=== PATIENT | female | born 1970 | race African-American/Black ===

== ENCOUNTER 2018-10-05 21:31 | Inpatient (IN) | payer OTHER ==
[2018-10-05 23:50] VITALS: BMI 29.2
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
[2018-10-06] MEDS ORDERED: DICYCLOMINE HCL 10 MG CAPSULE PO PRN (03:33)
[2018-10-06] MEDS ORDERED: NICOTINE POLACRILEX 2 MG GUM BUC PRN (03:33)
[2018-10-06] MEDS ORDERED: METHOCARBAMOL 500 MG TABLET PO PRN (03:33)
[2018-10-06] MEDS ORDERED: MAGNESIUM HYDROX 2400MG/30ML ORAL SUSPENSION 30 ML CUP PO PRN (03:33)
[2018-10-06] MEDS ORDERED: ACETAMINOPHEN 325 MG TABLET (FP) PO PRN ×2 (03:33)
[2018-10-06] MEDS ORDERED: hydrOXYzine PAMOATE 25 MG CAPSULE (FP) PO PRN (03:33)
[2018-10-06] MEDS ORDERED: IBUPROFEN 400 MG TABLET (FP) PO PRN (03:33)
[2018-10-06] MEDS ORDERED: BISMUTH SUBSALICYLATE 524 MG/30 ML UD PO PRN (03:33)
[2018-10-06] MEDS ORDERED: MELATONIN 5 MG TABLETS PO PRN (03:33)
[2018-10-06] MEDS ORDERED: P-EPHED 60MG/TRIPROLIDI 2.5MG TABLET PO PRN (03:33)
[2018-10-06] MEDS ORDERED: MAGNESIUM CITRATE 300 ML BOTTLE PO PRN (03:33)
[2018-10-06] MEDS ORDERED: MENTHOL/PHENOL 1 EACH UD MM PRN (03:33)
[2018-10-06] MEDS ORDERED: MAG HYDROX/AL HYDROX/SIMETH 30 ML UNIT-DOSE CUP PO PRN (03:33)
[2018-10-06] MEDS ORDERED: chlordiazePOXIDE HCL 25 MG CAPSULE PO PRN (03:33)
[2018-10-06] MEDS ORDERED: guaiFENesin 200 MG/10 ML 10 ML UNIT-DOSE CUPS PO PRN (03:33)
[2018-10-06] MEDS ORDERED: ONDANSETRON *ODT* 4 MG TABLET SL PRN (03:33)
[2018-10-06] MEDS: chlordiazePOXIDE HCL 25 MG CAPSULE PO SCH ×4 (04:37→22:26)
--- NOTE | 2018-10-06 08:45 | EKG ---
Test Reason : Blood Pressure : / mmHG Vent. Rate : 045 BPM Atrial Rate : 045 BPM P-R Int : 216 ms QRS Dur : 084 ms QT Int : 528 ms P-R-T Axes : 052 058 071 degrees QTc Int : 456 ms SINUS BRADYCARDIA WITH 1ST DEGREE A-V BLOCK OTHERWISE NORMAL ECG WHEN COMPARED WITH ECG OF 15-JAN-2011 09:21, [place] INTERVAL HAS INCREASED VENT. RATE HAS DECREASED BY 36 BPM NONSPECIFIC T WAVE ABNORMALITY NO LONGER EVIDENT IN INFERIOR LEADS Confirmed by AMARJIT SIGALA MD ([id number]) on 10/06/2018 8:44:55 AM Referred By: Thierno Garces Confirmed By:AMARJIT SIGALA MD
[2018-10-06] MEDS: NICOTINE 21 MG/24 HOURS TOPICAL PATCH TD SCH (10:36)
[2018-10-06] MEDS: PRENATAL VITAMINS W/ FOLIC ACID TABLET (FP) PO SCH (10:36)
[2018-10-06] MEDS ORDERED: PNEUMOC 13-VAL CONJ-DIP CRM/PF 0.5 ML DISP.SYRIN IM ONE (12:00)
[2018-10-06] MEDS ORDERED: PNEUMOCOCCAL 23 VACCINE 0.5 ML VIAL IM ONE (12:00)
[2018-10-06 12:25] LABS: HEMATOCRIT 40.3 % (32.4-45.2); HEMOGLOBIN 13.2 GM/dL (10.7-15.3); MCH 29.4 pg (25.7-33.7); MCHC 32.7 g/dl (32.0-36.0); MEAN CELL VOLUME 90.1 fl (80-96); MEAN PLT VOLUME 7.2 fl (7.5-11.1); RBC 4.48 M/mm3 (3.60-5.2); RDW 15.3 % (11.6-15.6)
[2018-10-06 12:30] LABS: PLATELET COUNT 279 K/MM3 (134-434)
[2018-10-06 12:51] LABS: ALBUMIN 3.5 g/dl (3.4-5.0); BILIRUBIN,TOTAL 0.5 mg/dL (0.2-1); BLOOD UREA NITROGEN 7.6 mg/dL (7-18); CALCIUM 9.2 mg/dL (8.5-10.1); CREATININE 0.7 mg/dL (0.55-1.3); POTASSIUM 3.7 mmol/L (3.5-5.1); TOT PROT 6.9 g/dl (6.4-8.2)
[2018-10-06] MEDS: HYDROCORTISONE 1% TOPICAL OINT 30 GM TUBE TP SCH ×2 (13:46→22:27)
--- NOTE | 2018-10-06 15:02 | CONSULT ---
[facility] Psychiatric Consult - Data Date of interview: 10/06/18 Admission source: [facility] Identifying data: [place] [facility] [place] 48 y/o AA female self- referred for detoxification (alcohol, cocaine, cannabis). Examined at [address] [place] [address]. Patient is single, a mother of one, homeless, unemployed and supported on SSI benefits. Substance Abuse History: Discussed in this session. this substance abuse prfile is confirmed by patient. Details in current [facility] report : Smoking history: Current every day smoker. Have you smoked in the past 12 months: Yes. Aproximately how many cigarettes per day: 10. Cigars Per Day: 0. Hx Chewing Tobacco Use: No. Initiated information on smoking cessation: Yes. 'Breaking Loose' booklet given: 10/06/18. - Substance & Tx. History. Hx Alcohol Use: Yes. Hx Substance Use: Yes. Substance Use Type: Alcohol. Hx Substance Use Treatment: Yes ([facility]). - Substances abused. Alcohol. Other (specify): BEER /LIQUOR. Substance route: Oral. Frequency: Daily. Amount used: 2-40OZ/2PINT. Age of first use: 4. Date of last use: 10/05/18. Crack. Substance route : Smoking. Frequency: 1-2 times per week. Amount used: 4 bags. Age of first use: 17. Date of last use: 10/05/18 Medical History: Remarkable for psoriasis, bronchial asthma and a distant history of orthosurgery, in 1993, for fracture of right ankle (hardware in situ) . Psychiatric History: Patient endorses a remote history of psychiatric hospitalization at [facility]. Ms Daly used to attend outpatient care at the [facility] in [place]. Diagnosed with Schizophrenia and currently maintained on a regimen of haloperidol decanoate 200 mg IM monthly (received on 10/05/18, as per self-report) + cogentin 1 mg po bid + gabapentin 800 mg po tid. Patient states she no longer goes to [facility] OPD clinic. " I get my shot from the emergency room at [facility] " . Patient reports a history of one suicide attempt via overdose with pills (1993 ). Physical/Sexual Abuse/Trauma History: Patient denies. Additional Comment: Urine drug screen results: THC-Marijuana, INA-Cocaine. Noted. Mental Status Exam - Mental Status Exam Alert and Oriented to: Time, Place, Person Cognitive Function: Good Patient Appearance: Unkempt, Disheveled Mood: Withdrawn Affect: Blunted Patient Behavior: Fatigued, Appropriate, Cooperative Speech Pattern: Clear, Appropriate Voice Loudness: Normal Thought Process: Goal Oriented Thought Disorder: Not Present Hallucinations: Denies Suicidal Ideation: Denies Homicidal Ideation: Denies Insight/Judgement: Poor Sleep: Well Appetite: Good Muscle strength/Tone: Normal Gait/Station: Normal Psychiatric Findings - Problem List ([place] 1, 2,3) (1) Alcohol dependence with uncomplicated withdrawal Current Visit: Yes Status: Acute (2) Cannabis dependence Current Visit: Yes Status: Acute (3) Cocaine dependence, uncomplicated Current Visit: Yes Status: Chronic (4) Nicotine dependence Current Visit: Yes Status: Chronic Qualifiers: Nicotine product type: cigarettes Substance use status: uncomplicated Qualified Code(s): F17.210 - Nicotine dependence, cigarettes, uncomplicated Comment: counseled cessation, using gum (5) Substance induced mood disorder Current Visit: Yes Status: Chronic (6) Schizoaffective disorder Current Visit: Yes Status: Chronic - Initial Treatment Plan Initial Treatment Plan: Psychoeducation. Sleep hygiene. Detoxification. AA meetings. Medications resumed as : cogentin 1 mg po bid. Side effects/benefits discussed with patient. Verbal consent given to MD. Salazar.
--- NOTE | 2018-10-06 15:02 | PN ---
[facility] CIWA - CIWA Score Nausea/Vomitin-No Nausea/No Vomiting Muscle Tremors: 2 Anxiety: 4-Mod. Anxious/Guarded Agitation: 1-Slight > Activity Paroxysmal Sweats: No Perspiration Orientation: 2-Disoriented Date<2 days Tacttile Disturbances: 3-Moderate Itch/Numb/Burn Auditory Disturbances: 0-None Visual Disturbances: 2-Mild Sensitivity Headache: 0-None Present CIWA-Ar Total Score: 14 S Progress Note (SOAP) Subjective: Anxious, Fatigue, Interrupted Sleep. Objective: PATIENT A & O X 2 (UNCERTAIN ABOUT CURRENT DAY / DATE). PATIENT OBSERVED AMBULATING ON UNIT UNASSISTED. IN NO ACUTE DISTRESS. 10/06/18 15:01 Vital Signs Temperature 96.7 F L 10/06/18 13:34 Pulse Rate 83 10/06/18 13:34 Respiratory Rate 16 10/06/18 13:34 Blood Pressure 105/69 10/06/18 13:34 O2 Sat by Pulse Oximetry (%) Laboratory Tests 10/06/18 10/06/18 10/06/18 07:30 07:30 07:30 WBC 4.0 RBC 4.48 Hgb 13.2 Hct 40.3 MCV 90.1 MCH 29.4 MCHC 32.7 RDW 15.3 Plt Count 279 MPV 7.2 L Sodium 140 Potassium 3.7 Chloride 102 Carbon Dioxide 31 Anion Gap 7 L BUN 7.6 Creatinine 0.7 Est GFR (CKD-EPI)AfAm 117.91 Est GFR (CKD-EPI)NonAf 101.74 Random Glucose 92 Calcium 9.2 Total Bilirubin 0.5 AST 17 ALT 18 Alkaline Phosphatase 74 Total Protein 6.9 Albumin 3.5 HIV 1&2 Antibody Screen Negative HIV P24 Antigen Negative LABS NOTED. RPR RESULT PENDING. 10/06/18 15:02 Assessment: 10/06/18 15:01 WITHDRAWAL SYMPTOMS. Plan: CONTINUE DETOX.
--- NOTE | 2018-10-06 15:03 | PN ---
S CIWA - CIWA Score Nausea/Vomitin-Mild Nausea/No Vomiting Muscle Tremors: 2 Anxiety: 1-Mildly Anxious Agitation: 1-Slight > Activity Paroxysmal Sweats: 1-Minimal Palms Moist Orientation: 0-Oriented Tacttile Disturbances: 0-None Auditory Disturbances: 0-None Visual Disturbances: 0-None Headache: 0-None Present CIWA-Ar Total Score: 6 [facility] Progress Note (SOAP) Subjective: pt states she is still feeling weak, was admitted early this morning, would like an ointment for eczema O: Vital Signs - 24 hr 10/05/18 10/06/18 10/06/18 23:36 03:51 04:27 Temperature 97.7 F 97.7 F 97.1 F L Pulse Rate 76 76 62 Respiratory 20 20 18 Rate Blood Pressure 100/75 100/75 120/72 10/06/18 10/06/18 10/06/18 06:30 09:28 13:34 Temperature 97.6 F 96.7 F L Pulse Rate 88 83 Respiratory 18 18 16 Rate Blood Pressure 109/80 105/69 Laboratory Tests 10/06/18 10/06/18 10/06/18 07:30 07:30 07:30 WBC 4.0 RBC 4.48 Hgb 13.2 Hct 40.3 MCV 90.1 MCH 29.4 MCHC 32.7 RDW 15.3 Plt Count 279 MPV 7.2 L Sodium 140 Potassium 3.7 Chloride 102 Carbon Dioxide 31 Anion Gap 7 L BUN 7.6 Creatinine 0.7 Est GFR (CKD-EPI)AfAm 117.91 Est GFR (CKD-EPI)NonAf 101.74 Random Glucose 92 Calcium 9.2 Total Bilirubin 0.5 AST 17 ALT 18 Alkaline Phosphatase 74 Total Protein 6.9 Albumin 3.5 HIV 1&2 Antibody Screen Negative HIV P24 Antigen Negative a/p: continue alcohol detox protocol steroid skin ointment ordered for psoriasis
[2018-10-06] MEDS ORDERED: FLUOCINONIDE 0.05% TOP OINT (60 GM TUBE) TP SCH (22:00)
[2018-10-06] MEDS: THIAMINE HCL 100 MG TABLET (FP) PO SCH (22:26)
[2018-10-06] MEDS: BENZTROPINE MESYLATE 1 MG TABLET (FP) PO SCH (22:26)
[2018-10-07] MEDS: chlordiazePOXIDE HCL 25 MG CAPSULE PO SCH ×4 (05:29→22:21)
[2018-10-07 09:05] LABS: RPR REACTIVE 1:2 (NONREACTIVE)
[2018-10-07] MEDS: NICOTINE 21 MG/24 HOURS TOPICAL PATCH TD SCH (10:28)
[2018-10-07] MEDS: BENZTROPINE MESYLATE 1 MG TABLET (FP) PO SCH ×2 (10:28→22:21)
[2018-10-07] MEDS: PRENATAL VITAMINS W/ FOLIC ACID TABLET (FP) PO SCH (10:28)
[2018-10-07] MEDS: HYDROCORTISONE 1% TOPICAL OINT 30 GM TUBE TP SCH ×2 (10:29→22:21)
[2018-10-07 10:53] LABS: TREPONEMA ANTIBODY REACTIVE (NONREACTIVE)
--- NOTE | 2018-10-07 13:46 | PN ---
[facility] CIWA - CIWA Score Nausea/Vomitin-No Nausea/No Vomiting Muscle Tremors: None Anxiety: 3 Agitation: 0-Normal Activity Paroxysmal Sweats: No Perspiration Orientation: 2-Disoriented Date<2 days Tacttile Disturbances: 1-Very Mild Itch/Numbness Auditory Disturbances: 0-None Visual Disturbances: 2-Mild Sensitivity Headache: 0-None Present CIWA-Ar Total Score: 8 S Progress Note (SOAP) Subjective: Anxious, Fatigue, Interrupted Sleep. Objective: PATIENT A & O X 2 (UNCERTAIN ABOUT CURRENT DAY / DATE). IN NO ACUTE DISTRESS. 10/07/18 13:46 Vital Signs Temperature 98.9 F 10/07/18 13:13 Pulse Rate 65 10/07/18 13:13 Respiratory Rate 18 10/07/18 13:13 Blood Pressure 118/75 10/07/18 13:13 O2 Sat by Pulse Oximetry (%) Laboratory Tests 10/06/18 10/06/18 10/06/18 07:30 07:30 07:30 WBC 4.0 RBC 4.48 Hgb 13.2 Hct 40.3 MCV 90.1 MCH 29.4 MCHC 32.7 RDW 15.3 Plt Count 279 MPV 7.2 L Sodium 140 Potassium 3.7 Chloride 102 Carbon Dioxide 31 Anion Gap 7 L BUN 7.6 Creatinine 0.7 Est GFR (CKD-EPI)AfAm 117.91 Est GFR (CKD-EPI)NonAf 101.74 Random Glucose 92 Calcium 9.2 Total Bilirubin 0.5 AST 17 ALT 18 Alkaline Phosphatase 74 Total Protein 6.9 Albumin 3.5 RPR Titer Reactive 1:2 H T.pallidum Ab (MHA) Reactive HIV 1&2 Antibody Screen HIV P24 Antigen 10/06/18 07:30 WBC RBC Hgb Hct MCV MCH MCHC RDW Plt Count MPV Sodium Potassium Chloride Carbon Dioxide Anion Gap BUN Creatinine Est GFR (CKD-EPI)AfAm Est GFR (CKD-EPI)NonAf Random Glucose Calcium Total Bilirubin AST ALT Alkaline Phosphatase Total Protein Albumin RPR Titer T.pallidum Ab (MHA) HIV 1&2 Antibody Screen Negative HIV P24 Antigen Negative LABS NOTED. ADMISSION RPR RESULT NOTED TO BE REACTIVE 1:2, MHATP: REACTIVE. PATIENT REPORTS THAT SHE COMPLETED A FULL COURSE OF TREATMENT FOR SYPHILIS IN THE PAST. 10/07/18 13:47 Assessment: 10/07/18 13:47 WITHDRAWAL SYMPTOMS. REACTIVE RPR RESULT. Plan: CONTINUE DETOX. ENCOURAGE AMBULATION.
[2018-10-07] MEDS: THIAMINE HCL 100 MG TABLET (FP) PO SCH (22:20)
[2018-10-08] MEDS ORDERED: chlordiazePOXIDE HCL 10 MG CAPSULE PO PRN (05:00)
[2018-10-08] MEDS: chlordiazePOXIDE HCL 10 MG CAPSULE PO SCH ×4 (06:04→22:23)
[2018-10-08] MEDS: HYDROCORTISONE 1% TOPICAL OINT 30 GM TUBE TP SCH ×2 (10:25→22:24)
[2018-10-08] MEDS: PRENATAL VITAMINS W/ FOLIC ACID TABLET (FP) PO SCH (10:26)
[2018-10-08] MEDS: BENZTROPINE MESYLATE 1 MG TABLET (FP) PO SCH ×2 (10:26→22:23)
[2018-10-08] MEDS: NICOTINE 21 MG/24 HOURS TOPICAL PATCH TD SCH (10:27)
--- NOTE | 2018-10-08 14:08 | PN ---
S CIWA - CIWA Score Nausea/Vomitin-No Nausea/No Vomiting Muscle Tremors: 2 Anxiety: 1-Mildly Anxious Agitation: 1-Slight > Activity Paroxysmal Sweats: 1-Minimal Palms Moist Orientation: 0-Oriented Tacttile Disturbances: 0-None Auditory Disturbances: 0-None Visual Disturbances: 0-None Headache: 1-Very Mild CIWA-Ar Total Score: 6 [facility] Progress Note (SOAP) Subjective: sweats feeling better i need my psych medication Objective: 10/08/18 14:07 Vital Signs Temperature 97.1 F L 10/08/18 09:59 Pulse Rate 72 10/08/18 09:59 Respiratory Rate 18 10/08/18 09:59 Blood Pressure 109/77 10/08/18 09:59 O2 Sat by Pulse Oximetry (%) aaox3 ambulating no acute distress Assessment: 10/08/18 14:08 mild withdrawal sx Plan: continue detox increase fluids psych seen pt and medication ordered.
[2018-10-08 18:14] LABS: URINE APPEARANCE CLEAR; URINE BILIRUBIN 1+ (NEGATIVE); URINE COLOR DK YELLOW; URINE GLUCOSE (UA) NEGATIVE (NEGATIVE); URINE KETONE TRACE (NEGATIVE); URINE LEUK ESTERASE NEGATIVE (NEGATIVE); URINE NITRITE NEGATIVE (NEGATIVE); URINE PROTEIN NEGATIVE (NEGATIVE)
--- NOTE | 2018-10-08 18:22 | PN ---
[facility] Progress Note Note: Psychiatry Attending's note : Approached by patient. Ms Daly wants to resume gabapentin. She claimed to be on 800 mg po tid, prior to [facility] visit. Intervention : gabapentin 300 mg po tid. Informed consent given. Will follow.
[2018-10-08] MEDS: THIAMINE HCL 100 MG TABLET (FP) PO SCH (22:22)
[2018-10-08] MEDS: GABAPENTIN 300 MG CAPSULE (FP) PO SCH (22:23)
[2018-10-09] MEDS: chlordiazePOXIDE HCL 10 MG CAPSULE PO SCH ×2 (05:37→17:57)
[2018-10-09] MEDS: GABAPENTIN 300 MG CAPSULE (FP) PO SCH ×3 (05:37→22:14)
[2018-10-09] MEDS: BENZTROPINE MESYLATE 1 MG TABLET (FP) PO SCH ×2 (10:26→22:14)
[2018-10-09] MEDS: HYDROCORTISONE 1% TOPICAL OINT 30 GM TUBE TP SCH ×2 (10:26→22:15)
[2018-10-09] MEDS: PRENATAL VITAMINS W/ FOLIC ACID TABLET (FP) PO SCH (10:26)
[2018-10-09] MEDS: NICOTINE 21 MG/24 HOURS TOPICAL PATCH TD SCH (10:26)
--- NOTE | 2018-10-09 13:40 | PN ---
S CIWA - CIWA Score Nausea/Vomitin-No Nausea/No Vomiting Muscle Tremors: 2 Anxiety: 2 Agitation: 3 Paroxysmal Sweats: 2 Orientation: 0-Oriented Tacttile Disturbances: 0-None Auditory Disturbances: 0-None Visual Disturbances: 0-None Headache: 0-None Present CIWA-Ar Total Score: 9 BHS Progress Note (SOAP) Subjective: shakes Objective: 10/09/18 13:39 A & O x 3 Gait steady Vital Signs Temperature 97.2 F L 10/09/18 10:00 Pulse Rate 71 10/09/18 10:00 Respiratory Rate 18 10/09/18 10:00 Blood Pressure 126/78 10/09/18 10:00 O2 Sat by Pulse Oximetry (%) Assessment: 10/09/18 13:39 withdrawal sx Plan: continue detox
[2018-10-09] MEDS: THIAMINE HCL 100 MG TABLET (FP) PO SCH (22:14)
[2018-10-09 22:50] VITALS: TEMP 97.9
[2018-10-10] MEDS: chlordiazePOXIDE HCL 10 MG CAPSULE PO SCH (06:30)
[2018-10-10 07:06] VITALS: BP 96/66; PULSE 58
[2018-10-10] MEDS: GABAPENTIN 300 MG CAPSULE (FP) PO SCH (07:51)
[2018-10-10] MEDS: PRENATAL VITAMINS W/ FOLIC ACID TABLET (FP) PO SCH (10:13)
[2018-10-10] MEDS: HYDROCORTISONE 1% TOPICAL OINT 30 GM TUBE TP SCH (10:13)
[2018-10-10] MEDS: NICOTINE 21 MG/24 HOURS TOPICAL PATCH TD SCH (10:13)
[2018-10-10] MEDS: BENZTROPINE MESYLATE 1 MG TABLET (FP) PO SCH (10:13)
--- NOTE | 2018-10-10 12:05 | DS ---
[facility] Detox Discharge Summary Admission Date: 10/06/18 Discharge Date: 10/10/18 - History Present History: Alcohol Dependence, Cocaine Dependence - Physical Exam Results Vital Signs: Vital Signs Temperature 97.9 F 10/10/18 06:00 Pulse Rate 58 L 10/10/18 06:00 Respiratory Rate 18 10/10/18 06:00 Blood Pressure 96/66 10/10/18 06:00 O2 Sat by Pulse Oximetry (%) - Treatment Hospital Course: Detox Protocol Followed, Detoxed Safely, Responded well, Discharged Condition Good, Rehab Referral Accepted - Medication Discharge Medications: Ambulatory Orders Gabapentin [Neurontin] 800 mg PO TID 07/19/14 Haloperidol Decanoate [Haldol Decanoate 100] 200 mg IM MONTHLY 07/19/14 Ergocalciferol (Vitamin D2) [Vitamin D] 50,000 unit PO WEEKLY 10/20/14 Benztropine Mesylate Injection [Cogentin Injection -] 1 amp IM MONTHLY 10/05/18 - Diagnosis (1) Alcohol dependence with uncomplicated withdrawal Current Visit: Yes Status: Chronic (2) Cannabis dependence Current Visit: Yes Status: Chronic (3) Asthma Current Visit: Yes Status: Chronic (4) Cocaine dependence, uncomplicated Current Visit: Yes Status: Chronic (5) Nicotine dependence Current Visit: Yes Status: Chronic Qualifiers: Nicotine product type: cigarettes Substance use status: uncomplicated Qualified Code(s): F17.210 - Nicotine dependence, cigarettes, uncomplicated (6) Psoriasis Current Visit: Yes Status: Chronic (7) Schizoaffective disorder Current Visit: Yes Status: Chronic (8) Substance induced mood disorder Current Visit: Yes Status: Chronic (9) Ankle pain, right Current Visit: No Status: Chronic Qualifiers: Chronicity: unspecified Qualified Code(s): M25.571 - Pain in right ankle and joints of right foot (10) Chronic pain Current Visit: Yes Status: Chronic Qualifiers: Chronic pain type: other chronic pain Qualified Code(s): G89.29 - Other chronic pain (11) chronic Rt ankle pain Current Visit: No Status: Chronic (12) schizoid personality disorder Current Visit: No Status: Chronic - AMA Did Patient Leave Against Medical Advice: No (referred to [facility])
== END 2018-10-10 12:03 | disposition home or self-care (01) | DRG 774 ==
LOC: YASAS 21:31 → Y3N 10-06 03:10 → Y6N 10-09 01:24
PROVIDERS: ADMIT Surgery; ATTEND Surgery
PROC: HZ2ZZZZ Detoxification Services for Substance Abuse Treatment (ICD-10-PCS; principal; 2018-10-06)
DX: F10.230 Alcohol dependence with withdrawal, uncomplicated (principal); F14.20 Cocaine dependence, uncomplicated; F12.20 Cannabis dependence, uncomplicated; F17.210 Nicotine dependence, cigarettes, uncomplicated; F19.24 Other psychoactive substance dependence with psychoactive substance-induced mood disorder; F25.9 Schizoaffective disorder, unspecified; F31.9 Bipolar disorder, unspecified; E05.90 Thyrotoxicosis, unspecified without thyrotoxic crisis or storm; J45.909 Unspecified asthma, uncomplicated; L40.9 Psoriasis, unspecified; M25.571 Pain in right ankle and joints of right foot; G89.29 Other chronic pain; Z86.19 Personal history of other infectious and parasitic diseases; Z91.89 Other specified personal risk factors, not elsewhere classified; Z59.0 Homelessness
CPT/HCPCS: 36415; 80053; 81003; 85027; 86593; 86780; 87389; 90732; 93005; 93010; G0009

== ENCOUNTER 2018-10-10 12:00 | Inpatient (IN) | payer OTHER ==
--- NOTE | 2018-10-10 15:25 | HP ---
[facility] Rehab Assess/Revision - Admission History Admitted to Rehab from: Y [address] [place] [address] - Vital signs Vital Signs: Vital Signs Period Temp Pulse Resp BP Sys/Vincent Pulse Ox Last 24 Hr 97.7 F 85 18 100/69 - Findings Detox History & Physical reviewed: Yes Concur with findings: Yes Inpatient Rehab Admission - Rehab Decision to Admit Inpatient rehab admission?: Yes - Initial Determination Are CD services needed?: Yes Free of communicable disease: Yes Not in need of hospitalization: Yes - Rehab Admission Criteria Previous failed treatment: Yes Poor recovery environment: Yes Comorbidities: Yes Lacks judgement: Yes Patient is meeting Inpatient Rehab admission criteria:: Yes
[2018-10-10] MEDS ORDERED: P-EPHED 60MG/TRIPROLIDI 2.5MG TABLET PO PRN (15:26)
[2018-10-10] MEDS ORDERED: NICOTINE POLACRILEX 4 MG GUM BUC PRN (15:26)
[2018-10-10] MEDS ORDERED: LOPERAMIDE HCL 2 MG CAPSULE PO PRN (15:26)
[2018-10-10] MEDS ORDERED: MAGNESIUM CITRATE 300 ML BOTTLE PO PRN (15:26)
[2018-10-10] MEDS ORDERED: guaiFENesin 200 MG/10 ML 10 ML UNIT-DOSE CUPS PO PRN (15:26)
[2018-10-10] MEDS ORDERED: hydrOXYzine PAMOATE 50 MG CAPSULE (FP) PO PRN (15:26)
[2018-10-10] MEDS ORDERED: MAG HYDROX/AL HYDROX/SIMETH 30 ML UNIT-DOSE CUP PO PRN (15:26)
[2018-10-10] MEDS ORDERED: MENTHOL/PHENOL 1 EACH UD MM PRN (15:26)
[2018-10-10] MEDS ORDERED: MAGNESIUM HYDROX 2400MG/30ML ORAL SUSPENSION 30 ML CUP PO PRN (15:26)
[2018-10-10] MEDS: MELATONIN 5 MG TABLETS PO PRN (21:39)
[2018-10-10] MEDS: THIAMINE HCL 100 MG TABLET (FP) PO SCH (21:39)
[2018-10-11] MEDS: PRENATAL VITAMINS W/ FOLIC ACID TABLET (FP) PO SCH (09:38)
[2018-10-11] MEDS: NICOTINE 21 MG/24 HOURS TOPICAL PATCH TD SCH (10:20)
[2018-10-11] MEDS: BETAMETHASONE DIPR 0.05% OINT 45 GM TUBE TP SCH ×2 (11:01→21:26)
--- NOTE | 2018-10-11 13:22 | PN ---
[facility] Progress Note Note: Patient seen regarding Methimazole medication which she reports taking daily for years. Patient's PCP is Dr. Juan Gaona and preferred pharmacy is [facility]. Pharmacy called and prescription verified as Methimazole 10mg daily, last filled 09/15/18. Pharmacist states patient picks up medication monthly which is prescribed by Dr. Gaona. Medication ordered to continue treatment while in rehab. Vital Signs Temperature 97.2 F L 10/11/18 07:07 Pulse Rate 63 10/11/18 07:07 Respiratory Rate 18 10/11/18 07:07 Blood Pressure 113/76 10/11/18 07:07 O2 Sat by Pulse Oximetry (%)
[2018-10-11] MEDS: METHIMAZOLE 10 MG TABLET (FP) PO SCH (14:33)
--- NOTE | 2018-10-11 14:37 | CONSULT ---
[facility] Psychiatric Consult - Data Date of interview: 10/11/18 Admission source: Transfer from [address] [place] [address]. Identifying data: Detoxification completed at [address] [place] [address]. Transfer to [address] for this 48 y/o AA female seeking rehabilitative care for preservation of sobriety and to address substance disorder (alcohol, cocaine, cannabis) co- morbid with schizoaffective disorder. Re-interviewed at [facility]. Patient is single, a mother of one, homeless, unemployed and supported on SSI benefits. Substance Abuse History: Re-discussed in this session. Substance use disorder is confirmed by patient. Details in current [facility] report : Smoking history: Current every day smoker. Have you smoked in the past 12 months: Yes. Aproximately how many cigarettes per day: 10. Cigars Per Day: 0. Hx Chewing Tobacco Use: No. Initiated information on smoking cessation: Yes. 'Breaking Loose' booklet given: 10/06/18. - Substance & Tx. History. Hx Alcohol Use: Yes. Hx Substance Use: Yes. Substance Use Type: Alcohol. Hx Substance Use Treatment: Yes ([facility]). - Substances abused. Alcohol. Other (specify): BEER /LIQUOR. Substance route: Oral. Frequency: Daily. Amount used: 2-40OZ/2PINT. Age of first use: 4. Date of last use: 10/05/18. Crack. Substance route : Smoking. Frequency: 1-2 times per week. Amount used: 4 bags. Age of first use: 17. Date of last use: 10/05/18 Medical History: Remarkable for psoriasis, bronchial asthma and a distant history of orthosurgery, in 1993, for fracture of right ankle (hardware in situ) . Psychiatric History: No changes in psychiatric profile since encounter of with this sign writer letterer or painter. Refer to my note : " Patient endorses a remote history of psychiatric hospitalization at [facility]. Ms Daly used to attend outpatient care at the [facility] in [place]. Diagnosed with Schizophrenia and currently maintained on a regimen of haloperidol decanoate 200 mg IM monthly (received on 10/05/18, as per self-report) + cogentin 1 mg po bid + gabapentin 800 mg po tid. Patient states she no longer goes to [facility]. " I get my shot from the emergency room at [facility]" . Patient reports a history of one suicide attempt via overdose with pills (1993 )." Physical/Sexual Abuse/Trauma History: Patient denies. Additional Comment: Urine drug screen results: THC-Marijuana, INA-Cocaine. Noted on admission. Mental Status Exam - Mental Status Exam Alert and Oriented to: Time, Place, Person Cognitive Function: Good Patient Appearance: Well Groomed Mood: Hopeful, Euthymic Affect: Appropriate, Normal Range Patient Behavior: Appropriate, Cooperative Speech Pattern: Clear, Appropriate Voice Loudness: Normal Thought Process: Goal Oriented Thought Disorder: Not Present Hallucinations: Denies Suicidal Ideation: Denies Homicidal Ideation: Denies Insight/Judgement: Fair Sleep: Well Appetite: Good Muscle strength/Tone: Normal Gait/Station: Normal Psychiatric Findings - Problem List ([place] 1, 2,3) (1) Alcohol dependence Current Visit: Yes Status: Chronic (2) Cannabis dependence Current Visit: Yes Status: Chronic (3) Cocaine dependence, uncomplicated Current Visit: Yes Status: Chronic (4) Nicotine dependence Current Visit: Yes Status: Chronic Qualifiers: Nicotine product type: cigarettes Substance use status: uncomplicated Qualified Code(s): F17.210 - Nicotine dependence, cigarettes, uncomplicated Comment: counseled cessation, using gum (5) Schizoaffective disorder Current Visit: Yes Status: Chronic - Initial Treatment Plan Initial Treatment Plan: Psychoeducation. Groups. Counseling for maintenance of sobriety.AA meetings. Continue : cogentin 1 mg po bid. Added to the regimen, at patient's request : gabapentin 300 mg po tid (as a mood stabilizer). Side effects/benefits discussed with thepatient. Verbal consent given to MD. Salazar.
[2018-10-11] MEDS: THIAMINE HCL 100 MG TABLET (FP) PO SCH (21:23)
[2018-10-11] MEDS: GABAPENTIN 300 MG CAPSULE (FP) PO SCH (21:24)
[2018-10-11] MEDS: BENZTROPINE MESYLATE 1 MG TABLET (FP) PO SCH (21:25)
[2018-10-11] MEDS ORDERED: PT OWN MED DRAWER 7, Y5N ONE (21:25)
[2018-10-12] MEDS: GABAPENTIN 300 MG CAPSULE (FP) PO SCH ×3 (06:46→21:32)
[2018-10-12] MEDS ORDERED: PT OWN MED DRAWER 7, Y5N ONE (08:50)
[2018-10-12] MEDS: BETAMETHASONE DIPR 0.05% OINT 45 GM TUBE TP SCH ×2 (10:08→21:32)
[2018-10-12] MEDS: METHIMAZOLE 10 MG TABLET (FP) PO SCH (10:08)
[2018-10-12] MEDS: BENZTROPINE MESYLATE 1 MG TABLET (FP) PO SCH ×2 (10:08→21:32)
[2018-10-12] MEDS: PRENATAL VITAMINS W/ FOLIC ACID TABLET (FP) PO SCH (10:08)
[2018-10-12] MEDS: NICOTINE 21 MG/24 HOURS TOPICAL PATCH TD SCH (10:08)
[2018-10-12] MEDS: THIAMINE HCL 100 MG TABLET (FP) PO SCH (21:32)
[2018-10-12] MEDS: MELATONIN 5 MG TABLETS PO PRN (21:33)
[2018-10-13] MEDS: GABAPENTIN 300 MG CAPSULE (FP) PO SCH ×3 (06:04→21:29)
[2018-10-13] MEDS ORDERED: COLLOIDAL OATMEAL 1 BAR EACH TP PRN (08:14)
[2018-10-13] MEDS: PRENATAL VITAMINS W/ FOLIC ACID TABLET (FP) PO SCH (10:16)
[2018-10-13] MEDS: NICOTINE 21 MG/24 HOURS TOPICAL PATCH TD SCH (10:16)
[2018-10-13] MEDS: METHIMAZOLE 10 MG TABLET (FP) PO SCH (10:16)
[2018-10-13] MEDS: BENZTROPINE MESYLATE 1 MG TABLET (FP) PO SCH ×2 (10:16→21:29)
[2018-10-13] MEDS: BETAMETHASONE DIPR 0.05% OINT 45 GM TUBE TP SCH ×2 (10:18→21:31)
[2018-10-13] MEDS ORDERED: MINERAL OIL/PETROLAT/WATER TOPICAL CREAM 454 GM JAR TP PRN (11:01)
--- NOTE | 2018-10-13 11:08 | PN ---
S Progress Note (SOAP) Subjective: patient with rash on hands. Reports that it is chronic and she has been treated with oral medications for it in the past as well as topical medications. Objective: Rash on top, palm, wrists, and lower arms, round, raised, circular, hyperpigmented and scaly. On face, some hypopigmented spots. 10/13/18 11:06 Assessment: skin rash 10/13/18 11:07 Plan: Aveeno soap, eucerin cream and hydrocortisone 1% ordered.
[2018-10-13] MEDS: HYDROCORTISONE 1% TOPICAL CREAM 30 GM TUBE TP SCH ×2 (12:00→21:29)
[2018-10-13] MEDS: THIAMINE HCL 100 MG TABLET (FP) PO SCH (21:29)
[2018-10-13] MEDS: MELATONIN 5 MG TABLETS PO PRN (21:29)
[2018-10-13] MEDS: ACETAMINOPHEN 325 MG TABLET (FP) PO PRN (21:30)
[2018-10-14] MEDS: GABAPENTIN 300 MG CAPSULE (FP) PO SCH ×3 (06:40→21:38)
[2018-10-14] MEDS ORDERED: PT OWN MED DRAWER 7, Y5N ONE ×2 (08:28→21:40)
[2018-10-14] MEDS: BETAMETHASONE DIPR 0.05% OINT 45 GM TUBE TP SCH ×2 (09:48→21:38)
[2018-10-14] MEDS: HYDROCORTISONE 1% TOPICAL CREAM 30 GM TUBE TP SCH ×2 (09:49→21:40)
[2018-10-14] MEDS: METHIMAZOLE 10 MG TABLET (FP) PO SCH (09:49)
[2018-10-14] MEDS: BENZTROPINE MESYLATE 1 MG TABLET (FP) PO SCH ×2 (09:49→21:38)
[2018-10-14] MEDS: NICOTINE 21 MG/24 HOURS TOPICAL PATCH TD SCH (09:49)
[2018-10-14] MEDS: PRENATAL VITAMINS W/ FOLIC ACID TABLET (FP) PO SCH (09:49)
[2018-10-14] MEDS: IBUPROFEN 400 MG TABLET (FP) PO PRN (09:50)
[2018-10-14] MEDS: ACETAMINOPHEN 325 MG TABLET (FP) PO PRN (19:14)
[2018-10-14] MEDS: THIAMINE HCL 100 MG TABLET (FP) PO SCH (21:37)
[2018-10-14] MEDS: MELATONIN 5 MG TABLETS PO PRN (21:38)
[2018-10-15] MEDS: GABAPENTIN 300 MG CAPSULE (FP) PO SCH ×3 (06:37→21:15)
[2018-10-15] MEDS: IBUPROFEN 400 MG TABLET (FP) PO PRN ×2 (06:38→13:06)
[2018-10-15] MEDS ORDERED: PT OWN MED DRAWER 7, Y5N ONE ×2 (08:45→20:19)
[2018-10-15] MEDS: BENZTROPINE MESYLATE 1 MG TABLET (FP) PO SCH ×2 (09:54→21:15)
[2018-10-15] MEDS: PRENATAL VITAMINS W/ FOLIC ACID TABLET (FP) PO SCH (09:54)
[2018-10-15] MEDS: METHIMAZOLE 10 MG TABLET (FP) PO SCH (09:54)
[2018-10-15] MEDS: NICOTINE 21 MG/24 HOURS TOPICAL PATCH TD SCH (09:55)
[2018-10-15] MEDS: HYDROCORTISONE 1% TOPICAL CREAM 30 GM TUBE TP SCH ×2 (09:55→21:15)
[2018-10-15] MEDS: ACETAMINOPHEN 325 MG TABLET (FP) PO PRN ×2 (09:57→17:00)
[2018-10-15] MEDS: BETAMETHASONE DIPR 0.05% OINT 45 GM TUBE TP SCH ×2 (10:36→21:16)
--- NOTE | 2018-10-15 10:44 | PN ---
[facility] Progress Note Note: S/P DETOX FROM [facility] ON 10/10/18. PT C/O HEADACHE, FRONTAL X 2 DAYS. DENIES URI SYMPTOMS. ALERT O X 3. PT ALSO DEMANDING "ANTIBIOTICS TO BRING OUT EVERYTHING INSIDE BECAUSE I HAVE PSORIASIS" . PT BECAME VERY LOUD AND UNABLE TO BE REDIRECTED TO HISTORY TAKING AND STORMED OUT OF THE ROOM. HOWEVER, PT WAS SEEN FOR SKIN CONDITION BY A PROVIDER EARLIER AND IS ON TOPICAL MED. Vital Signs - 24 hr 10/15/18 10/15/18 10/15/18 00:30 03:30 07:02 Temperature 97.1 F L Pulse Rate 56 L Respiratory 18 18 18 Rate Blood Pressure 129/89 PLAN:MOTRIN OR TYLENOL PRN FOR HEADACHE.
[2018-10-15] MEDS: THIAMINE HCL 100 MG TABLET (FP) PO SCH (21:16)
[2018-10-15] MEDS: MELATONIN 5 MG TABLETS PO PRN (21:17)
[2018-10-16] MEDS: IBUPROFEN 400 MG TABLET (FP) PO PRN ×2 (06:08→14:15)
[2018-10-16] MEDS: GABAPENTIN 300 MG CAPSULE (FP) PO SCH ×3 (06:08→21:20)
[2018-10-16] MEDS ORDERED: PT OWN MED DRAWER 7, Y5N ONE (08:37)
[2018-10-16] MEDS: BETAMETHASONE DIPR 0.05% OINT 45 GM TUBE TP SCH ×2 (09:15→21:22)
[2018-10-16] MEDS: METHIMAZOLE 10 MG TABLET (FP) PO SCH (09:15)
[2018-10-16] MEDS: NICOTINE 21 MG/24 HOURS TOPICAL PATCH TD SCH (09:15)
[2018-10-16] MEDS: BENZTROPINE MESYLATE 1 MG TABLET (FP) PO SCH ×2 (09:15→21:20)
[2018-10-16] MEDS: HYDROCORTISONE 1% TOPICAL CREAM 30 GM TUBE TP SCH ×2 (09:16→21:22)
[2018-10-16] MEDS: PRENATAL VITAMINS W/ FOLIC ACID TABLET (FP) PO SCH (09:59)
[2018-10-16] MEDS ORDERED: ALBUTEROL SO4 8 GM HFA INHALER IH PRN (10:36)
[2018-10-16] MEDS: MELATONIN 5 MG TABLETS PO PRN (21:20)
[2018-10-16] MEDS: THIAMINE HCL 100 MG TABLET (FP) PO SCH (21:20)
[2018-10-16] MEDS: ACETAMINOPHEN 325 MG TABLET (FP) PO PRN (21:21)
[2018-10-17] MEDS: ACETAMINOPHEN 325 MG TABLET (FP) PO PRN ×2 (06:43→19:38)
[2018-10-17] MEDS: GABAPENTIN 300 MG CAPSULE (FP) PO SCH ×3 (06:43→21:38)
[2018-10-17] MEDS: PRENATAL VITAMINS W/ FOLIC ACID TABLET (FP) PO SCH (09:50)
[2018-10-17] MEDS: IBUPROFEN 400 MG TABLET (FP) PO PRN ×2 (09:52→17:28)
[2018-10-17] MEDS: BENZTROPINE MESYLATE 1 MG TABLET (FP) PO SCH ×2 (09:52→21:38)
[2018-10-17] MEDS: METHIMAZOLE 10 MG TABLET (FP) PO SCH (09:52)
[2018-10-17] MEDS: HYDROCORTISONE 1% TOPICAL CREAM 30 GM TUBE TP SCH ×2 (09:54→21:39)
[2018-10-17] MEDS: BETAMETHASONE DIPR 0.05% OINT 45 GM TUBE TP SCH ×2 (09:54→21:39)
[2018-10-17] MEDS: NICOTINE 21 MG/24 HOURS TOPICAL PATCH TD SCH (10:42)
[2018-10-17] MEDS ORDERED: PT OWN MED DRAWER 7, Y5N ONE (19:59)
[2018-10-17] MEDS ORDERED: COLLOIDAL OATMEAL 1 BAR EACH TP PRN (20:59)
[2018-10-17] MEDS: THIAMINE HCL 100 MG TABLET (FP) PO SCH (21:39)
[2018-10-17] MEDS: MELATONIN 5 MG TABLETS PO PRN (21:40)
[2018-10-18] MEDS: GABAPENTIN 300 MG CAPSULE (FP) PO SCH (06:59)
[2018-10-18] MEDS: ACETAMINOPHEN 325 MG TABLET (FP) PO PRN (07:00)
[2018-10-18 07:08] VITALS: BP 112/76; PULSE 69; TEMP 97.4
--- NOTE | 2018-10-18 08:04 | PN ---
[facility] Progress Note Note: Patient was seen and examined at bedside with complaint of headache for a week and blurry vision since yesterday. She reports history of migraine headache and use of glasses. Patient sates that she has not been compliant with the use of her glasses which she does not have now. Vital Signs Temperature 97.4 F L 10/18/18 07:07 Pulse Rate 69 10/18/18 07:07 Respiratory Rate 18 10/18/18 07:07 Blood Pressure 112/76 10/18/18 07:07 O2 Sat by Pulse Oximetry (%) Action: Continue Tylenol 325mg tablet 2 tablets oral Q6H F/U with a neurologist and PCP on discharge F/U with Hotel Service Manager to evaluate eye pressure and replace glasses
[2018-10-18] MEDS ORDERED: PT OWN MED DRAWER 7, Y5N ONE ×2 (08:44→10:48)
[2018-10-18] MEDS: METHIMAZOLE 10 MG TABLET (FP) PO SCH (09:17)
[2018-10-18] MEDS: BENZTROPINE MESYLATE 1 MG TABLET (FP) PO SCH (09:17)
[2018-10-18] MEDS: PRENATAL VITAMINS W/ FOLIC ACID TABLET (FP) PO SCH (09:17)
[2018-10-18] MEDS: BETAMETHASONE DIPR 0.05% OINT 45 GM TUBE TP SCH (09:18)
[2018-10-18] MEDS: NICOTINE 21 MG/24 HOURS TOPICAL PATCH TD SCH (09:18)
[2018-10-18] MEDS: HYDROCORTISONE 1% TOPICAL CREAM 30 GM TUBE TP SCH (09:18)
--- NOTE | 2018-10-18 11:40 | PN ---
[facility] Progress Note Note: Psychiatry Attending's note : Nurse called for scripts. Patient is scheduled for discharge today. Ms Daly is already known to this scientific writer. Scripts sent to [facility] for : cogentin 0.5 mg po daily tab # 30 gabapentin 300 mg po tid tab # 60 Met today with patient at [address] [facility] Side effecst/benefits rediscussed. Dose of cogentin is lowered to 0.5 mg/day. Due to complaint of blurred vision. Patient agrees.
--- NOTE | 2018-10-18 12:24 | PN ---
[facility] Progress Note (SOAP) Subjective: PT REQUESTED EARLY DISCHARGE TO FOLLOW UP WITH HER PRIMARY CARE PROVIDER TODAY, DR. ALISHA TORRES AT [address] [place] [address]. PT MET WITH COUNSELLING AND WILL FOLLOW UP AT [facility] ON FOR CD AFTERCARE. PT IS ALERT O X 3. DENIES S/H/I. Objective: 10/18/18 12:22 Vital Signs - 24 hr 10/17/18 10/18/18 10/18/18 21:15 00:30 03:30 Temperature 97.2 F L Pulse Rate 70 Respiratory 18 18 18 Rate Blood Pressure 107/73 10/18/18 07:07 Temperature 97.4 F L Pulse Rate 69 Respiratory 18 Rate Blood Pressure 112/76 Home Medications Medication Instructions Recorded Gabapentin [Neurontin] 300 mg PO TID 07/19/14 Haloperidol Decanoate [Haldol 200 mg IM MONTHLY 07/19/14 Decanoate 100] Ergocalciferol (Vitamin D2) 50,000 unit PO WEEKLY 10/20/14 [Vitamin D] Benztropine Mesylate Injection 1 amp IM MONTHLY 10/05/18 [Cogentin Injection -] Benztropine Mesylate 1 mg PO BID 10/10/18 Benztropine Mesylate [Cogentin -] 0.5 mg PO DAILY #30 tablet 10/18/18 Gabapentin [Neurontin -] 300 mg PO TID #60 capsule 10/18/18 Assessment: 10/18/18 12:22 NAD MEDICALLY STABLE Plan: FOLLOW UP WITH CD AFTERCARE RECOMMENDED AT [facility] FOLLOW UP WITH PCP TODAY AFTER DISCHARGE.
== END 2018-10-18 11:05 | disposition home or self-care (01) | DRG 772 ==
LOC: YASAS 12:00 → Y3E 12:02
PROVIDERS: ADMIT Neuromusculoskeletal Medicine & OMM; ATTEND Neuromusculoskeletal Medicine & OMM
PROC: HZ42ZZZ Group Counseling for Substance Abuse Treatment, Cognitive-Behavioral (ICD-10-PCS; principal; 2018-10-10)
DX: F10.20 Alcohol dependence, uncomplicated (principal); F14.20 Cocaine dependence, uncomplicated; F12.20 Cannabis dependence, uncomplicated; F17.210 Nicotine dependence, cigarettes, uncomplicated; F25.9 Schizoaffective disorder, unspecified; L40.9 Psoriasis, unspecified; R51 Headache

== ENCOUNTER 2018-12-05 12:20 | Inpatient (IN) | payer OTHER | END 2018-12-09 11:15 | disposition other institution (70) | LOC: YASAS 12:20 → Y6N 12-07 10:33 → Y3N 12-07 10:44 → Y6N 12-07 10:48 ==

== ENCOUNTER 2018-12-09 12:04 | Inpatient (IN) | payer OTHER ==
[2018-12-09] MEDS ORDERED: MENTHOL/PHENOL 1 EACH UD MM PRN (12:55)
[2018-12-09] MEDS ORDERED: ACETAMINOPHEN 325 MG TABLET (FP) PO PRN (12:55)
[2018-12-09] MEDS ORDERED: P-EPHED 60MG/TRIPROLIDI 2.5MG TABLET PO PRN (12:55)
[2018-12-09] MEDS ORDERED: LOPERAMIDE HCL 2 MG CAPSULE PO PRN (12:55)
[2018-12-09] MEDS ORDERED: MAGNESIUM HYDROX 2400MG/30ML ORAL SUSPENSION 30 ML CUP PO PRN (12:55)
[2018-12-09] MEDS ORDERED: MAGNESIUM CITRATE 300 ML BOTTLE PO PRN (12:55)
[2018-12-09] MEDS ORDERED: guaiFENesin 200 MG/10 ML 10 ML UNIT-DOSE CUPS PO PRN (12:55)
--- NOTE | 2018-12-09 12:55 | HP ---
[facility] Rehab Assess/Revision - Admission History Admitted to Rehab from: [facility] Date of Admission to Rehab: 12/09/18 - Vital signs Vital Signs: Vital Signs Period Temp Pulse Resp BP Sys/Vincent Pulse Ox Last 24 Hr 98.1 F 76 18 106/71 Vital Signs (72 hours) 12/09/18 12:22 Temperature 98.1 F Pulse Rate 76 Respiratory 18 Rate Blood Pressure 106/71 - Findings Detox History & Physical reviewed: Yes Concur with findings: Yes Comments/Additional Findings: Pt is medically cleared for discharge to rehab. Inpatient Rehab Admission - Rehab Decision to Admit Inpatient rehab admission?: Yes - Initial Determination Are CD services needed?: Yes Free of communicable disease: Yes Not in need of hospitalization: Yes - Rehab Admission Criteria Previous failed treatment: Yes Poor recovery environment: Yes Comorbidities: Yes Lacks judgement: No Patient is meeting Inpatient Rehab admission criteria:: Yes
[2018-12-09] MEDS ORDERED: HYDROCORTISONE 1% TOPICAL OINT 30 GM TUBE TP PRN (13:02)
[2018-12-09] MEDS ORDERED: COLLOIDAL OATMEAL 1 BAR EACH TP PRN (13:04)
[2018-12-09] MEDS: THIAMINE HCL 100 MG TABLET (FP) PO SCH (21:31)
[2018-12-09] MEDS: MELATONIN 5 MG TABLETS PO PRN (21:32)
[2018-12-09] MEDS: BETAMETHASONE DIPR 0.05% OINT 45 GM TUBE TP SCH (21:33)
[2018-12-09] MEDS ORDERED: BETAMETHASONE DIPR 0.05% OINT 45 GM TUBE TP SCH (22:00)
--- NOTE | 2018-12-10 07:23 | CONSULT ---
[facility] Psychiatric Consult - Data Date of interview: 12/10/18 Admission source: [facility] Identifying data: Ms Daly is a 48 years old single Black female, mother of a 33 years old daughter, unemployed receiving SSD, homeless seeking detox treatment for alcohol, cocaine and cannabis Substance Abuse History: Reports history of alcohol, crack cocaine and marijuana use. Refer to addiction counselor's summary for further information Medical History: Significant for psoriasis, bronchial asthma and history of orthosurgery in 1993, for fracture of right ankle (hardware in situ). Smokes 10 cigarettes daily Psychiatric History: Patient was recently seen by designer writer on 12/06/18 while admitted to detox. She is very pleasant and cooperative as opposed to her mood when seen in detox. Historical narrative remains consistent. Reports being diagnosed with Schizophrenia years ago. Reports 3-4 previous psychiatric hospitalizations at [facility] and most recently in 2007 at [facility]. Reports that she was receiving outpatient psychiatric treatment at [facility] clinic in [place]. Reports that she last saw a psychiatric there in August 2018 and she was presribed Haldol Decanoate 200 mg IM Q monthly, Cogentin 1 mg/bid and Gabapentin 800 mg/tid. Told designer writer that she received last injection of Haldol Decanoate on 11/05/18 at [facility]. Whem seen by designer writer, she was prescribed Cogentin 1 mg/bid, Gabapentin 300 mg/tid and Haldol Decanoate 200 mg IM which was administered on . Reports 2 previous suicidal attempts via overdose. At present, denies experiencing psychotic, manic or depresive symptoms, S/H ideations. However, reports sleeping poorly without medication. Patient requests increase in Gabapentin dosage reminding designer writer that she used to be on 800 mg/tid Physical/Sexual Abuse/Trauma History: Denies history of emotional, physical or sexual abuse as well as DV relationship. No service Additional Comment: reports history 5-6 previous arrests including 3 felony convictions. Denies being on parole/probation at present Mental Status Exam - Mental Status Exam Alert and Oriented to: Time, Place, Person Cognitive Function: Fair Patient Appearance: Well Groomed Mood: Hopeful, Euthymic Patient Behavior: Cooperative Speech Pattern: Clear Thought Process: Intact Hallucinations: Denies Suicidal Ideation: Denies Homicidal Ideation: Denies Insight/Judgement: Poor Sleep: Poorly (without medication) Appetite: Good Muscle strength/Tone: Normal Gait/Station: Normal Psychiatric Findings - Problem List ([place] 1, 2,3) (1) Schizoaffective disorder Current Visit: No Status: Chronic (2) Substance-induced sleep disorder Current Visit: No Status: Acute (3) Alcohol dependence Current Visit: Yes Status: Acute (4) Cocaine dependence Current Visit: Yes Status: Acute (5) Cannabis dependence Current Visit: No Status: Acute (6) Nicotine dependence Current Visit: No Status: Chronic Qualifiers: Nicotine product type: cigarettes Substance use status: uncomplicated Qualified Code(s): F17.210 - Nicotine dependence, cigarettes, uncomplicated Comment: counseled cessation, using gum (7) Ankle pain, right Current Visit: No Status: Chronic Qualifiers: Chronicity: unspecified Qualified Code(s): M25.571 - Pain in right ankle and joints of right foot Comment: to f/u with [facility] ortho 02/16 but missed appt and will reschedule after done with GED classes noted CT results (8) Asthma Current Visit: No Status: Chronic (9) History of positive serological reaction for syphilis Current Visit: No Status: Resolved (10) Psoriasis Current Visit: No Status: Chronic - Initial Treatment Plan Initial Treatment Plan: 1) Continue Cogentin 1 mg po BID. 2) Start Gabapentin 600 mg po TID. 3) Haldol Decanoate 200 mg IM due on 01/03/19. 4) Continue inpatient rehabilitation
[2018-12-10] MEDS: NICOTINE 14 MG/24 HOURS TOPICAL PATCH TD SCH (10:04)
[2018-12-10] MEDS: PRENATAL VITAMINS W/ FOLIC ACID TABLET (FP) PO SCH (10:04)
[2018-12-10] MEDS: CROMOLYN SODIUM 4% OPHTH DROPS 10 ML BOTTLE OU SCH (10:05)
[2018-12-10] MEDS: BENZTROPINE MESYLATE 1 MG TABLET (FP) PO SCH ×2 (10:05→21:24)
[2018-12-10] MEDS: BETAMETHASONE DIPR 0.05% OINT 45 GM TUBE TP SCH ×2 (10:06→21:24)
[2018-12-10] MEDS ORDERED: GABAPENTIN 300 MG CAPSULE (FP) PO ONE (10:19)
[2018-12-10] MEDS ORDERED: PT OWN MED DRAWER 7, Y5N ONE ×2 (10:20→15:57)
[2018-12-10] MEDS ORDERED: METHIMAZOLE 10 MG TABLET (FP) PO SCH (10:30)
[2018-12-10] MEDS ORDERED: METHIMAZOLE 10 MG TABLET (FP) PO ONE ×2 (11:00→17:00)
--- NOTE | 2018-12-10 12:19 | PN ---
[facility] Progress Note Note: Pt is a 48 y/o female admitted to rehab on 12/09/[address] Pt has a hx of Hyperthyroidism and on Tapazole 10 mg po daily. This movie writer called pt's home pharmacist-[facility] [address], who confirmed patient has been on Tapazole 10 mg po daily. last Rx was 12/06/18 #30tabs. Also this movie writer called pt 's primary care provider, Juan Hartley. Spoke to his partner, Dr. Berg because Dr. Cabrera was not available. Dr. Berg gave a go ahead to restart patient on Tapazole. Reports last thyroid test of less than one month were wnl:TSH = 0.99, T3 = 116 and T4 = 8; HgbA1C = 5.8. Dr. Berg indicated he is sending a refill medication for patient to her existing [facility] to excelsior picker after discharge from rehab. Pt will not be needing any courtesy Rx from here upon discharge. Vital Signs - 24 hr 12/10/18 12/10/18 12/10/18 00:30 03:30 07:15 Temperature 97.3 F L Pulse Rate 82 Respiratory 18 19 19 Rate Blood Pressure 116/79 Laboratory Tests 12/10/18 06:00 HIV 1&2 Antibody Screen Cancelled HIV P24 Antigen Cancelled A/P: Hx Hyperthyroidism D/w pt on Restarting Tapazole 10 mg po daily TSH,T3 & T4 ordered today. Pt is agreeable to POC Patient's Primary Care with: [address] Juan Hartley
[2018-12-10] MEDS: IBUPROFEN 400 MG TABLET (FP) PO PRN (12:29)
[2018-12-10] MEDS: GABAPENTIN 300 MG CAPSULE (FP) PO SCH ×2 (14:55→21:24)
[2018-12-10] MEDS: THIAMINE HCL 100 MG TABLET (FP) PO SCH (21:24)
[2018-12-10] MEDS: MELATONIN 5 MG TABLETS PO PRN (21:24)
[2018-12-11] MEDS: GABAPENTIN 300 MG CAPSULE (FP) PO SCH ×3 (06:32→21:12)
[2018-12-11] MEDS ORDERED: PT OWN MED DRAWER 7, Y5N ONE ×2 (08:50→09:38)
[2018-12-11] MEDS: PRENATAL VITAMINS W/ FOLIC ACID TABLET (FP) PO SCH (09:38)
[2018-12-11] MEDS: BENZTROPINE MESYLATE 1 MG TABLET (FP) PO SCH ×2 (09:38→21:12)
[2018-12-11] MEDS: CROMOLYN SODIUM 4% OPHTH DROPS 10 ML BOTTLE OU SCH (09:39)
[2018-12-11] MEDS: METHIMAZOLE 10 MG TABLET (FP) PO SCH (09:39)
[2018-12-11] MEDS: NICOTINE 14 MG/24 HOURS TOPICAL PATCH TD SCH (09:39)
[2018-12-11] MEDS: BETAMETHASONE DIPR 0.05% OINT 45 GM TUBE TP SCH ×2 (09:41→21:13)
[2018-12-11] MEDS ORDERED: METHIMAZOLE 10 MG TABLET (FP) PO SCH (10:00)
[2018-12-11] MEDS ORDERED: ERGOCALCIFEROL (VIT D2) 50,000 UNIT (1.25 MG) CAPSULE PO SCH (10:00)
[2018-12-11] MEDS: ERGOCALCIFEROL (VIT D2) 50,000 UNIT (1.25 MG) CAPSULE PO SCH (11:01)
[2018-12-11] MEDS: MELATONIN 5 MG TABLETS PO PRN (21:12)
[2018-12-11] MEDS: THIAMINE HCL 100 MG TABLET (FP) PO SCH (21:12)
[2018-12-12] MEDS: GABAPENTIN 300 MG CAPSULE (FP) PO SCH ×3 (06:31→21:29)
[2018-12-12] MEDS: NICOTINE 14 MG/24 HOURS TOPICAL PATCH TD SCH (09:34)
[2018-12-12] MEDS: BENZTROPINE MESYLATE 1 MG TABLET (FP) PO SCH ×2 (09:34→21:30)
[2018-12-12] MEDS: PRENATAL VITAMINS W/ FOLIC ACID TABLET (FP) PO SCH (09:34)
[2018-12-12] MEDS: CROMOLYN SODIUM 4% OPHTH DROPS 10 ML BOTTLE OU SCH (09:36)
[2018-12-12] MEDS: METHIMAZOLE 10 MG TABLET (FP) PO SCH (09:36)
[2018-12-12] MEDS: BETAMETHASONE DIPR 0.05% OINT 45 GM TUBE TP SCH ×2 (09:37→21:30)
[2018-12-12] MEDS: IBUPROFEN 400 MG TABLET (FP) PO PRN ×2 (09:38→21:30)
[2018-12-12] MEDS: THIAMINE HCL 100 MG TABLET (FP) PO SCH (21:29)
[2018-12-12] MEDS ORDERED: PT OWN MED DRAWER 7, Y5N ONE (21:32)
[2018-12-13] MEDS: GABAPENTIN 300 MG CAPSULE (FP) PO SCH ×3 (06:35→21:28)
[2018-12-13] MEDS: CROMOLYN SODIUM 4% OPHTH DROPS 10 ML BOTTLE OU SCH (09:11)
[2018-12-13] MEDS: BENZTROPINE MESYLATE 1 MG TABLET (FP) PO SCH ×2 (09:11→21:29)
[2018-12-13] MEDS: BETAMETHASONE DIPR 0.05% OINT 45 GM TUBE TP SCH ×2 (09:12→21:30)
[2018-12-13] MEDS: NICOTINE 14 MG/24 HOURS TOPICAL PATCH TD SCH (09:12)
[2018-12-13] MEDS: METHIMAZOLE 10 MG TABLET (FP) PO SCH (09:14)
[2018-12-13] MEDS: PRENATAL VITAMINS W/ FOLIC ACID TABLET (FP) PO SCH (09:14)
--- NOTE | 2018-12-13 10:01 | PN ---
[facility] Progress Note Note: Thyroid profile and serology lab results review: Laboratory Last Values TSH 0.62 uIU/ml (0.358-3.74) 12/10/18 15:20 Resin T3 Uptake 35.9 % (30-39) 12/10/18 15:20 HIV 1&2 Ag/Ab, 4th Gen Non reactive (Non Reactive) 12/10/18 10:00 HIV 1&2 Antibody Screen Cancelled 12/10/18 06:00 HIV P24 Antigen Cancelled 12/10/18 06:00 A/P: All labs wnl Continue current treatment Pt will follow up with primary care provider, Dr. Cabrera after rehab upon discharge.
[2018-12-13] MEDS: THIAMINE HCL 100 MG TABLET (FP) PO SCH (21:28)
[2018-12-13] MEDS: MAG HYDROX/AL HYDROX/SIMETH 30 ML UNIT-DOSE CUP PO PRN (21:29)
[2018-12-13] MEDS ORDERED: PT OWN MED DRAWER 7, Y5N ONE (21:45)
[2018-12-14] MEDS: GABAPENTIN 300 MG CAPSULE (FP) PO SCH ×3 (06:48→21:02)
[2018-12-14] MEDS ORDERED: PT OWN MED DRAWER 7, Y5N ONE (08:56)
[2018-12-14] MEDS: BENZTROPINE MESYLATE 1 MG TABLET (FP) PO SCH ×2 (09:48→21:02)
[2018-12-14] MEDS: NICOTINE 14 MG/24 HOURS TOPICAL PATCH TD SCH (09:48)
[2018-12-14] MEDS: PRENATAL VITAMINS W/ FOLIC ACID TABLET (FP) PO SCH (09:48)
[2018-12-14] MEDS: IBUPROFEN 400 MG TABLET (FP) PO PRN (09:49)
[2018-12-14] MEDS: METHIMAZOLE 10 MG TABLET (FP) PO SCH (09:49)
[2018-12-14] MEDS: BETAMETHASONE DIPR 0.05% OINT 45 GM TUBE TP SCH ×2 (09:49→21:02)
[2018-12-14] MEDS: CROMOLYN SODIUM 4% OPHTH DROPS 10 ML BOTTLE OU SCH (09:49)
[2018-12-14] MEDS: THIAMINE HCL 100 MG TABLET (FP) PO SCH (21:02)
[2018-12-15] MEDS: GABAPENTIN 300 MG CAPSULE (FP) PO SCH ×3 (06:23→21:35)
[2018-12-15] MEDS: IBUPROFEN 400 MG TABLET (FP) PO PRN (06:24)
[2018-12-15] MEDS: CROMOLYN SODIUM 4% OPHTH DROPS 10 ML BOTTLE OU SCH (09:34)
[2018-12-15] MEDS: PRENATAL VITAMINS W/ FOLIC ACID TABLET (FP) PO SCH (09:35)
[2018-12-15] MEDS: BENZTROPINE MESYLATE 1 MG TABLET (FP) PO SCH ×2 (09:35→21:35)
[2018-12-15] MEDS: METHIMAZOLE 10 MG TABLET (FP) PO SCH (09:35)
[2018-12-15] MEDS: BETAMETHASONE DIPR 0.05% OINT 45 GM TUBE TP SCH ×2 (09:35→21:37)
[2018-12-15] MEDS: NICOTINE 14 MG/24 HOURS TOPICAL PATCH TD SCH (09:37)
[2018-12-15] MEDS ORDERED: ALBUTEROL SO4 8 GM HFA INHALER IH PRN (13:21)
--- NOTE | 2018-12-15 13:22 | PN ---
[facility] Progress Note Note: Vital Signs Temperature 97.4 F L 12/15/18 07:14 Pulse Rate 59 L 12/15/18 07:14 Respiratory Rate 18 12/15/18 07:14 Blood Pressure 108/74 12/15/18 07:14 O2 Sat by Pulse Oximetry (%) Patient reports hx of asthma requested asthma inhaler Patient Aox3 in acute respiratory distress, ambulating inhaler order continue to monitor
[2018-12-15] MEDS: THIAMINE HCL 100 MG TABLET (FP) PO SCH (21:35)
[2018-12-15] MEDS: MELATONIN 5 MG TABLETS PO PRN (21:36)
[2018-12-15] MEDS ORDERED: PT OWN MED DRAWER 7, Y5N ONE (21:37)
[2018-12-16] MEDS: GABAPENTIN 300 MG CAPSULE (FP) PO SCH ×3 (06:32→21:35)
[2018-12-16] MEDS ORDERED: PT OWN MED DRAWER 7, Y5N ONE (08:47)
[2018-12-16] MEDS: NICOTINE 14 MG/24 HOURS TOPICAL PATCH TD SCH (09:47)
[2018-12-16] MEDS: BENZTROPINE MESYLATE 1 MG TABLET (FP) PO SCH ×2 (09:48→21:34)
[2018-12-16] MEDS: METHIMAZOLE 10 MG TABLET (FP) PO SCH (09:48)
[2018-12-16] MEDS: BETAMETHASONE DIPR 0.05% OINT 45 GM TUBE TP SCH (09:48)
[2018-12-16] MEDS: CROMOLYN SODIUM 4% OPHTH DROPS 10 ML BOTTLE OU SCH (09:48)
[2018-12-16] MEDS: PRENATAL VITAMINS W/ FOLIC ACID TABLET (FP) PO SCH (09:49)
[2018-12-16] MEDS ORDERED: FLUCONAZOLE 50 MG TABLET PO ONE (10:23)
[2018-12-16] MEDS: CLOTRIMAZOLE 1% CREAM 15 GM TUBE TP SCH ×2 (11:26→21:36)
--- NOTE | 2018-12-16 14:40 | PN ---
[facility] Progress Note (SOAP) Subjective: Patient c/o that topical medication is not improving her skin rash. Has been taking it for 2 weeks. Denies any medical problems that could be the cause of the rash. States it started several weeks before admission to this facility. She used a cream at home that helped, but then the rash became worse. Denies changes in detergent, creams, exposure to animal fur, allergic reactions. Objective: Round lesions raised at edges with clear center. The raised edges also are scaling. Some lesions are coalescing. There are no lesions on her trunk or legs , just her arms. 12/16/18 14:37 12/16/18 14:40 Vital Signs (72 hours) 12/14/18 12/14/18 12/15/18 00:30 03:30 00:30 Temperature Pulse Rate Respiratory 18 18 18 Rate Blood Pressure 12/15/18 12/16/18 12/16/18 07:14 00:30 07:12 Temperature 97.4 F L 97.8 F Pulse Rate 59 L 71 Respiratory 18 18 18 Rate Blood Pressure 108/74 104/73 Assessment: tinea corpus 12/16/18 14:39 Plan: Lotrim and one dose of diflucan 150 mg ordered. Will continue to monitor.
[2018-12-16] MEDS: THIAMINE HCL 100 MG TABLET (FP) PO SCH (21:34)
[2018-12-16] MEDS: MELATONIN 5 MG TABLETS PO PRN (21:35)
[2018-12-17] MEDS: GABAPENTIN 300 MG CAPSULE (FP) PO SCH ×3 (06:42→21:49)
[2018-12-17] MEDS ORDERED: PT OWN MED DRAWER 7, Y5N ONE ×2 (08:18→21:51)
[2018-12-17] MEDS: BENZTROPINE MESYLATE 1 MG TABLET (FP) PO SCH ×2 (09:28→21:49)
[2018-12-17] MEDS: NICOTINE 14 MG/24 HOURS TOPICAL PATCH TD SCH (09:28)
[2018-12-17] MEDS: PRENATAL VITAMINS W/ FOLIC ACID TABLET (FP) PO SCH (09:28)
[2018-12-17] MEDS: METHIMAZOLE 10 MG TABLET (FP) PO SCH (09:28)
[2018-12-17] MEDS: CLOTRIMAZOLE 1% CREAM 15 GM TUBE TP SCH ×2 (09:28→21:50)
[2018-12-17] MEDS: CROMOLYN SODIUM 4% OPHTH DROPS 10 ML BOTTLE OU SCH (09:29)
[2018-12-17] MEDS: THIAMINE HCL 100 MG TABLET (FP) PO SCH (21:49)
[2018-12-18] MEDS: GABAPENTIN 300 MG CAPSULE (FP) PO SCH ×3 (07:07→21:42)
[2018-12-18] MEDS ORDERED: PT OWN MED DRAWER 7, Y5N ONE ×3 (08:06→22:00)
[2018-12-18] MEDS: BENZTROPINE MESYLATE 1 MG TABLET (FP) PO SCH ×2 (10:02→21:42)
[2018-12-18] MEDS: CROMOLYN SODIUM 4% OPHTH DROPS 10 ML BOTTLE OU SCH (10:02)
[2018-12-18] MEDS: METHIMAZOLE 10 MG TABLET (FP) PO SCH (10:03)
[2018-12-18] MEDS: PRENATAL VITAMINS W/ FOLIC ACID TABLET (FP) PO SCH (10:03)
[2018-12-18] MEDS: ERGOCALCIFEROL (VIT D2) 50,000 UNIT (1.25 MG) CAPSULE PO SCH (10:04)
[2018-12-18] MEDS: CLOTRIMAZOLE 1% CREAM 15 GM TUBE TP SCH ×2 (10:04→21:42)
[2018-12-18] MEDS: NICOTINE 14 MG/24 HOURS TOPICAL PATCH TD SCH (10:04)
[2018-12-18] MEDS: THIAMINE HCL 100 MG TABLET (FP) PO SCH (21:42)
[2018-12-19] MEDS: GABAPENTIN 300 MG CAPSULE (FP) PO SCH ×3 (06:54→21:19)
[2018-12-19] MEDS ORDERED: PT OWN MED DRAWER 7, Y5N ONE ×2 (08:37→19:03)
[2018-12-19] MEDS: BENZTROPINE MESYLATE 1 MG TABLET (FP) PO SCH ×2 (09:44→21:19)
[2018-12-19] MEDS: METHIMAZOLE 10 MG TABLET (FP) PO SCH (09:45)
[2018-12-19] MEDS: CLOTRIMAZOLE 1% CREAM 15 GM TUBE TP SCH ×2 (09:45→21:19)
[2018-12-19] MEDS: CROMOLYN SODIUM 4% OPHTH DROPS 10 ML BOTTLE OU SCH (09:45)
[2018-12-19] MEDS: NICOTINE 14 MG/24 HOURS TOPICAL PATCH TD SCH (09:45)
[2018-12-19] MEDS: PRENATAL VITAMINS W/ FOLIC ACID TABLET (FP) PO SCH (09:45)
[2018-12-19] MEDS: MAG HYDROX/AL HYDROX/SIMETH 30 ML UNIT-DOSE CUP PO PRN (16:49)
[2018-12-19] MEDS: THIAMINE HCL 100 MG TABLET (FP) PO SCH (21:19)
[2018-12-20] MEDS: GABAPENTIN 300 MG CAPSULE (FP) PO SCH ×3 (06:35→21:39)
[2018-12-20] MEDS ORDERED: PT OWN MED DRAWER 7, Y5N ONE (08:36)
[2018-12-20] MEDS: NICOTINE 14 MG/24 HOURS TOPICAL PATCH TD SCH (09:50)
[2018-12-20] MEDS: METHIMAZOLE 10 MG TABLET (FP) PO SCH (09:50)
[2018-12-20] MEDS: PRENATAL VITAMINS W/ FOLIC ACID TABLET (FP) PO SCH (09:50)
[2018-12-20] MEDS: BENZTROPINE MESYLATE 1 MG TABLET (FP) PO SCH ×2 (09:50→21:39)
[2018-12-20] MEDS: CROMOLYN SODIUM 4% OPHTH DROPS 10 ML BOTTLE OU SCH (09:51)
[2018-12-20] MEDS: CLOTRIMAZOLE 1% CREAM 15 GM TUBE TP SCH ×2 (09:51→21:40)
[2018-12-20] MEDS: THIAMINE HCL 100 MG TABLET (FP) PO SCH (21:39)
[2018-12-21] MEDS: GABAPENTIN 300 MG CAPSULE (FP) PO SCH ×3 (06:39→21:23)
[2018-12-21] MEDS ORDERED: PT OWN MED DRAWER 7, Y5N ONE ×2 (09:01→12:04)
[2018-12-21] MEDS: METHIMAZOLE 10 MG TABLET (FP) PO SCH (09:44)
[2018-12-21] MEDS: PRENATAL VITAMINS W/ FOLIC ACID TABLET (FP) PO SCH (09:44)
[2018-12-21] MEDS: CROMOLYN SODIUM 4% OPHTH DROPS 10 ML BOTTLE OU SCH (09:44)
[2018-12-21] MEDS: BENZTROPINE MESYLATE 1 MG TABLET (FP) PO SCH ×2 (09:44→21:23)
[2018-12-21] MEDS: NICOTINE 14 MG/24 HOURS TOPICAL PATCH TD SCH (09:44)
[2018-12-21] MEDS: CLOTRIMAZOLE 1% CREAM 15 GM TUBE TP SCH ×2 (09:46→21:24)
--- NOTE | 2018-12-21 11:09 | DS ---
[facility] Rehab Discharge Summary - [facility] Rehab Discharge Summary Admission Date: 12/09/18 Discharge Date: 12/22/18 - History Present History: Alcohol dependence, Cocaine dependence Pertinent Past History: 48 yo admitted for detox from crack and alcohol After last September detox, states stayed sober for about 1 1/2 months. Alcohol use began at age "4" but began drinking a lot at [age]. Cocaine use began at age 16. Switched to crack @ age 17. Marijuana use began at age 11. . Nicotine use began at age 11. Smokes 1PPD. Denies hx seizures or overdoses. PMHx: Asthma MHHx: Depression; bipolar, schizophrenia. SHx: Homeless. Unemployed. - Discharge Physical Exam Vital Signs: Vital Signs Temperature 97.1 F L 12/21/18 07:08 Pulse Rate 60 12/21/18 07:08 Respiratory Rate 18 12/21/18 07:08 Blood Pressure 123/85 12/21/18 07:08 O2 Sat by Pulse Oximetry (%) Pertinent Admission Physical Exam Findings: Physical General Appearance:No apparent distress HEENTM: HERMILO, Respiratory: Lungs Clear Neck: Supple Cardiology: Regular Rhythm, Regular Rate S1, S2 Abdominal: +Bowel Sounds, Musculoskeletal:Full range of Motion, Full weight bearing, Gait Steady NeurologicalCNs II-XII NML intact; no neurological deficits noted. Integumentary: Patchy, silvery, lesions with scaling around the edges and central hypopigmentation on arms, hands legs and feet, some have coalesced. - Treatment Discharge Condition: Outpatient referral accepted (Patient is moving to [facility]. [facility] management ([place] equivalent) was contacted with regard to services for the patient. Patient instructed to keep appointment with [facility] in order to get mental health and outpatient substance abuse treatment.) - Medication Discharge Medications: Ambulatory Orders Haloperidol Decanoate [Haldol Decanoate 100] 200 mg IM MONTHLY 07/19/14 Ergocalciferol (Vitamin D2) [Vitamin D] 50,000 unit PO WEEKLY 10/20/14 Benztropine Mesylate 1 mg PO BID #60 tablet 12/21/18 Betamethasone Dipropionate [Diprosone 0.05% Ointment -] 1 applic TP BID #1 tube 12/21/18 Cromolyn Sodium [Crolom -] 1 drop OU DAILY #1 drops 12/21/18 Gabapentin [Neurontin -] 800 mg PO TID #90 capsule 12/21/18 Methimazole [Tapazole] 10 mg PO DAILY #30 tablet 12/21/18 - Medication-Assisted Treatment (MAT) Medication-Assisted Treatment (MAT): No - Discharge Instructions Diet, activity, other medical instructions: Diet: as tolerated Activity: as tolerated Other medical instructions: Keep appointment with [facility] management in [place] in order to arrange for mental health and outpatient substance abuse treatment. - Diagnosis (1) Alcohol dependence Current Visit: Yes Status: Chronic Qualifiers: Substance use status: uncomplicated Qualified Code(s): F10.20 - Alcohol dependence, uncomplicated (2) Cocaine dependence Current Visit: Yes Status: Chronic Qualifiers: Substance use status: uncomplicated Qualified Code(s): F14.20 - Cocaine dependence, uncomplicated (3) Cannabis dependence Current Visit: No Status: Chronic - AMA Did Patient Leave Against Medical Advice: No
--- NOTE | 2018-12-21 13:09 | PN ---
S Progress Note Note: Psychiatric nurse practitioner note: Patient scheduled for discharge tomorrow. A 30 day prescription of Cogentin 1mg BID was electronically sent to [facility], [address] [place] [address].
[2018-12-21] MEDS: IBUPROFEN 400 MG TABLET (FP) PO PRN (17:02)
[2018-12-21] MEDS: THIAMINE HCL 100 MG TABLET (FP) PO SCH (21:23)
[2018-12-22] MEDS: GABAPENTIN 300 MG CAPSULE (FP) PO SCH (06:42)
[2018-12-22 07:15] VITALS: BP 105/70; PULSE 78; TEMP 97.7
[2018-12-22] MEDS ORDERED: PT OWN MED DRAWER 7, Y5N ONE (08:29)
[2018-12-22] MEDS: METHIMAZOLE 10 MG TABLET (FP) PO SCH (09:00)
[2018-12-22] MEDS: CROMOLYN SODIUM 4% OPHTH DROPS 10 ML BOTTLE OU SCH (09:00)
[2018-12-22] MEDS: BENZTROPINE MESYLATE 1 MG TABLET (FP) PO SCH (09:00)
[2018-12-22] MEDS: NICOTINE 14 MG/24 HOURS TOPICAL PATCH TD SCH (09:00)
[2018-12-22] MEDS: PRENATAL VITAMINS W/ FOLIC ACID TABLET (FP) PO SCH (09:00)
[2018-12-22] MEDS: CLOTRIMAZOLE 1% CREAM 15 GM TUBE TP SCH (09:01)
== END 2018-12-22 08:58 | disposition home or self-care (01) | DRG 772 ==
LOC: YASAS 12:04 → Y3E 12:09
PROVIDERS: ADMIT Neuromusculoskeletal Medicine & OMM; ATTEND Neuromusculoskeletal Medicine & OMM
PROC: HZ42ZZZ Group Counseling for Substance Abuse Treatment, Cognitive-Behavioral (ICD-10-PCS; principal; 2018-12-09)
DX: F10.20 Alcohol dependence, uncomplicated (principal); F14.20 Cocaine dependence, uncomplicated; F12.20 Cannabis dependence, uncomplicated; F17.210 Nicotine dependence, cigarettes, uncomplicated; F25.9 Schizoaffective disorder, unspecified; F19.280 Other psychoactive substance dependence with psychoactive substance-induced anxiety disorder; B35.4 Tinea corporis; J45.909 Unspecified asthma, uncomplicated; E05.90 Thyrotoxicosis, unspecified without thyrotoxic crisis or storm; M25.571 Pain in right ankle and joints of right foot; L40.9 Psoriasis, unspecified
CPT/HCPCS: 36415; 84436; 84443; 84479; 87389

== ENCOUNTER 2019-05-06 14:07 | Inpatient (IN) | payer OTHER ==
[2019-05-06 15:01] VITALS: BMI 32.1
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
[2019-05-06] MEDS ORDERED: BISMUTH SUBSALICYLATE 524 MG/30 ML UD PO PRN (17:09)
[2019-05-06] MEDS ORDERED: MAGNESIUM HYDROX 2400MG/30ML ORAL SUSPENSION 30 ML CUP PO PRN (17:09)
[2019-05-06] MEDS ORDERED: MENTHOL/PHENOL 1 EACH UD MM PRN (17:09)
[2019-05-06] MEDS ORDERED: METHOCARBAMOL 500 MG TABLET PO PRN (17:09)
[2019-05-06] MEDS ORDERED: chlordiazePOXIDE HCL 25 MG CAPSULE PO PRN (17:09)
[2019-05-06] MEDS ORDERED: hydrOXYzine PAMOATE 25 MG CAPSULE (FP) PO PRN (17:09)
[2019-05-06] MEDS ORDERED: ACETAMINOPHEN 325 MG TABLET (FP) PO PRN ×2 (17:09)
[2019-05-06] MEDS ORDERED: NICOTINE POLACRILEX 2 MG GUM BUC PRN (17:09)
[2019-05-06] MEDS ORDERED: MAGNESIUM CITRATE 300 ML BOTTLE PO PRN (17:09)
[2019-05-06] MEDS ORDERED: MAG HYDROX/AL HYDROX/SIMETH 30 ML UNIT-DOSE CUP PO PRN (17:09)
[2019-05-06] MEDS: chlordiazePOXIDE HCL 25 MG CAPSULE PO SCH ×2 (18:41→23:00)
[2019-05-06] MEDS: THIAMINE HCL 100 MG TABLET (FP) PO SCH (23:00)
[2019-05-07] MEDS: chlordiazePOXIDE HCL 25 MG CAPSULE PO SCH ×4 (06:13→22:26)
[2019-05-07] MEDS: IBUPROFEN 400 MG TABLET (FP) PO PRN (06:16)
--- NOTE | 2019-05-07 09:01 | EKG ---
Test Reason : Blood Pressure : / mmHG Vent. Rate : 074 BPM Atrial Rate : 074 BPM P-R Int : 178 ms QRS Dur : 086 ms QT Int : 420 ms P-R-T Axes : 074 059 063 degrees QTc Int : 466 ms NORMAL SINUS RHYTHM NORMAL ECG WHEN COMPARED WITH ECG OF 06-OCT-2018 03:45, [place] INTERVAL HAS DECREASED VENT. RATE HAS INCREASED BY 29 BPM Confirmed by JOVON DOBBS, AMARJIT ([id number]) on 05/07/2019 9:00:52 AM Referred By: Confirmed By:AMARJIT SIGALA MD
[2019-05-07 09:54] LABS: HEMATOCRIT 39.8 % (32.4-45.2); HEMOGLOBIN 12.8 GM/dL (10.7-15.3); MCH 28.3 pg (25.7-33.7); MCHC 32.2 g/dl (32.0-36.0); MEAN CELL VOLUME 87.9 fl (80-96); MEAN PLT VOLUME 7.3 fl (7.5-11.1); PLATELET COUNT 255 K/MM3 (134-434); RBC 4.53 M/mm3 (3.60-5.2); RDW 14.6 % (11.6-15.6); WHITE BLOOD COUNT 6.7 K/mm3 (4.0-10.0)
[2019-05-07 10:04] LABS: ALBUMIN 3.3 g/dl (3.4-5.0); BILIRUBIN,TOTAL 0.3 mg/dL (0.2-1); CALCIUM 8.9 mg/dL (8.5-10.1); CREATININE 0.9 mg/dL (0.55-1.3); POTASSIUM 3.2 mmol/L (3.5-5.1); TOT PROT 6.8 g/dl (6.4-8.2)
[2019-05-07] MEDS: PRENATAL VITAMINS W/ FOLIC ACID TABLET (FP) PO SCH (10:26)
[2019-05-07] MEDS: NICOTINE 21 MG/24 HOURS TOPICAL PATCH TD SCH (10:27)
[2019-05-07 11:56] LABS: RPR REACTIVE 1:2 (NONREACTIVE)
[2019-05-07 11:57] LABS: TREPONEMA ANTIBODY PREVIOUSLY REACTIVE (NONREACTIVE)
--- NOTE | 2019-05-07 13:22 | PN ---
S CIWA - CIWA Score Nausea/Vomitin-No Nausea/No Vomiting Muscle Tremors: 3 Anxiety: 3 Agitation: 3 Paroxysmal Sweats: 3 Orientation: 0-Oriented Tacttile Disturbances: 0-None Auditory Disturbances: 0-None Visual Disturbances: 0-None Headache: 0-None Present CIWA-Ar Total Score: 12 BHS Progress Note (SOAP) Subjective: sweats shakes body aches interrupted sleep nausea Objective: 05/07/19 13:18 Vital Signs Temperature 98.6 F 05/07/19 09:40 Pulse Rate 78 05/07/19 09:40 Respiratory Rate 17 05/07/19 09:40 Blood Pressure 95/57 L 05/07/19 09:40 O2 Sat by Pulse Oximetry (%) Laboratory Tests 05/07/19 05/07/19 05/07/19 07:15 07:15 07:15 WBC 6.7 RBC 4.53 Hgb 12.8 Hct 39.8 MCV 87.9 MCH 28.3 MCHC 32.2 RDW 14.6 Plt Count 255 MPV 7.3 L Sodium 138 Potassium 3.2 L Chloride 102 Carbon Dioxide 30 Anion Gap 6 L BUN 11.0 Creatinine 0.9 Est GFR (CKD-EPI)AfAm 86.41 Est GFR (CKD-EPI)NonAf 74.55 Random Glucose 131 H Calcium 8.9 Total Bilirubin 0.3 AST 12 L ALT 15 Alkaline Phosphatase 68 Total Protein 6.8 Albumin 3.3 L RPR Titer Reactive 1:2 H T.pallidum Ab (MHA) Previously reactive labs noted potassium 3.2; rpr 1:2 aaox3 ambulating no acute distress Assessment: 05/07/19 13:19 withdrawals Plan: kdur [id number] days continue detox increase fluids zofran sl prn
[2019-05-07] MEDS ORDERED: ONDANSETRON *ODT* 4 MG TABLET SL PRN (13:30)
[2019-05-07] MEDS: POTASSIUM CHLORIDE TABS 20 MEQ TABLET.ER (FP) PO SCH (13:56)
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
[2019-05-07] MEDS ORDERED: ALBUTEROL SO4 8 GM HFA INHALER IH PRN (21:12)
[2019-05-07] MEDS: HALOPERIDOL 5 MG TABLET (FP) PO SCH (22:26)
[2019-05-07] MEDS: THIAMINE HCL 100 MG TABLET (FP) PO SCH (22:26)
[2019-05-07] MEDS: BENZTROPINE MESYLATE 1 MG TABLET (FP) PO SCH (22:26)
[2019-05-08] MEDS: chlordiazePOXIDE HCL 25 MG CAPSULE PO SCH ×4 (06:19→22:28)
[2019-05-08] MEDS: BENZTROPINE MESYLATE 1 MG TABLET (FP) PO SCH ×2 (10:32→22:28)
[2019-05-08] MEDS: POTASSIUM CHLORIDE TABS 20 MEQ TABLET.ER (FP) PO SCH (10:32)
[2019-05-08] MEDS: PRENATAL VITAMINS W/ FOLIC ACID TABLET (FP) PO SCH (10:32)
[2019-05-08] MEDS: NICOTINE 21 MG/24 HOURS TOPICAL PATCH TD SCH (10:33)
--- NOTE | 2019-05-08 16:40 | PN ---
[facility] CIWA - CIWA Score Nausea/Vomitin-Mild Nausea/No Vomiting Muscle Tremors: 2 Anxiety: 3 Agitation: 2 Paroxysmal Sweats: 2 Orientation: 0-Oriented Tacttile Disturbances: 0-None Auditory Disturbances: 0-None Visual Disturbances: 0-None Headache: 0-None Present CIWA-Ar Total Score: 10 S Progress Note (SOAP) Subjective: Chills, sweating, interrupted sleep Objective: 05/08/19 16:38 Last Vital Signs Temp Pulse Resp BP Pulse Ox 97.9 F 84 18 101/64 05/08/19 15:56 05/08/19 15:56 05/08/19 15:56 05/08/19 15:56 Laboratory Tests 05/07/19 05/07/19 05/07/19 07:15 07:15 07:15 WBC 6.7 RBC 4.53 Hgb 12.8 Hct 39.8 MCV 87.9 MCH 28.3 MCHC 32.2 RDW 14.6 Plt Count 255 MPV 7.3 L Sodium 138 Potassium 3.2 L Chloride 102 Carbon Dioxide 30 Anion Gap 6 L BUN 11.0 Creatinine 0.9 Est GFR (CKD-EPI)AfAm 86.41 Est GFR (CKD-EPI)NonAf 74.55 Random Glucose 131 H Calcium 8.9 Total Bilirubin 0.3 AST 12 L ALT 15 Alkaline Phosphatase 68 Total Protein 6.8 Albumin 3.3 L RPR Titer Reactive 1:2 H T.pallidum Ab (MHA) Previously reactive 05/08/19 07:15 WBC RBC Hgb Hct MCV MCH MCHC RDW Plt Count MPV Sodium Potassium 3.7 Chloride Carbon Dioxide Anion Gap BUN Creatinine Est GFR (CKD-EPI)AfAm Est GFR (CKD-EPI)NonAf Random Glucose Calcium Total Bilirubin AST ALT Alkaline Phosphatase Total Protein Albumin RPR Titer T.pallidum Ab (MHA) Labs reviewed: serum glucose 131 (high) Assessment: 05/08/19 16:39 Withdrawal sxs Hyperglycemia noted Plan: Continue detox Encouraged PO water intake Hyperglycemia: denies DM, could be r/t withdrawal; repeat fasting glucose, send A1c
[2019-05-08] MEDS: IBUPROFEN 400 MG TABLET (FP) PO PRN (17:36)
[2019-05-08] MEDS: HALOPERIDOL 5 MG TABLET (FP) PO SCH (22:28)
[2019-05-08] MEDS: THIAMINE HCL 100 MG TABLET (FP) PO SCH (22:29)
[2019-05-09] MEDS ORDERED: chlordiazePOXIDE HCL 10 MG CAPSULE PO PRN
[2019-05-09] MEDS: chlordiazePOXIDE HCL 10 MG CAPSULE PO SCH ×4 (05:29→22:21)
[2019-05-09] MEDS: IBUPROFEN 400 MG TABLET (FP) PO PRN ×2 (05:30→15:08)
[2019-05-09] MEDS: NICOTINE 21 MG/24 HOURS TOPICAL PATCH TD SCH (10:43)
[2019-05-09] MEDS: BENZTROPINE MESYLATE 1 MG TABLET (FP) PO SCH ×2 (10:43→21:42)
[2019-05-09] MEDS: PRENATAL VITAMINS W/ FOLIC ACID TABLET (FP) PO SCH (10:44)
[2019-05-09] MEDS: POTASSIUM CHLORIDE TABS 20 MEQ TABLET.ER (FP) PO SCH (10:44)
--- NOTE | 2019-05-09 12:40 | PN ---
S CIWA - CIWA Score Nausea/Vomitin-No Nausea/No Vomiting Muscle Tremors: 2 Anxiety: 2 Agitation: 2 Paroxysmal Sweats: 2 Orientation: 0-Oriented Tacttile Disturbances: 0-None Auditory Disturbances: 0-None Visual Disturbances: 0-None Headache: 0-None Present CIWA-Ar Total Score: 8 BHS Progress Note (SOAP) Subjective: feeling better sweats interrupted sleep Objective: 05/09/19 12:40 Vital Signs Temperature 96.8 F L 05/09/19 05:30 Pulse Rate 72 05/09/19 05:30 Respiratory Rate 18 05/09/19 05:30 Blood Pressure 113/71 05/09/19 05:30 O2 Sat by Pulse Oximetry (%) Laboratory Tests 05/07/19 05/07/19 05/07/19 07:15 07:15 07:15 WBC 6.7 RBC 4.53 Hgb 12.8 Hct 39.8 MCV 87.9 MCH 28.3 MCHC 32.2 RDW 14.6 Plt Count 255 MPV 7.3 L Sodium 138 Potassium 3.2 L Chloride 102 Carbon Dioxide 30 Anion Gap 6 L BUN 11.0 Creatinine 0.9 Est GFR (CKD-EPI)AfAm 86.41 Est GFR (CKD-EPI)NonAf 74.55 Random Glucose 131 H Calcium 8.9 Total Bilirubin 0.3 AST 12 L ALT 15 Alkaline Phosphatase 68 Total Protein 6.8 Albumin 3.3 L RPR Titer Reactive 1:2 H T.pallidum Ab (MHA) Previously reactive 05/08/19 07:15 WBC RBC Hgb Hct MCV MCH MCHC RDW Plt Count MPV Sodium Potassium 3.7 Chloride Carbon Dioxide Anion Gap BUN Creatinine Est GFR (CKD-EPI)AfAm Est GFR (CKD-EPI)NonAf Random Glucose Calcium Total Bilirubin AST ALT Alkaline Phosphatase Total Protein Albumin RPR Titer T.pallidum Ab (MHA) aaox3 ambulating no acute distress Assessment: 05/09/19 12:40 withdrawals Plan: continue detox increase fluids
[2019-05-09] MEDS: MELATONIN 5 MG TABLETS PO PRN (21:42)
[2019-05-09] MEDS: HALOPERIDOL 5 MG TABLET (FP) PO SCH (21:42)
[2019-05-09] MEDS: THIAMINE HCL 100 MG TABLET (FP) PO SCH (21:43)
[2019-05-10] MEDS: IBUPROFEN 400 MG TABLET (FP) PO PRN ×2 (06:37→14:53)
[2019-05-10] MEDS: chlordiazePOXIDE HCL 10 MG CAPSULE PO SCH ×2 (06:38→17:34)
[2019-05-10] MEDS: PRENATAL VITAMINS W/ FOLIC ACID TABLET (FP) PO SCH (10:27)
[2019-05-10] MEDS: NICOTINE 21 MG/24 HOURS TOPICAL PATCH TD SCH (10:27)
[2019-05-10] MEDS: POTASSIUM CHLORIDE TABS 20 MEQ TABLET.ER (FP) PO SCH (10:27)
[2019-05-10] MEDS: BENZTROPINE MESYLATE 1 MG TABLET (FP) PO SCH ×2 (10:27→22:06)
--- NOTE | 2019-05-10 12:12 | PN ---
S CIWA - CIWA Score Nausea/Vomitin-No Nausea/No Vomiting Muscle Tremors: 1-None Visible, but [place] Anxiety: 1-Mildly Anxious Agitation: 1-Slight > Activity Paroxysmal Sweats: No Perspiration Orientation: 0-Oriented Tacttile Disturbances: 0-None Auditory Disturbances: 0-None Visual Disturbances: 0-None Headache: 0-None Present CIWA-Ar Total Score: 3 BHS Progress Note (SOAP) Subjective: feeling better little anxious Objective: 05/10/19 12:11 Vital Signs Temperature 97 F L 05/10/19 05:00 Pulse Rate 62 05/10/19 05:00 Respiratory Rate 18 05/10/19 05:00 Blood Pressure 101/61 05/10/19 05:00 O2 Sat by Pulse Oximetry (%) aaox3 ambulating no acute distress repeated potassium level improved it is now 3.7 Assessment: 05/10/19 12:12 mild withdrawals Plan: d/c in am
[2019-05-10] MEDS: MELATONIN 5 MG TABLETS PO PRN (22:06)
[2019-05-10] MEDS: HALOPERIDOL 5 MG TABLET (FP) PO SCH (22:06)
[2019-05-10] MEDS: THIAMINE HCL 100 MG TABLET (FP) PO SCH (22:06)
[2019-05-11] MEDS ORDERED: chlordiazePOXIDE HCL 10 MG CAPSULE PO ONE (05:00)
[2019-05-11] MEDS: IBUPROFEN 400 MG TABLET (FP) PO PRN (07:56)
--- NOTE | 2019-05-11 09:04 | DS ---
[facility] Detox Discharge Summary Admission Date: 05/06/19 Discharge Date: 05/11/19 - History Present History: Alcohol Dependence, Cannabis Dependence, Cocaine Dependence - Physical Exam Results Vital Signs: Vital Signs Temperature 97.1 F L 05/10/19 21:54 Pulse Rate 54 L 05/10/19 21:54 Respiratory Rate 16 05/11/19 03:30 Blood Pressure 112/66 05/10/19 21:54 O2 Sat by Pulse Oximetry (%) Pertinent Admission Physical Exam Findings: Vital Signs Temperature 97.1 F L 05/10/19 21:54 Pulse Rate 54 L 05/10/19 21:54 Respiratory Rate 16 05/11/19 03:30 Blood Pressure 112/66 05/10/19 21:54 O2 Sat by Pulse Oximetry (%) Laboratory Tests 05/07/19 05/07/19 05/07/19 07:15 07:15 07:15 WBC 6.7 RBC 4.53 Hgb 12.8 Hct 39.8 MCV 87.9 MCH 28.3 MCHC 32.2 RDW 14.6 Plt Count 255 MPV 7.3 L Sodium 138 Potassium 3.2 L Chloride 102 Carbon Dioxide 30 Anion Gap 6 L BUN 11.0 Creatinine 0.9 Est GFR (CKD-EPI)AfAm 86.41 Est GFR (CKD-EPI)NonAf 74.55 Random Glucose 131 H Calcium 8.9 Total Bilirubin 0.3 AST 12 L ALT 15 Alkaline Phosphatase 68 Total Protein 6.8 Albumin 3.3 L RPR Titer Reactive 1:2 H T.pallidum Ab (MHA) Previously reactive 05/08/19 07:15 WBC RBC Hgb Hct MCV MCH MCHC RDW Plt Count MPV Sodium Potassium 3.7 Chloride Carbon Dioxide Anion Gap BUN Creatinine Est GFR (CKD-EPI)AfAm Est GFR (CKD-EPI)NonAf Random Glucose Calcium Total Bilirubin AST ALT Alkaline Phosphatase Total Protein Albumin RPR Titer T.pallidum Ab (MHA) aaox3 ambulating no acute distress - Treatment Hospital Course: Detox Protocol Followed, Detoxed Safely, Responded well, Discharged Condition Good, Rehab Referral Accepted Patient has Accepted a Rehab Referral to: pt declined; referral provided - Medication Discharge Medications: Ambulatory Orders Haloperidol Decanoate [Haldol Decanoate 100] 200 mg IM MONTHLY 07/19/14 Benztropine Mesylate 1 mg PO BID #60 tablet 12/21/18 Betamethasone Dipropionate [Diprosone 0.05% Ointment -] 1 applic TP BID #1 tube 12/21/18 Cromolyn Sodium [Crolom -] 1 drop OU DAILY #1 drops 12/21/18 Methimazole [Tapazole] 10 mg PO DAILY #30 tablet 12/21/18 Haloperidol [Haldol -] 10 mg PO HS 05/06/19 - Diagnosis (1) Alcohol dependence with withdrawal, uncomplicated Current Visit: Yes Status: Chronic (2) Depression Current Visit: Yes Status: Acute Qualifiers: Depression Type: unspecified Qualified Code(s): F32.9 - Major depressive disorder, single episode, unspecified (3) Asthma Current Visit: Yes Status: Chronic (4) Bilateral knee pain Current Visit: Yes Status: Chronic Qualifiers: Chronicity: chronic Qualified Code(s): M25.561 - Pain in right knee; M25.562 - Pain in left knee; G89.29 - Other chronic pain (5) Bipolar disorder Current Visit: Yes Status: Chronic Qualifiers: Current episode severity: unspecified (6) Cannabis dependence Current Visit: Yes Status: Chronic (7) Cocaine dependence Current Visit: Yes Status: Chronic Qualifiers: Substance use status: uncomplicated Qualified Code(s): F14.20 - Cocaine dependence, uncomplicated (8) History of schizophrenia Current Visit: Yes Status: Chronic (9) Nicotine dependence Current Visit: Yes Status: Chronic Qualifiers: Nicotine product type: cigarettes Substance use status: uncomplicated Qualified Code(s): F17.210 - Nicotine dependence, cigarettes, uncomplicated (10) Schizoaffective disorder Current Visit: Yes Status: Chronic (11) Substance induced mood disorder Current Visit: Yes Status: Chronic (12) Positive RPR test Current Visit: No Status: Acute (13) Substance-induced sleep disorder Current Visit: No Status: Acute (14) Substance induced mood disorder Current Visit: No Status: Chronic (15) chronic Rt ankle pain Current Visit: No Status: Chronic (16) schizoid personality disorder Current Visit: No Status: Chronic (17) History of positive serological reaction for syphilis Current Visit: No Status: Resolved - AMA Did Patient Leave Against Medical Advice: No
[2019-05-11] MEDS: BENZTROPINE MESYLATE 1 MG TABLET (FP) PO SCH (10:31)
[2019-05-11] MEDS: PRENATAL VITAMINS W/ FOLIC ACID TABLET (FP) PO SCH (10:31)
[2019-05-11] MEDS: NICOTINE 21 MG/24 HOURS TOPICAL PATCH TD SCH (10:31)
[2019-05-11 12:19] VITALS: BP 94/64; PULSE 70; TEMP 97
== END 2019-05-11 12:31 | disposition home or self-care (01) | DRG 774 ==
LOC: YASAS 14:07 → Y6N 18:09
PROVIDERS: ADMIT Allergy & Immunology; ATTEND Allergy & Immunology
PROC: HZ2ZZZZ Detoxification Services for Substance Abuse Treatment (ICD-10-PCS; principal; 2019-05-06)
DX: F10.230 Alcohol dependence with withdrawal, uncomplicated (principal); F14.20 Cocaine dependence, uncomplicated; F12.20 Cannabis dependence, uncomplicated; F17.210 Nicotine dependence, cigarettes, uncomplicated; F19.282 Other psychoactive substance dependence with psychoactive substance-induced sleep disorder; F19.24 Other psychoactive substance dependence with psychoactive substance-induced mood disorder; F25.9 Schizoaffective disorder, unspecified; F31.9 Bipolar disorder, unspecified; J45.909 Unspecified asthma, uncomplicated; M17.0 Bilateral primary osteoarthritis of knee; M25.571 Pain in right ankle and joints of right foot; G89.29 Other chronic pain; R76.11 Nonspecific reaction to tuberculin skin test without active tuberculosis; L40.9 Psoriasis, unspecified; Z88.5 Allergy status to narcotic agent; Z91.5 Personal history of self-harm
CPT/HCPCS: 36415; 80053; 84132; 85027; 86593; 86780; 93005; 93010

== ENCOUNTER 2019-07-08 14:22 | Inpatient (IN) | payer OTHER ==
[2019-07-08] MEDS ORDERED: MENTHOL/PHENOL 1 EACH UD MM PRN (15:47)
[2019-07-08] MEDS ORDERED: NICOTINE POLACRILEX 2 MG GUM BUC PRN (15:47)
[2019-07-08] MEDS ORDERED: MAGNESIUM CITRATE 300 ML BOTTLE PO PRN (15:47)
[2019-07-08] MEDS ORDERED: guaiFENesin 200 MG/10 ML 10 ML UNIT-DOSE CUPS PO PRN (15:47)
[2019-07-08] MEDS ORDERED: LOPERAMIDE HCL 2 MG CAPSULE PO PRN (15:47)
[2019-07-08] MEDS ORDERED: MAG HYDROX/AL HYDROX/SIMETH 30 ML UNIT-DOSE CUP PO PRN (15:47)
[2019-07-08] MEDS ORDERED: P-EPHED 60MG/TRIPROLIDI 2.5MG TABLET PO PRN (15:47)
[2019-07-08] MEDS ORDERED: MAGNESIUM HYDROX 2400MG/30ML ORAL SUSPENSION 30 ML CUP PO PRN (15:47)
--- NOTE | 2019-07-08 15:48 | HP ---
LUCIA DOBBS Rehab Assess/Revision - Admission History Admitted to Rehab from: [facility] - Vital signs Vital Signs: Vital Signs Period Temp Pulse Resp BP Sys/Vincent Pulse Ox Last 24 Hr 97.6 F 86 18 122/79 - Findings Detox History & Physical reviewed: Yes Concur with findings: Yes Inpatient Rehab Admission - Rehab Decision to Admit Inpatient rehab admission?: Yes - Initial Determination Are CD services needed?: Yes Free of communicable disease: Yes Not in need of hospitalization: Yes - Rehab Admission Criteria Previous failed treatment: Yes Poor recovery environment: Yes Comorbidities: Yes Lacks judgement: Yes Patient is meeting Inpatient Rehab admission criteria:: Yes (Pt has teodoro knee pain. Awaiting surgery for knee replacement.)
[2019-07-08] MEDS ORDERED: ALBUTEROL SO4 HFA INHALER IH PRN (15:49)
--- NOTE | 2019-07-08 15:54 | PN ---
[facility] Progress Note Note: PATIENT TRANSFERRED FROM [address] [place] [address] AFTER COMPLETING DETOX FOR ALCOHOL DEPENDENCE. PMH: SCHIZOPHRENIA, BIPOLAR D/O AND HYPERTHYROIDISM PCP: DR. TORRES, [address] [place] [address] ROS: DENIES SHAKES, ETOH CRAVINGS, SWEATING AND ANXIETY Vital Signs Temperature 97.6 F 07/08/19 14:32 Pulse Rate 86 07/08/19 14:32 Respiratory Rate 18 07/08/19 14:32 Blood Pressure 122/79 07/08/19 14:32 O2 Sat by Pulse Oximetry (%) Vital Signs Period Temp Pulse Resp BP Sys/Vincent Pulse Ox Last 24 Hr 97.6 F 86 18 122/79 ALERT AND ORIENTED X 3 SKIN WARM AND DRY IN NAD AMB AD BOB A/P: ALCOHOL DEPENDENCE CONTINUE REHAB SERVICES TAPAZOLE 10MG DAILY CONFIRMED AT [facility], LAST PRESCRIPTION 06/20/2019
[2019-07-08] MEDS: IBUPROFEN 400 MG TABLET (FP) PO PRN (17:40)
[2019-07-08] MEDS: ACETAMINOPHEN 325 MG TABLET (FP) PO PRN (19:37)
[2019-07-08] MEDS ORDERED: PT OWN MED DRAWER 7, Y5N ONE (20:00)
[2019-07-08] MEDS: MELATONIN 5 MG TABLETS PO SCH (21:46)
[2019-07-08] MEDS: BENZTROPINE MESYLATE 1 MG TABLET PO SCH (21:47)
[2019-07-08] MEDS: GABAPENTIN 400 MG CAPSULE PO SCH (21:47)
[2019-07-08] MEDS: BETAMETHASONE DIPR 0.05% OINT 45 GM TUBE TP SCH (21:47)
[2019-07-08] MEDS: THIAMINE HCL 100 MG TABLET (FP) PO SCH (21:47)
[2019-07-08] MEDS ORDERED: SUVOREXANT 10 MG TABLET PO PRN (22:00)
[2019-07-09] MEDS ORDERED: PT OWN MED DRAWER 7, Y5N ONE ×2 (06:03→21:40)
[2019-07-09] MEDS: hydrOXYzine PAMOATE 25 MG CAPSULE (FP) PO PRN (07:05)
[2019-07-09] MEDS: GABAPENTIN 400 MG CAPSULE PO SCH ×3 (07:05→21:39)
[2019-07-09] MEDS: IBUPROFEN 400 MG TABLET (FP) PO PRN ×2 (07:07→15:13)
[2019-07-09] MEDS: BENZTROPINE MESYLATE 1 MG TABLET PO SCH ×2 (10:12→21:38)
[2019-07-09] MEDS: NICOTINE 14 MG/24 HOURS TOPICAL PATCH TD SCH (10:12)
[2019-07-09] MEDS: METHIMAZOLE 10 MG TABLET (FP) PO SCH (10:12)
[2019-07-09] MEDS: CROMOLYN SODIUM 4% OPHTH DROPS 10 ML BOTTLE OU SCH (10:12)
[2019-07-09] MEDS: PRENATAL VITAMINS W/ FOLIC ACID TABLET (FP) PO SCH (10:12)
[2019-07-09] MEDS: BETAMETHASONE DIPR 0.05% OINT 45 GM TUBE TP SCH ×2 (10:13→21:41)
[2019-07-09] MEDS: ACETAMINOPHEN 325 MG TABLET (FP) PO PRN (17:41)
[2019-07-09] MEDS: THIAMINE HCL 100 MG TABLET (FP) PO SCH (21:38)
[2019-07-09] MEDS: MELATONIN 5 MG TABLETS PO SCH (21:38)
[2019-07-10] MEDS: GABAPENTIN 400 MG CAPSULE PO SCH ×3 (07:57→21:35)
[2019-07-10] MEDS: PRENATAL VITAMINS W/ FOLIC ACID TABLET (FP) PO SCH (10:34)
[2019-07-10] MEDS: NICOTINE 14 MG/24 HOURS TOPICAL PATCH TD SCH (10:35)
[2019-07-10] MEDS: BENZTROPINE MESYLATE 1 MG TABLET PO SCH ×2 (10:35→21:35)
[2019-07-10] MEDS: BETAMETHASONE DIPR 0.05% OINT 45 GM TUBE TP SCH ×2 (10:35→21:36)
[2019-07-10] MEDS: METHIMAZOLE 10 MG TABLET (FP) PO SCH (10:35)
[2019-07-10] MEDS: CROMOLYN SODIUM 4% OPHTH DROPS 10 ML BOTTLE OU SCH (10:36)
[2019-07-10] MEDS: ACETAMINOPHEN 325 MG TABLET (FP) PO PRN ×2 (10:36→16:55)
[2019-07-10] MEDS: IBUPROFEN 400 MG TABLET (FP) PO PRN (13:53)
[2019-07-10] MEDS: hydrOXYzine PAMOATE 25 MG CAPSULE (FP) PO PRN (21:35)
[2019-07-10] MEDS: MELATONIN 5 MG TABLETS PO SCH (21:35)
[2019-07-10] MEDS: THIAMINE HCL 100 MG TABLET (FP) PO SCH (21:35)
[2019-07-10] MEDS ORDERED: PT OWN MED DRAWER 7, Y5N ONE (21:36)
[2019-07-11] MEDS: GABAPENTIN 400 MG CAPSULE PO SCH ×3 (06:55→21:42)
[2019-07-11] MEDS: BENZTROPINE MESYLATE 1 MG TABLET PO SCH ×2 (10:09→21:42)
[2019-07-11] MEDS: CROMOLYN SODIUM 4% OPHTH DROPS 10 ML BOTTLE OU SCH (10:10)
[2019-07-11] MEDS: BETAMETHASONE DIPR 0.05% OINT 45 GM TUBE TP SCH ×2 (10:10→21:43)
[2019-07-11] MEDS: NICOTINE 14 MG/24 HOURS TOPICAL PATCH TD SCH (10:10)
[2019-07-11] MEDS: PRENATAL VITAMINS W/ FOLIC ACID TABLET (FP) PO SCH (10:11)
[2019-07-11] MEDS: ACETAMINOPHEN 325 MG TABLET (FP) PO PRN (10:11)
[2019-07-11] MEDS: METHIMAZOLE 10 MG TABLET (FP) PO SCH (10:11)
--- NOTE | 2019-07-11 10:45 | PN ---
S Progress Note Note: PATIENT C/O BILATERAL KNEE PAIN, STATES SHE HAS HX OF OA AND PENDING KNEE SURGERY. STATES PAIN A DULL ACHE AND 6/10. Vital Signs (72 hours) 07/08/19 07/09/19 07/09/19 14:32 00:45 03:35 Temperature 97.6 F Pulse Rate 86 Respiratory 18 18 18 Rate Blood Pressure 122/79 07/09/19 07/10/19 07/10/19 06:54 00:43 03:50 Temperature 97.2 F L Pulse Rate 73 Respiratory 16 20 18 Rate Blood Pressure 129/85 07/10/19 07/10/19 07/11/19 06:55 11:14 00:38 Temperature 97.3 F L Pulse Rate 81 Respiratory 18 18 18 Rate Blood Pressure 111/76 07/11/19 07/11/19 03:38 06:25 Temperature 97.5 F L Pulse Rate 82 Respiratory 18 18 Rate Blood Pressure 102/67 PE ALERT AND ORIENTED X 3 SKIN WARM AND DRY +PERRLA, EOMS INTACT BL EXT B/L KNEES MILDLY SWOLLEN, NO REDNESS OR WARMTH AMB WITH CANE A/P; OA KNEE PAIN WILL D/C MOTRIN PATIENT REPORTS INEFFECTIVE WILL START NAPROSYN 375MG BID
[2019-07-11] MEDS: NAPROXEN 375 MG TABLET PO SCH ×2 (12:51→21:44)
[2019-07-11] MEDS: THIAMINE HCL 100 MG TABLET (FP) PO SCH (21:42)
[2019-07-11] MEDS: MELATONIN 5 MG TABLETS PO SCH (21:42)
[2019-07-11] MEDS ORDERED: PT OWN MED DRAWER 7, Y5N ONE (21:43)
[2019-07-12] MEDS: GABAPENTIN 400 MG CAPSULE PO SCH ×3 (06:53→21:41)
[2019-07-12] MEDS: ACETAMINOPHEN 325 MG TABLET (FP) PO PRN ×2 (06:54→12:05)
[2019-07-12] MEDS ORDERED: PT OWN MED DRAWER 7, Y5N ONE (08:52)
[2019-07-12] MEDS: BENZTROPINE MESYLATE 1 MG TABLET PO SCH ×2 (09:19→21:41)
[2019-07-12] MEDS: CROMOLYN SODIUM 4% OPHTH DROPS 10 ML BOTTLE OU SCH (09:19)
[2019-07-12] MEDS: NAPROXEN 375 MG TABLET PO SCH ×2 (09:20→22:32)
[2019-07-12] MEDS: BETAMETHASONE DIPR 0.05% OINT 45 GM TUBE TP SCH ×2 (09:20→22:32)
[2019-07-12] MEDS: NICOTINE 14 MG/24 HOURS TOPICAL PATCH TD SCH (09:21)
[2019-07-12] MEDS: PRENATAL VITAMINS W/ FOLIC ACID TABLET (FP) PO SCH (09:22)
[2019-07-12] MEDS: METHIMAZOLE 10 MG TABLET (FP) PO SCH (09:22)
[2019-07-12] MEDS ORDERED: ALBUTEROL SO4 0.083% IH SOL 2.5 MG/3 ML VIAL.NEB. NEB PRN (09:58)
[2019-07-12] MEDS ORDERED: SUVOREXANT 10 MG TABLET PO PRN (09:59)
[2019-07-12] MEDS: METHOCARBAMOL 500 MG TABLET PO PRN ×2 (12:05→21:42)
--- NOTE | 2019-07-12 15:08 | PN ---
[facility] Progress Note Note: Psychiatric nurse practitioner note: Call received by NAMJA Carrillo concerning patient's haldol decanoate injection. As per NAJMA Carrillo, she was able to contact patient's psychiatrist, Dr. Betts, and confirm patients' due date for Ms. Daly's next haldol decanoate injection. As per NAJMA Carrillo and Dr. Millan's note, Ms. Daly next haldol decanoate is due today 07/12/19. Airworthiness Safety Inspector is currently at an outpatient clinic and is unable to assess patient. Haldol decanoate to be ordered tomorrow after evaluation by health underwriter. Patient informed of decision.
[2019-07-12] MEDS: THIAMINE HCL 100 MG TABLET (FP) PO SCH (21:42)
[2019-07-12] MEDS: MELATONIN 5 MG TABLETS PO SCH (21:42)
[2019-07-12] MEDS: METHYL SALICYLATE/MENTHOL OINT 30 GM TUBE TP SCH (21:43)
[2019-07-13] MEDS: GABAPENTIN 400 MG CAPSULE PO SCH ×3 (07:24→21:21)
[2019-07-13] MEDS: METHOCARBAMOL 500 MG TABLET PO PRN ×2 (07:26→21:21)
--- NOTE | 2019-07-13 09:04 | CONSULT ---
[facility] Psychiatric Consult - Data Date of interview: 07/13/19 Admission source: [facility] Identifying data: Ms Daly is a 49 year old single Black female, mother of a 33 year old daughter, unemployed, homeless, and is supported by [facility]. This is one of multiple admissions for patient. Patient admitted to for treatment of alcohol and cocaine dependence. Substance Abuse History: Smoking Cessation. Smoking history: Current every day smoker. Have you smoked in the past 12 months: Yes. Aproximately how many cigarettes per day: 20. Cigars Per Day: 0. Hx Chewing Tobacco Use: No. Initiated information on smoking cessation: Yes. 'Breaking Loose' booklet given: 07/04/19. - Substance & Tx. History. Hx Alcohol Use: Yes. Hx Substance Use: Yes. Substance Use Type: Alcohol, Cocaine. Hx Substance Use Treatment: Yes ([facility]). - Substances abused. Alcohol. Other (specify): VODKA. Substance route: Oral. Frequency: Daily. Amount used: 1 PINT. Age of first use: 4. Date of last use: 07/03/19. Cocaine. Substance route: Smoking. Frequency: Daily. Amount used: $100. Age of first use: 14. Date of last use: 07/03/19 Medical History: Significant for bronchial asthma, osteoarthritis (both knees), psoriasis, hyperthyroidism, history of treatment for syphilis and orthosurgery, in 1993, for fracture of right ankle in 1993. Psychiatric History: Ms. Daly's first psychiatric contact was while in [facility] in the . She was diagnosed with paranoid schizophrenia and prescribed psychotropic medications after exhibiting symptoms of auditory hallucinations and believing people were following her. She reports history of multiple psychiatric hospitalizations at [facility], [facility] and at [facility] in [place]. Reports that her most recent psychiatric admission was in April of 2019 at [facility] after CAH of voices telling her to kill herself. Reports that she currently sees a psychiatrist at [facility] and is prescribed Haldol Decanoate 200 mg IM monthly, Cogentin 1 mg/bid, Gabapentin 800 mg/tid and Ambien 10 mg/hs. Claims that she saw the psychiatrist last month and received her Haldol injection. NAJMA Carrillo contacted patient's psychiatrist Dr. Betts and medication list was faxed to [facility]. Patient informed fha underwriter that she was due for her Haldol injection on 07/12/19 ( Dr. Millan's note also mentions that patient is due for her injection on the above date). Reports one previous suicide attempt via overdose with pills in 1993. At present, denies experiencing psychotic, manic symptoms, S/H ideations. No psychosis noted. Physical/Sexual Abuse/Trauma History: denies. Additional Comment: Reports history 5-6 previous arrests including 3 felony convictions. Mental Status Exam - Mental Status Exam Alert and Oriented to: Time, Place, Person Cognitive Function: Good Patient Appearance: Well Groomed Mood: Euthymic Affect: Appropriate Patient Behavior: Appropriate, Cooperative Speech Pattern: Appropriate Voice Loudness: Normal Thought Process: Intact, Goal Oriented Thought Disorder: Not Present Hallucinations: Denies Suicidal Ideation: Denies Homicidal Ideation: Denies Insight/Judgement: Poor Sleep: Fair Appetite: Fair Muscle strength/Tone: Normal Gait/Station: Normal Psychiatric Findings - Problem List ([place] 1, 2,3) (1) Cocaine dependence Current Visit: Yes Status: Acute Qualifiers: Substance use status: uncomplicated Qualified Code(s): F14.20 - Cocaine dependence, uncomplicated (2) Substance-induced sleep disorder Current Visit: Yes Status: Acute (3) Paranoid schizophrenia Current Visit: Yes Status: Chronic (4) Nicotine dependence Current Visit: Yes Status: Chronic Qualifiers: Nicotine product type: cigarettes Substance use status: uncomplicated Qualified Code(s): F17.210 - Nicotine dependence, cigarettes, uncomplicated Comment: counseled cessation, using gum - Initial Treatment Plan Initial Treatment Plan: Psychoeducation provided. Rehab in progress. Paperwork faxed to [facility] reflecting patient's medications prescribed by Dr. Betts. Medications are as followed: Haldol Decanoate 150mg IM every 4 weeks (last received injection on 06/13/19) + Ambien 10mg + Gabapentin 300mg TID + Cogentin 1mg HS. 1) Will order Haldol decanoate 150mg IM 2) Will d/c cogentin 1mg BID and will order cogentin 1mg HS. 3) Will continue gabapentin 800mg TID as patient reports receiving the current dose from her PCP. Benefits and side effects discussed. Verbal consent given.
[2019-07-13] MEDS ORDERED: PT OWN MED DRAWER 7, Y5N ONE (09:22)
[2019-07-13] MEDS ORDERED: HALOPERIDOL DECANOATE 500 MG/5ML MDV IM ONE (09:30)
[2019-07-13] MEDS: NICOTINE 14 MG/24 HOURS TOPICAL PATCH TD SCH (10:20)
[2019-07-13] MEDS: PRENATAL VITAMINS W/ FOLIC ACID TABLET (FP) PO SCH (10:20)
[2019-07-13] MEDS: NAPROXEN 375 MG TABLET PO SCH ×2 (10:21→21:22)
[2019-07-13] MEDS: CROMOLYN SODIUM 4% OPHTH DROPS 10 ML BOTTLE OU SCH (10:21)
[2019-07-13] MEDS: METHYL SALICYLATE/MENTHOL OINT 30 GM TUBE TP SCH ×2 (10:21→21:22)
[2019-07-13] MEDS: BETAMETHASONE DIPR 0.05% OINT 45 GM TUBE TP SCH ×2 (10:21→21:22)
[2019-07-13] MEDS: METHIMAZOLE 10 MG TABLET (FP) PO SCH (10:22)
[2019-07-13] MEDS: hydrOXYzine PAMOATE 25 MG CAPSULE (FP) PO PRN (21:21)
[2019-07-13] MEDS: MELATONIN 5 MG TABLETS PO SCH (21:21)
[2019-07-13] MEDS: THIAMINE HCL 100 MG TABLET (FP) PO SCH (21:21)
[2019-07-13] MEDS: BENZTROPINE MESYLATE 1 MG TABLET PO SCH (21:22)
[2019-07-13] MEDS ORDERED: SUVOREXANT 10 MG TABLET PO PRN (22:00)
[2019-07-14] MEDS ORDERED: PT OWN MED DRAWER 7, Y5N ONE ×3 (01:20→21:28)
[2019-07-14] MEDS: GABAPENTIN 400 MG CAPSULE PO SCH ×3 (06:40→21:27)
[2019-07-14] MEDS: PRENATAL VITAMINS W/ FOLIC ACID TABLET (FP) PO SCH (10:24)
[2019-07-14] MEDS: NAPROXEN 375 MG TABLET PO SCH ×2 (10:25→21:29)
[2019-07-14] MEDS: CROMOLYN SODIUM 4% OPHTH DROPS 10 ML BOTTLE OU SCH (10:25)
[2019-07-14] MEDS: BETAMETHASONE DIPR 0.05% OINT 45 GM TUBE TP SCH ×2 (10:26→21:55)
[2019-07-14] MEDS: METHYL SALICYLATE/MENTHOL OINT 30 GM TUBE TP SCH ×2 (10:26→21:54)
[2019-07-14] MEDS: NICOTINE 14 MG/24 HOURS TOPICAL PATCH TD SCH (10:26)
[2019-07-14] MEDS: METHIMAZOLE 10 MG TABLET (FP) PO SCH (10:27)
[2019-07-14] MEDS: METHOCARBAMOL 500 MG TABLET PO PRN (10:28)
[2019-07-14] MEDS: BENZTROPINE MESYLATE 1 MG TABLET PO SCH (21:27)
[2019-07-14] MEDS: THIAMINE HCL 100 MG TABLET (FP) PO SCH (21:27)
[2019-07-14] MEDS: MELATONIN 5 MG TABLETS PO SCH (21:27)
[2019-07-15] MEDS: GABAPENTIN 400 MG CAPSULE PO SCH ×3 (06:54→21:13)
[2019-07-15] MEDS: NAPROXEN 375 MG TABLET PO SCH ×2 (10:24→21:14)
[2019-07-15] MEDS: NICOTINE 14 MG/24 HOURS TOPICAL PATCH TD SCH (10:24)
[2019-07-15] MEDS: METHYL SALICYLATE/MENTHOL OINT 30 GM TUBE TP SCH ×2 (10:24→21:14)
[2019-07-15] MEDS: PRENATAL VITAMINS W/ FOLIC ACID TABLET (FP) PO SCH (10:24)
[2019-07-15] MEDS: BETAMETHASONE DIPR 0.05% OINT 45 GM TUBE TP SCH ×2 (10:25→21:14)
[2019-07-15] MEDS: CROMOLYN SODIUM 4% OPHTH DROPS 10 ML BOTTLE OU SCH (10:25)
[2019-07-15] MEDS: METHIMAZOLE 10 MG TABLET (FP) PO SCH (10:26)
[2019-07-15] MEDS: METHOCARBAMOL 500 MG TABLET PO PRN (11:35)
[2019-07-15] MEDS: ACETAMINOPHEN 325 MG TABLET (FP) PO PRN (11:35)
[2019-07-15] MEDS ORDERED: ALBUTEROL SO4 HFA INHALER IH PRN (12:19)
[2019-07-15] MEDS: BENZTROPINE MESYLATE 1 MG TABLET PO SCH (21:13)
[2019-07-15] MEDS: MELATONIN 5 MG TABLETS PO SCH (21:13)
[2019-07-15] MEDS: THIAMINE HCL 100 MG TABLET (FP) PO SCH (21:13)
[2019-07-16] MEDS: GABAPENTIN 400 MG CAPSULE PO SCH ×3 (06:24→21:14)
[2019-07-16] MEDS: CROMOLYN SODIUM 4% OPHTH DROPS 10 ML BOTTLE OU SCH (09:08)
[2019-07-16] MEDS: METHYL SALICYLATE/MENTHOL OINT 30 GM TUBE TP SCH ×2 (09:08→21:13)
[2019-07-16] MEDS: NAPROXEN 375 MG TABLET PO SCH ×2 (09:09→21:16)
[2019-07-16] MEDS: BETAMETHASONE DIPR 0.05% OINT 45 GM TUBE TP SCH ×2 (09:09→21:17)
[2019-07-16] MEDS: PRENATAL VITAMINS W/ FOLIC ACID TABLET (FP) PO SCH (09:10)
[2019-07-16] MEDS: NICOTINE 14 MG/24 HOURS TOPICAL PATCH TD SCH (09:10)
[2019-07-16] MEDS: METHOCARBAMOL 500 MG TABLET PO PRN ×2 (09:11→21:15)
[2019-07-16] MEDS: METHIMAZOLE 10 MG TABLET (FP) PO SCH (09:11)
[2019-07-16] MEDS: THIAMINE HCL 100 MG TABLET (FP) PO SCH (21:13)
[2019-07-16] MEDS: MELATONIN 5 MG TABLETS PO SCH (21:14)
[2019-07-16] MEDS: BENZTROPINE MESYLATE 1 MG TABLET PO SCH (21:14)
[2019-07-16] MEDS ORDERED: PT OWN MED DRAWER 7, Y5N ONE (21:16)
[2019-07-17] MEDS: GABAPENTIN 400 MG CAPSULE PO SCH ×3 (06:45→21:05)
[2019-07-17] MEDS: BETAMETHASONE DIPR 0.05% OINT 45 GM TUBE TP SCH ×2 (10:17→21:06)
[2019-07-17] MEDS: METHYL SALICYLATE/MENTHOL OINT 30 GM TUBE TP SCH ×2 (10:17→21:05)
[2019-07-17] MEDS: CROMOLYN SODIUM 4% OPHTH DROPS 10 ML BOTTLE OU SCH (10:17)
[2019-07-17] MEDS: NAPROXEN 375 MG TABLET PO SCH ×2 (10:18→21:06)
[2019-07-17] MEDS: NICOTINE 14 MG/24 HOURS TOPICAL PATCH TD SCH (10:18)
[2019-07-17] MEDS: METHOCARBAMOL 500 MG TABLET PO PRN (10:19)
[2019-07-17] MEDS: PRENATAL VITAMINS W/ FOLIC ACID TABLET (FP) PO SCH (10:19)
[2019-07-17] MEDS: METHIMAZOLE 10 MG TABLET (FP) PO SCH (10:19)
[2019-07-17] MEDS ORDERED: PT OWN MED DRAWER 7, Y5N ONE (10:21)
[2019-07-17] MEDS: BENZTROPINE MESYLATE 1 MG TABLET PO SCH (21:05)
[2019-07-17] MEDS: MELATONIN 5 MG TABLETS PO SCH (21:05)
[2019-07-17] MEDS: THIAMINE HCL 100 MG TABLET (FP) PO SCH (21:05)
[2019-07-18] MEDS: GABAPENTIN 400 MG CAPSULE PO SCH ×3 (06:50→22:01)
[2019-07-18] MEDS: METHYL SALICYLATE/MENTHOL OINT 30 GM TUBE TP SCH ×2 (10:11→22:02)
[2019-07-18] MEDS: CROMOLYN SODIUM 4% OPHTH DROPS 10 ML BOTTLE OU SCH (10:11)
[2019-07-18] MEDS: BETAMETHASONE DIPR 0.05% OINT 45 GM TUBE TP SCH ×2 (10:12→22:01)
[2019-07-18] MEDS: NAPROXEN 375 MG TABLET PO SCH ×2 (10:12→22:02)
[2019-07-18] MEDS: NICOTINE 14 MG/24 HOURS TOPICAL PATCH TD SCH (10:13)
[2019-07-18] MEDS: METHOCARBAMOL 500 MG TABLET PO PRN (10:13)
[2019-07-18] MEDS: PRENATAL VITAMINS W/ FOLIC ACID TABLET (FP) PO SCH (10:13)
[2019-07-18] MEDS: METHIMAZOLE 10 MG TABLET (FP) PO SCH (10:13)
--- NOTE | 2019-07-18 13:10 | PN ---
S Progress Note Note: PATIENT C/O CHRONIC OA TO LEFT KNEE AND REQUESTED LIDOCAINE PATCH. Laboratory Tests 07/12/19 07/13/19 07/14/19 06:53 07:30 06:47 POC Glucometer 100 160 120 07/18/19 06:50 POC Glucometer 115 Vital Signs Temperature 97.4 F L 07/18/19 06:45 Pulse Rate 68 07/18/19 06:45 Respiratory Rate 18 07/18/19 06:45 Blood Pressure 97/67 07/18/19 06:45 O2 Sat by Pulse Oximetry (%) 100 07/18/19 06:45 PE ALERT AND ORIENTED X 3 SKIN WARM AND DRY EXT AMB WITH CANE IN NAD A/P: OA LEFT KNEE PAIN LIDOCAINE PATCH ORDERED
[2019-07-18] MEDS: LIDOCAINE 5% TOPICAL PATCH TP SCH (14:54)
[2019-07-18] MEDS: LIDOCAINE PATCH REMOVAL MC SCH (22:01)
[2019-07-18] MEDS: THIAMINE HCL 100 MG TABLET (FP) PO SCH (22:01)
[2019-07-18] MEDS: BENZTROPINE MESYLATE 1 MG TABLET PO SCH (22:01)
[2019-07-18] MEDS: MELATONIN 5 MG TABLETS PO SCH (22:01)
[2019-07-19] MEDS: GABAPENTIN 400 MG CAPSULE PO SCH ×3 (07:08→22:12)
[2019-07-19] MEDS: LIDOCAINE 5% TOPICAL PATCH TP SCH (10:12)
[2019-07-19] MEDS: CROMOLYN SODIUM 4% OPHTH DROPS 10 ML BOTTLE OU SCH (10:13)
[2019-07-19] MEDS: METHYL SALICYLATE/MENTHOL OINT 30 GM TUBE TP SCH ×2 (10:13→22:12)
[2019-07-19] MEDS: NICOTINE 14 MG/24 HOURS TOPICAL PATCH TD SCH (10:14)
[2019-07-19] MEDS: NAPROXEN 375 MG TABLET PO SCH ×2 (10:14→22:14)
[2019-07-19] MEDS: PRENATAL VITAMINS W/ FOLIC ACID TABLET (FP) PO SCH (10:14)
[2019-07-19] MEDS: BETAMETHASONE DIPR 0.05% OINT 45 GM TUBE TP SCH ×2 (10:15→22:13)
[2019-07-19] MEDS: METHIMAZOLE 10 MG TABLET (FP) PO SCH (10:15)
[2019-07-19] MEDS: THIAMINE HCL 100 MG TABLET (FP) PO SCH (22:12)
[2019-07-19] MEDS: BENZTROPINE MESYLATE 1 MG TABLET PO SCH (22:12)
[2019-07-19] MEDS: LIDOCAINE PATCH REMOVAL MC SCH (22:13)
[2019-07-19] MEDS: MELATONIN 5 MG TABLETS PO SCH (22:13)
[2019-07-20] MEDS: GABAPENTIN 400 MG CAPSULE PO SCH ×3 (06:23→21:46)
[2019-07-20] MEDS: METHYL SALICYLATE/MENTHOL OINT 30 GM TUBE TP SCH ×2 (10:27→21:47)
[2019-07-20] MEDS: CROMOLYN SODIUM 4% OPHTH DROPS 10 ML BOTTLE OU SCH (10:27)
[2019-07-20] MEDS: BETAMETHASONE DIPR 0.05% OINT 45 GM TUBE TP SCH ×2 (10:28→21:47)
[2019-07-20] MEDS: NAPROXEN 375 MG TABLET PO SCH ×2 (10:29→21:47)
[2019-07-20] MEDS: METHOCARBAMOL 500 MG TABLET PO PRN (10:30)
[2019-07-20] MEDS: METHIMAZOLE 10 MG TABLET (FP) PO SCH (10:30)
[2019-07-20] MEDS: PRENATAL VITAMINS W/ FOLIC ACID TABLET (FP) PO SCH (10:30)
[2019-07-20] MEDS: NICOTINE 14 MG/24 HOURS TOPICAL PATCH TD SCH (10:31)
[2019-07-20] MEDS: LIDOCAINE 5% TOPICAL PATCH TP SCH (10:32)
[2019-07-20] MEDS: MELATONIN 5 MG TABLETS PO SCH (21:46)
[2019-07-20] MEDS: BENZTROPINE MESYLATE 1 MG TABLET PO SCH (21:46)
[2019-07-20] MEDS: THIAMINE HCL 100 MG TABLET (FP) PO SCH (21:46)
[2019-07-20] MEDS: hydrOXYzine PAMOATE 25 MG CAPSULE (FP) PO PRN (21:47)
[2019-07-20] MEDS: LIDOCAINE PATCH REMOVAL MC SCH (21:47)
[2019-07-21] MEDS: GABAPENTIN 400 MG CAPSULE PO SCH ×3 (06:47→21:21)
[2019-07-21] MEDS: LIDOCAINE 5% TOPICAL PATCH TP SCH (09:52)
[2019-07-21] MEDS: PRENATAL VITAMINS W/ FOLIC ACID TABLET (FP) PO SCH (09:52)
[2019-07-21] MEDS ORDERED: PT OWN MED DRAWER 7, Y5N ONE (09:53)
[2019-07-21] MEDS: CROMOLYN SODIUM 4% OPHTH DROPS 10 ML BOTTLE OU SCH (09:53)
[2019-07-21] MEDS: NAPROXEN 375 MG TABLET PO SCH ×2 (09:54→21:23)
[2019-07-21] MEDS: METHIMAZOLE 10 MG TABLET (FP) PO SCH (09:54)
[2019-07-21] MEDS: BETAMETHASONE DIPR 0.05% OINT 45 GM TUBE TP SCH ×2 (09:55→21:22)
[2019-07-21] MEDS: NICOTINE 14 MG/24 HOURS TOPICAL PATCH TD SCH (09:55)
[2019-07-21] MEDS: METHYL SALICYLATE/MENTHOL OINT 30 GM TUBE TP SCH ×2 (09:55→21:20)
--- NOTE | 2019-07-21 10:44 | PN ---
[facility] Progress Note Note: Patient is scheduled for discharge tomorrow. Scripts for 30 days supply of medications (Cogentin 1 mg/hs, Gabapentin 800 mg/tid) will be electronically transmitted to [facility], [address] [place] [id number]
--- NOTE | 2019-07-21 14:16 | DS ---
[facility] Rehab Discharge Summary - [facility] Rehab Discharge Summary Admission Date: 07/08/19 Discharge Date: 07/22/19 - History Present History: Alcohol dependence, Cocaine dependence Additional Comments: Pt is a 49 y/o female with a hx of AC admitted to rehab and scheduled to discharge on 07/15/19. Pt has been referred to [facility] for CD aftercare. pt is also connected to [facility] on [place], [place] for mental health care. Pt has primary care with Dr. Gamez on [address] [place], [place]. Pertinent Past History: Asthma Hx Bilateral knee Pain Psoriasis Schizophrenia - Discharge Physical Exam Vital Signs: Vital Signs Temperature 97.3 F L 07/21/19 06:25 Pulse Rate 52 L 07/21/19 06:25 Respiratory Rate 16 07/21/19 06:25 Blood Pressure 119/80 07/21/19 06:25 O2 Sat by Pulse Oximetry (%) 100 07/21/19 06:20 Pertinent Admission Physical Exam Findings: Laboratory Tests 07/12/19 07/13/19 07/14/19 06:53 07:30 06:47 POC Glucometer 100 160 120 07/18/19 07/21/19 06:50 07:00 POC Glucometer 115 100 - Treatment Discharge Condition: Discharge condition good Hospital Course: Rehabilitated safely and responded well Cd aftercare referral accepted - Medication Discharge Medications: Ambulatory Orders Haloperidol Decanoate [Haldol Decanoate 100] 150 mg IM MONTHLY 07/19/14 Benztropine Mesylate 1 mg PO BID #60 tablet 12/21/18 Cromolyn Sodium [Crolom -] 1 drop OU DAILY 07/08/19 Haloperidol Decanoate [Haldol Decanoate (Long-Acting) -] 150 mg IM ONCE 07/13/19 Haloperidol Decanoate [Haldol Decanoate 100] 150 mg IM ONCE 07/13/19 Albuterol Sulfate Inhaler - [Ventolin HFA Inhaler -] 2 puff PO Q4H PRN #1 inhaler 07/21/19 Benztropine Mesylate [Cogentin -] 1 mg PO HS #30 tablet 07/21/19 Betamethasone Dipropionate [Diprosone 0.05% Ointment -] 1 applic TP BID #1 tube 07/21/19 Gabapentin 800 mg PO TID #90 tablet 07/21/19 Methimazole [Tapazole -] 10 mg PO DAILY #30 tablet 07/21/19 - Medication-Assisted Treatment (MAT) Medication-Assisted Treatment (MAT): No - Discharge Instructions Diet, activity, other medical instructions: Diet:Regular Activity: oob ad rishi with cane Other medical instructions:follow up with CD aftercare and primary care as recommended and scheduled. - Diagnosis (1) Alcohol use disorder Status: Chronic (2) Cocaine dependence Status: Chronic Qualifiers: Substance use status: uncomplicated Qualified Code(s): F14.20 - Cocaine dependence, uncomplicated (3) Asthma Status: Chronic (4) Nicotine dependence Status: Chronic Qualifiers: Nicotine product type: cigarettes Substance use status: uncomplicated Qualified Code(s): F17.210 - Nicotine dependence, cigarettes, uncomplicated (5) Cannabis dependence Status: Chronic (6) Psoriasis Status: Chronic (7) Bilateral knee pain Status: Chronic Qualifiers: Chronicity: chronic Qualified Code(s): M25.561 - Pain in right knee; M25.562 - Pain in left knee; G89.29 - Other chronic pain - Follow-up Referral Minutes to complete discharge: 30 - AMA Did Patient Leave Against Medical Advice: No Additional Comments: pt has primary care with dr. Gamez on [address] [place], [place] and Psychiatric care with [facility], [address] [place] [address].
[2019-07-21] MEDS: THIAMINE HCL 100 MG TABLET (FP) PO SCH (21:21)
[2019-07-21] MEDS: BENZTROPINE MESYLATE 1 MG TABLET PO SCH (21:21)
[2019-07-21] MEDS: MELATONIN 5 MG TABLETS PO SCH (21:21)
[2019-07-21] MEDS: hydrOXYzine PAMOATE 25 MG CAPSULE (FP) PO PRN (21:21)
[2019-07-21] MEDS: LIDOCAINE PATCH REMOVAL MC SCH (21:23)
[2019-07-22] MEDS: GABAPENTIN 400 MG CAPSULE PO SCH (06:39)
[2019-07-22 07:27] VITALS: TEMP 97.7
[2019-07-22] MEDS: METHIMAZOLE 10 MG TABLET (FP) PO SCH (09:03)
[2019-07-22] MEDS: PRENATAL VITAMINS W/ FOLIC ACID TABLET (FP) PO SCH (09:03)
[2019-07-22] MEDS: NAPROXEN 375 MG TABLET PO SCH (09:03)
[2019-07-22] MEDS: LIDOCAINE 5% TOPICAL PATCH TP SCH (09:03)
[2019-07-22] MEDS: BETAMETHASONE DIPR 0.05% OINT 45 GM TUBE TP SCH (09:04)
[2019-07-22] MEDS: METHYL SALICYLATE/MENTHOL OINT 30 GM TUBE TP SCH (09:04)
[2019-07-22] MEDS: NICOTINE 14 MG/24 HOURS TOPICAL PATCH TD SCH (09:04)
[2019-07-22] MEDS: CROMOLYN SODIUM 4% OPHTH DROPS 10 ML BOTTLE OU SCH (09:04)
[2019-07-22 09:05] VITALS: BP 106/67; PULSE 90
--- NOTE | 2019-07-22 11:17 | PN ---
[facility] Progress Note Note: pt was discharged today as scheduled in stable condition. Vital Signs - 24 hr 07/21/19 07/21/19 07/22/19 14:14 20:30 00:42 Temperature Pulse Rate Respiratory 17 Rate Blood Pressure O2 Sat by Pulse 100 100 Oximetry (%) 07/22/19 07/22/19 07/22/19 03:40 06:35 09:05 Temperature 97.7 F Pulse Rate 61 90 Respiratory 18 18 18 Rate Blood Pressure 109/76 106/67 O2 Sat by Pulse 100 Oximetry (%) Pt to follow up with CD aftercare and primary care as discussed yesterday.
== END 2019-07-22 09:10 | disposition home or self-care (01) | DRG 772 ==
LOC: YASAS 14:22 → Y3E 14:23
PROVIDERS: ADMIT Allergy & Immunology; ATTEND Allergy & Immunology
PROC: HZ42ZZZ Group Counseling for Substance Abuse Treatment, Cognitive-Behavioral (ICD-10-PCS; principal; 2019-07-08)
DX: F10.20 Alcohol dependence, uncomplicated (principal); F14.20 Cocaine dependence, uncomplicated; F12.20 Cannabis dependence, uncomplicated; F17.210 Nicotine dependence, cigarettes, uncomplicated; F20.0 Paranoid schizophrenia; F31.9 Bipolar disorder, unspecified; F19.282 Other psychoactive substance dependence with psychoactive substance-induced sleep disorder; E87.5 Hyperkalemia; J45.909 Unspecified asthma, uncomplicated; L40.9 Psoriasis, unspecified; M17.0 Bilateral primary osteoarthritis of knee; G89.29 Other chronic pain; Z86.19 Personal history of other infectious and parasitic diseases; Z91.5 Personal history of self-harm; Z88.5 Allergy status to narcotic agent; Z56.0 Unemployment, unspecified; Z59.0 Homelessness
CPT/HCPCS: 82962

== ENCOUNTER 2019-12-24 17:27 | Inpatient (IN) | payer OTHER ==
[2019-12-24 18:00] VITALS: BMI 36.9
--- NOTE | 2019-12-24 18:25 | BHS.RME ---
Substance Use & Tx History - Substance Use History Alcohol Substance amount: 2pints of liquor/2 of 22 zs of beer Frequency of use: Daily Substance route: Oral Date of Last Use: 12/24/19 k2 Substance amount: 30$ Frequency of use: Daily Substance route: Smoking Date of Last Use: 12/24/19 - Last Treatment Date of last treatment: [facility] 07/04/19 to 07/08/19 Where was last treatment: Detox Physical/Psych/Mental Status - Behavior Eye Contact: Normal - Cooperativeness Cooperativeness: Cooperative - Thinking Thought Processes: Logical - Physical Health Problems Is patient presently having any pain?: No Does patient presently have any injuries (include location): No Does patient currently have a fever: No CIWA Nausea/Vomitin Muscle Tremors: 3 Anxiety: 3 Agitation: 3 Paroxysmal Sweats: 1-Minimal Palms Moist Orientation: 0-Oriented Tacttile Disturbances: 1-Very Mild Itch/Numbness Auditory Disturbances: 0-None Visual Disturbances: 0-None Headache: 2-Mild CIWA-Ar Total Score: 16
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
[2019-12-24] MEDS ORDERED: MAGNESIUM CITRATE 300 ML BOTTLE PO PRN (18:43)
[2019-12-24] MEDS ORDERED: MAG HYDROX/AL HYDROX/SIMETH 30 ML UNIT-DOSE CUP PO PRN (18:43)
[2019-12-24] MEDS ORDERED: MENTHOL/PHENOL 1 EACH UD MM PRN (18:43)
[2019-12-24] MEDS ORDERED: NICOTINE POLACRILEX 2 MG GUM BUC PRN (18:43)
[2019-12-24] MEDS ORDERED: IBUPROFEN 400 MG TABLET (FP) PO PRN (18:43)
[2019-12-24] MEDS ORDERED: ONDANSETRON *ODT* 4 MG TABLET SL ONE (18:43)
[2019-12-24] MEDS ORDERED: METHOCARBAMOL 500 MG TABLET PO PRN (18:43)
[2019-12-24] MEDS ORDERED: ACETAMINOPHEN 325 MG TABLET (FP) PO PRN ×2 (18:43)
[2019-12-24] MEDS ORDERED: MAGNESIUM HYDROX 2400MG/30ML ORAL SUSPENSION 30 ML CUP PO PRN (18:43)
[2019-12-24] MEDS ORDERED: BISMUTH SUBSALICYLATE 524 MG/30 ML UD PO PRN (18:43)
[2019-12-24] MEDS ORDERED: chlordiazePOXIDE HCL 25 MG CAPSULE PO PRN (18:43)
[2019-12-24] MEDS: chlordiazePOXIDE HCL 25 MG CAPSULE PO SCH ×2 (20:13→23:09)
[2019-12-24] MEDS ORDERED: ALBUTEROL SO4 HFA INHALER IH PRN (20:38)
[2019-12-24] MEDS: MELATONIN 5 MG TABLETS PO SCH (23:09)
[2019-12-24] MEDS: hydrOXYzine PAMOATE 25 MG CAPSULE (FP) PO SCH (23:09)
[2019-12-24] MEDS: FLUOCINONIDE 0.05% TOP OINT (60 GM TUBE) TP SCH (23:09)
[2019-12-24] MEDS: THIAMINE HCL 100 MG TABLET (FP) PO SCH (23:09)
[2019-12-25] MEDS: hydrOXYzine PAMOATE 25 MG CAPSULE (FP) PO SCH ×5 (06:45→23:28)
[2019-12-25] MEDS: chlordiazePOXIDE HCL 25 MG CAPSULE PO SCH ×4 (06:45→23:29)
[2019-12-25 10:13] LABS: HEMOGLOBIN 11.9 GM/dL (10.7-15.3); MCH 28.4 pg (25.7-33.7); MCHC 32.3 g/dl (32.0-36.0); MEAN CELL VOLUME 88.1 fl (80-96); MEAN PLT VOLUME 6.9 fl (7.5-11.1); PLATELET COUNT 353 K/MM3 (134-434); RDW 16.3 % (11.6-15.6); WHITE BLOOD COUNT 5.5 K/mm3 (4.0-10.0)
[2019-12-25] MEDS: FLUOCINONIDE 0.05% TOP OINT (60 GM TUBE) TP SCH ×2 (10:17→23:28)
[2019-12-25] MEDS: PRENATAL VITAMINS W/ FOLIC ACID TABLET (FP) PO SCH (10:17)
[2019-12-25] MEDS: NICOTINE 21 MG/24 HOURS TOPICAL PATCH TD SCH (10:18)
[2019-12-25 10:20] LABS: BILIRUBIN,TOTAL 0.4 mg/dL (0.2-1); BLOOD UREA NITROGEN 6.8 mg/dL (7-18); CALCIUM 8.6 mg/dL (8.5-10.1); CREATININE 0.8 mg/dL (0.55-1.3); POTASSIUM 3.5 mmol/L (3.5-5.1); TOT PROT 6.5 g/dl (6.4-8.2)
--- NOTE | 2019-12-25 11:48 | CONSULT ---
[facility] Psychiatric Consult - Data Date of interview: 12/25/19 Admission source: [facility] Identifying data: Patient is a 49 year old single female, mother of one, unemployed, homeless, and is supported by [facility]. This is one of multiple admissions for patient. Patient admitted to detox for treatment of alcohol and marijuana (K2) dependence. Substance Abuse History: Smoking Cessation. Smoking history: Current every day smoker. Have you smoked in the past 12 months: Yes. Aproximately how many cigarettes per day: 20. Cigars Per Day: 0. Hx Chewing Tobacco Use: No. Initiated information on smoking cessation: Yes. 'Breaking Loose' booklet given: 12/24/19. - Substance & Tx. History. Hx Alcohol Use: Yes. Hx Substance Use: Yes. Substance Use Type: Alcohol. Hx Substance Use Treatment: Yes (last 07/04/19 to 07/08/19). - Substances abused. Alcohol. Substance route: Oral. Frequency: Daily. Amount used: 2pints of liquor/2 of 22 ozs of beer. Age of first use: 4. Date of last use: 12/24/19. K2/Spice. Substance route: Smoking. Frequency: Daily. Amount used: 30$. Age of first use: 39. Date of last use: 12/24/19 Medical History: Significant for bronchial asthma, osteoarthritis (both knees), psoriasis, hyperthyroidism, history of treatment for syphilis and orthosurgery, in 1993, for fracture of right ankle in 1993. Psychiatric History: Ms. Daly's first psychiatric contact was while in custodial in the due to onset disturbances of auditory hallucinations and believing people were following her. Diagnosis of Schizoaffective disorder. History of multiple psychiatric hospitalizations at [facility], [facility] and at [facility] in [place]. Ms. Daly most recent psychiatric hospitalization was at [facility] two months ago due to auditory hallucinations. Ms. Daly reports receiving haldol decanoate 200mg IM while at [facility]. States that she continues to see Dr. Betts at [facility]. Patient unable to recall her list of medication but as per previous encounter with patient in June of 2019, Dr. Betts was able to fax her list of medications in June of 2019 which consisted of the following medicatio ns: Haldol Decanoate 150mg IM every 4 weeks + Ambien 10mg + Gabapentin 300mg TID + Cogentin 1mg HS. Today, patient states that she was due for her Haldol decanoate on December 21. History of suicide attempt via overdose with pills in 1993. At present patient denies auditory/ visual hallucinations, suicidal/ homicidal ideation. No psychosis noted. Physical/Sexual Abuse/Trauma History: denies. Mental Status Exam - Mental Status Exam Alert and Oriented to: Time, Place, Person Cognitive Function: Good Patient Appearance: Well Groomed Mood: Withdrawn Affect: Appropriate Patient Behavior: Appropriate, Cooperative Speech Pattern: Appropriate Voice Loudness: Normal Thought Process: Goal Oriented Thought Disorder: Not Present Hallucinations: Denies Suicidal Ideation: Denies Homicidal Ideation: Denies Insight/Judgement: Poor Sleep: Fair Appetite: Fair Muscle strength/Tone: Normal Gait/Station: Normal Psychiatric Findings - Problem List ([place] 1, 2,3) (1) Alcohol dependence with withdrawal, uncomplicated Status: Acute (2) Substance induced mood disorder Status: Acute (3) Cannabis dependence Status: Chronic (4) Cocaine dependence Status: Chronic Qualifiers: Substance use status: uncomplicated Qualified Code(s): F14.20 - Cocaine dependence, uncomplicated (5) Schizoaffective disorder Status: Chronic - Initial Treatment Plan Initial Treatment Plan: Psychoeducation provided. Detoxification in progress. Will order Haldol 5mg BID + Cogentin 0.5mg BID + Gabapentin 300mg TID. Thermometer Tester is unable to verify haldol decanoate medications. Patient in agreement to accept Haldol PO medications. Benefits and side effects discussed. Verbal consent given.
--- NOTE | 2019-12-25 11:51 | EKG ---
Test Reason : Blood Pressure : / mmHG Vent. Rate : 070 BPM Atrial Rate : 070 BPM P-R Int : 158 ms QRS Dur : 090 ms QT Int : 424 ms P-R-T Axes : 051 037 049 degrees QTc Int : 457 ms NORMAL SINUS RHYTHM NORMAL ECG WHEN COMPARED WITH ECG OF 06-MAY-2019 21:24, NO SIGNIFICANT CHANGE WAS FOUND Confirmed by GABINO MEJIA MD ([id number]) on 12/25/2019 11:51:08 AM Referred By: Confirmed By:GABINO MEJIA MD
[2019-12-25] MEDS: HALOPERIDOL 5 MG TABLET PO SCH ×2 (13:00→23:27)
[2019-12-25] MEDS: GABAPENTIN 300 MG CAPSULE PO SCH ×2 (13:02→23:28)
--- NOTE | 2019-12-25 14:44 | PN ---
S CIWA - CIWA Score Nausea/Vomitin-Mild Nausea/No Vomiting Muscle Tremors: 3 Anxiety: 3 Agitation: 1-Slight > Activity Paroxysmal Sweats: 2 Orientation: 0-Oriented Tacttile Disturbances: 0-None Auditory Disturbances: 0-None Visual Disturbances: 2-Mild Sensitivity Headache: 1-Very Mild CIWA-Ar Total Score: 13 BHS Progress Note (SOAP) Subjective: 49 years old female was admitted on 12/24/19 for alcohol withdrawal sx manag ement treating [facility] detox regiment feels little better today mild tremor with anxiety Objective: 12/25/19 14:44 Vital Signs - 24 hr 12/24/19 12/24/19 12/24/19 17:59 18:55 19:09 Temperature 97.2 F L 97.2 F L Pulse Rate 89 89 Respiratory 18 89 H Rate Blood Pressure 122/87 122/87 O2 Sat by Pulse 100 Oximetry (%) 12/24/19 12/25/19 12/25/19 19:42 06:22 08:55 Temperature 97.3 F L 97.0 F L 97.7 F Pulse Rate 77 70 76 Respiratory 18 18 18 Rate Blood Pressure 115/81 98/77 104/79 O2 Sat by Pulse 99 100 Oximetry (%) 12/25/19 12:53 Temperature 97.1 F L Pulse Rate 74 Respiratory 20 Rate Blood Pressure 105/74 O2 Sat by Pulse 100 Oximetry (%) Laboratory Tests 12/25/19 12/25/19 12/25/19 07:34 07:34 07:34 WBC 5.5 RBC 4.20 Hgb 11.9 Hct 37.0 MCV 88.1 MCH 28.4 MCHC 32.3 RDW 16.3 H Plt Count 353 MPV 6.9 L Sodium 142 Potassium 3.5 Chloride 106 Carbon Dioxide 31 Anion Gap 5 L BUN 6.8 L Creatinine 0.8 Est GFR (CKD-EPI)AfAm 99.63 Est GFR (CKD-EPI)NonAf 85.96 Random Glucose 101 Calcium 8.6 Total Bilirubin 0.4 AST 16 ALT 15 Alkaline Phosphatase 84 Total Protein 6.5 Albumin 3.0 L Syphilis Serology Reactive A* RPR Titer 12/25/19 07:34 WBC RBC Hgb Hct MCV MCH MCHC RDW Plt Count MPV Sodium Potassium Chloride Carbon Dioxide Anion Gap BUN Creatinine Est GFR (CKD-EPI)AfAm Est GFR (CKD-EPI)NonAf Random Glucose Calcium Total Bilirubin AST ALT Alkaline Phosphatase Total Protein Albumin Syphilis Serology RPR Titer Reactive 1:2 H history of syphilis treated lab noted 12/25/19 14:46 Assessment: 12/25/19 14:47 alcohol withdrawal Plan: [facility]rium regiment
[2019-12-25] MEDS: BENZTROPINE MESYLATE 0.5 MG TABLET (FP) PO SCH ×2 (15:07→23:27)
[2019-12-25 18:28] LABS: URINE APPEARANCE TURBID; URINE BILIRUBIN NEGATIVE (NEGATIVE); URINE COLOR DK YELLOW; URINE GLUCOSE (UA) NEGATIVE (NEGATIVE); URINE KETONE TRACE (NEGATIVE); URINE LEUK ESTERASE NEGATIVE (NEGATIVE); URINE NITRITE NEGATIVE (NEGATIVE); URINE PROTEIN NEGATIVE (NEGATIVE)
[2019-12-25] MEDS: MELATONIN 5 MG TABLETS PO SCH (23:28)
[2019-12-25] MEDS: THIAMINE HCL 100 MG TABLET (FP) PO SCH (23:29)
[2019-12-26] MEDS: hydrOXYzine PAMOATE 25 MG CAPSULE (FP) PO SCH ×5 (06:02→22:30)
[2019-12-26] MEDS: chlordiazePOXIDE HCL 25 MG CAPSULE PO SCH ×4 (06:02→22:28)
[2019-12-26] MEDS: GABAPENTIN 300 MG CAPSULE PO SCH ×3 (06:02→22:28)
[2019-12-26] MEDS ORDERED: COLLOIDAL OATMEAL 1 BAR EACH TP PRN (09:23)
--- NOTE | 2019-12-26 09:36 | PN ---
S CIWA - CIWA Score Nausea/Vomitin-Mild Nausea/No Vomiting Muscle Tremors: 1-None Visible, but [place] Anxiety: 1-Mildly Anxious Agitation: 0-Normal Activity Paroxysmal Sweats: 1-Minimal Palms Moist Orientation: 0-Oriented Tacttile Disturbances: 2-Mild Itch/Numbness/Burn Auditory Disturbances: 0-None Visual Disturbances: 1-Very Mild Sensitivity Headache: 1-Very Mild CIWA-Ar Total Score: 8 BHS Progress Note (SOAP) Subjective: 49 years old female was admitted on 12/24/19 for alcohol withdrawal sx management treating with librium detox regiment feels better, slept through the night, less tremor, mild anxiety request aveeno soap for shower ms powell may go to [facility] for alcohol and opiate abuse treatment Objective: 12/26/19 09:37 Vital Signs - 24 hr 12/25/19 12/25/19 12/25/19 12:53 16:40 20:36 Temperature 97.1 F L 97.3 F L 97.7 F Pulse Rate 74 90 83 Respiratory 20 18 17 Rate Blood Pressure 105/74 103/77 91/59 L O2 Sat by Pulse 100 97 Oximetry (%) 12/26/19 12/26/19 05:53 09:19 Temperature 97.2 F L 97.7 F Pulse Rate 75 73 Respiratory 18 18 Rate Blood Pressure 98/70 117/81 O2 Sat by Pulse 100 100 Oximetry (%) 12/26/19 09:37 Laboratory Tests 12/24/19 12/25/19 12/25/19 19:20 07:34 07:34 WBC 5.5 RBC 4.20 Hgb 11.9 Hct 37.0 MCV 88.1 MCH 28.4 MCHC 32.3 RDW 16.3 H Plt Count 353 MPV 6.9 L Sodium Potassium Chloride Carbon Dioxide Anion Gap BUN Creatinine Est GFR (CKD-EPI)AfAm Est GFR (CKD-EPI)NonAf Random Glucose Calcium Total Bilirubin AST ALT Alkaline Phosphatase Total Protein Albumin Urine Color Urine Appearance Urine pH Ur Specific [place] Urine Protein Urine Glucose (UA) Urine Ketones Urine Blood Urine Nitrite Urine Bilirubin Urine Urobilinogen Ur Leukocyte Esterase Syphilis Serology Reactive A* RPR Titer COVID-19 (MALATHI) Not detected 12/25/19 12/25/19 12/25/19 07:34 07:34 13:34 WBC RBC Hgb Hct MCV MCH MCHC RDW Plt Count MPV Sodium 142 Potassium 3.5 Chloride 106 Carbon Dioxide 31 Anion Gap 5 L BUN 6.8 L Creatinine 0.8 Est GFR (CKD-EPI)AfAm 99.63 Est GFR (CKD-EPI)NonAf 85.96 Random Glucose 101 Calcium 8.6 Total Bilirubin 0.4 AST 16 ALT 15 Alkaline Phosphatase 84 Total Protein 6.5 Albumin 3.0 L Urine Color Dk yellow Urine Appearance Turbid Urine pH 5.0 D Ur Specific [place] 1.024 Urine Protein Negative Urine Glucose (UA) Negative Urine Ketones Trace H Urine Blood Negative Urine Nitrite Negative Urine Bilirubin Negative Urine Urobilinogen 1.0 Ur Leukocyte Esterase Negative Syphilis Serology RPR Titer Reactive 1:2 H COVID-19 (MALATHI) syphilis contacted treated "long time ago" Assessment: 12/26/19 09:39 alcohol withdrawal Plan: [facility]rium regiment
[2019-12-26] MEDS: FLUOCINONIDE 0.05% TOP OINT (60 GM TUBE) TP SCH ×2 (10:19→22:28)
[2019-12-26] MEDS: PRENATAL VITAMINS W/ FOLIC ACID TABLET (FP) PO SCH (10:19)
[2019-12-26] MEDS: NICOTINE 21 MG/24 HOURS TOPICAL PATCH TD SCH (10:20)
[2019-12-26] MEDS: HALOPERIDOL 5 MG TABLET PO SCH ×2 (10:20→22:29)
[2019-12-26] MEDS: BENZTROPINE MESYLATE 0.5 MG TABLET (FP) PO SCH (10:20)
[2019-12-26] MEDS ORDERED: CEPHALEXIN MONOHYDRATE 250 MG CAPSULE (FP) PO ONE (15:31)
[2019-12-26] MEDS: THIAMINE HCL 100 MG TABLET (FP) PO SCH (22:28)
[2019-12-26] MEDS: CEPHALEXIN MONOHYDRATE 250 MG CAPSULE (FP) PO SCH (22:29)
[2019-12-26] MEDS: BENZTROPINE MESYLATE 1 MG TABLET PO SCH (22:29)
[2019-12-26] MEDS: MELATONIN 5 MG TABLETS PO SCH (22:30)
[2019-12-27] MEDS ORDERED: chlordiazePOXIDE HCL 10 MG CAPSULE PO PRN
[2019-12-27] MEDS: hydrOXYzine PAMOATE 25 MG CAPSULE (FP) PO SCH ×5 (07:04→22:46)
[2019-12-27] MEDS: chlordiazePOXIDE HCL 10 MG CAPSULE PO SCH ×4 (07:04→22:53)
[2019-12-27] MEDS: GABAPENTIN 300 MG CAPSULE PO SCH ×3 (07:05→22:48)
[2019-12-27] MEDS: FLUOCINONIDE 0.05% TOP OINT (60 GM TUBE) TP SCH ×2 (10:06→22:39)
--- NOTE | 2019-12-27 10:06 | PN ---
S CIWA - CIWA Score Nausea/Vomitin-No Nausea/No Vomiting Muscle Tremors: 1-None Visible, but [place] Anxiety: 2 Agitation: 1-Slight > Activity Paroxysmal Sweats: No Perspiration Orientation: 0-Oriented Tacttile Disturbances: 1-Very Mild Itch/Numbness Auditory Disturbances: 0-None Visual Disturbances: 1-Very Mild Sensitivity Headache: 0-None Present CIWA-Ar Total Score: 6 BHS Progress Note (SOAP) Subjective: 49 years old female was admitted on 12/24/19 for alcohol withdrawal sx management treating with [facility]rium detox regiment ms powell ate breakfast in room social with peers in day room encourage ms powell to follow up with [facility] as aftercare Objective: 12/27/19 10:07 Vital Signs - 24 hr 12/26/19 12/26/19 12/26/19 12:40 16:38 20:36 Temperature 96.9 F L 98.4 F 98.0 F Pulse Rate 73 92 H 76 Respiratory 18 18 16 Rate Blood Pressure 121/67 95/58 L 97/56 L O2 Sat by Pulse 96 96 99 Oximetry (%) 12/27/19 08:55 Temperature 97.4 F L Pulse Rate 74 Respiratory 18 Rate Blood Pressure 146/62 O2 Sat by Pulse Oximetry (%) Laboratory Tests 12/24/19 12/25/19 12/25/19 19:20 07:34 07:34 WBC 5.5 RBC 4.20 Hgb 11.9 Hct 37.0 MCV 88.1 MCH 28.4 MCHC 32.3 RDW 16.3 H Plt Count 353 MPV 6.9 L Sodium Potassium Chloride Carbon Dioxide Anion Gap BUN Creatinine Est GFR (CKD-EPI)AfAm Est GFR (CKD-EPI)NonAf Random Glucose Calcium Total Bilirubin AST ALT Alkaline Phosphatase Total Protein Albumin Urine Color Urine Appearance Urine pH Ur Specific [place] Urine Protein Urine Glucose (UA) Urine Ketones Urine Blood Urine Nitrite Urine Bilirubin Urine Urobilinogen Ur Leukocyte Esterase Syphilis Serology Reactive A* RPR Titer COVID-19 (MALATHI) Not detected 12/25/19 12/25/19 12/25/19 07:34 07:34 13:34 WBC RBC Hgb Hct MCV MCH MCHC RDW Plt Count MPV Sodium 142 Potassium 3.5 Chloride 106 Carbon Dioxide 31 Anion Gap 5 L BUN 6.8 L Creatinine 0.8 Est GFR (CKD-EPI)AfAm 99.63 Est GFR (CKD-EPI)NonAf 85.96 Random Glucose 101 Calcium 8.6 Total Bilirubin 0.4 AST 16 ALT 15 Alkaline Phosphatase 84 Total Protein 6.5 Albumin 3.0 L Urine Color Dk yellow Urine Appearance Turbid Urine pH 5.0 D Ur Specific [place] 1.024 Urine Protein Negative Urine Glucose (UA) Negative Urine Ketones Trace H Urine Blood Negative Urine Nitrite Negative Urine Bilirubin Negative Urine Urobilinogen 1.0 Ur Leukocyte Esterase Negative Syphilis Serology RPR Titer Reactive 1:2 H COVID-19 (MALATHI) syphilis contacted treated Assessment: 12/27/19 10:08 alcohol withdrawal Plan: [facility]rium regiment
[2019-12-27] MEDS: HALOPERIDOL 5 MG TABLET PO SCH ×2 (10:07→22:37)
[2019-12-27] MEDS: BENZTROPINE MESYLATE 1 MG TABLET PO SCH ×2 (10:07→22:37)
[2019-12-27] MEDS: PRENATAL VITAMINS W/ FOLIC ACID TABLET (FP) PO SCH (10:07)
[2019-12-27] MEDS: CEPHALEXIN MONOHYDRATE 250 MG CAPSULE (FP) PO SCH ×2 (10:07→22:38)
[2019-12-27] MEDS: NICOTINE 21 MG/24 HOURS TOPICAL PATCH TD SCH (10:09)
[2019-12-27] MEDS: MINERAL OIL/PETROLAT/WATER TOPICAL CREAM 113 GM JAR TP SCH ×2 (13:38→22:38)
[2019-12-27] MEDS: MELATONIN 5 MG TABLETS PO SCH (22:39)
[2019-12-27] MEDS: THIAMINE HCL 100 MG TABLET (FP) PO SCH (22:47)
[2019-12-28] MEDS: chlordiazePOXIDE HCL 10 MG CAPSULE PO SCH ×2 (05:57→18:47)
[2019-12-28] MEDS: hydrOXYzine PAMOATE 25 MG CAPSULE (FP) PO SCH ×5 (05:58→23:17)
[2019-12-28] MEDS: GABAPENTIN 300 MG CAPSULE PO SCH ×3 (05:58→23:15)
[2019-12-28] MEDS: MINERAL OIL/PETROLAT/WATER TOPICAL CREAM 113 GM JAR TP SCH ×3 (06:00→23:13)
[2019-12-28] MEDS: CEPHALEXIN MONOHYDRATE 250 MG CAPSULE (FP) PO SCH ×2 (09:07→23:14)
[2019-12-28] MEDS: PRENATAL VITAMINS W/ FOLIC ACID TABLET (FP) PO SCH (09:07)
[2019-12-28] MEDS: HALOPERIDOL 5 MG TABLET PO SCH ×2 (09:07→23:14)
[2019-12-28] MEDS: BENZTROPINE MESYLATE 1 MG TABLET PO SCH ×2 (09:08→23:14)
[2019-12-28] MEDS: FLUOCINONIDE 0.05% TOP OINT (60 GM TUBE) TP SCH ×2 (09:09→23:13)
[2019-12-28] MEDS: NICOTINE 21 MG/24 HOURS TOPICAL PATCH TD SCH (09:11)
--- NOTE | 2019-12-28 09:17 | PN ---
S CIWA - CIWA Score Nausea/Vomitin-No Nausea/No Vomiting Muscle Tremors: 1-None Visible, but [place] Anxiety: 1-Mildly Anxious Agitation: 2 Paroxysmal Sweats: No Perspiration Orientation: 0-Oriented Tacttile Disturbances: 0-None Auditory Disturbances: 0-None Visual Disturbances: 0-None Headache: 0-None Present CIWA-Ar Total Score: 4 BHS Progress Note (SOAP) Subjective: 49 years old female was admitted on 12/24/19 for alcohol withdrawal sx management treating with librium detox regiment ate breakfast in room social with peers in day room feels better today less tremor mild anxiousness encourage ms powell to consider follow up with aftercare at [facility] for alcohol abuse treatment Objective: 12/28/19 09:18 Vital Signs - 24 hr 12/27/19 12/27/19 12/27/19 12:40 16:43 21:06 Temperature 98.3 F 97.7 F 98.1 F Pulse Rate 73 75 73 Respiratory 18 16 16 Rate Blood Pressure 103/65 119/76 116/81 O2 Sat by Pulse 99 Oximetry (%) 12/28/19 12/28/19 06:32 08:44 Temperature 97.4 F L 96.9 F L Pulse Rate 53 L 69 Respiratory 16 18 Rate Blood Pressure 109/74 125/79 O2 Sat by Pulse 99 Oximetry (%) Laboratory Tests 12/24/19 12/25/19 12/25/19 19:20 07:34 07:34 WBC 5.5 RBC 4.20 Hgb 11.9 Hct 37.0 MCV 88.1 MCH 28.4 MCHC 32.3 RDW 16.3 H Plt Count 353 MPV 6.9 L Sodium Potassium Chloride Carbon Dioxide Anion Gap BUN Creatinine Est GFR (CKD-EPI)AfAm Est GFR (CKD-EPI)NonAf Random Glucose Calcium Total Bilirubin AST ALT Alkaline Phosphatase Total Protein Albumin Urine Color Urine Appearance Urine pH Ur Specific [place] Urine Protein Urine Glucose (UA) Urine Ketones Urine Blood Urine Nitrite Urine Bilirubin Urine Urobilinogen Ur Leukocyte Esterase Syphilis Serology Reactive A* RPR Titer COVID-19 (MALATHI) Not detected 12/25/19 12/25/19 12/25/19 07:34 07:34 13:34 WBC RBC Hgb Hct MCV MCH MCHC RDW Plt Count MPV Sodium 142 Potassium 3.5 Chloride 106 Carbon Dioxide 31 Anion Gap 5 L BUN 6.8 L Creatinine 0.8 Est GFR (CKD-EPI)AfAm 99.63 Est GFR (CKD-EPI)NonAf 85.96 Random Glucose 101 Calcium 8.6 Total Bilirubin 0.4 AST 16 ALT 15 Alkaline Phosphatase 84 Total Protein 6.5 Albumin 3.0 L Urine Color Dk yellow Urine Appearance Turbid Urine pH 5.0 D Ur Specific [place] 1.024 Urine Protein Negative Urine Glucose (UA) Negative Urine Ketones Trace H Urine Blood Negative Urine Nitrite Negative Urine Bilirubin Negative Urine Urobilinogen 1.0 Ur Leukocyte Esterase Negative Syphilis Serology RPR Titer Reactive 1:2 H COVID-19 (MALATHI) syphilis contacted treated Assessment: 12/28/19 09:19 alcohol withdrawal Plan: librium regiment
[2019-12-28] MEDS: THIAMINE HCL 100 MG TABLET (FP) PO SCH (23:13)
[2019-12-28] MEDS: MELATONIN 5 MG TABLETS PO SCH (23:18)
[2019-12-29] MEDS ORDERED: chlordiazePOXIDE HCL 10 MG CAPSULE PO ONE (05:00)
[2019-12-29] MEDS: GABAPENTIN 300 MG CAPSULE PO SCH (05:37)
[2019-12-29] MEDS: MINERAL OIL/PETROLAT/WATER TOPICAL CREAM 113 GM JAR TP SCH (05:37)
[2019-12-29] MEDS: hydrOXYzine PAMOATE 25 MG CAPSULE (FP) PO SCH (05:37)
[2019-12-29 06:50] VITALS: BP 125/88; PULSE 72; TEMP 97.1
--- NOTE | 2019-12-29 12:21 | DS ---
[facility] Detox Discharge Summary Admission Date: 12/24/19 Discharge Date: 12/29/19 - History Present History: Alcohol Dependence, Cannabis Dependence Additional Comments: alert,oriented x 3 ambulation on the unit lung clear on auscultation bilaterally abdomen soft,no pain,no tenderness detox completed,no withdrawal symptom stable for discharge today declined rehab follow up with after care program as arrangement left the unit in stable condition total time spending on discharge 35 minutes Pertinent Past History: schizoaffective disorder psoriasis - Physical Exam Results Vital Signs: Vital Signs Temperature 97.1 F L 12/29/19 06:49 Pulse Rate 72 12/29/19 06:49 Respiratory Rate 16 12/29/19 06:49 Blood Pressure 125/88 12/29/19 06:49 O2 Sat by Pulse Oximetry (%) 95 12/29/19 06:49 Pertinent Admission Physical Exam Findings: withdrawal signs and symptom Vital Signs Period Temp Pulse Resp BP Sys/Vincent Pulse Ox Last 24 Hr 97.1 F-98.1 F 72-77 16-18 116-125/76-88 95-99 Laboratory Last Values WBC 5.5 K/mm3 (4.0-10.0) 12/25/19 07:34 RBC 4.20 M/mm3 (3.60-5.2) 12/25/19 07:34 Hgb 11.9 GM/dL (10.7-15.3) 12/25/19 07:34 Hct 37.0 % (32.4-45.2) 12/25/19 07:34 MCV 88.1 fl (80-96) 12/25/19 07:34 MCH 28.4 pg (25.7-33.7) 12/25/19 07:34 MCHC 32.3 g/dl (32.0-36.0) 12/25/19 07:34 RDW 16.3 % (11.6-15.6) H 12/25/19 07:34 Plt Count 353 K/MM3 (134-434) 12/25/19 07:34 MPV 6.9 fl (7.5-11.1) L 12/25/19 07:34 Sodium 142 mmol/L (136-145) 12/25/19 07:34 Potassium 3.5 mmol/L (3.5-5.1) 12/25/19 07:34 Chloride 106 mmol/L (98-107) 12/25/19 07:34 Carbon Dioxide 31 mmol/L (21-32) 12/25/19 07:34 Anion Gap 5 MMOL/L (8-16) L 12/25/19 07:34 BUN 6.8 mg/dL (7-18) L 12/25/19 07:34 Creatinine 0.8 mg/dL (0.55-1.3) 12/25/19 07:34 Est GFR (CKD-EPI)AfAm 99.63 12/25/19 07:34 Est GFR (CKD-EPI)NonAf 85.96 12/25/19 07:34 Random Glucose 101 mg/dL (74-106) 12/25/19 07:34 Calcium 8.6 mg/dL (8.5-10.1) 12/25/19 07:34 Total Bilirubin 0.4 mg/dL (0.2-1) 12/25/19 07:34 AST 16 U/L (15-37) 12/25/19 07:34 ALT 15 U/L (13-61) 12/25/19 07:34 Alkaline Phosphatase 84 U/L (45-117) 12/25/19 07:34 Total Protein 6.5 g/dl (6.4-8.2) 12/25/19 07:34 Albumin 3.0 g/dl (3.4-5.0) L 12/25/19 07:34 Urine Color Dk yellow 12/25/19 13:34 Urine Appearance Turbid 12/25/19 13:34 Urine pH 5.0 (5.0-8.0) D 12/25/19 13:34 Ur Specific [place] 1.024 (1.010-1.035) 12/25/19 13:34 Urine Protein Negative (NEGATIVE) 12/25/19 13:34 Urine Glucose (UA) Negative (NEGATIVE) 12/25/19 13:34 Urine Ketones Trace (NEGATIVE) H 12/25/19 13:34 Urine Blood Negative (NEGATIVE) 12/25/19 13:34 Urine Nitrite Negative (NEGATIVE) 12/25/19 13:34 Urine Bilirubin Negative (NEGATIVE) 12/25/19 13:34 Urine Urobilinogen 1.0 mg/dL (0.2-1.0) 12/25/19 13:34 Ur Leukocyte Esterase Negative (NEGATIVE) 12/25/19 13:34 Syphilis Serology Reactive (NONREACTIVE) A* 12/25/19 07:34 RPR Titer Reactive 1:2 (NONREACTIVE) H 12/25/19 07:34 COVID-19 (MALATHI) Not detected (Not Detected) 12/24/19 19:20 previously treated for syphilis before - Treatment Hospital Course: Detox Protocol Followed, Detoxed Safely, Responded well, Discharged Condition Good Patient has Accepted a Rehab Referral to: declined - Medication Discharge Medications: Ambulatory Orders Benztropine Mesylate 1 mg PO BID #60 tablet 12/21/18 Haloperidol Decanoate [Haldol Decanoate (Long-Acting) -] 150 mg IM ONCE 07/13/19 Albuterol Sulfate Inhaler - [Ventolin HFA Inhaler -] 2 puff PO Q4H PRN #1 inhaler 07/21/19 Gabapentin 600 mg PO TID 10/26/19 Fluocinonide 0.05% Oin [Lidex 0.05% Ointment -] 1 applic TP BID #1 applic 12/29/19 - Diagnosis (1) Alcohol dependence with withdrawal, uncomplicated Status: Acute (2) Homeless Status: Acute (3) Asthma Status: Chronic (4) Bilateral knee pain Status: Chronic Qualifiers: Chronicity: chronic Qualified Code(s): M25.561 - Pain in right knee; M25.562 - Pain in left knee; G89.29 - Other chronic pain (5) Bipolar disorder Status: Chronic Qualifiers: Current episode severity: unspecified (6) Nicotine dependence Status: Chronic Qualifiers: Nicotine product type: cigarettes Substance use status: uncomplicated Qualified Code(s): F17.210 - Nicotine dependence, cigarettes, uncomplicated (7) Psoriasis Status: Chronic (8) Schizoaffective disorder Status: Chronic (9) Syphilis contact, treated Status: Acute - AMA Did Patient Leave Against Medical Advice: No
--- NOTE | 2019-12-29 12:21 | PN ---
[facility] CIWA - CIWA Score Nausea/Vomitin-No Nausea/No Vomiting Muscle Tremors: None Anxiety: 1-Mildly Anxious Agitation: 0-Normal Activity Paroxysmal Sweats: No Perspiration Orientation: 0-Oriented Tacttile Disturbances: 0-None Auditory Disturbances: 0-None Visual Disturbances: 0-None Headache: 0-None Present CIWA-Ar Total Score: 1 S Progress Note (SOAP) Subjective: alert,no complaining Objective: 12/29/19 16:14 Vital Signs Temperature 97.1 F L 12/29/19 06:49 Pulse Rate 72 12/29/19 06:49 Respiratory Rate 16 12/29/19 06:49 Blood Pressure 125/88 12/29/19 06:49 O2 Sat by Pulse Oximetry (%) 95 12/29/19 06:49 Assessment: 12/29/19 16:14 detox completed,no withdrawal symptom Plan: stable for discharge,follow up with after care program as arrangement
== END 2019-12-29 08:37 | disposition home or self-care (01) | DRG 775 ==
LOC: YASAS 17:27 → Y3N 18:48
PROVIDERS: ADMIT Allergy & Immunology; ATTEND Allergy & Immunology
PROC: HZ2ZZZZ Detoxification Services for Substance Abuse Treatment (ICD-10-PCS; principal; 2019-12-24)
DX: F10.230 Alcohol dependence with withdrawal, uncomplicated (principal); F12.20 Cannabis dependence, uncomplicated; F19.20 Other psychoactive substance dependence, uncomplicated; F25.9 Schizoaffective disorder, unspecified; F31.9 Bipolar disorder, unspecified; F19.24 Other psychoactive substance dependence with psychoactive substance-induced mood disorder; L40.9 Psoriasis, unspecified; M17.0 Bilateral primary osteoarthritis of knee; M25.561 Pain in right knee; M25.562 Pain in left knee; G89.29 Other chronic pain; Z91.5 Personal history of self-harm; Z88.5 Allergy status to narcotic agent; Z56.0 Unemployment, unspecified; Z59.0 Homelessness
CPT/HCPCS: 36415; 80053; 81003; 85027; 86593; 86780; 93005; 93010; U0003

== ENCOUNTER 2020-01-09 10:09 | Inpatient (IN) | payer OTHER ==
--- NOTE | 2020-01-09 10:45 | BHS.RME ---
Substance Use & Tx History - Substance Use History Alcohol Substance amount: 2 beers daily Frequency of use: Daily Substance route: Oral Date of Last Use: 01/08/20 Synthetic Cannabinoid Substance amount: k2 spice 4-5 blunts Frequency of use: Less than 3 times per week Substance route: Smoking Date of Last Use: 01/08/20 Nicotine Substance amount: 1 pack Frequency of use: Daily Substance route: Smoking Date of Last Use: 01/09/20 Physical/Psych/Mental Status - Behavior Eye Contact: Normal - Cooperativeness Cooperativeness: Cooperative - Thinking Thought Processes: Tight, Logical, Goal Directed Thought content: Future oriented - Physical Health Problems Is patient presently having any pain?: No Does patient presently have any injuries (include location): No Does patient currently have a fever: No Is patient : No CIWA Nausea/Vomitin-No Nausea/No Vomiting Muscle Tremors: None Anxiety: 0-No Anxiety, at Ease Agitation: 0-Normal Activity Paroxysmal Sweats: No Perspiration Orientation: 0-Oriented Tacttile Disturbances: 0-None Auditory Disturbances: 0-None Visual Disturbances: 0-None Headache: 0-None Present CIWA-Ar Total Score: 0
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
--- OUTSIDE RECORDS SUMMARY | 2020-01-09 12:01 | XMS ---
:1970 Author Organization [facility] Care Team Providers Name Role Phone MITCHELL GREEN Unavailable Unavailable ED STAFF PHYSICIAN, STAFF Unavailable Unavailable TORO KABA R, SENDY Unavailable Unava ilable [facility], WJCS9 Unavailable Unavailable DARÍO PEÑA MD Unavailable Unavailable ED STAFF PHYSICIAN Unavailable Unavailable MD CARLINE Unavailable Unavailable Audie, CODER Unavailable Unavailable Audie, CODER Unavailable Unavailable Audie, CODER Unavailable Unavailable Audie, CODER Unavailable Unavailable ED STAFF PHYSICIAN Unavailable Unavailable Cabrera Unavailable Unavailable Cabrera Unavailable Unavailable Cabrera Unavailable Unavailable Cabrera Unavailable Unavailable Cabrera Unavailable Unavailable Cabrera Unavailable Unavailable Cabrera Unavailable Unavailable Cabrera Unavailable Unavailable Cabrera Unavailable Unavailable Cabrera Unavailable Unavailable Cabrera Unavailable Unavailable ED STAFF PHYSICIAN Unavailable Unavailable Re-disclosure Warning The records that you are about to access may contain information from federally- assisted alcohol or drug abuse programs. If such information is present, then the following federally mandated warning applies: This information has been disclosed to you from records protected by federal confidentiality rules (42 CFR part 2). The federal rules prohibit you from making any further disclosure of this information unless further disclosure is expressly permitted by the written consent of the person to whom it pertains or as otherwise permitted by 42 CFR part 2. A general authorization for the release of medical or other information is NOT sufficient for this purpose. The Federal rules restrict any use of the information to criminally investigate or prosecute any alcohol or drug abuse patient.The records that you are about to access may contain highly sensitive health information, the redisclosure of which is protected by Article 27-F of the [facility] Public Health law. If you continue you may haveaccess to information: Regarding HIV / AIDS; Provided by facilities licensed or operated by the [facility] Office of Mental Health; or Provided by the [facility] Office for People With Developmental Disabilities. If such information is present, then the following [facility] mandated warning applies: This information has been disclosed to you from confidential records which are protected by state law. State law prohibits you from making any further disclosure of this information without the specific written consent of the person to whom it pertains, or as otherwise permitted by law. Any unauthorized further disclosure in violation of state law may result in a fine or half-way sentence or both. A general authorization for the release of medical or other information is NOT sufficient authorization for further disclosure. Encounters Encounter Providers Location Date Indications Data Source(s ) Attender: Juan 12/30/2019 [facility] ([place] [facility] 12:00:00 AM EDT Medical S elis[facility]) Office Attender: Juan Cabrera 12/30/2019 12:00:00 AM EDT [facility] ([facility]) Office Attender: Juan Cabrera 12/30/2019 12:00:00 AM EDT [facility] ([facility]) Office Attender: Juan aCbrera 12/30/2019 12:00:00 AM EDT [facility] ([facility]) Office Attender: Juan Cabrera 12/30/2019 12:00:00 AM EDT [facility] ([facility]) Office Attender: Juan Cabrera 12/30/2019 12:00:00 AM EDT [facility] ([facility]) Office Attender: Juan Cabrera 12/30/2019 12:00:00 AM EDT [facility] ([facility]) Office Attender: Juan Cabrera 12/30/2019 12:00:00 AM EDT [facility] ([facility]) Office Attender: Juan Cabrera 12/30/2019 12:00:00 AM EDT [facility] ([facility]) Office Emergency Attender: WILLIS Hernandez 12/12/2019 06:47:00 PM [facility] PHYSICIANAttender: STAFF ED EDT - 12/13/2019 [facility] STAFF PHYSICIANAdmitter: WILLIS 01:24:00 AM EDT ED STAFF PHYSICIAN Patient discharged. Emergency Attender: STAFF ED STAFF H 12/10/2019 02:01:00 PM [facility] PHYSICIANReferrer: STAFF ED EDT - 12/10/2019 [facility] STAFF PHYSICIAN 05:17:00 PM EDT Patient discharged. Emergency Attender: WILLIS ED STAFF H 12/08/2019 12:42:00 PM [facility] PHYSICIANAttender: STAFF ED EDT - 12/08/2019 [facility] STAFF PHYSICIANAdmitter: WILLIS 04:59:00 PM EDT ED STAFF PHYSICIAN Patient discharged. Attender: Sarah Bronson NP 12/06/2019 12:00:00 AM EDT [facility] ([facility]) Office Attender: Sarah Bronson NP 12/06/2019 12:00:00 AM EDT [facility] ([facility]) Office Attender: Sarah Bronson NP 12/06/2019 12:00:00 AM EDT [facility] ([facility]) Office Attender: Sarah Bronson NP 12/06/2019 12:00:00 AM EDT [facility] ([facility]) Office Attender: Sarah Bronson NP 12/06/2019 12:00:00 AM EDT [facility] ([facility]) Office Attender: Sarah Bronson NP 12/06/2019 12:00:00 AM EDT [facility] ([facility]) Office Attender: Sarah Bronson NP 12/06/2019 12:00:00 AM EDT [facility] ([facility]) Office Attender: Sarah Bronson NP 12/06/2019 12:00:00 AM EDT [facility] ([facility]) Office Attender: Sarah Bronson NP 12/06/2019 12:00:00 AM EDT [facility] ([facility]) Office Attender: Sarah Bronson NP 12/06/2019 12:00:00 AM EDT [facility] ([facility]) Office Outpatient Attender: [id number] [facility] 11/26/2019 12:46:03 PM I ([facility] EDT Collaborative) Patient admitted. Inpatient Attender: DARÍO PAULINO 11/15/2019 [facility]11[facility] MEGHAN PM EDT - 11/29/2019 [facility] 10:43:00 PM EDT Patient discharged. Outpatient [facility] 11/14/2019 03:41:00 PM EDT - [address] [place] [address] 12:28:00 PM EDT Patient discharged. Inpatient Attender: MITCHELL GIL H-HAL2 10/26/2019 11:33:00 [facility] DANIELBHAttender: STAFF ED AM EDT - 11/14/2019 [facility] STAFF PHYSICIANAdmitter: 12:16:00 PM EDT MITCHELL MEDRANOReferrer: MITCHELL MEDRANO Patient discharged. Emergency Attender: WILLIS ED STAFF H 10/20/2019 12:15:00 PM [facility] PHYSICIANAttender: STAFF ED EDT - 10/20/2019 [facility] STAFF PHYSICIANAdmitter: WILLIS 05:44:00 PM EDT ED STAFF PHYSICIAN Patient discharged. Inpatient Attender: MITCHELL GIL H-HAL2 09/26/2019 01:26:00 [facility] DANIELBHAttender: STAFF ED PM EDT - 10/04/2019 [facility] STAFF PHYSICIANAdmitter: 01:27:00 PM EDT MITCHELL MEDRANOReferrer: MITCHELL GIL MITCHELL Patient discharged. [facility] 05:48:09 AM I ([facility] EDT Collaborative) Patient admitted. Emergency Attender: ASIYA ED STAFF H 05/29/2019 07:09:00 PM [facility] PHYSICIANAttender: STAFF ED EST - 05/29/2019 [facility] STAFF PHYSICIANAdmitter: 08:50:00 PM EST [facility] Patient discharged. Inpatient Attender: SENDY ENGEL H-HAL2 05/18/2019 03:29: 00 [facility] SENDY RAttender: STAFF PM EST - [address] [place] [address] ED STAFF PHYSICIANAdmitter: 01:31:00 PM EST SENDY KABA RReferrer: SENDY KABA R Patient discharged. Emergency Attender: ASIYA ED STAFF H 04/02/2019 11:15:00 PM [facility] PHYSICIANAttender: STAFF ED EST - 2019 [facility] STAFF PHYSICIANAdmitter: 03:08:00 AM EST [facility] Patient discharged. Inpatient Attender: MITCHELL GIL H-HAL2 03/06/2019 06:33:00 [facility] DANIELBHAttender: STAFF ED PM EST - 03/21/2019 [facility] STAFF PHYSICIANAdmitter: 02:50:00 PM EST MITCHELL MEDRANOReferrer: MITCHELL MEDRANO Patient discharged. Emergency Attender: ED STAFF H 03/04/2019 08:17:00 PM [facility] PHYSICIANAttender: STAFF ED EST - 03/05/2019 [facility] STAFF PHYSICIANAdmitter: ED 01:48:00 AM EST STAFF PHYSICIAN Patient discharged. Emergency H 11/01/2018 03:37:00 PM EDT [facility] Emergency H 10/18/2018 02:04:00 PM EDT [facility] Outpatient 10/06/2018 02:29:07 PM EDT [facility] Patient admitted. Emergency H 10/05/2018 08:59:00 AM EDT [facility] Immunizations Vaccine Date Status Description Data Source(s) IIV3 04/19/2019 12:00:00 AM completed [facility] IIV3 04/19/2019 12:00:00 AM completed [facility] N ([facility]) Medications Medication Brand Start Product Dose Route Administrative Pharmacy [facility] Indications Reaction Description Data Name Date Form Instructions Instructions Source(s) Doxycycline DOXYCY 12/29/ CAPSULE 28 complet DOX YCYCLINE MED[facility] Monohydrate PONCE: 2019 ed ([address] 100 MG Oral [id number] 12:00: Medi clive Capsule 0 00 AM Service) DOXYCYCLINE EDT :8513775 gabapentin NEURON 12/29/ TABLET 90 complet NEURO NTIN [facility] 600 MG Oral TIN:31 2019 ed ([address] Tablet 0433 12:00: Medical NEURONTIN:3 00 AM Service ) 02556 EDT 200 ACTUAT VENTOL 12/29/ AEROSOL 3 complet VENT DAVID HFA MEDGEN Albuterol IN 2019 ed ([place] 0.09 HFA:74 12:00: Medical MG/ACTUAT 5679 00 AM Service) Metered EDT Dose Inhaler VENTOLIN HFA:842710 Budesonide SYMBIC 12/29/ AEROSOL 1 complet SYMB ICORT MED[facility] 0.16 ORT:59 2019 ed ([facility] MG/ACTUAT / 7829 12:00: Medica l formoterol 00 AM Service) 0.0045 EDT MG/ACTUAT Inhalant Powder SYMBICORT:5 86535 Methimazole TAPAZO 12/29/ TABLET 30 complet TAPA ZOLE [facility] 10 MG Oral LE:197 2019 ed ([facility] ay Tablet 941 12:00: Medical TAPAZOLE:19 00 AM Service ) 7941 EDT CLOBETASOL 12/29/ 120 complet CLOBETASO L [facility] PROPIONATE 2019 ed PROPIONATE E ( [facility] E EXTERNAL 12:00: EXTERNAL Med ical CREAM: 00 AM CREAM Service) EDT Fexofenadin ALLEGR 12/29/ TABLET 30 complet IGLESIA GRA MEDGEN e A:9974 2019 ed ([place] hydrochlori 20 12:00: Medica l de 180 MG 00 AM Service) Oral Tablet EDT KAMARI:997 420 Doxycycline DOXYCY 12/05/ CAPSULE 28 complet DOX YCYCLINE MED[facility] Monohydrate PONCE: 2019 ed ([facility] 100 MG Oral [id number] 12:00: Medi clive Capsule 0 00 AM Service) DOXYCYCLINE EDT :8598201 Trazodone traZOD ORAL complet traZODon e [facility] Hydrochlori one 2019 Table ed hydrochlorid [facility] 100 MG hydroc 12:00: t e - 100 MG Hospital Oral Tablet hlorid 00 AM ORAL Table t e - EDT 100 MG ORAL Tablet Methimazole methIM ORAL complet methIM Azole [facility] 10 MG Oral Azole 2019 Table ed - 10 MG ORAL [facility] Tablet - 10 12:00: t Tablet Hospital MG 00 AM ORAL EDT Tablet Haloperidol Halope ORAL complet Halope ridol [facility] 5 MG Oral ridol 2019 Table ed - 5 MG ORAL V [facility] Tablet - 5 MG 12:00: t Tablet Hospita l ORAL 00 AM Tablet EDT benztropine Benztr ORAL complet Benztr opine [facility] mesylate 1 opine 2019 Table ed Mesylate - 1 [facility] MG Oral Mesyla 12:00: t MG ORAL Hospi ornaldo Tablet te - 1 00 AM Tablet MG EDT ORAL Tablet Naltrexone Naltre 11/27/ 0.5 ORAL complet Naltrex one [facility] hydrochlori xone 2019 Table ed HCl - 50 MG [facility] 50 MG HCl - 12:00: t ORAL Tablet H ospital Oral Tablet 50 MG 00 AM ORAL EDT Tablet Loperamide IMODIU 10/20/ CAPSULE 30 complet IMOD IUM MEDGEN Hydrochlori M:9780 2019 ed ([facility] [address] de 2 MG 06 12:00: Medical Oral 00 AM Service) Capsule EDT IMODIUM:978 006 Loperamide IMODIU 10/20/ CAPSULE 30 complet IMOD IUM [facility] Hydrochlori M:9780 2019 ed ([address] de 2 MG 06 12:00: Medical Oral 00 AM Service) Capsule EDT IMODIUM:978 006 Budesonide SYMBIC 10/20/ AEROSOL 1 complet SYMB ICORT [facility] 0.16 ORT:59 2019 ed ([place] MG/ACTUAT / 7829 12:00: Medica l formoterol 00 AM Service) 0.0045 EDT MG/ACTUAT Inhalant Powder SYMBICORT:5 92438 gabapentin NEURON 10/20/ TABLET 90 complet NEURO NTIN [facility] 600 MG Oral TIN:2019 ed ([facility] [address] Tablet 0433 12:00: Medical NEURONTIN:3 00 AM Service ) 81665 EDT gabapentin NEURON 10/05/ TABLET 90 complet NEURO NTIN MED[facility] 800 MG Oral TIN:2019 ed ([facility] [address] Tablet 0434 12:00: Medical NEURONTIN:3 00 AM Service ) 22841 EDT LATEX complet LATEX GLOVES M EDGEN GLOVES 2019 ed LARGE ([facility] LARGE 12:00: MISCELLANEOU [facility] MISCELLANEO 00 AM S Service ) US: EDT MASK VORTEX complet MASK VOR IVORY MEDGEN MISCELLANEO 2019 ed MISCELLANEOU ([place] US: 12:00: S Medical 00 AM Service) EDT LATEX complet LATEX GLOVES M EDGEN GLOVES 2019 ed LARGE ([facility] LARGE 12:00: MISCELLANEOU Medi clive MISCELLANEO 00 AM S Service ) US: EDT gabapentin NEURON 10/05/ TABLET 90 complet NEURO NTIN MED[facility] 800 MG Oral TIN:2019 ed ([address] Tablet 0434 12:00: Medical NEURONTIN:3 00 AM Service ) 81363 EDT MASK VORTEX complet MASK VOR IVORY MEDGEN MISCELLANEO 2020 ed MISCELLANEOU ([place] US: 12:00: S Medical 00 AM Service) EDT 4 ML BICILL complet BICILLIN L-A MEDGEN penicillin IN 2020 ed ([place] G L-A:73 12:00: Medical benzathine 1570 00 AM Service) 912266 EDT UNT/ML Prefilled Syringe BICILLIN L-A:378269 4 ML BICILL complet BICILLIN L-A MEDGEN penicillin IN 2020 ed ([place] G L-A:73 12:00: Medical benzathine 1570 00 AM Service) 723707 EDT UNT/ML Prefilled Syringe BICILLIN L-A:678611 BEVESPI 09/15/ AEROSOL 1 complet BEVESPI M WHITNEYN AEROSPHERE: 2020 ed AEROSPHERE ([address] [id number] 12:00: Medical 00 AM Service) EDT Nicotine 4 NICOTI 09/15/ GUM 240 complet NICOTIN E MEDGEN MG Chewing NE:311 2019 ed ([facility] ay Gum 975 12:00: Medical NICOTINE:31 00 AM Service ) 1974 EDT Azithromyci ZITHRO 09/15/ TABLET 3 complet ZITH ROMAX MEDGEN n 250 MG MAX:14 2019 ed ([place] Oral 1962 12:00: Medical Capsule 00 AM Service) ZITHROMAX:1 EDT 78883 Nicotine 4 NICOTI 09/15/ GUM 240 complet NICOTIN E MEDGEN MG Chewing NE:311 2019 ed ([facility] ay Gum 975 12:00: Medical NICOTINE:31 00 AM Service ) 1974 EDT Methimazole TAPAZO 09/15/ TABLET 30 complet TAPA ZOLE MED[facility] 10 MG Oral LE:197 2019 ed ([facility] ay Tablet 941 12:00: Medical TAPAZOLE:19 00 AM Service ) 7941 EDT 200 ACTUAT VENTOL 09/15/ AEROSOL 3 complet VENT DAVID HFA MEDGEN Albuterol IN 2020 ed ([place] 0.09 HFA:74 12:00: Medical MG/ACTUAT 5679 00 AM Service) Metered EDT Dose Inhaler VENTOLIN HFA:886173 Azithromyci ZITHRO 22/ TABLET 3 complet ZITH ROMAX MEDGEN n 250 MG MAX:14 2019 ed ([facility] Oral 1961 12:00: Medical Capsule 00 AM Service) ZITHROMAX:1 EDT 72778 Sulfamethox BACTRI 06/07/ TABLET 14 complet BACT RIM DS MEDGEN azole 800 M 2019 ed ([place] MG / DS:849 12:00: Medical Trimethopri 580 00 AM Service ) m 160 MG EST Oral Tablet [Bactrim] BACTRIM DS:133838 Sulfamethox BACTRI 06/07/ TABLET 14 complet BACT RIM DS MEDGEN azole 800 M 2019 ed ([facility] MG / DS:849 12:00: Medical Trimethopri 580 00 AM Service ) m 160 MG EST Oral Tablet [Bactrim] BACTRIM DS:529553 Hydrocortis HYDROC 05/25/ LOTION 1 complet HYDR OCORTISO MEDGEN one 10 TIS2019 ed NE, TOPICAL ([facility] MG/ML NE, 12:00: Medical Topical TOPICA 00 AM Service) Lotion L:1034 EST HYDROCORTIS 03 ONE, TOPICAL:103 403 Hydrocortis HYDROC 05/25/ LOTION 1 complet HYDR OCORTISO MEDGEN one 10 TIS2019 ed NE, TOPICAL ([facility] MG/ML NE, 12:00: Medical Topical TOPICA 00 AM Service) Lotion L:1034 EST HYDROCORTIS 03 ONE, TOPICAL:103 403 Naproxen naprox 1 complet [facility] 500 MG Oral en 500 ed [facility] s Tablet mg Medical naproxen Tablet Center 500 mg , Tablet, Ordere Ordered By: d By: Asiya Echeverria, steve MDDirection Shelly s: 1 tablet , oral twice MDDire a day ctions : 1 tablet oral twice a day Naltrexone naltre 1 complet Tariq t hydrochlori xone ed [place] de 50 MG 50 mg Medical Oral Tablet Tablet Center naltrexone , 50 mg Ordere Tablet, d By: Ordered By: Alberta Akhtar MDDirection k, s: 1 tablet MDDire oral daily ctions at bedtime : 1 tablet oral daily at bedtim e Haloperidol halope 1 complet James nt 10 MG Oral ridol ed [place] Tablet 10 mg Medical haloperidol Tablet Center 10 mg , Tablet, Ordere Ordered By: d By: clemencia Carroll MDDirection Kaushi s: 1 tablet k, oral daily MDDire at bedtime ctions : 1 tablet oral daily at bedtim e Ketorolac ketoro 1 complet [facility] Tromethamin lac 10 ed [facility] s e 10 MG mg Medical Oral Tablet Tablet Center ketorolac , 10 mg Ordere Tablet, d By: Ordered By: Mukund Moore PADire PADirection ctions s: 1 tablet : 1 oral every tablet eight hours oral PRN pain every eight hours PRN pain Potassium potass 1 complet [facility] Chloride 10 ium ed [place] MEQ chlori Medical Extended de 10 Center Release mEq Oral Tablet Tablet potassium Extend chloride 10 ed mEq Tablet Releas Extended e, Release, Ordere Ordered By: d By: Cathie Mccrary MDDirection ch, s: 1 tablet MDDire oral daily ctions : 1 tablet oral daily zolpidem 10 drug complet [facility] mg Tablet or [facility] tion [place] Acetaminoph acetam 2 complet James nt en 325 MG inophe ed [facility] Oral Tablet n 325 Medical acetaminoph mg Center en 325 mg Tablet Tablet, , Ordered By: Jimena Leone d By: Barbara Malone FNPDirectio e ns: 2 [place] tablet oral m, every six FNPDir hours PRN ection pain s: 2 tablet oral every six hours PRN pain acetaminoph drug 2 complet [facility] en 325 mg or ed [facility] TabletDirec medica Medica l tions: 2 tion Center tablet oral every six hours PRN pain clonazePAM drug complet [facility] 1 mg Tablet or [facility] betamethaso drug complet [facility] ne or [facility] dipropionat medica Medica l e 0.05 % tion Center Ointment Nicotine 2 nicoti 1 complet Tariq t MG Chewing ne [facility] Gum (polac Medical nicotine rilex) Center (polacrilex 2 mg ) 2 mg Gum, Gum, Ordered By: Jimena Medrano d By: Lyric Gil MDDirection h s: 1 tablet [place]hi oral every k, two hours MDDire PRN ctions NICOTINE : 1 WITHDRAWL tablet oral every two hours PRN NICOTI NE WITHDR AWL cromolyn 4 drug complet [facility] % Drops or [facility] Naltrexone naltre 1 complet Tariq t hydrochlori xone ed [place] de 50 MG 50 mg Medical Oral Tablet Tablet Center naltrexone , 50 mg Ordere Tablet, d By: Ordered By: Alberta Akhtar MDDirection k, s: 1 tablet MDDire oral daily ctions at bedtime : 1 tablet oral daily at bedtim e haloperidol drug complet [facility] decanoate or ed [place] 100 mg/mL [facility] tion Center naltrexone drug complet [facility] 50 mg or ed [place] Tablet [facility] tion Center haloperidol drug complet [facility] decanoate or ed [place] 100 mg/mL [facility] Center zolpidem 10 drug complet [facility] mg Tablet or ed [place] [facility] tion Center gabapentin gabape 1 complet Tariq t 100 MG Oral ntin ed [place] Capsule 100 mg Medical gabapentin Capsul Center 100 mg e, Capsule, Ordere Ordered By: d By: clemencia Carroll MDDirection Kaushkareen s: 1 k, capsule MDDire oral three ctions times a day : 1 capsul e oral three times a day haloperidol drug complet [facility] 10 mg or ed [place] Tablet medica Medical tion [place] benztropine drug complet [facility] 1 mg Tablet or ed [place] [facility] tion Center naproxen drug 1 complet [facility] 500 mg or ed [place] TabletDirec medica Medica l tions: 1 tion Center tablet oral twice a day haloperidol drug complet [facility] decanoate or ed [place] 100 mg/mL [facility] tion Center naltrexone drug complet [facility] 50 mg or ed [place] Tablet medica Medical tion [place] Methimazole meTHIM 1 complet James nt 10 MG Oral Azole ed [place] Tablet 10 mg Medical meTHIMAzole Tablet Center 10 mg , Tablet, Ordere Ordered By: d By: clemencia Carroll MDDirection Kaushkareen s: 1 tablet k, oral daily MDDire ctions : 1 tablet oral daily Haloperidol halope 1 complet James nt 10 MG Oral ridol ed [place] Tablet 10 mg Medical haloperidol Tablet Center 10 mg , Tablet, Ordere Ordered By: d By: clemencia Carroll MDDirection Kairene s: 1 tablet k, oral daily MDDire at bedtime ctions : 1 tablet oral daily at bedtim e Ciprofloxac ciprof 2 complet James nt in 3 MG/ML loxaci ed [place] Ophthalmic n HCl Medical Solution 0.3 % Center ciprofloxac Drops, in HCl 0.3 Ordere % Drops, d By: Ordered By: Ekaterina Irving FNPDirectio m, ns: 2 drop FNPDir ophthalmic, ection left eye s: 2 every four drop hours ophtha lmic, left eye every four hours benztropine benztr 1 complet James nt mesylate 1 opine ed [place] MG Oral 1 mg Medical Tablet Tablet Center benztropine , 1 mg Ordere Tablet, d By: Ordered By: Wes Harvey Safo-A Safo-Tai sante, , MDDire MDDirection ctions s: 1 tablet : 1 oral twice tablet a day oral twice a day Clonazepam clonaz complet Tariq t 1 MG Oral ePAM 1 ed [facility] Tablet mg Medical clonazePAM Tablet Center 1 mg Tablet Acetaminoph acetam 2 complet James nt en 325 MG inophe ed [place] Oral Tablet n 325 Medical acetaminoph mg Center en 325 mg Tablet Tablet, , Ordered By: Jimena Harvey d By: Tabathae Wes , Safo-A MDDirection sante, s: 2 tablet MDDire oral every ctions six hours : 2 PRN pain tablet oral every six hours PRN pain benztropine benztr 1 complet James nt mesylate 1 opine ed [place] MG Oral 1 mg Medical Tablet Tablet Center benztropine , 1 mg Ordere Tablet, d By: Ordered By: Alberta Akhtar MDDirection k, s: 1 tablet MDDire oral daily ctions on waking : 1 tablet oral daily on waking gabapentin gabape complet Tariq t 300 MG Oral ntin ed [facility] Capsule 300 mg Medical gabapentin Capsul Center 300 mg e Capsule albuterol 1 complet [facility] sulfate 90 ed [facility] HFA Medical Aerosol Center Inhaler, Ordered By: Debbie Rowe s: 1 puff oral every six hours PRN SHORTNESS OF BREATH haloperidol halope complet James nt decanoate ridol ed [facility] 100 MG/ML decano Medical Injectable ate Center Solution 100 haloperidol mg/mL decanoate Soluti 100 mg/mL on Solution Zolpidem zolpid complet [facility] tartrate 10 em 10 ed [place] MG Oral mg Medical Tablet Tablet Center zolpidem 10 mg Tablet Diphenhydra diphen 1 complet James nt mine hydram ed [place] Hydrochlori ine Medical de 50 MG HCl 50 Center Oral mg Capsule Capsul diphenhydra e, mine HCl 50 Ordere mg Capsule, d By: Ordered By: Alberta Akhtar MDDirection k, s: 1 MDDire capsule ctions oral daily : 1 at bedtime capsul e oral daily at bedtim e gabapentin gabape 1 complet Tariq t 300 MG Oral ntin ed [place] Capsule 300 mg Medical gabapentin Capsul Center 300 mg e, Capsule, Ordere Ordered By: d By: Vinny Johnson MDDirection Hermes s: 1 t, capsule MDDire oral three ctions times a day : 1 capsul e oral three times a day Zolpidem zolpid 1 complet [facility] tartrate 10 em 10 ed [place] MG Oral mg Medical Tablet Tablet Center zolpidem 10 , mg Tablet, Ordere Ordered By: d By: Caden Johnsona MDDirection Sharps s: 1 tablet t, oral daily MDDire at bedtime ctions : 1 tablet oral daily at bedtim e benztropine benztr 1 complet James nt mesylate 1 opine ed [place] MG Oral 1 mg Medical Tablet Tablet Center benztropine , 1 mg Ordere Tablet, d By: Ordered By: Hermes Hayes MDDirection t, s: 1 tablet MDDire oral daily ctions : 1 tablet oral daily Trazodone traZOD 1 complet [facility] Hydrochlori one 50 ed [facility] [facility] de 50 MG mg Medical Oral Tablet Tablet Center traZODone , 50 mg Ordere Tablet, d By: Ordered By: Hermes Hayes MDDirection t, s: 1 tablet MDDire oral daily ctions at bedtime : 1 tablet oral daily at bedtim e Insurance Providers Payer name Policy type Policy ID Covered Covered republican's Policy P daniel / Coverage republican ID relationship to [employer] Inf ormation type purvis [facility] MEDICAID [id number] [facility] [place] [place] [id number] 1 [id number] [facility] [id number] 1 [id number] PLANS MVP/HHP O [id number] 01 [id number] 100 O MVP/HHP O [id number] 100 MVP PSYCH IP O [id number] 01 [id number] W [id number] SELF [id number] Self [id number] MEDICAID INP [id number] Self [id number] R REHAB [facility] MVP [id number] Self [id number] 100 HARMONIOUS [place] [id number] [place] [id number] HMO "" O [id number] 01 [id number] 100 [facility] O [id number] 01 [id number] STRATEGIES "" O [id number] 01 [id number] 100 [facility] [id number] SP [id number] 100 [facility] O [id number] 01 [id number] STRATEGIES [facility] [id number] SP [id number] HEALTH-MVP Problems, Conditions, and Diagnoses Code Display Name Description Problem Type Effective Data Dates Source(s) J30.9 Allergic rhinitis, ALLERGIC RHINITIS, Problem 0 MEDGEN unspecified UNSPECIFIED 12:00:00 AM ([place]) 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, latent SYPHILIS, LATENT 12:00:00 AM ( [place] [facility]) 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, latent SYPHILIS, LATENT 12:00:00 AM ( [place] EDT Medical Service) G63 Polyneuropathy in POLYNEUROPATHY IN Problem 10/21/2019 MEDGEN diseases classified DISEASES CLASSIFIED 12:00:0 0 AM ([place] elsewhere ELSEWHERE EDT Medical Service) G63 Polyneuropathy in POLYNEUROPATHY IN Problem 10/21/2019 MEDGEN diseases classified DISEASES CLASSIFIED 12:00:0 0 AM ([place] elsewhere ELSEWHERE EDT Medical Service) J01.90 Acute sinusitis, ACUTE SINUSITIS, Problem 09/16/2019 ME DGEN unspecified UNSPECIFIED 12:00:00 AM ([place] EDT Medical Service) J01.90 Acute sinusitis, ACUTE SINUSITIS, Problem 09/16/2019 ME DGEN unspecified UNSPECIFIED 12:00:00 AM ([place] EDT Medical Service) F25.9 Schizoaffective SCHIZOAFFECTIVE Problem 06/15/2019 MEDG EN disorder, unspecified DISORDER, UNSPECIFIED 12: 00:00 AM ([facility] Medical Service) F25.9 Schizoaffective SCHIZOAFFECTIVE Problem 06/15/2019 MEDG EN disorder, unspecified DISORDER, UNSPECIFIED 12: 00:00 AM ([facility] Medical Service) N39.0 Urinary tract URINARY TRACT Problem 06/07/2019 MEDGEN infection, site not INFECTION, SITE NOT 12:00:0 0 AM ([place] specified SPECIFIED EST Medical Service) N39.0 Urinary tract URINARY TRACT Problem 06/07/2019 MEDGEN infection, site not INFECTION, SITE NOT 12:00:0 0 AM ([place] specified SPECIFIED EST Medical Service) M25.50 Pain in unspecified PAIN IN UNSPECIFIED Problem 019 MEDGEN joint JOINT 12:00:00 AM ([facility] Medical Service) M25.50 Pain in unspecified PAIN IN UNSPECIFIED Problem 019 MEDGEN joint JOINT 12:00:00 AM ([facility] Medical Service) H10.10 Acute atopic ACUTE ATOPIC Problem 11/10/2018 MEDGEN conjunctivitis, CONJUNCTIVITIS, 12:00:00 AM ( [facility] unspecified eye UNSPECIFIED EYE EDT Medi clive Service) H10.10 Acute atopic ACUTE ATOPIC Problem 11/10/2018 MEDGEN conjunctivitis, CONJUNCTIVITIS, 12:00:00 AM ( [place] unspecified eye UNSPECIFIED EYE EDT Medi clive Service) A51.2 Primary syphilis of PRIMARY SYPHILIS OF Problem 019 MEDGEN other sites OTHER SITES 12:00:00 AM ([facility] Medical Service) A51.2 Primary syphilis of PRIMARY SYPHILIS OF Problem 019 MEDGEN other sites OTHER SITES 12:00:00 AM ([facility] Medical Service) H61.20 Impacted cerumen, IMPACTED CERUMEN, Problem 02/05/2018 MEDGEN unspecified ear UNSPECIFIED EAR 12:00:00 AM ([facility] Medical Service) H61.20 Impacted cerumen, IMPACTED CERUMEN, Problem 02/05/2018 MEDGEN unspecified ear UNSPECIFIED EAR 12:00:00 AM ([facility] Medical Service) H61.23 Impacted cerumen, IMPACTED CERUMEN, Problem 02/20/2016 MEDGEN bilateral BILATERAL 12:00:00 AM ([facility] Medical Service) H61.23 Impacted cerumen, IMPACTED CERUMEN, Problem 02/20/2016 MEDGEN bilateral BILATERAL 12:00:00 AM ([facility] Medical Service) G89.4 Chronic pain syndrome CHRONIC PAIN SYNDROME Problem 09/2015 MEDGEN 12:00:00 AM ([facility] Medical Service) G47.00 Insomnia, unspecified INSOMNIA, UNSPECIFIED Problem 09/2015 MEDGEN 12:00:00 AM ([facility] Medical Service) G89.4 Chronic pain syndrome CHRONIC PAIN SYNDROME Problem 09/2015 MEDGEN 12:00:00 AM ([facility] Medical Service) G47.00 Insomnia, unspecified INSOMNIA, UNSPECIFIED Problem 09/2015 MEDGEN 12:00:00 AM ([facility] Medical Service) J00 Acute nasopharyngitis ACUTE NASOPHARYNGITIS Problem 05/2015 MEDGEN [common cold] [COMMON COLD] 12:00:00 AM ([facility] Medical Service) J00 Acute nasopharyngitis ACUTE NASOPHARYNGITIS Problem 05/2015 MEDGEN [common cold] [COMMON COLD] 12:00:00 AM ([facility] Medical Service) H65.05 Acute serous otitis ACUTE SEROUS OTITIS Problem 016 MEDGEN media, recurrent, MEDIA, RECURRENT, 12:00:00 AM ([place] left ear LEFT EAR EDT Medical Service) H65.05 Acute serous otitis ACUTE SEROUS OTITIS Problem 016 MEDGEN media, recurrent, MEDIA, RECURRENT, 12:00:00 AM ([place] left ear LEFT EAR EDT Medical Service) Z13.89 Encounter for ENCOUNTER FOR Problem 12/04/2015 MEDGEN screening for other SCREENING FOR OTHER 12:00:0 0 AM ([place] disorder DISORDER T Medical Service) Z13.89 Encounter for ENCOUNTER FOR Problem 12/04/2015 MEDGEN screening for other SCREENING FOR OTHER 12:00:0 0 AM ([place] disorder DISORDER T Medical Service) E78.5 Hyperlipidemia, HYPERLIPIDEMIA, Problem 10/09/2015 MEDG EN unspecified UNSPECIFIED 12:00:00 AM ([facility] Medical Service) L40.9 Psoriasis, PSORIASIS, Problem 10/09/2015 MEDGEN unspecified UNSPECIFIED 12:00:00 AM ([place] EDT Medical Service) F17.200 Nicotine dependence, NICOTINE DEPENDENCE, Problem 10/08 MEDGEN unspecified, UNSPECIFIED, 12:00:00 AM ([facility] uncomplicated UNCOMPLICATED EDT Medical Service) E05.90 Thyrotoxicosis, THYROTOXICOSIS, Problem 10/09/2015 MEDG EN unspecified without UNSPECIFIED WITHOUT 12:00:0 0 AM ([place] thyrotoxic crisis or THYROTOXIC CRISIS OR EDT Medical storm STORM Service) E78.5 Hyperlipidemia, HYPERLIPIDEMIA, Problem 10/09/2015 MEDG EN unspecified UNSPECIFIED 12:00:00 AM ([place] EDT Medical Service) L40.9 Psoriasis, PSORIASIS, Problem 10/09/2015 MEDGEN unspecified UNSPECIFIED 12:00:00 AM ([place] EDT Medical Service) F17.200 Nicotine dependence, NICOTINE DEPENDENCE, Problem 10/08 MEDGEN unspecified, UNSPECIFIED, 12:00:00 AM ([place] uncomplicated UNCOMPLICATED EDT Medical Service) E05.90 Thyrotoxicosis, THYROTOXICOSIS, Problem 10/09/2015 MEDG EN unspecified without UNSPECIFIED WITHOUT 12:00:0 0 AM ([place] thyrotoxic crisis or THYROTOXIC CRISIS OR EDT Medical storm STORM Service) J44.9 Chronic obstructive CHRONIC OBSTRUCTIVE Problem 016 MEDGEN pulmonary disease, PULMONARY DISEASE, 12:00:00 AM ([place] unspecified UNSPECIFIED EST Medical Service) J44.9 Chronic obstructive CHRONIC OBSTRUCTIVE Problem 016 MEDGEN pulmonary disease, PULMONARY DISEASE, 12:00:00 AM ([place] unspecified UNSPECIFIED EST Medical Service) H61.22 Impacted cerumen, IMPACTED CERUMEN, Problem 2015 MEDGEN left ear LEFT EAR 12:00:00 AM ([place] EST Medical Service) M54.5 Low back pain LOW BACK PAIN Problem 2015 MEDGEN 12:00:00 AM ([place] EST Medical Service) J06.9 Acute upper ACUTE UPPER Problem 2015 MEDGEN respiratory RESPIRATORY 12:00:00 AM ([place] infection, INFECTION, EST Medical unspecified UNSPECIFIED Service) H61.22 Impacted cerumen, IMPACTED CERUMEN, Problem 2015 MEDGEN left ear LEFT EAR 12:00:00 AM ([place] EST Medical Service) M54.5 Low back pain LOW BACK PAIN Problem 2015 MEDGEN 12:00:00 AM ([place] EST Medical Service) J06.9 Acute upper ACUTE UPPER Problem 2015 MEDGEN respiratory RESPIRATORY 12:00:00 AM ([place] infection, INFECTION, EST Medical unspecified UNSPECIFIED Service) F17.210 Nicotine dependence, NICOTINE DEPENDENCE, Diagnosis 12/11 [facility] cigarettes, CIGARETTES, 06:47:00 PM [facility] uncomplicated UNCOMPLICATED [facility] J45.909 Unspecified asthma, UNSPECIFIED ASTHMA, Diagnosis 020 [facility] uncomplicated UNCOMPLICATED 06:47:00 PM [facility] F14.10 Cocaine abuse, COCAINE ABUSE, Diagnosis 12/12/2019 [facility] uncomplicated UNCOMPLICATED 06:47:00 PM [facility] F10.129 Alcohol abuse with ALCOHOL ABUSE WITH Diagnosis 0 [facility] intoxication, INTOXICATION, 06:47:00 [facility] unspecified UNSPECIFIED [facility] 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, HALLUCINOGEN ABUSE, Diagnosis 020 [facility] uncomplicated UNCOMPLICATED 02:01:00 PM [facility] F12.10 Cannabis abuse, CANNABIS ABUSE, Diagnosis 12/10/2019 [facility] uncomplicated UNCOMPLICATED 02:01:00 PM [facility] F10.10 Alcohol abuse, ALCOHOL ABUSE, Diagnosis 12/10/2019 [facility] uncomplicated UNCOMPLICATED 02:01:00 PM [facility] F19.159 Other psychoactive OTH PSYCHOACTIVE Diagnosis 12/10/2019 [facility] substance abuse with SUBSTANCE ABUSE W 02:01:00 PM [facility] psychoactive PSYCHOTIC DISORDER, EDT Med ical substance-induced [facility] Center psychotic disorder, unspecified R45.851 Suicidal ideations SUICIDAL IDEATIONS Diagnosis 0 [facility] 02:01:00 PM [facility] E87.6 Hypokalemia HYPOKALEMIA Diagnosis 12/08/2019 [facility] 12:42:00 PM [facility] F14.120 Cocaine abuse with COCAINE ABUSE WITH Diagnosis 0 [facility] intoxication, INTOXICATION, 12:16:00 PM [facility] uncomplicated UNCOMPLICATED [facility] M54.9 Dorsalgia, DORSALGIA, Diagnosis 11/14/2019 [facility] unspecified UNSPECIFIED 12:16:00 PM [facility] L40.9 Psoriasis, PSORIASIS, Diagnosis 11/14/2019 unspecified UNSPECIFIED 12:16:00 PM [facility] Z59.0 Homelessness HOMELESSNESS Diagnosis 11/14/2019 [facility] 12:16:00 PM [facility] F25.1 Schizoaffective SCHIZOAFFECTIVE Diagnosis 10/26/2019 [facility] disorder, depressive DISORDER, DEPRESSIVE 11:33 :00 AM [facility] type TYPE [facility] F17.200 Nicotine dependence, NICOTINE DEPENDENCE, Diagnosis 10/19 unspecified, UNSPECIFIED, 12:15:00 PM [facility] uncomplicated UNCOMPLICATED [facility] J43.9 Emphysema, EMPHYSEMA, Diagnosis 10/20/2019 [facility] unspecified UNSPECIFIED 12:15:00 PM [facility] F20.9 Schizophrenia, SCHIZOPHRENIA, Diagnosis 10/20/2019 [facility] unspecified UNSPECIFIED 12:15:00 PM [facility] F16.120 Hallucinogen abuse HALLUCINOGEN ABUSE Diagnosis 0 [facility] with intoxication, WITH INTOXICATION, 01:27:00 PM [facility] F12.120 Cannabis abuse with CANNABIS ABUSE WITH Diagnosis 020 [facility] intoxication, INTOXICATION, 01:27:00 PM [facility] M79.672 Pain in left foot PAIN IN LEFT FOOT Diagnosis 05/29/2019 [facility] 07:09:[address] [facility] M79.89 Other specified soft OTHER SPECIFIED SOFT Diagnosis 05/29 [facility] tissue disorders TISSUE DISORDERS 07:09:00 [facility] R73.03 Prediabetes PREDIABETES Diagnosis 05/25/2019 [facility] 01:31:[address] 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, left OSTEOARTHRITIS, LEFT 11:15 :00 PM [facility] knee [facility] Medical [place] S89.90X Unspecified injury of UNSPECIFIED INJURY OF Diagnosis 10/2018 A unspecified lower UNSPECIFIED LOWER 11:15:00 PM [facility] leg, initial LEG, INIT ENCNTR EST Medica l encounter Center F10.120 Alcohol abuse with ALCOHOL ABUSE WITH Diagnosis 9 intoxication, INTOXICATION, 02:50:00 PM [facility] uncomplicated UNCOMPLICATED [facility] Z56.0 Unemployment, UNEMPLOYMENT, Diagnosis 03/21/2019 [facility] unspecified UNSPECIFIED 02:50:[address] [facility] Z72.0 Tobacco use TOBACCO USE Diagnosis 03/04/2019 [facility] 08:17:[address] [facility] Y90.6 Blood alcohol level BLOOD ALCOHOL LEVEL Diagnosis 019 [facility] of 120-199 mg/100 ml OF 120-199 MG/100 ML 08:17 :[address] [facility] Y99.9 Unspecified external UNSPECIFIED EXTERNAL Diagnosis 11/01 [facility] cause status CAUSE STATUS 03:37:00 PM [facility] Y92.[address] U[address] OR Diagnosis 11/01 [facility] not applicable NOT APPLICABLE 03:37:00 PM [facility] Y93.9 Activity, unspecified ACTIVITY, UNSPECIFIED Diagnosis 11/2018 [facility] 03:37:00 PM [facility] X58.XXX Exposure to other EXPOSURE TO OTHER Diagnosis 11/01/2018 [facility] specified factors, SPECIFIED FACTORS, 03:37:00 PM [facility] subsequent encounter SUBSEQUENT ENCOUNTER EDT [facility] T44.3X5 Adverse effect of ADVERSE EFFECT OF Diagnosis 11/01/2018 [facility] other PARASYMPATHOLYTICS 03:37:00 PM [facility] parasympatholytics AND SPASMOLYTICS, EDT Medical [anticholinergics and SUBS [address] antimuscarinics] and spasmolytics, subsequent encounter H54.7 Unspecified visual UNSPECIFIED VISUAL Diagnosis 9 [facility] loss LOSS 03:37:00 PM [facility] R51 Headache HEADACHE Diagnosis 10/18/2018 [facility] 02:04:00 PM [facility] F19.10 Other psychoactive OTHER PSYCHOACTIVE Diagnosis 9 substance abuse, SUBSTANCE ABUSE, 08:59:00 AM [facility] uncomplicated UNCOMPLICATED [facility] J06.9 Acute upper ACUTE UPPER Diagnosis 10/05/2018 [facility] respiratory RESPIRATORY 08:59:00 AM [place] infection, INFECTION, EDT Medical unspecified UNSPECIFIED Center R05 Cough COUGH Diagnosis 10/05/2018 [facility] 08:59:00 AM [facility] Surgeries/Procedures Procedure Description Date Indications Data Source(s) Documentation of current 12/30/2019 MED GEN ([facility] medications (procedure) 12:00:00 AM EDT edical Service) Documentation of current 12/30/2019 MED GEN ([place] medications (procedure) 12:00:00 AM EDT edical Service) Documentation of current 12/06/2019 MED GEN ([place] medications (procedure) 12:00:00 AM EDT edical Service) Documentation of current 12/06/2019 MED GEN ([facility] medications (procedure) 12:00:00 AM EDT edical Service) Documentation of current 12/06/2019 MED GEN ([place] medications (procedure) 12:00:00 AM EDT edical Service) Documentation of current 12/06/2019 MED GEN ([place] medications (procedure) 12:00:00 AM EDT edical Service) Documentation of current 12/06/2019 MED GEN ([facility] medications (procedure) 12:00:00 AM EDT edical Service) Documentation of current 12/06/2019 MED GEN ([facility] medications (procedure) 12:00:00 AM EDT edical Service) Documentation of current 12/06/2019 MED GEN ([facility] medications (procedure) 12:00:00 AM EDT edical Service) Documentation of current 10/21/2019 MED GEN ([facility] medications (procedure) 12:00:00 AM EDT edical Service) Documentation of current 10/21/2019 MED GEN ([facility] medications (procedure) 12:00:00 AM EDT edical Service) Documentation of current 10/21/2019 MED GEN ([place] medications (procedure) 12:00:00 AM EDT edical Service) Documentation of current 10/21/2019 MED GEN ([place] medications (procedure) 12:00:00 AM EDT edical Service) Documentation of current 10/21/2019 MED GEN ([place] medications (procedure) 12:00:00 AM EDT edical Service) Documentation of current 10/21/2019 MED GEN ([place] medications (procedure) 12:00:00 AM EDT edical Service) Documentation of current 10/21/2019 MED GEN ([facility] medications (procedure) 12:00:00 AM EDT edical Service) Documentation of current 10/21/2019 MED GEN ([place] medications (procedure) 12:00:00 AM EDT edical Service) Documentation of current 10/21/2019 MED GEN ([place] medications (procedure) 12:00:00 AM EDT edical Service) Documentation of current 10/21/2019 MED GEN ([place] medications (procedure) 12:00:00 AM EDT edical Service) Documentation of current 10/21/2019 MED GEN ([place] medications (procedure) 12:00:00 AM EDT edical Service) Documentation of current 10/21/2019 MED GEN ([place] medications (procedure) 12:00:00 AM EDT edical Service) Documentation of current 10/06/2019 MED GEN ([facility] medications (procedure) 12:00:00 AM EDT edical Service) Documentation of current 10/06/2019 MED GEN ([facility] medications (procedure) 12:00:00 AM EDT edical Service) Documentation of current 09/16/2019 MED GEN ([facility] medications (procedure) 12:00:00 AM EDT edical Service) Documentation of current 09/16/2019 MED GEN ([facility] medications (procedure) 12:00:00 AM EDT edical Service) Documentation of current 09/16/2019 MED GEN ([facility] medications (procedure) 12:00:00 AM EDT edical Service) Documentation of current 09/16/2019 MED GEN ([facility] medications (procedure) 12:00:00 AM EDT edical Service) Documentation of current 09/16/2019 MED GEN ([place] medications (procedure) 12:00:00 AM EDT edical Service) Documentation of current 09/16/2019 MED GEN ([facility] medications (procedure) 12:00:00 AM EDT edical Service) Documentation of current 09/16/2019 MED GEN ([facility] medications (procedure) 12:00:00 AM EDT edical Service) Documentation of current 09/16/2019 MED GEN ([facility] medications (procedure) 12:00:00 AM EDT edical Service) Documentation of current 09/16/2019 MED GEN ([place] medications (procedure) 12:00:00 AM EDT edical Service) Documentation of current 09/16/2019 MED GEN ([facility] medications (procedure) 12:00:00 AM EDT edical Service) Documentation of current 09/16/2019 MED GEN ([place] medications (procedure) 12:00:00 AM EDT edical Service) Documentation of current 09/16/2019 MED GEN ([place] medications (procedure) 12:00:00 AM EDT edical Service) Documentation of current 06/15/2019 MED GEN ([place] medications (procedure) 12:00:00 AM EST edical Service) Documentation of current 06/15/2019 MED GEN ([facility] medications (procedure) 12:00:00 AM EST edical Service) Documentation of current 06/15/2019 MED GEN ([facility] medications (procedure) 12:00:00 AM EST edical Service) Documentation of current 06/15/2019 MED GEN ([place] medications (procedure) 12:00:00 AM EST edical Service) Documentation of current 06/15/2019 MED GEN ([facility] medications (procedure) 12:00:00 AM EST edical Service) Documentation of current 06/15/2019 MED GEN ([place] medications (procedure) 12:00:00 AM EST edical Service) Documentation of current 06/15/2019 MED GEN ([place] medications (procedure) 12:00:00 AM EST edical Service) Documentation of current 06/15/2019 MED GEN ([place] medications (procedure) 12:00:00 AM EST edical Service) Documentation of current 06/15/2019 MED GEN ([facility] medications (procedure) 12:00:00 AM EST edical Service) Documentation of current 06/15/2019 MED GEN ([facility] medications (procedure) 12:00:00 AM EST edical Service) Documentation of current 06/15/2019 MED GEN ([place] medications (procedure) 12:00:00 AM EST edical Service) Documentation of current 06/15/2019 MED GEN ([place] medications (procedure) 12:00:00 AM EST edical Service) Documentation of current 06/07/2019 MED GEN ([place] medications (procedure) 12:00:00 AM EST edical Service) Documentation of current 06/07/2019 MED GEN ([facility] medications (procedure) 12:00:00 AM EST edical Service) Documentation of current 06/07/2019 MED GEN ([facility] medications (procedure) 12:00:00 AM EST edical Service) Documentation of current 06/07/2019 MED GEN ([facility] medications (procedure) 12:00:00 AM EST edical Service) Documentation of current 06/07/2019 MED GEN ([place] medications (procedure) 12:00:00 AM EST edical Service) Documentation of current 06/07/2019 MED GEN ([place] medications (procedure) 12:00:00 AM EST edical Service) Documentation of current 05/18/2019 MED GEN ([facility] medications (procedure) 12:00:00 AM EST edical Service) Documentation of current 05/18/2019 MED GEN ([facility] medications (procedure) 12:00:00 AM EST edical Service) Documentation of current 05/18/2019 MED GEN ([facility] medications (procedure) 12:00:00 AM EST edical Service) Documentation of current 05/18/2019 MED GEN ([place] medications (procedure) 12:00:00 AM EST edical Service) Documentation of current 05/18/2019 MED GEN ([facility] medications (procedure) 12:00:00 AM EST edical Service) Documentation of current 05/18/2019 MED GEN ([place] medications (procedure) 12:00:00 AM EST edical Service) Documentation of current 05/18/2019 MED GEN ([place] medications (procedure) 12:00:00 AM EST edical Service) Documentation of current 05/18/2019 MED GEN ([facility] medications (procedure) 12:00:00 AM EST edical Service) Documentation of current 05/18/2019 MED GEN ([facility] medications (procedure) 12:00:00 AM EST edical Service) Documentation of current 05/18/2019 MED GEN ([place] medications (procedure) 12:00:00 AM EST edical Service) Documentation of current 04/19/2019 MED GEN ([place] medications (procedure) 12:00:00 AM EST edical Service) Documentation of current 04/19/2019 MED GEN ([place] medications (procedure) 12:00:00 AM EST edical Service) Documentation of current 04/19/2019 MED GEN ([place] medications (procedure) 12:00:00 AM EST edical Service) Documentation of current 04/19/2019 MED GEN ([place] medications (procedure) 12:00:00 AM EST edical Service) Documentation of current 04/19/2019 MED GEN ([facility] medications (procedure) 12:00:00 AM EST edical Service) Documentation of current 04/19/2019 MED GEN ([place] medications (procedure) 12:00:00 AM EST edical Service) Documentation of current 04/19/2019 MED GEN ([facility] medications (procedure) 12:00:00 AM [facility] edical Service) Documentation of current 04/19/2019 MED GEN ([facility] medications (procedure) 12:00:00 AM [facility] edical Service) Documentation of current 04/19/2019 MED GEN ([place] medications (procedure) 12:00:00 AM [facility] edical Service) Documentation of current 04/19/2019 MED GEN ([place] medications (procedure) 12:00:00 AM [facility] edical Service) Documentation of current 11/10/2018 MED GEN ([place] medications (procedure) 12:00:00 AM EDT edical Service) Documentation of current 11/10/2018 MED GEN ([place] medications (procedure) 12:00:00 AM EDT edical Service) Documentation of current 11/10/2018 MED GEN ([facility] medications (procedure) 12:00:00 AM EDT edical Service) Documentation of current 11/10/2018 MED GEN ([place] medications (procedure) 12:00:00 AM EDT edical Service) Documentation of current 11/10/2018 MED GEN ([place] medications (procedure) 12:00:00 AM EDT edical Service) Documentation of current 11/10/2018 MED GEN ([facility] medications (procedure) 12:00:00 AM EDT edical Service) Documentation of current 11/10/2018 MED GEN ([place] medications (procedure) 12:00:00 AM EDT edical Service) Documentation of current 11/10/2018 MED GEN ([place] medications (procedure) 12:00:00 AM EDT edical Service) Documentation of current 11/10/2018 MED GEN ([facility] medications (procedure) 12:00:00 AM EDT edical Service) Documentation of current 11/10/2018 MED GEN ([facility] medications (procedure) 12:00:00 AM EDT edical Service) Documentation of current 11/10/2018 MED GEN ([place] medications (procedure) 12:00:00 AM EDT edical Service) Documentation of current 11/10/2018 MED GEN ([facility] medications (procedure) 12:00:00 AM EDT edical Service) Documentation of current 11/10/2018 MED GEN ([place] medications (procedure) 12:00:00 AM EDT edical Service) Documentation of current 11/10/2018 MED GEN ([facility] medications (procedure) 12:00:00 AM EDT edical Service) Documentation of current 11/10/2018 MED GEN ([place] medications (procedure) 12:00:00 AM EDT edical Service) Documentation of current 11/10/2018 MED GEN ([facility] medications (procedure) 12:00:00 AM EDT edical Service) Documentation of current 11/10/2018 MED GEN ([facility] medications (procedure) 12:00:00 AM EDT edical Service) Documentation of current 11/10/2018 MED GEN ([facility] medications (procedure) 12:00:00 AM EDT edical Service) Documentation of current 07/19/2018 MED GEN ([facility] medications (procedure) 12:00:00 AM EDT edical Service) Documentation of current 07/19/2018 MED GEN ([facility] medications (procedure) 12:00:00 AM EDT edical Service) Documentation of current 07/19/2018 MED GEN ([facility] medications (procedure) 12:00:00 AM EDT edical Service) Documentation of current 07/19/2018 MED GEN ([place] medications (procedure) 12:00:00 AM EDT edical Service) Documentation of current 07/19/2018 MED GEN ([place] medications (procedure) 12:00:00 AM EDT edical Service) Documentation of current 07/19/2018 MED GEN ([place] medications (procedure) 12:00:00 AM EDT edical Service) Documentation of current 07/19/2018 MED GEN ([place] medications (procedure) 12:00:00 AM EDT edical Service) Documentation of current 07/19/2018 MED GEN ([place] medications (procedure) 12:00:00 AM EDT edical Service) Documentation of current 07/19/2018 MED GEN ([place] medications (procedure) 12:00:00 AM EDT edical Service) Documentation of current 07/19/2018 MED GEN ([place] medications (procedure) 12:00:00 AM EDT edical Service) Documentation of current 07/19/2018 MED GEN ([place] medications (procedure) 12:00:00 AM EDT edical Service) Documentation of current 07/19/2018 MED GEN ([place] medications (procedure) 12:00:00 AM EDT edical Service) Documentation of current 07/19/2018 MED GEN ([place] medications (procedure) 12:00:00 AM EDT edical Service) Documentation of current 07/19/2018 MED GEN ([place] medications (procedure) 12:00:00 AM EDT edical Service) Documentation of current 05/26/2018 MED GEN ([place] medications (procedure) 12:00:00 AM EST edical Service) Documentation of current 05/26/2018 MED GEN ([place] medications (procedure) 12:00:00 AM EST edical Service) Documentation of current 05/26/2018 MED GEN ([place] medications (procedure) 12:00:00 AM EST edical Service) Documentation of current 05/26/2018 MED GEN ([place] medications (procedure) 12:00:00 AM EST edical Service) Documentation of current 05/26/2018 MED GEN ([place] medications (procedure) 12:00:00 AM EST edical Service) Documentation of current 05/26/2018 MED GEN ([place] medications (procedure) 12:00:00 AM EST edical Service) Documentation of current 05/03/2018 MED GEN ([place] medications (procedure) 12:00:00 AM EST edical Service) Documentation of current 05/03/2018 MED GEN ([place] medications (procedure) 12:00:00 AM EST edical Service) Documentation of current 05/03/2018 MED GEN ([place] medications (procedure) 12:00:00 AM EST edical Service) Documentation of current 05/03/2018 MED GEN ([place] medications (procedure) 12:00:00 AM EST edical Service) Documentation of current 05/03/2018 MED GEN ([place] medications (procedure) 12:00:00 AM EST edical Service) Documentation of current 05/03/2018 MED GEN ([place] medications (procedure) 12:00:00 AM EST edical Service) Documentation of current 05/03/2018 MED GEN ([place] medications (procedure) 12:00:00 AM EST edical Service) Documentation of current 05/03/2018 MED GEN ([place] medications (procedure) 12:00:00 AM EST edical Service) Documentation of current 05/03/2018 MED GEN ([place] medications (procedure) 12:00:00 AM EST edical Service) Documentation of current 05/03/2018 MED GEN ([place] medications (procedure) 12:00:00 AM EST edical Service) Documentation of current 05/03/2018 MED GEN ([place] medications (procedure) 12:00:00 AM EST edical Service) Documentation of current 05/03/2018 MED GEN ([place] medications (procedure) 12:00:00 AM EST edical Service) Documentation of current 01/11/2018 MED GEN ([place] medications (procedure) 12:00:00 AM EDT edical Service) Documentation of current 01/11/2018 MED GEN ([place] medications (procedure) 12:00:00 AM EDT edical Service) Documentation of current 01/11/2018 MED GEN ([place] medications (procedure) 12:00:00 AM EDT edical Service) Documentation of current 01/11/2018 MED GEN ([place] medications (procedure) 12:00:00 AM EDT edical Service) Documentation of current 01/11/2018 MED GEN ([place] medications (procedure) 12:00:00 AM EDT edical Service) Documentation of current 01/11/2018 MED GEN ([place] medications (procedure) 12:00:00 AM EDT edical Service) Documentation of current 01/11/2018 MED GEN ([place] medications (procedure) 12:00:00 AM EDT edical Service) Documentation of current 01/11/2018 MED GEN ([place] medications (procedure) 12:00:00 AM EDT edical Service) Documentation of current 08/18/2017 MED GEN ([place] medications (procedure) 12:00:00 AM EDT edical Service) Documentation of current 08/18/2017 MED GEN ([place] medications (procedure) 12:00:00 AM EDT edical Service) Documentation of current 08/18/2017 MED GEN ([place] medications (procedure) 12:00:00 AM EDT edical Service) Documentation of current 08/18/2017 MED GEN ([place] medications (procedure) 12:00:00 AM EDT edical Service) Documentation of current 08/18/2017 MED GEN ([place] medications (procedure) 12:00:00 AM EDT edical Service) Documentation of current 08/18/2017 MED GEN ([place] medications (procedure) 12:00:00 AM EDT edical Service) Documentation of current 08/18/2017 MED GEN ([place] medications (procedure) 12:00:00 AM EDT edical Service) Documentation of current 08/18/2017 MED GEN ([place] medications (procedure) 12:00:00 AM EDT edical Service) Documentation of current 08/18/2017 MED GEN ([place] medications (procedure) 12:00:00 AM EDT edical Service) Documentation of current 08/18/2017 MED GEN ([place] medications (procedure) 12:00:00 AM EDT edical Service) Documentation of current 08/18/2017 MED GEN ([place] medications (procedure) 12:00:00 AM EDT edical Service) Documentation of current 08/18/2017 MED GEN ([place] medications (procedure) 12:00:00 AM EDT edical Service) Documentation of current 08/18/2017 MED GEN ([place] medications (procedure) 12:00:00 AM EDT edical Service) Documentation of current 08/18/2017 MED GEN ([place] medications (procedure) 12:00:00 AM EDT edical Service) Documentation of current 03/26/2017 MED GEN ([place] medications (procedure) 12:00:00 AM EST edical Service) Documentation of current 03/26/2017 MED GEN ([place] medications (procedure) 12:00:00 AM EST edical Service) Documentation of current 03/26/2017 MED GEN ([place] medications (procedure) 12:00:00 AM EST edical Service) Documentation of current 03/26/2017 MED GEN ([place] medications (procedure) 12:00:00 AM EST edical Service) Documentation of current 03/26/2017 MED GEN ([place] medications (procedure) 12:00:00 AM EST edical Service) Documentation of current 03/26/2017 MED GEN ([place] medications (procedure) 12:00:00 AM EST edical Service) Documentation of current 02/05/2017 MED GEN ([place] medications (procedure) 12:00:00 AM EDT edical Service) Documentation of current 02/05/2017 MED GEN ([place] medications (procedure) 12:00:00 AM EDT edical Service) Documentation of current 02/05/2017 MED GEN ([place] medications (procedure) 12:00:00 AM EDT edical Service) Documentation of current 02/05/2017 MED GEN ([place] medications (procedure) 12:00:00 AM EDT edical Service) Documentation of current 08/07/2016 MED GEN ([place] medications (procedure) 12:00:00 AM EDT edical Service) Documentation of current 08/07/2016 MED GEN ([place] medications (procedure) 12:00:00 AM EDT edical Service) Medication Reconciliation 08/07/2016 ME DGEN ([place] (procedure) 12:00:00 AM EDT Medical Serv ice) Documentation of current 08/07/2016 MED GEN ([place] medications (procedure) 12:00:00 AM EDT edical Service) Documentation of current 08/07/2016 MED GEN ([place] medications (procedure) 12:00:00 AM EDT edical Service) Documentation of current 08/07/2016 MED GEN ([place] medications (procedure) 12:00:00 AM EDT edical Service) Documentation of current 08/07/2016 MED GEN ([place] medications (procedure) 12:00:00 AM EDT edical Service) Documentation of current 08/07/2016 MED GEN ([place] medications (procedure) 12:00:00 AM EDT edical Service) Documentation of current 08/07/2016 MED GEN ([place] medications (procedure) 12:00:00 AM EDT edical Service) Medication Reconciliation 08/07/2016 ME DGEN ([place] (procedure) 12:00:00 AM EDT Medical Serv ice) Documentation of current 08/07/2016 MED GEN ([place] medications (procedure) 12:00:00 AM EDT edical Service) Documentation of current 08/07/2016 MED GEN ([place] medications (procedure) 12:00:00 AM EDT edical Service) Documentation of current 08/07/2016 MED GEN ([place] medications (procedure) 12:00:00 AM EDT edical Service) Documentation of current 08/07/2016 MED GEN ([place] medications (procedure) 12:00:00 AM EDT edical Service) Medication Reconciliation 07/04/2016 ME DGEN ([place] (procedure) 12:00:00 AM EST Medical Serv ice) Medication Reconciliation 07/04/2016 ME DGEN ([place] (procedure) 12:00:00 AM EST Medical Serv ice) Medication Reconciliation 2016 ME DGEN ([place] (procedure) 12:00:00 AM EST Medical Serv ice) Medication Reconciliation 2016 ME DGEN ([place] (procedure) 12:00:00 AM EST Medical Serv ice) Medication Reconciliation 03/13/2016 ME DGEN ([place] (procedure) 12:00:00 AM EST Medical Serv ice) Medication Reconciliation 03/13/2016 ME DGEN ([place] (procedure) 12:00:00 AM EST Medical Serv ice) Documentation of current 01/01/2016 MED GEN ([place] medications (procedure) 12:00:00 AM EDT edical Service) Documentation of current 01/01/2016 MED GEN ([place] medications (procedure) 12:00:00 AM EDT edical Service) Documentation of current 01/01/2016 MED GEN ([place] medications (procedure) 12:00:00 AM EDT edical Service) Documentation of current 01/01/2016 MED GEN ([place] medications (procedure) 12:00:00 AM EDT edical Service) Documentation of current 01/01/2016 MED GEN ([place] medications (procedure) 12:00:00 AM EDT edical Service) Documentation of current 01/01/2016 MED GEN ([place] medications (procedure) 12:00:00 AM EDT edical Service) Documentation of current 01/01/2016 MED GEN ([place] medications (procedure) 12:00:00 AM EDT edical Service) Documentation of current 01/01/2016 MED GEN ([place] medications (procedure) 12:00:00 AM EDT edical Service) Documentation of current 01/01/2016 MED GEN ([place] medications (procedure) 12:00:00 AM EDT edical Service) Documentation of current 01/01/2016 MED GEN ([place] medications (procedure) 12:00:00 AM EDT edical Service) Documentation of current 01/01/2016 MED GEN ([place] medications (procedure) 12:00:00 AM EDT edical Service) Documentation of current 01/01/2016 MED GEN ([place] medications (procedure) 12:00:00 AM EDT edical Service) Documentation of current 01/01/2016 MED GEN ([place] medications (procedure) 12:00:00 AM EDT edical Service) Documentation of current 01/01/2016 MED GEN ([place] medications (procedure) 12:00:00 AM EDT edical Service) Documentation of current 01/01/2016 MED GEN ([place] medications (procedure) 12:00:00 AM EDT edical Service) Documentation of current 01/01/2016 MED GEN ([place] medications (procedure) 12:00:00 AM EDT edical Service) Documentation of current 01/01/2016 MED GEN ([place] medications (procedure) 12:00:00 AM EDT edical Service) Documentation of current 01/01/2016 MED GEN ([place] medications (procedure) 12:00:00 AM EDT edical Service) Documentation of current 10/09/2015 MED GEN ([place] medications (procedure) 12:00:00 AM EDT edical Service) Documentation of current 10/09/2015 MED GEN ([place] medications (procedure) 12:00:00 AM EDT edical Service) Documentation of current 10/09/2015 MED GEN ([place] medications (procedure) 12:00:00 AM EDT edical Service) Documentation of current 10/09/2015 MED GEN ([place] medications (procedure) 12:00:00 AM EDT edical Service) Results ID Date Data Source [id number] 01/06/2020 12:15:00 PM EDT [facility] Name Value Range Interpretation Description Data Sup porting Code Source(s) Document(s ) SARS [facility] coronavirus 2 RNA This lab was ordered by [facility] and reported by [facility]. ID Date Data Source [id number] 12/24/2019 07:20:00 PM EDT [facility] Name Value Range Interpretation Description Data Sup porting Code Source(s) Document(s ) SARS [facility] coronavirus 2 RNA This lab was ordered by [facility] and reported by [facility]. ID Date Data Source Urinalysis.[id number] 12/10/2019 03:48:00 PM EDT [facility] Name Value Range Interpretation Description Data Sup porting Code Source(s) Document(s ) Color of Urine YELLOW <content [facility] styleCode="[facility] [place] d">Color, Medical Urine Center </content>YELL OW <content styleCode="Mayela lics"> (YELLOW )</content> UNK CLEAR <content [facility] styleCode="[place] d">Urine Medical Clarity Center </content>HAKAN R <content styleCode="Mayela lics"> (CLEAR )</content> Glucose NEGATIVE <content [facility] [Mass/volume] styleCode="[place] in Urine by d">Urine Medical Test strip Glucose Center </content>NEGA TIVE MG/DL<content styleCode="Mayela lics"> (NEGATIVE MG/DL)</conten t> Specific 1.015-1.02 <content [facility] gravity of 5 styleCode="[place] Urine by Test d">Urine Medical strip Specific Center [place] </content>1.02 5 <content styleCode="Mayela lics"> (1.015-1.025 )</content> Ketones NEGATIVE <content [facility] [Mass/volume] styleCode="[place] in Urine by d">Urine Medical Test strip Ketone Center </content>TRAC E MG/DL<content styleCode="Mayela lics"> (NEGATIVE MG/DL)</conten t> UNK NEGATIVE <content [facility] styleCode="[place] d">Urine Medical Bilirubin Center </content>NEGA TIVE <content styleCode="Mayela lics"> (NEGATIVE )</content> Urobilinogen 0.2-1.0 <content [facility] [Units/volume] styleCode="[place] in Urine by d">Urine Medical Test strip Urobilinogen Center </content>1.0 MG/DL<content styleCode="Mayela lics"> (0.2-1.0 MG/DL)</conten t> Protein NEGATIVE <content [facility] [Mass/volume] styleCode="Dave [place] in Urine by d">Urine Medical Test strip Protein Center </content>NEGA TIVE MG/DL<content styleCode="Mayela lics"> (NEGATIVE MG/DL)</conten t> Hemoglobin NEGATIVE <content [facility] [Presence] in styleCode="Dave [facility] Urine by Test d">Urine Blood Medical strip </content>NEGA Center TIVE <content styleCode="Mayela lics"> (NEGATIVE )</content> pH of Urine by 4.5-8.0 <content [facility] Test strip styleCode="[place] d">Urine pH Medical </content>7.0 Center <content styleCode="Mayela lics"> (4.5-8.0 )</content> UNK 0-3 <content [facility] styleCode="[place] d">Urine Red Medical Blood Cell Center </content>0-3 HPF<content styleCode="Mayela lics"> (0-3 HPF)</content> Nitrite NEGATIVE <content [facility] [Presence] in styleCode="[facility] Urine by Test d">Urine Medical strip Nitrite Center </content>NEGA TIVE <content styleCode="Mayela lics"> (NEGATIVE )</content> UNK 0-3 <content [facility] styleCode="[place] d">Urine White Medical Blood Cell Center </content>0-3 HPF<content styleCode="Mayela lics"> (0-3 HPF)</content> Leukocyte NEGATIVE <content [facility] esterase styleCode="Dave [facility] [Presence] in d">Urine Medical Urine by Test Leukocyte Center strip </content>NEGA TIVE <content styleCode="Mayela lics"> (NEGATIVE )</content> ID Date Data Source CHMROUTINECCDA.[id number] 12/10/2019 03:48:00 PM EDT [facility] -0400 Name Value Range Interpretation Description Data Sup porting Code Source(s) Document(s ) Cannabinoids <content [facility] [Presence] in styleCode="[facility] Urine by Screen d">Cannabinoid Medical method >50 ng/mL s Center </content>PRES UMPTIVE POSITIVE NG/ML (Reference Range: not available)<br/ > ID Date Data Source Liver 12/10/2019 02:54:00 PM EDT [facility] Profile.[id number] Name Value Range Interpretation Description Data Sup porting Code Source(s) Document(s ) Aspartate 14-36 <content [facility] aminotransferase styleCode="Bold"> [facility] [Enzymatic Aspartate Medical activity/volume] Aminotransferase Center in Serum or Plasma (AST) </content>25 IU/L<content styleCode="Italic s"> (14-36 IU/L)</content> Alkaline 38-126 <content [facility] phosphatase styleCode="Bold"> [place] [Enzymatic Alkaline Medical activity/volume] Phosphatase (ALP) Cente r in Serum or Plasma </content>100 IU/L<content styleCode="Italic s"> (38-126 IU/L)</content> Alanine 7-30 <content [facility] aminotransferase styleCode="Bold"> [place] [facility] [Enzymatic Alanine Medical activity/volume] Aminotransferase Center in Serum or Plasma (ALT) </content>14 IU/L<content styleCode="Italic s"> (7-30 IU/L)</content> Bilirubin.total 0.2-1.3 <content [facility] [Mass/volume] in styleCode="Bold"> [facility] Serum or Plasma Bilirubin Total Medical </content>0.5 Center MG/DL<content styleCode="Italic s"> (0.2-1.3 MG/DL)</content> UNK 0.0-0.3 <content [facility] styleCode="Bold"> [place] Bilirubin, Direct Medical </content>< 0.2 Center MG/DL<content styleCode="Italic s"> (0.0-0.3 MG/DL)</content> Albumin 3.5-5.0 <content [facility] [Mass/volume] in styleCode="Bold"> [facility] Serum or Plasma Albumin Medical </content>3.6 Center G/DL<content styleCode="Italic s"> (3.5-5.0 G/DL)</content> ID Date Data Source [id number] 12/10/2019 02:54:00 PM EDT [facility] Name Value Range Interpretation Description Data Sup porting Code Source(s) Document(s ) Triglyceride < 150 <content [facility] [Mass/volume] in styleCode="[facility] Serum or Plasma d">Triglycerid Medical es Center </content>100 MG/DL<content styleCode="Mayela lics"> (< 150 MG/DL)</conten t> Cholesterol -<200 <content [facility] [Mass/volume] in styleCode="[facility] Serum or Plasma d">Cholesterol Medical </content>154 Center MG/DL<content styleCode="Mayela lics"> (-<200 MG/DL)</conten t> UNK < 100 <content [facility] styleCode="[facility] d">LDL-Ch[facility] Center </content>76 MG/DL<content styleCode="Mayela lics"> (< 100 MG/DL)</conten t> UNK > 60 Below low normal <content [facility] styleCode="[facility] d">HDL- Medical Cholesterol Center </content>58 MG/DL L<content styleCode="Mayela lics"> (> 60 MG/DL)</conten t> ID Date Data Source HematologyRou.[id number] 12/10/2019 02:54:[address] [facility] 0400 Name Value Range Interpretation Description Data Sup porting Code Source(s) Document(s ) Erythrocytes 4.0-5.1 <content [facility] [#/volume] in styleCode="Bold [place] Blood by ">Red Blood Medical Automated count Cell Count Center </content>4.02 MCUMM<content styleCode="Ital ics"> (4.0-5.1 MCUMM)</content > Leukocytes 4.4-11.0 <content [facility] [#/volume] in styleCode="Bold [place] Blood by ">White Blood Medical Automated count Cell Count Center </content>5.94 KCUMM<content styleCode="Ital ics"> (4.4-11.0 KCUMM)</content > Hemoglobin 12.3-16. Below low normal <content [facility] [Mass/volume] in 0 styleCode="Bold [place] Blood ">Hemoglobin Medical </content>11.3 Center G/DL L<content styleCode="Ital ics"> (12.3-16.0 G/DL)</content> Hematocrit 36.0-46. Below low normal <content [facility] [Volume 0 styleCode="Bold [place] Fraction] of ">Hematocrit Medical Blood by </content>35.1 Center Automated count % L<content styleCode="Ital ics"> (36.0-46.0 %)</content> Erythrocyte mean 32.0-37. <content [facility] corpuscular 0 styleCode="Bold [place] hemoglobin ">Mean Corpus. Medical concentration Hgb Center [Mass/volume] by Concentration Automated count (MCHC) </content>32.2 G/DL<content styleCode="Ital ics"> (32.0-37.0 G/DL)</content> Erythrocyte mean 80.0-100 <content [facility] corpuscular .0 styleCode="Bold [place] volume [Entitic ">Mean Medical volume] by Corpuscular Center Automated count Volume </content>87.3 FL<content styleCode="Ital ics"> (80.0-100.0 FL)</content> Erythrocyte mean 26.0-34. <content [facility] corpuscular 0 styleCode="Bold [place] hemoglobin ">Mean Medical [Entitic mass] Corposcular Center by Automated Hemoglobin count </content>28.1 PG<content styleCode="Ital ics"> (26.0-34.0 PG)</content> Erythrocyte 11.5-14. Above high <content [facility] distribution 5 normal styleCode="Bold [place] width [Ratio] by ">Red Cell Medical Automated count Distribution Center Width </content>16.0 % H<content styleCode="Ital ics"> (11.5-14.5 %)</content> Platelet mean 8.0-11.0 <content [facility] volume [Entitic styleCode="Bold [place] volume] in Blood ">Mean Platelet Medical by Automated Volume Center count </content>8.1 FL<content styleCode="Ital ics"> (8.0-11.0 FL)</content> Platelets 130-400 <content [facility] [#/volume] in styleCode="Bold [place] Blood by ">Platelet Medical Automated count Count Center </content>301 KCUMM<content styleCode="Ital ics"> (130-400 KCUMM)</content > UNK 0 <content [facility] styleCode="Bold [place] ">Nucleated Red Medical Blood Cell Center </content>0.0 /100<content styleCode="Ital ics"> (0 /100)</content> UNK 0.0 <content [facility] styleCode="Bold [place] ">Nucleated Red Medical Blood Cell Center Count </content>0.00 KCUMM<content styleCode="Ital ics"> (0.0 KCUMM)</content > ID Date Data Source GFR(Creatinine).[id number] 12/10/2019 02:54:00 PM EDT [facility] 0-0400 Name Value Range Interpretation Code Description Data Pooja rce(s) Supporting Document(s ) UNK > 60 <content [facility] styleCode="Bold"> Medical Cent er EGFR </content>114 GFR<content styleCode="Italic s"> (> 60 GFR)</content> ID Date Data Source CHMROUTINECCDA.[id number] 12/10/2019 02:54:00 PM EDT [facility] -0400 Name Value Range Interpretation Code Description Data Pooja rce(s) Supporting Document(s ) UNK 4.2-5.8 Above high normal <content [facility] styleCode="Bold" Medical Cente r >Hemoglobin A1C </content>6.0 % H<content styleCode="Itali cs"> (4.2-5.8 %)</content> ID Date Data Source BMP.[id number] 12/10/2019 02:54:00 PM EDT [facility] Name Value Range Interpretation Description Data Sup porting Code Source(s) Document(s ) Sodium 137-145 <content [facility] [Moles/volume] in styleCode="Bold"> [facility] Serum or Plasma Sodium Medical </content>138 Center MEQ/L<content styleCode="Italic s"> (137-145 MEQ/L)</content> Potassium 3.5-5.3 <content [facility] [Moles/volume] in styleCode="Bold"> [facility] Serum or Plasma Potassium Medical </content>3.6 Center MEQ/L<content styleCode="Italic s"> (3.5-5.3 MEQ/L)</content> Creatinine 0.5-1.3 <content [facility] [Mass/volume] in styleCode="Bold"> [facility] Serum or Plasma Creatinine Medical </content>0.7 Center MG/DL<content styleCode="Italic s"> (0.5-1.3 MG/DL)</content> Carbon dioxide, 22-30 <content [facility] total styleCode="Bold"> [place] [Moles/volume] in Carbon Dioxide Medical Serum or Plasma </content>28 Center MEQ/L<content styleCode="Italic s"> (22-30 MEQ/L)</content> Chloride 98-107 <content [facility] [Moles/volume] in styleCode="Bold"> [facility] Serum or Plasma Chloride Medical </content>106 Center MEQ/L<content styleCode="Italic s"> (98-107 MEQ/L)</content> UNK 7-17 <content [facility] styleCode="Bold"> [place] BUN </content>7 Medical MG/DL<content Center styleCode="Italic s"> (7-17 MG/DL)</content> Glucose 74-106 <content [facility] [Mass/volume] in styleCode="Bold"> [facility] Serum or Plasma Glucose Medical </content>100 Center MG/DL<content styleCode="Italic s"> (74-106 MG/DL)</content> Calcium 8.4-10. <content [facility] [Mass/volume] in 2 styleCode="Bold"> [facility] Serum or Plasma Calcium Medical </content>9.0 Center MG/DL<content styleCode="Italic s"> (8.4-10.2 MG/DL)</content> Aspartate 14-36 <content [facility] aminotransferase styleCode="Bold"> [facility] [Enzymatic Aspartate Medical activity/volume] Aminotransferase Center in Serum or Plasma (AST) </content>25 IU/L<content styleCode="Italic s"> (14-36 IU/L)</content> UNK > 60 <content [facility] styleCode="Bold"> [place] EGFR Medical </content>114 Center GFR<content styleCode="Italic s"> (> 60 GFR)</content> Alanine 7-30 <content [facility] aminotransferase styleCode="Bold"> [facility] [Enzymatic Alanine Medical activity/volume] Aminotransferase Center in Serum or Plasma (ALT) </content>14 IU/L<content styleCode="Italic s"> (7-30 IU/L)</content> Albumin 3.5-5.0 <content [facility] [Mass/volume] in styleCode="Bold"> [facility] Serum or Plasma Albumin Medical </content>3.6 Center G/DL<content styleCode="Italic s"> (3.5-5.0 G/DL)</content> Alkaline 38-126 <content [facility] phosphatase styleCode="Bold"> [place] [Enzymatic Alkaline Medical activity/volume] Phosphatase (ALP) Cente r in Serum or Plasma </content>100 IU/L<content styleCode="Italic s"> (38-126 IU/L)</content> Bilirubin.total 0.2-1.3 <content [facility] [Mass/volume] in styleCode="Bold"> [facility] Serum or Plasma Bilirubin Total Medical </content>0.5 Center MG/DL<content styleCode="Italic s"> (0.2-1.3 MG/DL)</content> ID Date Data Source Liver 12/08/2019 01:22:00 PM EDT [facility] Profile.[id number] Name Value Range Interpretation Description Data Sup porting Code Source(s) Document(s ) Aspartate 14-36 <content [facility] aminotransferase styleCode="Bold"> [facility] hs [Enzymatic Aspartate Medical activity/volume] Aminotransferase Center in Serum or Plasma (AST) </content>23 IU/L<content styleCode="Italic s"> (14-36 IU/L)</content> Alanine 7-30 <content [facility] aminotransferase styleCode="Bold"> [facility] hs [Enzymatic Alanine Medical activity/volume] Aminotransferase Center in Serum or Plasma (ALT) </content>14 IU/L<content styleCode="Italic s"> (7-30 IU/L)</content> Bilirubin.total 0.2-1.3 <content [facility] [Mass/volume] in styleCode="Bold"> [facility] hs Serum or Plasma Bilirubin Total Medical </content>0.2 Center MG/DL<content styleCode="Italic s"> (0.2-1.3 MG/DL)</content> Alkaline 38-126 <content [facility] phosphatase styleCode="Bold"> [facility] [Enzymatic Alkaline Medical activity/volume] Phosphatase (ALP) Cente r in Serum or Plasma </content>78 IU/L<content styleCode="Italic s"> (38-126 IU/L)</content> UNK 0.0-0.3 <content [facility] styleCode="Bold"> [facility] Bilirubin, Direct Medical </content>< 0.2 Center MG/DL<content styleCode="Italic s"> (0.0-0.3 MG/DL)</content> Albumin 3.5-5.0 <content [facility] [Mass/volume] in styleCode="Bold"> [facility] hs Serum or Plasma Albumin Medical </content>3.5 Center G/DL<content styleCode="Italic s"> (3.5-5.0 G/DL)</content> ID Date Data Source HematologyRou.[id number] 12/08/2019 01:22:00 PM EDT [facility] 0400 Name Value Range Interpretation Description Data Sup porting Code Source(s) Document(s ) Leukocytes 4.4-11.0 <content [facility] [#/volume] in styleCode="Bold [place] Blood by ">White Blood Medical Automated count Cell Count Center </content>6.37 KCUMM<content styleCode="Ital ics"> (4.4-11.0 KCUMM)</content > Erythrocytes 4.0-5.1 Below low normal <content [facility] [#/volume] in styleCode="Bold [place] Blood by ">Red Blood Medical Automated count Cell Count Center </content>3.76 MCUMM L<content styleCode="Ital ics"> (4.0-5.1 MCUMM)</content > Erythrocyte mean 80.0-100 <content [facility] corpuscular .0 styleCode="Bold [facility] volume [Entitic ">Mean Medical volume] by Corpuscular Center Automated count Volume </content>87.2 FL<content styleCode="Ital ics"> (80.0-100.0 FL)</content> Hematocrit 36.0-46. Below low normal <content [facility] [Volume 0 styleCode="Bold [facility] Fraction] of ">Hematocrit Medical Blood by </content>32.8 Center Automated count % L<content styleCode="Ital ics"> (36.0-46.0 %)</content> Hemoglobin 12.3-16. Below low normal <content [facility] [Mass/volume] in 0 styleCode="Bold [place] Blood ">Hemoglobin Medical </content>10.6 Center G/DL L<content styleCode="Ital ics"> (12.3-16.0 G/DL)</content> Erythrocyte 11.5-14. Above high <content [facility] distribution 5 normal styleCode="Bold [facility] width [Ratio] by ">Red Cell Medical Automated count Distribution Center Width </content>15.8 % H<content styleCode="Ital ics"> (11.5-14.5 %)</content> Platelets 130-400 <content [facility] [#/volume] in styleCode="Bold [place] Blood by ">Platelet Medical Automated count Count Center </content>270 KCUMM<content styleCode="Ital ics"> (130-400 KCUMM)</content > Erythrocyte mean 32.0-37. <content [facility] corpuscular 0 styleCode="Bold [facility] hemoglobin ">Mean Corpus. Medical concentration Hgb Center [Mass/volume] by Concentration Automated count (MCHC) </content>32.3 G/DL<content styleCode="Ital ics"> (32.0-37.0 G/DL)</content> Erythrocyte mean 26.0-34. <content [facility] corpuscular 0 styleCode="Bold [facility] hemoglobin ">Mean Medical [Entitic mass] Corposcular Center by Automated Hemoglobin count </content>28.2 PG<content styleCode="Ital ics"> (26.0-34.0 PG)</content> UNK 0 <content [facility] styleCode="Bold [facility] ">Nucleated Red Medical Blood Cell Center </content>0.0 /100<content styleCode="Ital ics"> (0 /100)</content> Platelet mean 8.0-11.0 <content [facility] volume [Entitic styleCode="Bold [facility] volume] in Blood ">Mean Platelet Medical by Automated Volume Center count </content>8.4 FL<content styleCode="Ital ics"> (8.0-11.0 FL)</content> UNK 0.0 <content Saint styleCode="Bold [facility] ">Nucleated Red Medical Blood Cell Center Count </content>0.00 KCUMM<content styleCode="Ital ics"> (0.0 KCUMM)</content > ID Date Data Source GFR(Creatinine).[id number] 12/08/2019 01:22:00 PM EDT [facility] 0-0400 Name Value Range Interpretation Code Description Data Pooja rce(s) Supporting Document(s ) UNK > 60 <content [facility] styleCode="Bold"> Medical Cent er EGFR </content>81 GFR<content styleCode="Italic s"> (> 60 GFR)</content> ID Date Data Source [facility].[id number] 12/08/2019 01:22:00 PM EDT [facility] Name Value Range Interpretation Description Data Sup porting Code Source(s) Document(s ) Sodium 137-145 Below low <content [facility] [Moles/volume] in normal styleCode="Bold"> Cheng phs Serum or Plasma Sodium Medical </content>136 Center MEQ/L L<content styleCode="Italic s"> (137-145 MEQ/L)</content> Potassium 3.5-5.3 Below low <content [facility] [Moles/volume] in normal styleCode="Bold"> [facility] ph[facility] Serum or Plasma Potassium Medical </content>3.2 Center MEQ/L L<content styleCode="Italic s"> (3.5-5.3 MEQ/L)</content> Carbon dioxide, 22-30 <content [facility] total styleCode="Bold"> [facility] [Moles/volume] in Carbon Dioxide Medical Serum or Plasma </content>28 Center MEQ/L<content styleCode="Italic s"> (22-30 MEQ/L)</content> UNK 7-17 <content [facility] styleCode="Bold"> [facility] BUN </content>10 Medical MG/DL<content Center styleCode="Italic s"> (7-17 MG/DL)</content> Chloride 98-107 <content [facility] [Moles/volume] in styleCode="Bold"> [facility] ph[facility] Serum or Plasma Chloride Medical </content>101 Center MEQ/L<content styleCode="Italic s"> (98-107 MEQ/L)</content> Glucose 74-106 <content [facility] [Mass/volume] in styleCode="Bold"> [facility] hs Serum or Plasma Glucose Medical </content>105 Center MG/DL<content styleCode="Italic s"> (74-106 MG/DL)</content> UNK > 60 <content [facility] styleCode="Bold"> [facility] EGFR </content>81 Medical GFR<content Center styleCode="Italic s"> (> 60 GFR)</content> Creatinine 0.5-1.3 <content [facility] [Mass/volume] in styleCode="Bold"> [facility] hs Serum or Plasma Creatinine Medical </content>0.8 Center MG/DL<content styleCode="Italic s"> (0.5-1.3 MG/DL)</content> Calcium 8.4-10. <content [facility] [Mass/volume] in 2 styleCode="Bold"> [facility] hs Serum or Plasma Calcium Medical </content>8.9 Center MG/DL<content styleCode="Italic s"> (8.4-10.2 MG/DL)</content> Aspartate 14-36 <content [facility] aminotransferase styleCode="Bold"> [facility] hs [Enzymatic Aspartate Medical activity/volume] Aminotransferase Center in Serum or Plasma (AST) </content>23 IU/L<content styleCode="Italic s"> (14-36 IU/L)</content> Alkaline 38-126 <content [facility] phosphatase styleCode="Bold"> [facility] [Enzymatic Alkaline Medical activity/volume] Phosphatase (ALP) Cente r in Serum or Plasma </content>78 IU/L<content styleCode="Italic s"> (38-126 IU/L)</content> Albumin 3.5-5.0 <content [facility] [Mass/volume] in styleCode="Bold"> [facility] hs Serum or Plasma Albumin Medical </content>3.5 Center G/DL<content styleCode="Italic s"> (3.5-5.0 G/DL)</content> Bilirubin.total 0.2-1.3 <content [facility] [Mass/volume] in styleCode="Bold"> [facility] hs Serum or Plasma Bilirubin Total Medical </content>0.2 Center MG/DL<content styleCode="Italic s"> (0.2-1.3 MG/DL)</content> Alanine 7-30 <content [facility] aminotransferase styleCode="Bold"> [facility] hs [Enzymatic Alanine Medical activity/volume] Aminotransferase Center in Serum or Plasma (ALT) </content>14 IU/L<content styleCode="Italic s"> (7-30 IU/L)</content> ID Date Data Source [id number] 11/15/2019 12:00:00 AM EDT [facility] Name Value Range Interpretation Code Description Data [facility] rce(s) Supporting Document(s ) 2019-nCoV [facility] RNA XXX MALATHI+probe- Imp This lab was ordered by [facility] and reported by [employer] NTD. ID Date Data Source Urinalysis.[id number] 10/26/2019 06:00:00 PM EDT [facility] 0 Name Value Range Interpretation Description Data Sup porting Code Source(s) Document(s ) Color of Urine YELLOW <content [facility] styleCode="[place] d">Color, Medical Urine Center </content>YELL OW <content styleCode="Mayela lics"> (YELLOW )</content> UNK CLEAR <content [facility] styleCode="[place] d">Urine Medical Clarity Center </content>HAKAN R <content styleCode="Mayela lics"> (CLEAR )</content> Ketones NEGATIVE <content [facility] [Mass/volume] styleCode="[place] in Urine by d">Urine Medical Test strip Ketone Center </content>TRAC E MG/DL<content styleCode="Mayela lics"> (NEGATIVE MG/DL)</conten t> Glucose NEGATIVE <content [facility] [Mass/volume] styleCode="Dave [facility] in Urine by d">Urine Medical Test strip Glucose Center </content>NEGA TIVE MG/DL<content styleCode="Mayela lics"> (NEGATIVE MG/DL)</conten t> UNK NEGATIVE <content [facility] styleCode="Dave [facility] d">Urine Medical Bilirubin Center </content>NEGA TIVE <content styleCode="Mayela lics"> (NEGATIVE )</content> pH of Urine by 4.5-8.0 <content [facility] Test strip styleCode="Dave [facility]ancho d">Urine pH Medical </content>6.0 Center <content styleCode="Mayela lics"> (4.5-8.0 )</content> Protein NEGATIVE <content [facility] [Mass/volume] styleCode="[place] in Urine by d">Urine Medical Test strip Protein Center </content>NEGA TIVE MG/DL<content styleCode="Mayela lics"> (NEGATIVE MG/DL)</conten t> Hemoglobin NEGATIVE <content [facility] [Presence] in styleCode="[place] Urine by Test d">Urine Blood Medical strip </content>NEGA Center TIVE <content styleCode="Mayela lics"> (NEGATIVE )</content> Specific 1.015-1.02 <content [facility] gravity of 5 styleCode="[place] Urine by Test d">Urine Medical strip Specific Center [place] </content>1.02 5 <content styleCode="Mayela lics"> (1.015-1.025 )</content> Urobilinogen 0.2-1.0 <content [facility] [Units/volume] styleCode="Dave [place] in Urine by d">Urine Medical Test strip Urobilinogen Center </content>1.0 MG/DL<content styleCode="Mayela lics"> (0.2-1.0 MG/DL)</conten t> Leukocyte NEGATIVE <content [facility] esterase styleCode="Dave Dawkins [Presence] in d">Urine Medical Urine by Test Leukocyte Center strip </content>NEGA TIVE <content styleCode="Mayela lics"> (NEGATIVE )</content> Nitrite NEGATIVE <content [facility] [Presence] in styleCode="Dave [place] Urine by Test d">Urine Medical strip Nitrite Center </content>NEGA TIVE <content styleCode="Mayela lics"> (NEGATIVE )</content> ID Date Data Source CHBEVERLEYCCDA.[id number] 10/26/2019 06:00:00 PM EDT [facility] -0400 Name Value Range Interpretation Description Data Sup porting Code Source(s) Document(s ) Cannabinoids <content [facility] [Presence] in styleCode="Dave [place]kins Urine by Screen d">Cannabinoid Medical method >50 ng/mL s Center </content>NEGA TIVE NG/ML (Reference Range: not available)<br/ > ID Date Data Source LIPID.[id number] 10/26/2019 05:44:00 PM EDT [facility] Name Value Range Interpretation Description Data Sup porting Code Source(s) Document(s ) Triglyceride < 150 <content [facility] [Mass/volume] in styleCode="Dave [facility] Serum or Plasma d">Triglycerid [facility] </content>68 MG/DL<content styleCode="Mayela lics"> (< 150 MG/DL)</conten t> Cholesterol -<200 <content [facility] [Mass/volume] in styleCode="[facility] Serum or Plasma d">Cholesterol Medical </content>190 Center MG/DL<content styleCode="Mayela lics"> (-<200 MG/DL)</conten t> UNK > 60 <content Saint styleCode="Dave [facility] d">HDL- Medical Cholesterol Center </content>83 MG/DL<content styleCode="Mayela lics"> (> 60 MG/DL)</conten t> UNK < 100 <content [facility] styleCode="Dave [facility] d">LDL-Cholest [facility] </content>93 MG/DL<content styleCode="Mayela lics"> (< 100 MG/DL)</conten t> ID Date Data Source CHMROUTINECCDA.[id number] 10/26/2019 05:44:00 PM EDT [facility] -0400 Name Value Range Interpretation Code Description Data Pooja rce(s) Supporting Document(s ) UNK 4.2-5.8 Above high normal <content [place] s styleCode="Bold" Medical Cente r >Hemoglobin A1C </content>6.2 % H<content styleCode="Itali cs"> (4.2-5.8 %)</content> ID Date Data Source GFR(Creatinine).[id number] 10/26/2019 03:35:00 PM EDT [facility] 0-0400 Name Value Range Interpretation Code Description Data Pooja rce(s) Supporting Document(s ) UNK > 60 <content [facility] styleCode="Bold"> Medical [facility] er EGFR </content>114 GFR<content styleCode="Italic s"> (> 60 GFR)</content> ID Date Data Source [facility].[id number] 10/26/2019 03:35:00 PM EDT [facility] Name Value Range Interpretation Description Data Sup porting Code Source(s) Document(s ) Potassium 3.5-5.3 <content [facility] [Moles/volume] in styleCode="Bold"> [facility] Serum or Plasma Potassium Medical </content>4.3 Center MEQ/L<content styleCode="Italic s"> (3.5-5.3 MEQ/L)</content> Sodium 137-145 Below low <content [facility] [Moles/volume] in normal styleCode="Bold"> [facility] Serum or Plasma Sodium Medical </content>136 Center MEQ/L L<content styleCode="Italic s"> (137-145 MEQ/L)</content> Carbon dioxide, 22-30 <content [facility] total styleCode="Bold"> [facility] [Moles/volume] in Carbon Dioxide Medical Serum or Plasma </content>27 Center MEQ/L<content styleCode="Italic s"> (22-30 MEQ/L)</content> Chloride 98-107 <content [facility] [Moles/volume] in styleCode="Bold"> [facility] phs Serum or Plasma Chloride Medical </content>105 Center MEQ/L<content styleCode="Italic s"> (98-107 MEQ/L)</content> UNK 7-17 <content [facility] styleCode="Bold"> [facility] BUN </content>11 Medical MG/DL<content Center styleCode="Italic s"> (7-17 MG/DL)</content> Glucose 74-106 <content [facility] [Mass/volume] in styleCode="Bold"> [facility] hs Serum or Plasma Glucose Medical </content>93 Center MG/DL<content styleCode="Italic s"> (74-106 MG/DL)</content> Creatinine 0.5-1.3 <content [facility] [Mass/volume] in styleCode="Bold"> [facility] hs Serum or Plasma Creatinine Medical </content>0.7 Center MG/DL<content styleCode="Italic s"> (0.5-1.3 MG/DL)</content> Calcium 8.4-10. <content [facility] [Mass/volume] in 2 styleCode="Bold"> [facility] hs Serum or Plasma Calcium Medical </content>9.3 Center MG/DL<content styleCode="Italic s"> (8.4-10.2 MG/DL)</content> Aspartate 14-36 <content [facility] aminotransferase styleCode="Bold"> [facility] hs [Enzymatic Aspartate Medical activity/volume] Aminotransferase Center in Serum or Plasma (AST) </content>31 IU/L<content styleCode="Italic s"> (14-36 IU/L)</content> UNK > 60 <content [facility] styleCode="Bold"> [facility] EGFR Medical </content>114 Center GFR<content styleCode="Italic s"> (> 60 GFR)</content> Alanine 7-30 <content [facility] aminotransferase styleCode="Bold"> [facility] hs [Enzymatic Alanine Medical activity/volume] Aminotransferase Center in Serum or Plasma (ALT) </content>15 IU/L<content styleCode="Italic s"> (7-30 IU/L)</content> Alkaline 38-126 <content [facility] phosphatase styleCode="Bold"> [facility] [Enzymatic Alkaline Medical activity/volume] Phosphatase (ALP) Cente r in Serum or Plasma </content>103 IU/L<content styleCode="Italic s"> (38-126 IU/L)</content> Albumin 3.5-5.0 <content [facility] [Mass/volume] in styleCode="Bold"> [facility] hs Serum or Plasma Albumin Medical </content>4.1 Center G/DL<content styleCode="Italic s"> (3.5-5.0 G/DL)</content> Bilirubin.total 0.2-1.3 <content [facility] [Mass/volume] in styleCode="Bold"> [facility] hs Serum or Plasma Bilirubin Total Medical </content>0.6 Center MG/DL<content styleCode="Italic s"> (0.2-1.3 MG/DL)</content> ID Date Data Source Liver 10/26/2019 03:35:00 PM EDT [facility] Profile.[id number] Name Value Range Interpretation Description Data Sup porting Code Source(s) Document(s ) Aspartate 14-36 <content [facility] aminotransferase styleCode="Bold"> [facility] hs [Enzymatic Aspartate Medical activity/volume] Aminotransferase Center in Serum or Plasma (AST) </content>31 IU/L<content styleCode="Italic s"> (14-36 IU/L)</content> Alanine 7-30 <content [facility] aminotransferase styleCode="Bold"> [facility] hs [Enzymatic Alanine Medical activity/volume] Aminotransferase Center in Serum or Plasma (ALT) </content>15 IU/L<content styleCode="Italic s"> (7-30 IU/L)</content> Alkaline 38-126 <content [facility] phosphatase styleCode="Bold"> [facility] [Enzymatic Alkaline Medical activity/volume] Phosphatase (ALP) Cente r in Serum or Plasma </content>103 IU/L<content styleCode="Italic s"> (38-126 IU/L)</content> Albumin 3.5-5.0 <content [facility] [Mass/volume] in styleCode="Bold"> [facility] hs Serum or Plasma Albumin Medical </content>4.1 Center G/DL<content styleCode="Italic s"> (3.5-5.0 G/DL)</content> Bilirubin.total 0.2-1.3 <content [facility] [Mass/volume] in styleCode="Bold"> [facility] hs Serum or Plasma Bilirubin Total Medical </content>0.6 Center MG/DL<content styleCode="Italic s"> (0.2-1.3 MG/DL)</content> UNK 0.0-0.3 <content Saint styleCode="Bold"> [facility] Bilirubin, Direct Medical </content>< 0.2 Center MG/DL<content styleCode="Italic s"> (0.0-0.3 MG/DL)</content> ID Date Data Source HematologyRou.[id number] 10/26/2019 03:35:[address] [facility] 0400 Name Value Range Interpretation Description Data Sup porting Code Source(s) Document(s ) Leukocytes 4.4-11.0 <content [facility] [#/volume] in styleCode="Bold [place] Blood by ">White Blood Medical Automated count Cell Count Center </content>5.84 KCUMM<content styleCode="Ital ics"> (4.4-11.0 KCUMM)</content > Erythrocytes 4.0-5.1 <content [facility] [#/volume] in styleCode="Bold [place] Blood by ">Red Blood Medical Automated count Cell Count Center </content>4.69 MCUMM<content styleCode="Ital ics"> (4.0-5.1 MCUMM)</content > Hematocrit 36.0-46. <content [facility] [Volume 0 styleCode="Bold [facility] Fraction] of ">Hematocrit Medical Blood by </content>39.9 Center Automated count %<content styleCode="Ital ics"> (36.0-46.0 %)</content> Hemoglobin 12.3-16. <content [facility] [Mass/volume] in 0 styleCode="Bold [place] Blood ">Hemoglobin Medical </content>13.0 Center G/DL<content styleCode="Ital ics"> (12.3-16.0 G/DL)</content> Erythrocyte mean 80.0-100 <content [facility] corpuscular .0 styleCode="Bold [place] volume [Entitic ">Mean Medical volume] by Corpuscular Center Automated count Volume </content>85.1 FL<content styleCode="Ital ics"> (80.0-100.0 FL)</content> Erythrocyte mean 26.0-34. <content [facility] corpuscular 0 styleCode="Bold [place] hemoglobin ">Mean Medical [Entitic mass] Corposcular Center by Automated Hemoglobin count </content>27.7 PG<content styleCode="Ital ics"> (26.0-34.0 PG)</content> Erythrocyte mean 32.0-37. <content [facility] corpuscular 0 styleCode="Bold [place] hemoglobin ">Mean Corpus. Medical concentration Hgb Center [Mass/volume] by Concentration Automated count (MCHC) </content>32.6 G/DL<content styleCode="Ital ics"> (32.0-37.0 G/DL)</content> Platelet mean 8.0-11.0 <content [facility] volume [Entitic styleCode="Bold [facility] volume] in Blood ">Mean Platelet Medical by Automated Volume Center count </content>8.7 FL<content styleCode="Ital ics"> (8.0-11.0 FL)</content> Erythrocyte 11.5-14. Above high <content [facility] distribution 5 normal styleCode="Bold [facility] width [Ratio] by ">Red Cell Medical Automated count Distribution Center Width </content>15.3 % H<content styleCode="Ital ics"> (11.5-14.5 %)</content> Platelets 130-400 <content Saint [#/volume] in styleCode="Bold [place] Blood by ">Platelet Medical Automated count Count Center </content>324 KCUMM<content styleCode="Ital ics"> (130-400 KCUMM)</content > UNK 0 <content Saint styleCode="Bold [place]o ">Nucleated Red Medical Blood Cell Center </content>0.0 /100<content styleCode="Ital ics"> (0 /100)</content> UNK 0.0 <content Saint styleCode="Bold [facility]o ">Nucleated Red Medical Blood Cell Center Count </content>0.00 KCUMM<content styleCode="Ital ics"> (0.0 KCUMM)</content > ID Date Data Source [id number] 10/26/2019 12:00:00 AM EDT [facility] Name Value Range Interpretation Code Description Data Pooja rce(s) Supporting Document(s ) 2019-nCoV [facility] RNA XXX MALATHI+probe- Imp This lab was ordered by [facility] and reported by [employer] NTD. ID Date Data Source [id number] 10/22/2019 12:00:00 AM EDT [facility] ([facility]) Name Value Range Interpretation Code Description Data Supporting Source(s) Document(s ) SARS-CoV- 3.80 AU/mL Normal (applies to [facility] 2 IGG QNT non-numeric ([place] results) Medical Service) SARS-CoV- NEGATIVE Normal (applies to [facility] 2 IGG non-numeric ([place] results) Medical Service) ID Date Data Source [id number] 10/22/2019 12:00:00 AM EDT [facility] ([facility]) Name Value Range Interpretation Description Data Sup porting Code Source(s) Document(s ) TSH,3RD 1.21 Normal (applies to [facility] GENERATION uIU/mL non-numeric ([place] results) Medical Service) T4 TOTAL 7.4 ug/dL Normal (applies to [facility] THYROXINE non-numeric ([place] results) Medical Service) T3 TOTAL 133 ng/dL Normal (applies to [facility] non-numeric ([facility] results) Medical Service) ID Date Data Source [id number] 10/22/2019 12:00:00 AM EDT [facility] ([facility] [employer] [facility]) Name Value Range Interpretation Description Data Sup porting Code Source(s) Document(s ) VITAMIN D 12.11 Below low normal [facility] 25-HYDROXY ng/mL ([facility]) ID Date Data Source [id number] 10/22/2019 12:00:00 AM EDT [facility] ([facility] Medical Service) Name Value Range Interpretation Description Data Sup porting Code Source(s) Document(s ) VITAMIN B12 682 pg/mL Normal (applies to [facility] non-numeric ([place] results) Medical Service) ID Date Data Source [id number] 10/22/2019 12:00:00 AM EDT [facility] ([facility] Medical Service) Name Value Range Interpretation Description Data Sup porting Code Source(s) Document(s ) FOLATE 13.1 ng/mL Normal (applies to [facility] SERUM non-numeric ([place] results) Medical Service) ID Date Data Source [id number] 10/22/2019 12:00:00 AM EDT [facility] ([facility] Medical Service) Name Value Range Interpretation Description Data Sup porting Code Source(s) Document(s ) Cholesterol 188 Normal (applies [facility] [Moles/volume] mg/dL to non-numeric ([place] in Pericardial results) Medical fluid Service) LDL CALCULATION 101.2 Normal (applies [facility] mg/dL to non-numeric ([place] results) Medical Service) CHOL/HDL RATIO 3.30 Normal (applies [facility] ratio to non-numeric ([place] results) Medical Service) HDL CHOLESTEROL 57 mg/dL Normal (applies [facility] to non-numeric ([place] results) Medical Service) VLDL CALCULATION 29.8 Normal (applies [facility] mg/dl to non-numeric ([place] results) Medical Service) TRIGLYCERIDES 149 Normal (applies [facility] mg/dL to non-numeric ([place] results) Medical Service) ID Date Data Source [id number] 10/22/2019 12:00:00 AM EDT [facility] ([facility] Medical Service) Name Value Range Interpretation Description Data Sup porting Code Source(s) Document(s ) WBC 6.5 Normal (applies [facility] 10(3)/uL to non-numeric ([place] results) Medical Service) RBC 4.6 Normal (applies [facility] 10(6)/uL to non-numeric ([facility] results) Medical Service) Hemoglobin 12.5 g/dL Normal (applies [facility] [Mass/volume] to non-numeric ([place] in Mixed venous results) Medical blood by Service) Oximetry Hematocrit 40.2 % Normal (applies [facility] [Pure volume to non-numeric ([place] fraction] of results) Medical Blood by Service) Automated count MCV 88.4 fL Normal (applies [facility] to non-numeric ([place] results) Medical Service) MCH 28 pg Normal (applies [facility] to non-numeric ([place] results) Medical Service) MCHC 31 g/dL Normal (applies [facility] to non-numeric ([place] results) Medical Service) RDWSD 44.0 fL Normal (applies [facility] to non-numeric ([place] results) Medical Service) RDWCV 14.0 % Normal (applies [facility] to non-numeric ([place] results) Medical Service) Platelet Count 356 Normal (applies [facility] 10(3)/uL to non-numeric ([place] results) Medical Service) MPV 9.7 fL Normal (applies [facility] to non-numeric ([place] results) Medical Service) Neutrophil Abs 4.58 Normal (applies MEDGEN 10(3)/uL to non-numeric ([facility] results) Medical Service) Lymphocyte Abs 1.58 Normal (applies [facility]GEN 10(3)/uL to non-numeric ([place] results) Medical Service) Monocyte Abs 0.20 Below low normal [facility] 10(3)/uL ([facility]) Eosinophil Abs 0.06 Normal (applies [facility]GEN 10(3)/uL to non-numeric ([facility] results) Medical Service) Basophil Abs 0.03 Normal (applies [facility] 10(3)/uL to non-numeric ([place] results) Medical Service) Immature 0.02 Normal (applies MEDGEN Granulocyte Abs 10(3)/uL to non-numeric ([facility] results) Medical Service) Neutrophil % 71.00 % Normal (applies [facility] to non-numeric ([place] results) Medical Service) Lymphocyte % 25 % Normal (applies [facility] to non-numeric ([place] results) Medical Service) Monocyte % 3.1 % Normal (applies [facility]GEN to non-numeric ([facility] results) Medical Service) Eosinophil % 0.9 % Normal (applies [facility]GEN to non-numeric ([place] results) Medical Service) Basophil % 0.5 % Normal (applies [facility]GEN to non-numeric ([facility] results) Medical Service) Immature 0.30 % Normal (applies MEDGEN Granulocyte % to non-numeric ([place] results) Medical Service) NRBC % 0.2 % Above high normal MEDGEN ([facility]) NRBC Abs 0.01 Normal (applies [facility]GEN 10(3)/uL to non-numeric ([place] results) Medical Service) ID Date Data Source [id number] 10/22/2019 12:00:00 AM EDT [facility] ([facility]) Name Value Range Interpretation Description Data Sup porting Code Source(s) Document(s ) GLUCOSE 58 mg/dL Below low normal MEDGEN NONFASTING,SERUM ([facility]) SODIUM, SERUM 142 Normal (applies [facility]GEN mEq/L to non-numeric ([place] results) Medical Service) POTASSIUM, SERUM 4.0 Normal (applies [facility]GEN mEq/L to non-numeric ([place] results) Medical Service) CHLORIDE, SERUM 105 Normal (applies [facility]GEN mEq/L to non-numeric ([place] results) Medical Service) Carbon dioxide 22 mEq/L Normal (applies [facility]GEN [VFr/PPres] in to non-numeric ([place] results) Medical system Service) Anion gap in 19 mEq/L Above high normal MEDGEN Body fluid ([facility]) BLOOD UREA 10 mg/dL Normal (applies [facility] NITROGEN to non-numeric ([place] results) Medical Service) CREATININE, 0.70 Normal (applies [facility]GEN SERUM mg/dL to non-numeric ([place] results) Medical Service) CALCIUM, SERUM 9.8 Normal (applies [facility]GEN mg/dL to non-numeric ([place] results) Medical Service) TOTAL PROTEIN 7.3 g/dL Normal (applies [facility]GEN to non-numeric ([place] results) Medical Service) Microalbumin 4.3 g/dL Normal (applies [facility]GEN [Mass/time] in to non-numeric ([place] Urine collected results) Medical for unspecified Service) duration Globulin 3.0 gldl Normal (applies MEDGEN [Mass/time] in to non-numeric ([place] 24 hour Urine results) Medical Service) A/G RATIO 1.43 Normal (applies MEDGEN g/dl to non-numeric ([place] results) Medical Service) BILIRUBIN, TOTAL 0.4 Normal (applies [facility]GEN mg/dL to non-numeric ([place] results) Medical Service) ALKALINE 84 U/L Normal (applies [facility]GEN PHOSPHATASE, ALP to non-numeric ([facility] results) Medical Service) ALT (SGPT) 10 U/L Normal (applies MEDGEN to non-numeric ([place] results) Medical Service) AST 18 U/L Normal (applies [facility]GEN to non-numeric ([facility] results) Medical Service) EGFR NON AFR 94 Normal (applies MEDGEN PRYDEINIG mL/min/1 to non-numeric ([facility] .73m2 results) Medical Service) EGFR AFR 114 Normal (applies MEDGEN PRYDEINIG mL/min/1 to non-numeric ([facility] .73m2 results) Medical Service) ID Date Data Source [id number] 10/22/2019 12:00:00 AM EDT [facility] ([facility]) Name Value Range Interpretation Code Description Data Supporting Source(s) Document(s ) SARS-CoV- 3.80 AU/mL Normal (applies to MEDGEN 2 IGG QNT non-numeric ([facility] results) Medical Service) SARS-CoV- NEGATIVE Normal (applies to MEDGEN 2 IGG non-numeric ([facility] results) Medical Service) ID Date Data Source [id number] 10/22/2019 12:00:00 AM EDT [facility] ([facility]) Name Value Range Interpretation Description Data Sup porting Code Source(s) Document(s ) TSH,3RD 1.21 Normal (applies to [facility]GEN GENERATION uIU/mL non-numeric ([place] results) Medical Service) T4 TOTAL 7.4 ug/dL Normal (applies to [facility]GEN THYROXINE non-numeric ([place] results) Medical Service) T3 TOTAL 133 ng/dL Normal (applies to MEDGEN non-numeric ([place] results) Medical Service) ID Date Data Source [id number] 10/22/2019 12:00:00 AM EDT [facility] ([facility]) Name Value Range Interpretation Description Data Sup porting Code Source(s) Document(s ) VITAMIN D 12.11 Below low normal MEDGEN 25-HYDROXY ng/mL ([facility]) ID Date Data Source [id number] 10/22/2019 12:00:00 AM EDT [facility]GEN ([facility]) Name Value Range Interpretation Description Data Sup porting Code Source(s) Document(s ) VITAMIN B12 682 pg/mL Normal (applies to MEDGEN non-numeric ([place] results) Medical Service) ID Date Data Source [id number] 10/22/2019 12:00:00 AM EDT [facility] ([facility]) Name Value Range Interpretation Description Data Sup porting Code Source(s) Document(s ) FOLATE 13.1 ng/mL Normal (applies to MEDGEN SERUM non-numeric ([place] results) Medical Service) ID Date Data Source [id number] 10/22/2019 12:00:00 AM EDT [facility] ([facility]) Name Value Range Interpretation Description Data Sup porting Code Source(s) Document(s ) Cholesterol 188 Normal (applies MEDGEN [Moles/volume] mg/dL to non-numeric ([place] in Pericardial results) Medical fluid Service) LDL CALCULATION 101.2 Normal (applies [facility]GEN mg/dL to non-numeric ([place] results) Medical Service) CHOL/HDL RATIO 3.30 Normal (applies MEDGEN ratio to non-numeric ([place] results) Medical Service) HDL CHOLESTEROL 57 mg/dL Normal (applies [facility]GEN to non-numeric ([place] results) Medical Service) TRIGLYCERIDES 149 Normal (applies [facility]GEN mg/dL to non-numeric ([place] results) Medical Service) VLDL CALCULATION 29.8 Normal (applies [facility]GEN mg/dl to non-numeric ([place] results) Medical Service) ID Date Data Source [id number] 10/22/2019 12:00:00 AM EDT [facility] ([facility]) Name Value Range Interpretation Description Data Sup porting Code Source(s) Document(s ) WBC 6.5 Normal (applies [facility]GEN 10(3)/uL to non-numeric ([place] results) Medical Service) RBC 4.6 Normal (applies [facility]GEN 10(6)/uL to non-numeric ([place] results) Medical Service) Hemoglobin 12.5 g/dL Normal (applies MEDGEN [Mass/volume] to non-numeric ([place] in Mixed venous results) Medical blood by Service) Oximetry MCV 88.4 fL Normal (applies MEDGEN to non-numeric ([place] results) Medical Service) Hematocrit 40.2 % Normal (applies MEDGEN [Pure volume to non-numeric ([place] fraction] of results) Medical Blood by Service) Automated count MCH 28 pg Normal (applies MEDGEN to non-numeric ([place] results) Medical Service) MCHC 31 g/dL Normal (applies MEDGEN to non-numeric ([place] results) Medical Service) RDWSD 44.0 fL Normal (applies MEDGEN to non-numeric ([place] results) Medical Service) RDWCV 14.0 % Normal (applies MEDGEN to non-numeric ([place] results) Medical Service) Platelet Count 356 Normal (applies MEDGEN 10(3)/uL to non-numeric ([place] results) Medical Service) MPV 9.7 fL Normal (applies MEDGEN to non-numeric ([place] results) Medical Service) Neutrophil Abs 4.58 Normal (applies MEDGEN 10(3)/uL to non-numeric ([place] results) Medical Service) Lymphocyte Abs 1.58 Normal (applies MEDGEN 10(3)/uL to non-numeric ([place] results) Medical Service) Monocyte Abs 0.20 Below low normal [facility]GEN 10(3)/uL ([facility]) Eosinophil Abs 0.06 Normal (applies [facility]GEN 10(3)/uL to non-numeric ([facility] results) Medical Service) Basophil Abs 0.03 Normal (applies [facility]GEN 10(3)/uL to non-numeric ([place] results) Medical Service) Immature 0.02 Normal (applies MEDGEN Granulocyte Abs 10(3)/uL to non-numeric ([place] results) Medical Service) Neutrophil % 71.00 % Normal (applies [facility]GEN to non-numeric ([place] results) Medical Service) Lymphocyte % 25 % Normal (applies MEDGEN to non-numeric ([place] results) Medical Service) Monocyte % 3.1 % Normal (applies MEDGEN to non-numeric ([place] results) Medical Service) Basophil % 0.5 % Normal (applies MEDGEN to non-numeric ([facility] results) Medical Service) Eosinophil % 0.9 % Normal (applies MEDGEN to non-numeric ([place] results) Medical Service) Immature 0.30 % Normal (applies MEDGEN Granulocyte % to non-numeric ([place] results) Medical Service) NRBC % 0.2 % Above high normal MEDGEN ([facility]) NRBC Abs 0.01 Normal (applies MEDGEN 10(3)/uL to non-numeric ([place] results) Medical Service) ID Date Data Source [id number] 10/22/2019 12:00:00 AM EDT [facility] ([facility]) Name Value Range Interpretation Description Data Sup porting Code Source(s) Document(s ) SODIUM, SERUM 142 Normal (applies MEDGEN mEq/L to non-numeric ([place] results) Medical Service) GLUCOSE 58 mg/dL Below low normal MEDGEN NONFASTING,SERUM ([facility]) POTASSIUM, SERUM 4.0 Normal (applies MEDGEN mEq/L to non-numeric ([place] results) Medical Service) CHLORIDE, SERUM 105 Normal (applies [facility]GEN mEq/L to non-numeric ([place] results) Medical Service) Carbon dioxide 22 mEq/L Normal (applies MEDGEN [VFr/PPres] in to non-numeric ([place] [facility] results) Medical system Service) Anion gap in 19 mEq/L Above high normal MEDGEN Body fluid ([facility]) BLOOD UREA 10 mg/dL Normal (applies MEDGEN NITROGEN to non-numeric ([place] results) Medical Service) CREATININE, 0.70 Normal (applies MEDGEN SERUM mg/dL to non-numeric ([place] results) Medical Service) CALCIUM, SERUM 9.8 Normal (applies MEDGEN mg/dL to non-numeric ([place] results) Medical Service) TOTAL PROTEIN 7.3 g/dL Normal (applies MEDGEN to non-numeric ([place] results) Medical Service) Microalbumin 4.3 g/dL Normal (applies MEDGEN [Mass/time] in to non-numeric ([place] Urine collected results) Medical for unspecified Service) duration Globulin 3.0 gldl Normal (applies MEDGEN [Mass/time] in to non-numeric ([place] 24 hour Urine results) Medical Service) A/G RATIO 1.43 Normal (applies MEDGEN g/dl to non-numeric ([place] results) Medical Service) BILIRUBIN, TOTAL 0.4 Normal (applies MEDGEN mg/dL to non-numeric ([place] results) Medical Service) ALKALINE 84 U/L Normal (applies [facility] PHOSPHATASE, [facility]P [facility]) ALT (SGPT) 10 U/L Normal (applies MEDGEN to non-numeric ([place] results) Medical Service) AST 18 U/L Normal (applies MEDGEN to non-numeric ([place] results) Medical Service) EGFR NON AFR 94 Normal (applies MEDGEN PRYDEINIG mL/min/1 to non-numeric ([facility] .73m2 results) Medical Service) EGFR AFR 114 Normal (applies MEDGEN PRYDEINIG mL/min/1 to non-numeric ([facility] .73m2 results) Medical Service) ID Date Data Source Urinalysis.[id number] 09/26/2019 03:32:00 PM EDT [facility] Name Value Range Interpretation Description Data Sup porting Code Source(s) Document(s ) Color of Urine YELLOW <content [facility] styleCode="Dave Dawkins d">Color, Medical Urine Center </content>YELL OW <content styleCode="Mayela lics"> (YELLOW )</content> Glucose NEGATIVE <content [facility] [Mass/volume] styleCode="[place] in Urine by d">Urine Medical Test strip Glucose Center </content>NEGA TIVE MG/DL<content styleCode="Mayela lics"> (NEGATIVE MG/DL)</conten t> UNK NEGATIVE <content [facility] styleCode="Dave [place]anch[facility] d">Urine Medical Bilirubin Center </content>SMAL L <content styleCode="Mayela lics"> (NEGATIVE )</content> Ketones NEGATIVE <content [facility] [Mass/volume] styleCode="[place] in Urine by d">Urine Medical Test strip Ketone Center </content>15 MG/DL<content styleCode="Mayela lics"> (NEGATIVE MG/DL)</conten t> UNK CLEAR <content [facility] styleCode="Dave [facility]anch[facility] d">Urine Medical Clarity Center </content>HAKAN R <content styleCode="Mayela lics"> (CLEAR )</content> Protein NEGATIVE <content [facility] [Mass/volume] styleCode="[place] in Urine by d">Urine Medical Test strip Protein Center </content>NEGA TIVE MG/DL<content styleCode="Mayela lics"> (NEGATIVE MG/DL)</conten t> Urobilinogen 0.2-1.0 <content [facility] [Units/volume] styleCode="[place] in Urine by d">Urine Medical Test strip Urobilinogen Center </content>0.2 MG/DL<content styleCode="Mayela lics"> (0.2-1.0 MG/DL)</conten t> Hemoglobin NEGATIVE <content [facility] [Presence] in styleCode="[place] Urine by Test d">Urine Blood Medical strip </content>NEGA Center TIVE <content styleCode="Mayela lics"> (NEGATIVE )</content> Specific 1.015-1.02 Above high <content [facility] gravity of 5 normal styleCode="[place] Urine by Test d">Urine Medical strip Specific Center [place] </content>>= 1.030 H<content styleCode="Mayela lics"> (1.015-1.025 )</content> pH of Urine by 4.5-8.0 <content [facility] Test strip styleCode="Dave [place] d">Urine pH Medical </content>5.5 Center <content styleCode="Mayela lics"> (4.5-8.0 )</content> Nitrite NEGATIVE <content [facility] [Presence] in styleCode="[place] Urine by Test d">Urine Medical strip Nitrite Center </content>NEGA TIVE <content styleCode="Mayela lics"> (NEGATIVE )</content> Leukocyte NEGATIVE <content [facility] esterase styleCode="[place] [Presence] in d">Urine Medical Urine by Test Leukocyte Center strip </content>NEGA TIVE <content styleCode="Mayela lics"> (NEGATIVE )</content> ID Date Data Source CHMROUTINECCDA.[id number] 09/26/2019 03:32:[address] [facility] -0400 Name Value Range Interpretation Description Data Sup porting Code Source(s) Document(s ) Cannabinoids <content [facility] [Presence] in styleCode="Dave Dawkins Urine by Screen d">Cannabinoid Medical method >50 ng/mL s Center </content>PRES UMPTIVE POSITIVE NG/ML (Reference Range: not available)<br/ > ID Date Data Source Liver 09/26/2019 02:21:00 PM EDT [facility] Profile.[id number] Name Value Range Interpretation Description Data Sup porting Code Source(s) Document(s ) Alkaline 38-126 <content [facility] phosphatase styleCode="Bold"> [facility] [Enzymatic Alkaline Medical activity/volume] Phosphatase (ALP) Cente r in Serum or Plasma </content>87 IU/L<content styleCode="Italic s"> (38-126 IU/L)</content> Aspartate 14-36 <content [facility] aminotransferase styleCode="Bold"> [facility] [Enzymatic Aspartate Medical activity/volume] Aminotransferase Center in Serum or Plasma (AST) </content>32 IU/L<content styleCode="Italic s"> (14-36 IU/L)</content> Alanine 7-30 <content [facility] aminotransferase styleCode="Bold"> [facility] [Enzymatic Alanine Medical activity/volume] Aminotransferase Center in Serum or Plasma (ALT) </content>15 IU/L<content styleCode="Italic s"> (7-30 IU/L)</content> Bilirubin.total 0.2-1.3 <content [facility] [Mass/volume] in styleCode="Bold"> [facility] Serum or Plasma Bilirubin Total Medical </content>0.4 Center MG/DL<content styleCode="Italic s"> (0.2-1.3 MG/DL)</content> Albumin 3.5-5.0 <content [facility] [Mass/volume] in styleCode="Bold"> [facility] Serum or Plasma Albumin Medical </content>4.1 Center G/DL<content styleCode="Italic s"> (3.5-5.0 G/DL)</content> UNK 0.0-0.3 <content [facility] styleCode="Bold"> [facility] Bilirubin, Direct Medical </content>< 0.2 Center MG/DL<content styleCode="Italic s"> (0.0-0.3 MG/DL)</content> ID Date Data Source HematologyRou.[id number] 09/26/2019 02:21:00 PM EDT [facility] 0400 Name Value Range Interpretation Description Data Sup porting Code Source(s) Document(s ) Leukocytes 4.4-11.0 <content [facility] [#/volume] in styleCode="Bold [place]anch[place] Blood by ">White Blood Medical Automated count Cell Count Center </content>5.83 KCUMM<content styleCode="Ital ics"> (4.4-11.0 KCUMM)</content > Erythrocytes 4.0-5.1 <content [facility] [#/volume] in styleCode="Bold [place] Blood by ">Red Blood Medical Automated count Cell Count Center </content>4.61 MCUMM<content styleCode="Ital ics"> (4.0-5.1 MCUMM)</content > Erythrocyte mean 80.0-100 <content [facility] corpuscular .0 styleCode="Bold [place]anch[place] volume [Entitic ">Mean Medical volume] by Corpuscular Center Automated count Volume </content>86.3 FL<content styleCode="Ital ics"> (80.0-100.0 FL)</content> Erythrocyte mean 26.0-34. <content [facility] corpuscular 0 styleCode="Bold [place]anch[place] hemoglobin ">Mean Medical [Entitic mass] Corposcular Center by Automated Hemoglobin count </content>28.0 PG<content styleCode="Ital ics"> (26.0-34.0 PG)</content> Hemoglobin 12.3-16. <content [facility] [Mass/volume] in 0 styleCode="Bold Juancho Blood ">Hemoglobin Medical </content>12.9 Center G/DL<content styleCode="Ital ics"> (12.3-16.0 G/DL)</content> Hematocrit 36.0-46. <content [facility] [Volume 0 styleCode="Bold Juancho Fraction] of ">Hematocrit Medical Blood by </content>39.8 Center Automated count %<content styleCode="Ital ics"> (36.0-46.0 %)</content> UNK 0 <content [facility] styleCode="Bold Juancho ">Nucleated Red Medical Blood Cell Center </content>0.0 /100<content styleCode="Ital ics"> (0 /100)</content> Erythrocyte 11.5-14. Above high <content [facility] distribution 5 normal styleCode="Bold Juancho width [Ratio] by ">Red Cell Medical Automated count Distribution Center Width </content>14.7 % H<content styleCode="Ital ics"> (11.5-14.5 %)</content> Platelets 130-400 <content [facility] [#/volume] in styleCode="Bold Juanch[place] Blood by ">Platelet Medical Automated count Count Center </content>268 KCUMM<content styleCode="Ital ics"> (130-400 KCUMM)</content > Platelet mean 8.0-11.0 <content [facility] volume [Entitic styleCode="Bold Juancho volume] in Blood ">Mean Platelet Medical by Automated Volume Center count </content>8.9 FL<content styleCode="Ital ics"> (8.0-11.0 FL)</content> Erythrocyte mean 32.0-37. <content [facility] corpuscular 0 styleCode="Bold Juanch[place] hemoglobin ">Mean Corpus. Medical concentration Hgb Center [Mass/volume] by Concentration Automated count (MCHC) </content>32.4 G/DL<content styleCode="Ital ics"> (32.0-37.0 G/DL)</content> UNK 0.0 <content [facility] styleCode="Bold Juancho ">Nucleated Red Medical Blood Cell Center Count </content>0.00 KCUMM<content styleCode="Ital ics"> (0.0 KCUMM)</content > ID Date Data Source GFR(Creatinine).[id number] 09/26/2019 02:21:00 PM EDT [facility] 0-0400 Name Value Range Interpretation Code Description Data Pooja rce(s) Supporting Document(s ) UNK > 60 <content [facility] styleCode="Bold"> Medical Cent er EGFR </content>94 GFR<content styleCode="Italic s"> (> 60 GFR)</content> ID Date Data Source [id number] 09/26/2019 02:21:00 PM EDT [facility] Name Value Range Interpretation Description Data Sup porting Code Source(s) Document(s ) UNK Not Detected <content [facility] styleCode="Bold Medical ">SARS-COV-2 Center RNA </content>Not Detected <content styleCode="Ital ics"> (Not Detected )</content> ID Date Data Source [id number] 09/26/2019 02:21:00 PM EDT [facility] Name Value Range Interpretation Description Data Sup porting Code Source(s) Document(s ) Potassium 3.5-5.3 <content [facility] [Moles/volume] in styleCode="Bold"> [facility] Serum or Plasma Potassium Medical </content>3.9 Center MEQ/L<content styleCode="Italic s"> (3.5-5.3 MEQ/L)</content> Chloride 98-107 Above high <content [facility] [Moles/volume] in normal styleCode="Bold"> [facility] Serum or Plasma Chloride Medical </content>108 Center MEQ/L H<content styleCode="Italic s"> (98-107 MEQ/L)</content> Sodium 137-145 <content [facility] [Moles/volume] in styleCode="Bold"> [facility] Serum or Plasma Sodium Medical </content>140 Center MEQ/L<content styleCode="Italic s"> (137-145 MEQ/L)</content> Carbon dioxide, 22-30 <content [facility] total styleCode="Bold"> [place] [Moles/volume] in Carbon Dioxide Medical Serum or Plasma </content>26 Center MEQ/L<content styleCode="Italic s"> (22-30 MEQ/L)</content> UNK 7-17 <content [facility] styleCode="Bold"> [facility] BUN </content>8 Medical MG/DL<content Center styleCode="Italic s"> (7-17 MG/DL)</content> Calcium 8.4-10. <content [facility] [Mass/volume] in 2 styleCode="Bold"> [facility] Serum or Plasma Calcium Medical </content>9.4 Center MG/DL<content styleCode="Italic s"> (8.4-10.2 MG/DL)</content> Glucose 74-106 <content [facility] [Mass/volume] in styleCode="Bold"> [facility] Serum or Plasma Glucose Medical </content>85 Center MG/DL<content styleCode="Italic s"> (74-106 MG/DL)</content> Creatinine 0.5-1.3 <content [facility] [Mass/volume] in styleCode="Bold"> [facility] Serum or Plasma Creatinine Medical </content>0.7 Center MG/DL<content styleCode="Italic s"> (0.5-1.3 MG/DL)</content> UNK > 60 <content [facility] styleCode="Bold"> [facility] EGFR </content>94 Medical GFR<content Center styleCode="Italic s"> (> 60 GFR)</content> Bilirubin.total 0.2-1.3 <content [facility] [Mass/volume] in styleCode="Bold"> [facility] Serum or Plasma Bilirubin Total Medical </content>0.4 Center MG/DL<content styleCode="Italic s"> (0.2-1.3 MG/DL)</content> Aspartate 14-36 <content [facility] aminotransferase styleCode="Bold"> [facility] [Enzymatic Aspartate Medical activity/volume] Aminotransferase Center in Serum or Plasma (AST) </content>32 IU/L<content styleCode="Italic s"> (14-36 IU/L)</content> Alkaline 38-126 <content [facility] phosphatase styleCode="Bold"> [facility] [Enzymatic Alkaline Medical activity/volume] Phosphatase (ALP) Cente r in Serum or Plasma </content>87 IU/L<content styleCode="Italic s"> (38-126 IU/L)</content> Albumin 3.5-5.0 <content [facility] [Mass/volume] in styleCode="Bold"> [facility] Serum or Plasma Albumin Medical </content>4.1 Center G/DL<content styleCode="Italic s"> (3.5-5.0 G/DL)</content> Alanine 7-30 <content [facility] aminotransferase styleCode="Bold"> [facility] [Enzymatic Alanine Medical activity/volume] Aminotransferase Center in Serum or Plasma (ALT) </content>15 IU/L<content styleCode="Italic s"> (7-30 IU/L)</content> ID Date Data Source [id number] 09/26/2019 02:21:00 PM EDT [facility] Name Value Range Interpretation Code Description Data Pooja rce(s) Supporting Document(s ) COV2 [facility] This lab [facility] and reported by [facility] [place]. ID Date Data Source [id number] 06/07/2019 12:00:00 AM EST [facility] ([facility]) Name Value Range Interpretation Code Description Data Pooja rce(s) Supporting Document(s ) RPR_TITER 1:4 Abnormal (applies to MEDGEN non-numeric results) ([place]) ID Date Data Source [id number] 06/07/2019 12:00:00 AM EST [facility] ([facility]) Name Value Range Interpretation Code Description Data Pooja rce(s) Supporting Document(s ) FTA-ABS REACTIVE Abnormal (applies to MEDGEN non-numeric results) ([place]) ID Date Data Source [id number] 06/07/2019 12:00:00 AM EST [facility] ([facility]) Name Value Range Interpretation Description Data Sup porting Code Source(s) Document(s ) MYCOPLASMA Negative Normal (applies to MEDGEN GENITALIUM non-numeric ([facility] results) Medical Service) ID Date Data Source [id number] 06/07/2019 12:00:00 AM EST [facility] ([facility]) Name Value Range Interpretation Code Description Data Pooja rce(s) Supporting Document(s ) CT Not Detected Normal (applies to MEDGEN non-numeric ([place] results) Medical Service) NG Not Detected Normal (applies to MEDGEN non-numeric ([facility] results) Medical Service) ID Date Data Source [id number] 06/07/2019 12:00:00 AM EST [facility] ([facility]) Name Value Range Interpretation Description Data Sup porting Code Source(s) Document(s ) Trichomonas Negative Normal (applies MEDGEN vaginalis to non-numeric ([facility] [Presence] in results) Medical Urine sediment Service) by Organism specific culture ID Date Data Source [id number] 06/07/2019 12:00:00 AM EST [facility] ([facility]) Name Value Range Interpretation Code Description Data Pooja rce(s) Supporting Document(s ) RPR W/RFX REACTIVE Abnormal (applies MEDGEN TITER to non-numeric ([facility] results) Medical Service) ID Date Data Source [id number] 06/07/2019 12:00:00 AM EST MED[facility] ([facility]) Name Value Range Interpretation Code Description Data Pooja rce(s) Supporting Document(s ) RPR_TITER 1:4 Abnormal (applies to MEDGEN non-numeric results) ([facility]) ID Date Data Source [id number] 06/07/2019 12:00:00 AM EST [facility] ([facility]) Name Value Range Interpretation Code Description Data Pooja rce(s) Supporting Document(s ) FTA-ABS REACTIVE Abnormal (applies to MEDGEN non-numeric results) ([facility]) ID Date Data Source [id number] 06/07/2019 12:00:00 AM EST [facility] ([employer] [facility]) Name Value Range Interpretation Description Data Sup porting Code Source(s) Document(s ) MYCOPLASMA Negative Normal (applies to MEDGEN GENITALIUM non-numeric ([place] results) Medical Service) ID Date Data Source [id number] 06/07/2019 12:00:00 AM EST [facility] ([facility] [employer] [facility]) Name Value Range Interpretation Code Description Data Pooja rce(s) Supporting Document(s ) CT Not Detected Normal (applies to MEDGEN non-numeric ([place] results) Medical Service) NG Not Detected Normal (applies to MEDGEN non-numeric ([place] results) Medical Service) ID Date Data Source [id number] 06/07/2019 12:00:00 AM EST [facility] ([facility]) Name Value Range Interpretation Description Data Sup porting Code Source(s) Document(s ) Trichomonas Negative Normal (applies MEDGEN vaginalis to non-numeric ([facility]al [Presence] in results) Medical Urine sediment Service) by Organism specific culture ID Date Data Source [id number] 06/07/2019 12:00:00 AM EST [facility] ([employer] [facility]) Name Value Range Interpretation Code Description Data Pooja rce(s) Supporting Document(s ) RPR W/RFX REACTIVE Abnormal (applies MEDGEN TITER to non-numeric ([place] results) Medical Service) ID Date Data Source [id number] 05/19/2019 06:51:00 AM EST [facility] Name Value Range Interpretation Description Data Sup porting Code Source(s) Document(s ) Cholesterol -<200 Above high normal <content [facility] [Mass/volume] in styleCode="Dave Juancho Serum or Plasma d">Cholesterol Medical </content>209 Center MG/DL H<content styleCode="Mayela lics"> (-<200 MG/DL)</conten t> UNK < 100 Above high normal <content Saint styleCode="Dave Juacnho d">LDL-Cholest Medical [facility] </content>148 MG/DL H<content styleCode="Mayela lics"> (< 100 MG/DL)</conten t> Triglyceride < 150 <content [facility] [Mass/volume] in styleCode="Dave Juancho Serum or Plasma d">Triglycerid [facility] </content>90 MG/DL<content styleCode="Mayela lics"> (< 150 MG/DL)</conten t> UNK > 60 Below low normal <content Saint styleCode="[place] d">HDL- [facility] </content>43 MG/DL L<content styleCode="Mayela lics"> (> 60 MG/DL)</conten t> ID Date Data Source CHMROUTINECCDA.[id number] 05/19/2019 06:51:00 AM EST [facility] -0500 Name Value Range Interpretation Code Description Data Pooja rce(s) Supporting Document(s ) UNK 4.2-5.8 Above high normal <content [facility] Samson ortiz styleCode="Bold" [facility] >Hemoglobin A1C </content>6.3 % H<content styleCode="Itali cs"> (4.2-5.8 %)</content> ID Date Data Source Urinalysis.[id number] 05/18/2019 05:02:00 PM EST [facility] 0 Name Value Range Interpretation Description Data Sup porting Code Source(s) Document(s ) Color of Urine YELLOW <content Saint styleCode="Dave Dawkins d">Color, Medical Urine Center </content>YELL OW <content styleCode="Mayela lics"> (YELLOW )</content> UNK NEGATIVE <content Saint styleCode="Dave Dawkins d">Urine Medical Bilirubin Center </content>NEGA TIVE <content styleCode="Mayela lics"> (NEGATIVE )</content> Glucose NEGATIVE <content Saint [Mass/volume] styleCode="Dave Dawkins in Urine by d">Urine Medical Test strip Glucose Center </content>NEGA TIVE MG/DL<content styleCode="Mayela lics"> (NEGATIVE MG/DL)</conten t> Ketones NEGATIVE <content Saint [Mass/volume] styleCode="Dave Dawkins in Urine by d">Urine Medical Test strip Ketone Center </content>NEGA TIVE MG/DL<content styleCode="Mayela lics"> (NEGATIVE MG/DL)</conten t> UNK CLEAR <content Saint styleCode="Dave [place]iess d">Urine Medical Clarity Center </content>CLOU DY <content styleCode="Mayela lics"> (CLEAR )</content> Protein NEGATIVE <content Saint [Mass/volume] styleCode="Dave [place] in Urine by d">Urine Medical Test strip Protein Center </content>NEGA TIVE MG/DL<content styleCode="Mayela lics"> (NEGATIVE MG/DL)</conten t> Urobilinogen 0.2-1.0 <content Saint [Units/volume] styleCode="Dave Juancho in Urine by d">Urine Medical Test strip Urobilinogen Center </content>0.2 MG/DL<content styleCode="Mayela lics"> (0.2-1.0 MG/DL)</conten t> pH of Urine by 4.5-8.0 <content Saint Test strip styleCode="Dave Daviess d">Urine pH Medical </content>5.5 Center <content styleCode="Mayela lics"> (4.5-8.0 )</content> Specific 1.015-1.02 Above high <content Saint gravity of 5 normal styleCode="Dave Dawkins Urine by Test d">Urine Medical strip Specific Center [place] </content>>= 1.030 H<content styleCode="Mayela lics"> (1.015-1.025 )</content> Hemoglobin NEGATIVE <content [facility] [Presence] in styleCode="Dave Daviess Urine by Test d">Urine Blood Medical strip </content>NEGA Center TIVE <content styleCode="Mayela lics"> (NEGATIVE )</content> Leukocyte NEGATIVE <content Saint esterase styleCode="Dave Juancho [Presence] in d">Urine Medical Urine by Test Leukocyte Center strip </content>SMAL L <content styleCode="Mayela lics"> (NEGATIVE )</content> UNK 0-3 <content Saint styleCode="Dave Juancho d">Urine White Medical Blood Cell Center </content>5 - 10 HPF<content styleCode="Mayela lics"> (0-3 HPF)</content> Nitrite NEGATIVE <content Saint [Presence] in styleCode="[facility] Urine by Test d">Urine Medical strip Nitrite Center </content>NEGA TIVE <content styleCode="Mayela lics"> (NEGATIVE )</content> UNK 0-3 <content Saint styleCode="[facility] d">Urine Red Medical Blood Cell Center </content>0-3 HPF<content styleCode="Mayela lics"> (0-3 HPF)</content> UNK NONE SEEN <content Saint styleCode="[facility] d">Urine Mucus Medical </content>MANY Center HPF<content styleCode="Mayela lics"> (NONE SEEN HPF)</content> UNK NEGATIVE <content Saint styleCode="Dave Daviess d">Urine Medical Bacteria Center </content>MANY HPF<content styleCode="Mayela lics"> (NEGATIVE HPF)</content> UNK NONE SEEN <content Saint styleCode="Dave [place] d">Epithelial Medical Cell Center </content>10 - 20 HPF<content styleCode="Mayela lics"> (NONE SEEN HPF)</content> ID Date Data Source Microbiology.[id number] 05/18/2019 05:02:[address] [facility] 500 Name Value Range Interpretation Code Description Data Pooja rce(s) Supporting Document(s ) UNK <item><content [facility] styleCode="Bold">C Medical [address] ulture Status </content>
<ta ble><tbody><tr><td >Specimen Number:</td><td>[id number]</td></tr>< tr><td>Sample Collection Date/Time: </td><td>05/18/2019 5:02 PM</td></tr><tr><t d>Specimen Source:</td><td>UR INE</td></tr><tr>< td>Culture Status:</td><td>Fi nal </td></tr><tr><td> Culture Report:</td><td>NO FURTHER WORKUP </td></tr><tr><td> Urine Culture:</td><td>C ollection Plate Date: 05/18/2019 17:18 </td></tr><tr><td> Organism 1:</td><td>STREPTO COCCUS AGALACTIAE - (GROUP B) </td></tr></tbody> </table>
<tabl e border="2"><tbody> <tr><td></td><td>1 </td></tr><tr><td> Comment</td><td></ td></tr><tr><td>Re sult Value</td><td>STRE PTOCOCCUS AGALACTIAE - (GROUP B) </td></tr><tr><td> Result Status</td><td>Fin al Result</td></tr><t r><td></td><td></t d></tr></tbody></t able></item> UNK <item><content [facility] styleCode="Bold">C Medical [address] ulture Report </content>
<ta ble><tbody><tr><td >Specimen Number:</td><td>[id number]</td></tr>< tr><td>Sample Collection Date/Time: </td><td>05/18/2019 5:02 PM</td></tr><tr><t d>Specimen Source:</td><td>UR INE</td></tr><tr>< td>Urine Culture:</td><td>C ollection Plate Date: 05/18/2019 17:18 </td></tr><tr><td> Culture Status:</td><td>Fi nal </td></tr><tr><td> Culture Report:</td><td>NO FURTHER WORKUP </td></tr><tr><td> Organism 1:</td><td>STREPTO COCCUS AGALACTIAE - (GROUP B) </td></tr></tbody> </table>
<tabl e border="2"><tbody> <tr><td></td><td>1 </td></tr><tr><td> Comment</td><td></ td></tr><tr><td>Re sult Value</td><td>STRE PTOCOCCUS AGALACTIAE - (GROUP B) </td></tr><tr><td> Result Status</td><td>Fin al Result</td></tr><t r><td></td><td></t d></tr></tbody></t able></item> ID Date Data Source MALENAMROUTMONALISADA.[id number] 05/18/2019 05:02:[address] [facility] Name Value Range Interpretation Description Data Sup porting Code Source(s) Document(s ) Cannabinoids <content Saint [Presence] in styleCode="[facility] Urine by Screen d">Cannabinoid Medical method >50 ng/mL s Center </content>PRES UMPTIVE POSITIVE NG/ML (Reference Range: not available)<br/ > ID Date Data Source Liver 05/18/2019 04:15:00 PM [facility] Profile.[id number] Name Value Range Interpretation Description Data Sup porting Code Source(s) Document(s ) Bilirubin.total 0.2-1.3 <content Saint [Mass/volume] in styleCode="Bold"> [facility] Serum or Plasma Bilirubin Total Medical </content>0.3 Center MG/DL<content styleCode="Italic s"> (0.2-1.3 MG/DL)</content> Alkaline 38-126 <content Saint phosphatase styleCode="Bold"> [facility] [Enzymatic Alkaline Medical activity/volume] Phosphatase (ALP) Cente r in Serum or Plasma </content>63 IU/L<content styleCode="Italic s"> (38-126 IU/L)</content> Alanine 7-30 <content [facility] aminotransferase styleCode="Bold"> [place] [facility] [Enzymatic Alanine Medical activity/volume] Aminotransferase Center in Serum or Plasma (ALT) </content>16 IU/L<content styleCode="Italic s"> (7-30 IU/L)</content> Aspartate 14-36 <content [facility] aminotransferase styleCode="Bold"> [place] [facility] [Enzymatic Aspartate Medical activity/volume] Aminotransferase Center in Serum or Plasma (AST) </content>22 IU/L<content styleCode="Italic s"> (14-36 IU/L)</content> Albumin 3.5-5.0 <content [facility] [Mass/volume] in styleCode="Bold"> [place] [facility] Serum or Plasma Albumin Medical </content>4.3 Center G/DL<content styleCode="Italic s"> (3.5-5.0 G/DL)</content> UNK 0.0-0.3 <content Saint styleCode="Bold"> [facility] Bilirubin, Direct Medical </content>< 0.2 Center MG/DL<content styleCode="Italic s"> (0.0-0.3 MG/DL)</content> ID Date Data Source HematologyRou.[id number] 05/18/2019 04:15:00 PM [facility] Name Value Range Interpretation Description Data Sup porting Code Source(s) Document(s ) Leukocytes 4.4-11.0 <content Saint [#/volume] in styleCode="Bold Juancho Blood by ">White Blood Medical Automated count Cell Count Center </content>6.13 KCUMM<content styleCode="Ital ics"> (4.4-11.0 KCUMM)</content > Hematocrit 36.0-46. <content Saint [Volume 0 styleCode="Bold Juancho Fraction] of ">Hematocrit Medical Blood by </content>40.1 Center Automated count %<content styleCode="Ital ics"> (36.0-46.0 %)</content> Erythrocytes 4.0-5.1 <content Saint [#/volume] in styleCode="Bold Juancho Blood by ">Red Blood Medical Automated count Cell Count Center </content>4.65 MCUMM<content styleCode="Ital ics"> (4.0-5.1 MCUMM)</content > Hemoglobin 12.3-16. <content Saint [Mass/volume] in 0 styleCode="Bold Juancho Blood ">Hemoglobin Medical </content>12.8 Center G/DL<content styleCode="Ital ics"> (12.3-16.0 G/DL)</content> Erythrocyte mean 26.0-34. <content Saint corpuscular 0 styleCode="Bold Juancho hemoglobin ">Mean Medical [Entitic mass] Corposcular Center by Automated Hemoglobin count </content>27.5 PG<content styleCode="Ital ics"> (26.0-34.0 PG)</content> Erythrocyte mean 32.0-37. Below low normal <content [facility] corpuscular 0 styleCode="Bold Juancho hemoglobin ">Mean Corpus. Medical concentration Hgb Center [Mass/volume] by Concentration Automated count (MCHC) </content>31.9 G/DL L<content styleCode="Ital ics"> (32.0-37.0 G/DL)</content> Erythrocyte mean 80.0-100 <content Saint corpuscular .0 styleCode="Bold Juancho volume [Entitic ">Mean Medical volume] by Corpuscular Center Automated count Volume </content>86.2 FL<content styleCode="Ital ics"> (80.0-100.0 FL)</content> Erythrocyte 11.5-14. <content Saint distribution 5 styleCode="Bold Juancho width [Ratio] by ">Red Cell Medical Automated count Distribution Center Width </content>14.0 %<content styleCode="Ital ics"> (11.5-14.5 %)</content> Platelets 130-400 <content Saint [#/volume] in styleCode="Bold Juancho Blood by ">Platelet Medical Automated count Count Center </content>293 KCUMM<content styleCode="Ital ics"> (130-400 KCUMM)</content > UNK 0 <content Saint styleCode="Bold Juancho ">Nucleated Red Medical Blood Cell Center </content>0.0 /100<content styleCode="Ital ics"> (0 /100)</content> Platelet mean 8.0-11.0 <content Saint volume [Entitic styleCode="Bold Juancho volume] in Blood ">Mean Platelet Medical by Automated Volume Center count </content>9.0 FL<content styleCode="Ital ics"> (8.0-11.0 FL)</content> UNK 0.0 <content Saint styleCode="Bold Juancho ">Nucleated Red Medical Blood Cell Center Count </content>0.00 KCUMM<content styleCode="Ital ics"> (0.0 KCUMM)</content > ID Date Data Source GFR(Creatinine).[id number] 05/18/2019 04:15:00 PM [facility] 0-0500 Name Value Range Interpretation Code Description Data Pooja rce(s) Supporting Document(s ) UNK > 60 <content [facility] styleCode="Bold"> Medical Cent er EGFR </content>70 GFR<content styleCode="Italic s"> (> 60 GFR)</content> ID Date Data Source [facility].[id number] 05/18/2019 04:15:00 PM EST [facility] Name Value Range Interpretation Description Data Sup porting Code Source(s) Document(s ) Sodium 137-145 <content Saint [Moles/volume] in styleCode="Bold"> [facility] Serum or Plasma Sodium Medical </content>140 Center MEQ/L<content styleCode="Italic s"> (137-145 MEQ/L)</content> Chloride 98-107 <content Saint [Moles/volume] in styleCode="Bold"> [facility] Serum or Plasma Chloride Medical </content>103 Center MEQ/L<content styleCode="Italic s"> (98-107 MEQ/L)</content> Potassium 3.5-5.3 <content Saint [Moles/volume] in styleCode="Bold"> [facility] Serum or Plasma Potassium Medical </content>3.7 Center MEQ/L<content styleCode="Italic s"> (3.5-5.3 MEQ/L)</content> UNK 7-17 <content Saint styleCode="Bold"> [facility] BUN </content>8 Medical MG/DL<content Center styleCode="Italic s"> (7-17 MG/DL)</content> Glucose 74-106 <content Saint [Mass/volume] in styleCode="Bold"> [place] [facility] Serum or Plasma Glucose Medical </content>100 Center MG/DL<content styleCode="Italic s"> (74-106 MG/DL)</content> Creatinine 0.5-1.3 <content Saint [Mass/volume] in styleCode="Bold"> [place] [facility] Serum or Plasma Creatinine Medical </content>0.9 Center MG/DL<content styleCode="Italic s"> (0.5-1.3 MG/DL)</content> Carbon dioxide, 22-30 <content Saint total styleCode="Bold"> [facility] [Moles/volume] in Carbon Dioxide Medical Serum or Plasma </content>30 Center MEQ/L<content styleCode="Italic s"> (22-30 MEQ/L)</content> Alanine 7-30 <content [facility] aminotransferase styleCode="Bold"> [place] [facility] [Enzymatic Alanine Medical activity/volume] Aminotransferase Center in Serum or Plasma (ALT) </content>16 IU/L<content styleCode="Italic s"> (7-30 IU/L)</content> Alkaline 38-126 <content [facility] phosphatase styleCode="Bold"> [facility] [Enzymatic Alkaline Medical activity/volume] Phosphatase (ALP) Cente r in Serum or Plasma </content>63 IU/L<content styleCode="Italic s"> (38-126 IU/L)</content> Calcium 8.4-10. <content Saint [Mass/volume] in 2 styleCode="Bold"> [place] [facility] Serum or Plasma Calcium Medical </content>10.0 Center MG/DL<content styleCode="Italic s"> (8.4-10.2 MG/DL)</content> Aspartate 14-36 <content [facility] aminotransferase styleCode="Bold"> [place] [facility] [Enzymatic Aspartate Medical activity/volume] Aminotransferase Center in Serum or Plasma (AST) </content>22 IU/L<content styleCode="Italic s"> (14-36 IU/L)</content> UNK > 60 <content Saint styleCode="Bold"> [facility] EGFR </content>70 Medical GFR<content Center styleCode="Italic s"> (> 60 GFR)</content> Albumin 3.5-5.0 <content Saint [Mass/volume] in styleCode="Bold"> [place] [facility] Serum or Plasma Albumin Medical </content>4.3 Center G/DL<content styleCode="Italic s"> (3.5-5.0 G/DL)</content> Bilirubin.total 0.2-1.3 <content Saint [Mass/volume] in styleCode="Bold"> [place] [facility] Serum or Plasma Bilirubin Total Medical </content>0.3 Center MG/DL<content styleCode="Italic s"> (0.2-1.3 MG/DL)</content> ID Date Data Source [id number] 04/19/2019 12:00:00 AM EST [facility] ([employer] [facility]) Name Value Range Interpretation Code Description Data Pooja rce(s) Supporting Document(s ) REFLEX FOR Abnormal (applies MEDGEN P53 - 1 UNIT to non-numeric ([place] results) Medical Service) ID Date Data Source [id number] 04/19/2019 12:00:00 AM EST [facility] ([facility]) Name Value Range Interpretation Description Data Sup porting Code Source(s) Document(s ) ORGANISM Abnormal (applies MEDGEN to non-numeric ([place] results) Medical Service) Comment Abnormal (applies MEDGEN [Interpretation] to non-numeric ([place] Left eye Narrative results) Medical Ophthalmometer Service) ID Date Data Source [id number] 04/19/2019 12:00:00 AM EST [facility] ([facility]) Name Value Range Interpretation Description Data Sup porting Code Source(s) Document(s ) Cholesterol 156 Normal (applies MEDGEN [Moles/volume] mg/dL to non-numeric ([facility]al in Pericardial results) Medical fluid Service) LDL CALCULATION 94.2 Normal (applies MEDGEN mg/dL to non-numeric ([place] results) Medical Service) CHOL/HDL RATIO 3.18 Normal (applies MEDGEN ratio to non-numeric ([place] results) Medical Service) HDL CHOLESTEROL 49 mg/dL Normal (applies MEDGEN to non-numeric ([place] results) Medical Service) VLDL CALCULATION 12.8 Normal (applies MEDGEN mg/dl to non-numeric ([place] results) Medical Service) TRIGLYCERIDES 64 mg/dL Normal (applies MEDGEN to non-numeric ([place] results) Medical Service) ID Date Data Source [id number] 04/19/2019 12:00:00 AM EST [facility] ([facility] [employer] [facility]) Name Value Range Interpretation Description Data Sup porting Code Source(s) Document(s ) GLUCOSE UA NEGATIVE Normal (applies MEDGEN to non-numeric ([place] results) Medical Service) BILIRUBIN, TOTAL NEGATIVE Normal (applies MEDGEN to non-numeric ([place] results) Medical Service) Ketones NEGATIVE Normal (applies MEDGEN [Presence] in to non-numeric ([place] Blood by Tablet results) Medical Service) Specific gravity 1.031 SG Normal (applies MEDGEN of Pericardial units to non-numeric ([place] fluid by results) Medical Refractometry Service) Blood [Presence] SMALL Abnormal MEDGEN in Urine by (applies to ([place] Visual non-numeric Medical results) Service) pH of Lower 5 Ph units Normal (applies MEDGEN respiratory to non-numeric ([place] specimen results) Medical Service) Protein 100 mg/dL Abnormal MEDGEN [Mass/volume] in (applies to ([place] Lower non-numeric Medical respiratory results) Service) specimen Urobilinogen 4.0 mg/dl Abnormal MEDGEN [Presence] in (applies to ([place] Urine by non-numeric Medical Automated test results) Service) strip Nitrite NEGATIVE Normal (applies MEDGEN [Presence] in to non-numeric ([place] Urine by Test results) Medical strip Service) Leukocyte LARGE Abnormal MEDGEN esterase (applies to (Jamal [Presence] in non-numeric Medical Body fluid by results) Service) Automated test strip Color of [place]AIL[place] Abnormal MEDGEN Peritoneal (applies to ([place] dialysis fluid non-numeric Medical results) Service) TRANSPARENCY CLOUDY Abnormal MEDGEN (applies to ([place] non-numeric Medical results) Service) RBC`S >50 Above high MEDGEN normal ([place] Medical Service) WBC`S 21-50 Abnormal MEDGEN (applies to (Jamal non-numeric Medical results) Service) Bacteria FEW Abnormal MEDGEN [Presence] in (applies to ([place] Prostatic fluid non-numeric Medical by Light results) Service) microscopy SQUAMOUS MODERATE Abnormal MEDGEN EPITHELIAL (applies to ([facility]al non-numeric Medical results) Service) MUCOUS FEW Normal (applies MEDGEN to non-numeric ([facility] results) Medical Service) ID Date Data Source [id number] 04/19/2019 12:00:00 AM EST MEDGEN ([facility] Medical Service) Name Value Range Interpretation Description Data Sup porting Code Source(s) Document(s ) WBC 6.4 Normal (applies MEDGEN 10(3)/uL to non-numeric ([place] results) Medical Service) RBC 4.1 Normal (applies MEDGEN 10(6)/uL to non-numeric ([facility] results) Medical Service) Hemoglobin 11.8 g/dL Below low normal MEDGEN [Mass/volume] (Jamal in Mixed venous Medical blood by Service) Oximetry Hematocrit 35.5 % Normal (applies MEDGEN [Pure volume to non-numeric ([place] fraction] of results) Medical Blood by Service) Automated count MCV 85.7 fL Normal (applies MEDGEN to non-numeric ([place] results) Medical Service) MCH 29 pg Normal (applies MEDGEN to non-numeric ([place] results) Medical Service) MCHC 33 g/dL Normal (applies MEDGEN to non-numeric ([place] results) Medical Service) RDWSD 42.3 fL Normal (applies MEDGEN to non-numeric ([place] results) Medical Service) RDWCV 13.6 % Normal (applies MEDGEN to non-numeric ([place] results) Medical Service) Platelet Count 317 Normal (applies MEDGEN 10(3)/uL to non-numeric ([place] results) Medical Service) MPV 9.0 fL Below low normal MEDGEN ([facility] Medical Service) Neutrophil Abs 3.90 Normal (applies MEDGEN 10(3)/uL to non-numeric ([facility] results) Medical Service) Lymphocyte Abs 1.85 Normal (applies MEDGEN 10(3)/uL to non-numeric ([place] results) Medical Service) Monocyte Abs 0.50 Normal (applies MEDGEN 10(3)/uL to non-numeric ([facility] results) Medical Service) Eosinophil Abs 0.08 Normal (applies MEDGEN 10(3)/uL to non-numeric ([place] results) Medical Service) Basophil Abs 0.02 Normal (applies MEDGEN 10(3)/uL to non-numeric ([facility] results) Medical Service) Immature 0.02 Normal (applies MEDGEN Granulocyte Abs 10(3)/uL to non-numeric ([facility] results) Medical Service) Neutrophil % 61.40 % Normal (applies MEDGEN to non-numeric ([facility] results) Medical Service) Lymphocyte % 29 % Normal (applies MEDGEN to non-numeric ([place] results) Medical Service) Monocyte % 7.9 % Normal (applies MEDGEN to non-numeric ([place] results) Medical Service) Eosinophil % 1.3 % Normal (applies MEDGEN to non-numeric ([place] results) Medical Service) Basophil % 0.3 % Normal (applies MEDGEN to non-numeric ([place] results) Medical Service) Immature 0.30 % Normal (applies MEDGEN Granulocyte % to non-numeric ([place] results) Medical Service) NRBC % 0.0 % Normal (applies MEDGEN to non-numeric ([place] results) Medical Service) NRBC Abs 0.00 Normal (applies MEDGEN 10(3)/uL to non-numeric ([facility] results) Medical Service) ID Date Data Source [id number] 04/19/2019 12:00:00 AM EST MEDGEN ([employer] [facility]) Name Value Range Interpretation Description Data Sup porting Code Source(s) Document(s ) TSH,3RD 0.52 Normal (applies to MEDGEN GENERATION uIU/mL non-numeric ([place] results) Medical Service) T4 TOTAL 6.5 ug/dL Normal (applies to MEDGEN THYROXINE non-numeric ([place] results) Medical Service) T3 TOTAL 100 ng/dL Normal (applies to MEDGEN non-numeric ([facility] results) Medical Service) ID Date Data Source [id number] 04/19/2019 12:00:00 AM EST [facility] ([employer] Medical Service) Name Value Range Interpretation Description Data Sup porting Code Source(s) Document(s ) VITAMIN D 23.91 Below low normal MEDGEN 25-HYDROXY ng/mL ([facility] Medical Service) ID Date Data Source [id number] 04/19/2019 12:00:00 AM EST MED[facility] ([facility]) Name Value Range Interpretation Description Data Sup porting Code Source(s) Document(s ) EOSINOPHYL ABSENT Abnormal (applies MEDGEN COUNT to non-numeric ([facility] results) Medical Service) ID Date Data Source [id number] 04/19/2019 12:00:00 AM EST MEDGEN ([facility] [facility]) Name Value Range Interpretation Code Description Data Supporting Source(s) Document(s ) GLYCOMARK 17.98 Normal (applies to MEDGEN ug/mL non-numeric ([place] results) Medical Service) ID Date Data Source [id number] 04/19/2019 12:00:00 AM EST MEDGEN ([facility] [employer] [facility]) Name Value Range Interpretation Description Data Sup porting Code Source(s) Document(s ) Hemoglobin A1c 5.6 % Normal (applies to MEDGEN in Blood non-numeric ([place] results) Medical Service) ID Date Data Source [id number] 04/19/2019 12:00:00 AM EST MEDGEN ([facility] [employer] [facility]) Name Value Range Interpretation Description Data Sup porting Code Source(s) Document(s ) FOLATE 12.2 ng/mL Normal (applies to MEDGEN SERUM non-numeric ([place] results) Medical Service) ID Date Data Source [id number] 04/19/2019 12:00:00 AM EST MEDGEN ([facility] [employer] [facility]) Name Value Range Interpretation Description Data Sup porting Code Source(s) Document(s ) VITAMIN B12 527 pg/mL Normal (applies to MEDGEN non-numeric ([place] results) Medical Service) ID Date Data Source [id number] 04/19/2019 12:00:00 AM EST MEDGEN ([facility] [employer] [facility]) Name Value Range Interpretation Description Data Sup porting Code Source(s) Document(s ) GLUCOSE 104 Normal (applies MEDGEN NONFASTING,SERUM mg/dL to non-numeric ([facility] y results) Medical Service) SODIUM, SERUM 141 Normal (applies MEDGEN mEq/L to non-numeric ([place] results) Medical Service) POTASSIUM, SERUM 3.7 Normal (applies MEDGEN mEq/L to non-numeric ([place] results) Medical Service) CHLORIDE, SERUM 108 Normal (applies MEDGEN mEq/L to non-numeric ([place] results) Medical Service) Carbon dioxide 29 mEq/L Normal (applies MEDGEN [VFr/PPres] in to non-numeric ([place] Gas delivery results) Medical system Service) Anion gap in 8 mEq/L Normal (applies MEDGEN Body fluid to non-numeric ([place] results) Medical Service) BLOOD UREA 8 mg/dL Below low normal MEDGEN NITROGEN ([place] Medical Service) CREATININE, 0.80 Normal (applies MEDGEN SERUM mg/dL to non-numeric ([place] results) Medical Service) BUN/CREATININE 10.0 Normal (applies MEDGEN RATIO to non-numeric ([place] results) Medical Service) CALCIUM, SERUM 9.0 Normal (applies MEDGEN mg/dL to non-numeric ([place] results) Medical Service) TOTAL PROTEIN 6.8 g/dL Normal (applies MEDGEN to non-numeric ([place] results) Medical Service) Microalbumin 4.2 g/dL Normal (applies MEDGEN [Mass/time] in to non-numeric ([place] Urine collected results) Medical for unspecified Service) duration Globulin 2.6 gldl Normal (applies MEDGEN [Mass/time] in to non-numeric ([place] 24 hour Urine results) Medical Service) A/G RATIO 1.62 Normal (applies MEDGEN g/dl to non-numeric ([place] results) Medical Service) BILIRUBIN, TOTAL 0.2 Below low normal MEDGEN mg/dL ([place] Medical Service) ALKALINE 75 U/L Normal (applies MEDGEN PHOSPHATASE, ALP to non-numeric ([facility] y results) Medical Service) ALT (SGPT) 11 U/L Normal (applies MEDGEN to non-numeric ([place] results) Medical Service) AST 18 U/L Normal (applies MEDGEN to non-numeric ([place] results) Medical Service) EGFR NON AFR 81 Normal (applies MEDGEN PRYDEINIG mL/min/1 to non-numeric ([facility] .73m2 results) Medical Service) EGFR AFR 98 Normal (applies MEDGEN PRYDEINIG mL/min/1 to non-numeric ([place] .73m2 results) Medical Service) ID Date Data Source [id number] 04/19/2019 12:00:00 AM EST MEDGEN ([facility]) Name Value Range Interpretation Code Description Data Pooja rce(s) Supporting Document(s ) REFLEX FOR Abnormal (applies MEDGEN P53 - 1 UNIT to non-numeric ([place] results) Medical Service) ID Date Data Source [id number] 04/19/2019 12:00:00 AM EST MEDGEN ([facility]) Name Value Range Interpretation Description Data Sup porting Code Source(s) Document(s ) ORGANISM Abnormal (applies MEDGEN to non-numeric ([place] results) Medical Service) Comment Abnormal (applies MEDGEN [Interpretation] to non-numeric ([place] [facility] Left eye Narrative results) Medical Ophthalmometer Service) ID Date Data Source [id number] 04/19/2019 12:00:00 AM EST MEDGEN ([facility] [employer] [facility]) Name Value Range Interpretation Description Data Sup porting Code Source(s) Document(s ) LDL CALCULATION 94.2 Normal (applies MEDGEN mg/dL to non-numeric ([facility] results) Medical Service) Cholesterol 156 Normal (applies MEDGEN [Moles/volume] mg/dL to non-numeric ([facility] in Pericardial results) Medical fluid Service) CHOL/HDL RATIO 3.18 Normal (applies MEDGEN ratio to non-numeric ([place] results) Medical Service) HDL CHOLESTEROL 49 mg/dL Normal (applies MEDGEN to non-numeric ([facility] results) Medical Service) VLDL CALCULATION 12.8 Normal (applies MEDGEN mg/dl to non-numeric ([place] results) Medical Service) TRIGLYCERIDES 64 mg/dL Normal (applies MEDGEN to non-numeric ([facility] results) Medical Service) ID Date Data Source [id number] 04/19/2019 12:00:00 AM EST MEDGEN ([facility] [employer] [facility]) Name Value Range Interpretation Description Data Sup porting Code Source(s) Document(s ) GLUCOSE UA NEGATIVE Normal (applies MEDGEN to non-numeric ([place] results) Medical Service) BILIRUBIN, TOTAL NEGATIVE Normal (applies MEDGEN to non-numeric ([facility] results) Medical Service) Ketones NEGATIVE Normal (applies MEDGEN [Presence] in to non-numeric ([facility] Blood by Tablet results) Medical Service) Specific gravity 1.031 SG Normal (applies MEDGEN of Pericardial units to non-numeric ([place] fluid by results) Medical Refractometry Service) Blood [Presence] SMALL Abnormal MEDGEN in Urine by (applies to ([place] Visual non-numeric Medical results) Service) Protein 100 mg/dL Abnormal MEDGEN [Mass/volume] in (applies to ([place] Lower non-numeric Medical respiratory results) Service) specimen pH of Lower 5 Ph units Normal (applies MEDGEN respiratory to non-numeric ([facility] specimen results) Medical Service) Urobilinogen 4.0 mg/dl Abnormal MEDGEN [Presence] in (applies to ([place] Urine by non-numeric Medical Automated test results) Service) strip Nitrite NEGATIVE Normal (applies MEDGEN [Presence] in to non-numeric ([place] Urine by Test results) Medical strip Service) Leukocyte LARGE Abnormal MEDGEN esterase (applies to ([facility] [Presence] in non-numeric Medical Body fluid by results) Service) Automated test strip Color of [place]AIL[place] Abnormal MEDGEN Peritoneal (applies to ([place] dialysis fluid non-numeric Medical results) Service) RBC`S >50 Above high MEDGEN normal ([place] Medical Service) TRANSPARENCY CLOUDY Abnormal MEDGEN (applies to ([facility] non-numeric Medical results) Service) WBC`S 21-50 Abnormal MEDGEN (applies to ([facility] non-numeric Medical results) Service) Bacteria FEW Abnormal MEDGEN [Presence] in (applies to ([place] Prostatic fluid non-numeric Medical by Light results) Service) microscopy SQUAMOUS MODERATE Abnormal MEDGEN EPITHELIAL (applies to ([place] non-numeric Medical results) Service) MUCOUS FEW Normal (applies MEDGEN to non-numeric ([facility] results) Medical Service) ID Date Data Source [id number] 04/19/2019 12:00:00 AM EST MEDGEN ([facility] Medical Service) Name Value Range Interpretation Description Data Sup porting Code Source(s) Document(s ) WBC 6.4 Normal (applies MEDGEN 10(3)/uL to non-numeric ([place] results) Medical Service) RBC 4.1 Normal (applies MEDGEN 10(6)/uL to non-numeric ([facility] results) Medical Service) Hemoglobin 11.8 g/dL Below low normal MEDGEN [Mass/volume] ([place] in Mixed venous Medical blood by Service) Oximetry Hematocrit 35.5 % Normal (applies MEDGEN [Pure volume to non-numeric ([place] fraction] of results) Medical Blood by Service) Automated count MCH 29 pg Normal (applies MEDGEN to non-numeric ([place] results) Medical Service) MCV 85.7 fL Normal (applies MEDGEN to non-numeric ([facility] results) Medical Service) MCHC 33 g/dL Normal (applies MEDGEN to non-numeric ([facility] results) Medical Service) RDWSD 42.3 fL Normal (applies MEDGEN to non-numeric ([place] results) Medical Service) RDWCV 13.6 % Normal (applies MEDGEN to non-numeric ([facility] results) Medical Service) Platelet Count 317 Normal (applies MEDGEN 10(3)/uL to non-numeric ([place] results) Medical Service) Neutrophil Abs 3.90 Normal (applies MEDGEN 10(3)/uL to non-numeric ([place] results) Medical Service) MPV 9.0 fL Below low normal MEDGEN ([facility] Medical Service) Lymphocyte Abs 1.85 Normal (applies MEDGEN 10(3)/uL to non-numeric ([facility] results) Medical Service) Monocyte Abs 0.50 Normal (applies MEDGEN 10(3)/uL to non-numeric ([facility] results) Medical Service) Eosinophil Abs 0.08 Normal (applies MEDGEN 10(3)/uL to non-numeric ([place] results) Medical Service) Immature 0.02 Normal (applies MEDGEN Granulocyte Abs 10(3)/uL to non-numeric ([facility] results) Medical Service) Basophil Abs 0.02 Normal (applies MEDGEN 10(3)/uL to non-numeric ([facility] results) Medical Service) Neutrophil % 61.40 % Normal (applies MEDGEN to non-numeric ([place] results) Medical Service) Lymphocyte % 29 % Normal (applies MEDGEN to non-numeric ([facility] results) Medical Service) Monocyte % 7.9 % Normal (applies MEDGEN to non-numeric ([place] results) Medical Service) Eosinophil % 1.3 % Normal (applies MEDGEN to non-numeric ([place] results) Medical Service) Basophil % 0.3 % Normal (applies MEDGEN to non-numeric ([facility] results) Medical Service) Immature 0.30 % Normal (applies MEDGEN Granulocyte % to non-numeric ([place] results) Medical Service) NRBC % 0.0 % Normal (applies MEDGEN to non-numeric ([place] results) Medical Service) NRBC Abs 0.00 Normal (applies MEDGEN 10(3)/uL to non-numeric ([facility] results) Medical Service) ID Date Data Source [id number] 04/19/2019 12:00:00 AM EST MEDGEN ([employer] Medical Service) Name Value Range Interpretation Description Data Sup porting Code Source(s) Document(s ) TSH,3RD 0.52 Normal (applies to MEDGEN GENERATION uIU/mL non-numeric ([place] results) Medical Service) T3 TOTAL 100 ng/dL Normal (applies to MEDGEN non-numeric ([place] results) Medical Service) T4 TOTAL 6.5 ug/dL Normal (applies to MEDGEN THYROXINE non-numeric ([facility] results) Medical Service) ID Date Data Source [id number] 04/19/2019 12:00:00 AM EST MEDGEN ([facility]) Name Value Range Interpretation Description Data Sup porting Code Source(s) Document(s ) VITAMIN D 23.91 Below low normal MEDGEN 25-HYDROXY ng/mL ([place] Service) ID Date Data Source [id number] 04/19/2019 12:00:00 AM EST MEDGEN ([facility]) Name Value Range Interpretation Description Data Sup porting Code Source(s) Document(s ) EOSINOPHYL ABSENT Abnormal (applies MEDGEN COUNT to non-numeric ([employer] results) Medical Service) ID Date Data Source [id number] 04/19/2019 12:00:00 AM EST MEDGEN ([facility]) Name Value Range Interpretation Code Description Data Supporting Source(s) Document(s ) GLYCOMARK 17.98 Normal (applies to MEDGEN ug/mL non-numeric ([employer]) Medical Service) ID Date Data Source [id number] 04/19/2019 12:00:00 AM EST MEDGEN ([facility]) Name Value Range Interpretation Description Data Sup porting Code Source(s) Document(s ) Hemoglobin A1c 5.6 % Normal (applies to MEDGEN in Blood non-numeric ([employer] results) Medical Service) ID Date Data Source [id number] 04/19/2019 12:00:00 AM EST MEDGEN ([facility]) Name Value Range Interpretation Description Data Sup porting Code Source(s) Document(s ) FOLATE 12.2 ng/mL Normal (applies to MEDGEN SERUM non-numeric ([facility] results) Medical Service) ID Date Data Source [id number] 04/19/2019 12:00:00 AM EST MEDGEN ([facility]) Name Value Range Interpretation Description Data Sup porting Code Source(s) Document(s ) VITAMIN B12 527 pg/mL Normal (applies to MEDGEN non-numeric ([facility] results) Medical Service) ID Date Data Source [id number] 04/19/2019 12:00:00 AM EST MEDGEN ([facility]) Name Value Range Interpretation Description Data Sup porting Code Source(s) Document(s ) GLUCOSE 104 Normal (applies MEDGEN NONFASTING,SERUM mg/dL to non-numeric ([employer] y results) Medical Service) SODIUM, SERUM 141 Normal (applies MEDGEN mEq/L to non-numeric ([place] results) Medical Service) POTASSIUM, SERUM 3.7 Normal (applies MEDGEN mEq/L to non-numeric ([place] results) Medical Service) CHLORIDE, SERUM 108 Normal (applies MEDGEN mEq/L to non-numeric ([place] results) Medical Service) Carbon dioxide 29 mEq/L Normal (applies MEDGEN [VFr/PPres] in to non-numeric ([place] Gas delivery results) Medical system Service) Anion gap in 8 mEq/L Normal (applies MEDGEN Body fluid to non-numeric ([place] results) Medical Service) BLOOD UREA 8 mg/dL Below low normal MEDGEN NITROGEN ([place] Medical Service) CREATININE, 0.80 Normal (applies MEDGEN SERUM mg/dL to non-numeric ([place] results) Medical Service) CALCIUM, SERUM 9.0 Normal (applies MEDGEN mg/dL to non-numeric ([place] results) Medical Service) BUN/CREATININE 10.0 Normal (applies MEDGEN RATIO to non-numeric ([place] results) Medical Service) TOTAL PROTEIN 6.8 g/dL Normal (applies MEDGEN to non-numeric ([place] results) Medical Service) Microalbumin 4.2 g/dL Normal (applies MEDGEN [Mass/time] in to non-numeric ([place] Urine collected results) Medical for unspecified Service) duration Globulin 2.6 gldl Normal (applies MEDGEN [Mass/time] in to non-numeric ([place] 24 hour Urine results) Medical Service) A/G RATIO 1.62 Normal (applies MEDGEN g/dl to non-numeric ([place] results) Medical Service) ALKALINE 75 U/L Normal (applies MEDGEN PHOSPHATASE, [facility]) BILIRUBIN, TOTAL 0.2 Below low normal MEDGEN mg/dL ([place] Medical Service) ALT (SGPT) 11 U/L Normal (applies MEDGEN to non-numeric ([place] results) Medical Service) AST 18 U/L Normal (applies MEDGEN to non-numeric ([place] results) Medical Service) EGFR NON AFR 81 Normal (applies MEDGEN PRYDEINIG mL/min/1 to non-numeric ([facility] .73m2 results) Medical Service) EGFR AFR 98 Normal (applies MEDGEN PRYDEINIG mL/min/1 to non-numeric ([facility] .73m2 results) Medical Service) ID Date Data Source [id number] 03/08/2019 06:17:00 AM EZEQUIEL [facility] Name Value Range Interpretation Description Data Sup porting Code Source(s) Document(s ) Thyrotropin 0.465-4. Below low normal <content [facility] [Units/volume] 68 styleCode="Dave [facility] in Serum or d">Thyroid Medical Plasma by Stimulating Center Detection Hormone limit <= 0.05 </content>0.46 mIU/L 3 MIU/L L<content styleCode="Mayela lics"> (0.465-4.68 MIU/L)</conten t> Thyroxine (T4) 0.78-2.1 <content [facility] free 9 styleCode="Dave [facility] [Mass/volume] d">T4 Free Medical in Serum or </content>1.29 Center Plasma NG/DL<content styleCode="Mayela lics"> (0.78-2.19 NG/DL)</conten t> ID Date Data Source [id number] 03/07/2019 07:54:00 AM EST [facility] Name Value Range Interpretation Description Data Sup porting Code Source(s) Document(s ) Triglyceride < 150 <content [facility] [Mass/volume] in styleCode="[facility] Serum or Plasma d">Triglycerid [facility] </content>128 MG/DL<content styleCode="Mayela lics"> (< 150 MG/DL)</conten t> UNK > 60 <content [facility] styleCode="[facility] d">HDL- Medical Cholesterol Center </content>67 MG/DL<content styleCode="Amyela lics"> (> 60 MG/DL)</conten t> Cholesterol -<200 <content [facility] [Mass/volume] in styleCode="Dave [facility] Serum or Plasma d">Cholesterol Medical </content>175 Center MG/DL<content styleCode="Mayela lics"> (-<200 MG/DL)</conten t> UNK < 100 <content [facility] styleCode="[facility] d">[facility] </content>82 MG/DL<content styleCode="Mayela lics"> (< 100 MG/DL)</conten t> ID Date Data Source CHBEVERLEYCCDA.[id number] 03/07/2019 07:54:00 AM EZEQUIEL [facility] -0500 Name Value Range Interpretation Code Description Data Pooja rce(s) Supporting Document(s ) UNK 4.2-5.8 <content [facility] styleCode="Bold" Medical Cente r >Hemoglobin A1C </content>5.8 %<content styleCode="Itali cs"> (4.2-5.8 %)</content> ID Date Data Source MROUTINECCDA.[id number] 03/07/2019 07:44:[address] [facility] -0500 Name Value Range Interpretation Description Data Sup porting Code Source(s) Document(s ) Cannabinoids <content [facility] [Presence] in styleCode="Dave [facility] Urine by Screen d">Cannabinoid Medical method >50 ng/mL s Center </content>PRES UMPTIVE POSITIVE NG/ML (Reference Range: not available)<br/ > ID Date Data Source Liver 03/04/2019 09:25:00 PM [facility] Profile.[id number] Name Value Range Interpretation Description Data Sup porting Code Source(s) Document(s ) Alanine 7-30 <content [facility] aminotransferase styleCode="Bold"> [place] [facility] [Enzymatic Alanine Medical activity/volume] Aminotransferase Center in Serum or Plasma (ALT) </content>17 IU/L<content styleCode="Italic s"> (7-30 IU/L)</content> Aspartate 14-36 Above high <content [facility] aminotransferase normal styleCode="Bold"> [place] [facility] [Enzymatic Aspartate Medical activity/volume] Aminotransferase Center in Serum or Plasma (AST) </content>42 IU/L H<content styleCode="Italic s"> (14-36 IU/L)</content> UNK 0.0-0.3 <content [facility] styleCode="Bold"> [place] Bilirubin, Direct Medical </content>< 0.2 Center MG/DL<content styleCode="Italic s"> (0.0-0.3 MG/DL)</content> Alkaline 38-126 <content [facility] phosphatase styleCode="Bold"> [facility] [Enzymatic Alkaline Medical activity/volume] Phosphatase (ALP) Cente r in Serum or Plasma </content>105 IU/L<content styleCode="Italic s"> (38-126 IU/L)</content> Bilirubin.total 0.2-1.3 <content [facility] [Mass/volume] in styleCode="Bold"> [place] [facility] Serum or Plasma Bilirubin Total Medical </content>0.4 Center MG/DL<content styleCode="Italic s"> (0.2-1.3 MG/DL)</content> Albumin 3.5-5.0 <content [facility] [Mass/volume] in styleCode="Bold"> [place] [facility] Serum or Plasma Albumin Medical </content>4.5 Center G/DL<content styleCode="Italic s"> (3.5-5.0 G/DL)</content> ID Date Data Source HematologyRou.[id number] 03/04/2019 09:25:[address] [facility] 0500 Name Value Range Interpretation Description Data Sup porting Code Source(s) Document(s ) Erythrocytes 4.0-5.1 <content [facility] [#/volume] in styleCode="Bold [facility] Blood by ">Red Blood Medical Automated count Cell Count Center </content>4.24 MCUMM<content styleCode="Ital ics"> (4.0-5.1 MCUMM)</content > Leukocytes 4.4-11.0 <content [facility] [#/volume] in styleCode="Bold [facility] Blood by ">White Blood Medical Automated count Cell Count Center </content>10.69 KCUMM<content styleCode="Ital ics"> (4.4-11.0 KCUMM)</content > Erythrocyte 11.5-14. <content [facility] distribution 5 styleCode="Bold [facility] width [Ratio] by ">Red Cell Medical Automated count Distribution Center Width </content>14.4 %<content styleCode="Ital ics"> (11.5-14.5 %)</content> Erythrocyte mean 80.0-100 <content [facility] corpuscular .0 styleCode="Bold [facility] volume [Entitic ">Mean Medical volume] by Corpuscular Center Automated count Volume </content>86.6 FL<content styleCode="Ital ics"> (80.0-100.0 FL)</content> Hematocrit 36.0-46. <content [facility] [Volume 0 styleCode="Bold [facility] Fraction] of ">Hematocrit Medical Blood by </content>36.7 Center Automated count %<content styleCode="Ital ics"> (36.0-46.0 %)</content> Hemoglobin 12.3-16. Below low normal <content [facility] [Mass/volume] in 0 styleCode="Bold [facility] Blood ">Hemoglobin Medical </content>12.0 Center G/DL L<content styleCode="Ital ics"> (12.3-16.0 G/DL)</content> Erythrocyte mean 26.0-34. <content [facility] corpuscular 0 styleCode="Bold [facility] hemoglobin ">Mean Medical [Entitic mass] Corposcular Center by Automated Hemoglobin count </content>28.3 PG<content styleCode="Ital ics"> (26.0-34.0 PG)</content> Erythrocyte mean 32.0-37. <content [facility] corpuscular 0 styleCode="Bold [facility] hemoglobin ">Mean Corpus. Medical concentration Hgb Center [Mass/volume] by Concentration Automated count (MCHC) </content>32.7 G/DL<content styleCode="Ital ics"> (32.0-37.0 G/DL)</content> Platelets 130-400 <content [facility] [#/volume] in styleCode="Bold [facility] Blood by ">Platelet Medical Automated count Count Center </content>285 KCUMM<content styleCode="Ital ics"> (130-400 KCUMM)</content > Platelet mean 8.0-11.0 <content [facility] volume [Entitic styleCode="Bold [facility] volume] in Blood ">Mean Platelet Medical by Automated Volume Center count </content>8.5 FL<content styleCode="Ital ics"> (8.0-11.0 FL)</content> UNK 0.0 <content [facility] styleCode="Bold [facility] ">Nucleated Red Medical Blood Cell Center Count </content>0.00 KCUMM<content styleCode="Ital ics"> (0.0 KCUMM)</content > UNK 0 <content [facility] styleCode="Bold [facility] ">Nucleated Red Medical Blood Cell Center </content>0.0 /100<content styleCode="Ital ics"> (0 /100)</content> ID Date Data Source GFR(Creatinine).[id number] 03/04/2019 09:25:00 PM EZEQUIEL esteban [facility] 0-0500 Name Value Range Interpretation Code Description Data Pooja rce(s) Supporting Document(s ) UNK > 60 <content [facility] styleCode="Bold"> Medical Cent er EGFR </content>98 GFR<content styleCode="Italic s"> (> 60 GFR)</content> ID Date Data Source [id number] 03/04/2019 09:25:00 PM EST [facility] Name Value Range Interpretation Description Data Sup porting Code Source(s) Document(s ) Sodium 137-145 <content [facility] [Moles/volume] in styleCode="Bold"> [facility] Serum or Plasma Sodium Medical </content>142 Center MEQ/L<content styleCode="Italic s"> (137-145 MEQ/L)</content> Potassium 3.5-5.3 <content [facility] [Moles/volume] in styleCode="Bold"> [facility] Serum or Plasma Potassium Medical </content>3.6 Center MEQ/L<content styleCode="Italic s"> (3.5-5.3 MEQ/L)</content> Chloride 98-107 <content [facility] [Moles/volume] in styleCode="Bold"> [facility] Serum or Plasma Chloride Medical </content>107 Center MEQ/L<content styleCode="Italic s"> (98-107 MEQ/L)</content> Carbon dioxide, 22-30 <content [facility] total styleCode="Bold"> [facility] [Moles/volume] in Carbon Dioxide Medical Serum or Plasma </content>23 Center MEQ/L<content styleCode="Italic s"> (22-30 MEQ/L)</content> Glucose 74-106 <content [facility] [Mass/volume] in styleCode="Bold"> [place] [facility] Serum or Plasma Glucose Medical </content>92 Center MG/DL<content styleCode="Italic s"> (74-106 MG/DL)</content> Creatinine 0.5-1.3 <content [facility] [Mass/volume] in styleCode="Bold"> [place] [facility] Serum or Plasma Creatinine Medical </content>0.8 Center MG/DL<content styleCode="Italic s"> (0.5-1.3 MG/DL)</content> UNK 7-17 <content [facility] styleCode="Bold"> [facility] BUN </content>12 Medical MG/DL<content Center styleCode="Italic s"> (7-17 MG/DL)</content> UNK > 60 <content [facility] styleCode="Bold"> [facility] EGFR </content>98 Medical GFR<content Center styleCode="Italic s"> (> 60 GFR)</content> Calcium 8.4-10. <content [facility] [Mass/volume] in 2 styleCode="Bold"> [place] [facility] Serum or Plasma Calcium Medical </content>9.9 Center MG/DL<content styleCode="Italic s"> (8.4-10.2 MG/DL)</content> Aspartate 14-36 Above high <content [facility] aminotransferase normal styleCode="Bold"> [place] hs [Enzymatic Aspartate Medical activity/volume] Aminotransferase Center in Serum or Plasma (AST) </content>42 IU/L H<content styleCode="Italic s"> (14-36 IU/L)</content> Bilirubin.total 0.2-1.3 <content [facility] [Mass/volume] in styleCode="Bold"> [place] hs Serum or Plasma Bilirubin Total Medical </content>0.4 Center MG/DL<content styleCode="Italic s"> (0.2-1.3 MG/DL)</content> Alkaline 38-126 <content [facility] phosphatase styleCode="Bold"> [place] [Enzymatic Alkaline Medical activity/volume] Phosphatase (ALP) Cente r in Serum or Plasma </content>105 IU/L<content styleCode="Italic s"> (38-126 IU/L)</content> Alanine 7-30 <content [facility] aminotransferase styleCode="Bold"> [place] hs [Enzymatic Alanine Medical activity/volume] Aminotransferase Center in Serum or Plasma (ALT) </content>17 IU/L<content styleCode="Italic s"> (7-30 IU/L)</content> Albumin 3.5-5.0 <content [facility] [Mass/volume] in styleCode="Bold"> [facility] hs Serum or Plasma Albumin Medical </content>4.5 Center G/DL<content styleCode="Italic s"> (3.5-5.0 G/DL)</content> ID Date Data Source [id number] 11/10/2018 12:00:00 AM EDT [facility] ([facility]) Name Value Range Interpretation Code Description Data Pooja rce(s) Supporting Document(s ) REFLEX FOR Abnormal (applies MEDGEN P53 - 1 UNIT to non-numeric ([place] results) Medical Service) ID Date Data Source [id number] 11/10/2018 12:00:00 AM EDT [employer] ([facility]) Name Value Range Interpretation Code Description Data Pooja rce(s) Supporting Document(s ) RPR_TITER 1:4 Normal (applies to [facility] non-numeric results) ([facility]) ID Date Data Source [id number] 11/10/2018 12:00:00 AM EDT [facility] ([facility]) Name Value Range Interpretation Code Description Data Pooja rce(s) Supporting Document(s ) FTA-ABS REACTIVE Normal (applies to [facility] non-numeric results) ([facility]) ID Date Data Source [id number] 11/10/2018 12:00:00 AM EDT [facility] ([facility]) Name Value Range Interpretation Code Description Data Pooja rce(s) Supporting Document(s ) RPR W/RFX REACTIVE Normal (applies to MEDGEN TITER non-numeric ([place] results) Medical Service) ID Date Data Source [id number] 11/10/2018 12:00:00 AM EDT [facility] ([facility]) Name Value Range Interpretation Description Data Sup porting Code Source(s) Document(s ) ORGANISM Abnormal (applies MEDGEN to non-numeric ([place] results) Medical Service) Comment Abnormal (applies [facility] [Interpretation] to non-numeric ([place] Left eye Narrative results) Medical Ophthalmometer Service) ID Date Data Source [id number] 11/10/2018 12:00:00 AM EDT [facility] ([facility]) Name Value Range Interpretation Description Data Sup porting Code Source(s) Document(s ) TSH,3RD 0.99 Normal (applies to MEDGEN GENERATION uIU/mL non-numeric ([facility] results) Medical Service) T4 TOTAL 8 ug/dL Normal (applies to MEDGEN THYROXINE non-numeric ([facility] results) Medical Service) T3 TOTAL 116 ng/dL Normal (applies to MEDGEN non-numeric ([facility] results) Medical Service) ID Date Data Source [id number] 11/10/2018 12:00:00 AM EDT [facility] ([facility]) Name Value Range Interpretation Description Data Sup porting Code Source(s) Document(s ) VITAMIN D 22.50 Below low normal MEDGEN 25-HYDROXY ng/mL ([facility]) ID Date Data Source [id number] 11/10/2018 12:00:00 AM EDT [facility] ([facility]) Name Value Range Interpretation Description Data Sup porting Code Source(s) Document(s ) VITAMIN B12 614 pg/mL Normal (applies to MEDGEN non-numeric ([facility] results) Medical Service) ID Date Data Source [id number] 11/10/2018 12:00:00 AM EDT [facility] ([facility]) Name Value Range Interpretation Code Description Data Pooja rce(s) Supporting Document(s ) CT Not Detected Normal (applies to MEDGEN non-numeric ([facility] results) Medical Service) NG Not Detected Normal (applies to MEDGEN non-numeric ([place] results) Medical Service) ID Date Data Source [id number] 11/10/2018 12:00:00 AM EDT MED[facility] [employer] [facility]) Name Value Range Interpretation Code Description Data Pooja rce(s) Supporting Document(s ) T.VAGINAL NEGATIVE Normal (applies to MEDGEN IS rRNA non-numeric ([place] results) Medical Service) ID Date Data Source [id number] 11/10/2018 12:00:00 AM EDT [facility] ([facility]) Name Value Range Interpretation Description Data Sup porting Code Source(s) Document(s ) MICROALBUMIN 5.4 Normal (applies MEDGEN URINE mg/dL to non-numeric ([place] results) Medical Service) ID Date Data Source [id number] 11/10/2018 12:00:00 AM EDT [facility] ([facility]) Name Value Range Interpretation Description Data Sup porting Code Source(s) Document(s ) FOLATE 12.9 ng/mL Above high normal MEDGEN SERUM ([place] [facility]) ID Date Data Source [id number] 11/10/2018 12:00:00 AM EDT [facility] ([facility]) Name Value Range Interpretation Description Data Sup porting Code Source(s) Document(s ) Cholesterol 166 Normal (applies MEDGEN [Moles/volume] mg/dL to non-numeric ([place] in Pericardial results) Medical fluid Service) LDL CALCULATION 92.4 Normal (applies MEDGEN mg/dL to non-numeric ([place] results) Medical Service) CHOL/HDL RATIO 3.19 Normal (applies MEDGEN ratio to non-numeric ([place] results) Medical Service) HDL CHOLESTEROL 52 mg/dL Above high normal MED[facility] ([place] [facility]) VLDL CALCULATION 21.6 Normal (applies MEDGEN mg/dl to non-numeric ([place] results) Medical Service) TRIGLYCERIDES 108 Normal (applies MEDGEN mg/dL to non-numeric ([place] results) Medical Service) ID Date Data Source [id number] 11/10/2018 12:00:00 AM EDT [facility] ([facility]) Name Value Range Interpretation Description Data Sup porting Code Source(s) Document(s ) GLUCOSE 84 mg/dL Normal (applies MEDGEN NONFASTING,SERUM to non-[facility]) SODIUM, SERUM 139 Normal (applies MEDGEN mEq/L to non-numeric ([place] results) Medical Service) POTASSIUM, SERUM 4.2 Normal (applies MEDGEN mEq/L to non-numeric ([place] results) Medical Service) CHLORIDE, SERUM 104 Normal (applies MEDGEN mEq/L to non-numeric ([place] results) Medical Service) Carbon dioxide 28 mEq/L Normal (applies MEDGEN [VFr/PPres] in to non-numeric ([place] Gas delivery results) Medical system Service) Anion gap in 11 mEq/L Normal (applies MEDGEN Body fluid to non-numeric ([place] results) Medical Service) BLOOD UREA 11 mg/dL Normal (applies MEDGEN NITROGEN to non-numeric ([place] results) Medical Service) CREATININE, 0.80 Normal (applies MEDGEN SERUM mg/dL to non-numeric ([place] results) Medical Service) CALCIUM, SERUM 9.2 Normal (applies MEDGEN mg/dL to non-numeric ([place] results) Medical Service) TOTAL PROTEIN 7.1 g/dL Normal (applies MEDGEN to non-numeric ([place] results) Medical Service) Microalbumin 4.4 g/dL Normal (applies MEDGEN [Mass/time] in to non-numeric ([place] Urine collected results) Medical for unspecified Service) duration Globulin 2.7 gldl Normal (applies MEDGEN [Mass/time] in to non-numeric ([place] 24 hour Urine results) Medical Service) A/G RATIO 1.63 Normal (applies MEDGEN g/dl to non-numeric ([place] results) Medical Service) BILIRUBIN, TOTAL 0.2 Below low normal MEDGEN mg/dL ([place] [facility]) ALKALINE 67 U/L Normal (applies MEDGEN PHOSPHATASE, ALP to non-numeric ([facility] Service) ALT (SGPT) 13 U/L Normal (applies MEDGEN to non-numeric ([place] results) Medical Service) AST 19 U/L Normal (applies MEDGEN to non-numeric ([place] results) Medical Service) EGFR NON AFR 81 Above high normal MEDGEN PRYDEINIG mL/min/1 ([place] .73m2 Medical Service) EGFR AFR 98 Above high normal MEDGEN PRYDEINIG mL/min/1 ([place] .73m2 Medical Service) ID Date Data Source [id number] 11/10/2018 12:00:00 AM EDT [facility] ([facility]) Name Value Range Interpretation Description Data Sup porting Code Source(s) Document(s ) GLUCOSE UA NEGATIVE Normal (applies MEDGEN to non-numeric ([place] results) Medical Service) BILIRUBIN, TOTAL NEGATIVE Normal (applies MEDGEN to non-numeric ([place] results) Medical Service) Ketones NEGATIVE Normal (applies MEDGEN [Presence] in to non-numeric ([place] Blood by Tablet results) Medical Service) Specific gravity 1.015 SG Normal (applies MEDGEN of Pericardial units to non-numeric ([place] fluid by results) Medical Refractometry Service) Blood [Presence] NEGATIVE Normal (applies MEDGEN in Urine by to non-numeric ([place] Visual results) Medical Service) pH of Lower 5 Ph units Normal (applies MEDGEN respiratory to non-numeric ([facility] specimen results) Medical Service) Protein NEGATIVE Normal (applies MEDGEN [Mass/volume] in to non-numeric ([place] Lower results) Medical respiratory Service) specimen Urobilinogen 0-2.0 Normal (applies MEDGEN [Presence] in to non-numeric ([place] Urine by results) Medical Automated test Service) strip Nitrite NEGATIVE Normal (applies MEDGEN [Presence] in to non-numeric ([place] Urine by Test results) Medical strip Service) Leukocyte NEGATIVE Normal (applies MEDGEN esterase to non-numeric ([place] [Presence] in results) Medical Body fluid by Service) Automated test strip Color of YELLOW Normal (applies MEDGEN Peritoneal to non-numeric ([place] dialysis fluid results) Medical Service) TRANSPARENCY CLEAR Normal (applies MEDGEN to non-numeric ([facility] results) Medical Service) ID Date Data Source [id number] 11/10/2018 12:00:00 AM EDT [facility] ([facility] Service) Name Value Range Interpretation Description Data Sup porting Code Source(s) Document(s ) WBC 5.6 Normal (applies MEDGEN 10(3)/uL to non-numeric ([place] results) Medical Service) RBC 4.7 Normal (applies MEDGEN 10(6)/uL to non-numeric ([place] results) Medical Service) Hemoglobin 13.2 g/dL Normal (applies MEDGEN [Mass/volume] to non-numeric ([place] in Mixed venous results) Medical blood by Service) Oximetry Hematocrit 40.9 % Normal (applies MEDGEN [Pure volume to non-numeric ([place] fraction] of results) Medical Blood by Service) Automated count MCV 87.2 fL Normal (applies MEDGEN to non-numeric ([place] results) Medical Service) MCHC 32 g/dL Normal (applies MEDGEN to non-numeric ([place] results) Medical Service) MCH 28 pg Normal (applies MEDGEN to non-numeric ([place] results) Medical Service) RDWSD 44.2 fL Normal (applies MEDGEN to non-numeric ([place] results) Medical Service) RDWCV 14.0 % Normal (applies MEDGEN to non-numeric ([place] results) Medical Service) Platelet Count 197 Normal (applies MEDGEN 10(3)/uL to non-numeric ([place] results) Medical Service) Neutrophil Abs 2.83 Normal (applies MEDGEN 10(3)/uL to non-numeric ([facility] results) Medical Service) MPV 9.4 fL Below low normal MED[facility] ([place] [facility]) Lymphocyte Abs 2.29 Normal (applies MEDGEN 10(3)/uL to non-numeric ([place] results) Medical Service) Monocyte Abs 0.34 Normal (applies MEDGEN 10(3)/uL to non-numeric ([place] results) Medical Service) Eosinophil Abs 0.14 Normal (applies MEDGEN 10(3)/uL to non-numeric ([place] results) Medical Service) Neutrophil % 50.20 % Normal (applies MEDGEN to non-numeric ([place] results) Medical Service) Lymphocyte % 41 % Normal (applies MEDGEN to non-numeric ([place] results) Medical Service) Monocyte % 6.0 % Normal (applies MEDGEN to non-numeric ([place] results) Medical Service) Eosinophil % 2.5 % Normal (applies MEDGEN to non-numeric ([place] results) Medical Service) Basophil % 0.5 % Normal (applies MEDGEN to non-numeric ([place] results) Medical Service) Immature 0.20 % Normal (applies MEDGEN Granulocyte % to non-numeric ([place] results) Medical Service) ID Date Data Source [id number] 11/10/2018 12:00:00 AM EDT [facility] ([employer] [facility]) Name Value Range Interpretation Code Description Data Supporting Source(s) Document(s ) GLYCOMARK 20.91 Normal (applies to MEDGEN ug/mL non-numeric ([place] results) Medical Service) ID Date Data Source [id number] 11/10/2018 12:00:00 AM EDT [facility] ([employer] [facility]) Name Value Range Interpretation Description Data Sup porting Code Source(s) Document(s ) Hemoglobin A1c 5.8 % Above high normal MEDGEN in Blood ([facility]) ID Date Data Source [id number] 11/10/2018 12:00:00 AM EDT [facility] ([employer] [facility]) Name Value Range Interpretation Code Description Data Pooja rce(s) Supporting Document(s ) REFLEX FOR Abnormal (applies MEDGEN P53 - 1 UNIT to non-numeric ([facility] results) Medical Service) ID Date Data Source [id number] 11/10/2018 12:00:00 AM EDT [facility] ([employer] [facility]) Name Value Range Interpretation Code Description Data Pooja rce(s) Supporting Document(s ) RPR_TITER 1:4 Normal (applies to MEDGEN non-numeric results) ([place] [facility]) ID Date Data Source [id number] 11/10/2018 12:00:00 AM EDT [facility] ([facility] [employer] [facility]) Name Value Range Interpretation Code Description Data Pooja rce(s) Supporting Document(s ) FTA-ABS REACTIVE Normal (applies to MEDGEN non-numeric results) ([place] [facility]) ID Date Data Source [id number] 11/10/2018 12:00:00 AM EDT [facility] ([facility] [employer] [facility]) Name Value Range Interpretation Code Description Data Pooja rce(s) Supporting Document(s ) RPR W/RFX REACTIVE Normal (applies to MEDGEN TITER non-numeric ([facility] results) Medical Service) ID Date Data Source [id number] 11/10/2018 12:00:00 AM EDT [facility] ([facility] [employer] [facility]) Name Value Range Interpretation Description Data Sup porting Code Source(s) Document(s ) ORGANISM Abnormal (applies MEDGEN to non-numeric ([place] results) Medical Service) Comment Abnormal (applies MEDGEN [Interpretation] to non-numeric ([facility] y Left eye Narrative results) Medical Ophthalmometer Service) ID Date Data Source [id number] 11/10/2018 12:00:00 AM EDT [facility] ([facility] [employer] [facility]) Name Value Range Interpretation Description Data Sup porting Code Source(s) Document(s ) TSH,3RD 0.99 Normal (applies to [facility]GEN GENERATION uIU/mL non-numeric ([place] results) Medical Service) T4 TOTAL 8 ug/dL Normal (applies to [facility]GEN THYROXINE non-numeric ([place] results) Medical Service) T3 TOTAL 116 ng/dL Normal (applies to MEDGEN non-numeric ([place] results) Medical Service) ID Date Data Source [id number] 11/10/2018 12:00:00 AM EDT [facility] ([facility] [employer] [facility]) Name Value Range Interpretation Description Data Sup porting Code Source(s) Document(s ) VITAMIN D 22.50 Below low normal [facility] 25-HYDROXY ng/mL ([place] [employer] [facility]) ID Date Data Source [id number] 11/10/2018 12:00:00 AM EDT [facility] ([facility] [employer] [facility]) Name Value Range Interpretation Description Data Sup porting Code Source(s) Document(s ) VITAMIN B12 614 pg/mL Normal (applies to MEDGEN non-numeric ([facility] results) Medical Service) ID Date Data Source [id number] 11/10/2018 12:00:00 AM EDT [facility] ([facility]) Name Value Range Interpretation Code Description Data Pooja rce(s) Supporting Document(s ) CT Not Detected Normal (applies to MEDGEN non-numeric ([facility] results) Medical Service) NG Not Detected Normal (applies to MEDGEN non-numeric ([facility] results) Medical Service) ID Date Data Source [id number] 11/10/2018 12:00:00 AM EDT [facility] ([facility] Medical Service) Name Value Range Interpretation Code Description Data Pooja rce(s) Supporting Document(s ) T.VAGINAL NEGATIVE Normal (applies to MEDGEN IS rRNA non-numeric ([place] results) Medical Service) ID Date Data Source [id number] 11/10/2018 12:00:00 AM EDT [facility] ([facility] Medical Service) Name Value Range Interpretation Description Data Sup porting Code Source(s) Document(s ) MICROALBUMIN 5.4 Normal (applies MEDGEN URINE mg/dL to non-numeric ([place] results) Medical Service) ID Date Data Source [id number] 11/10/2018 12:00:00 AM EDT [facility] ([facility] Medical Service) Name Value Range Interpretation Description Data Sup porting Code Source(s) Document(s ) FOLATE 12.9 ng/mL Above high normal [facility] SERUM ([facility]) ID Date Data Source [id number] 11/10/2018 12:00:00 AM EDT [facility] ([facility]) Name Value Range Interpretation Description Data Sup porting Code Source(s) Document(s ) Cholesterol 166 Normal (applies MEDGEN [Moles/volume] mg/dL to non-numeric ([place] in Pericardial results) Medical fluid Service) LDL CALCULATION 92.4 Normal (applies MEDGEN mg/dL to non-numeric ([facility] results) Medical Service) CHOL/HDL RATIO 3.19 Normal (applies MEDGEN ratio to non-numeric ([facility] results) Medical Service) HDL CHOLESTEROL 52 mg/dL Above high normal [facility] ([place] [facility]) VLDL CALCULATION 21.6 Normal (applies MEDGEN mg/dl to non-numeric ([place] results) Medical Service) TRIGLYCERIDES 108 Normal (applies MEDGEN mg/dL to non-numeric ([facility] results) Medical Service) ID Date Data Source [id number] 11/10/2018 12:00:00 AM EDT [facility] ([facility]) Name Value Range Interpretation Description Data Sup porting Code Source(s) Document(s ) GLUCOSE 84 mg/dL Normal (applies MEDGEN NONFASTING,SERUM to non-numeric ([facility] results) Medical Service) SODIUM, SERUM 139 Normal (applies MEDGEN mEq/L to non-numeric ([place] results) Medical Service) POTASSIUM, SERUM 4.2 Normal (applies MEDGEN mEq/L to non-numeric ([place] results) Medical Service) CHLORIDE, SERUM 104 Normal (applies MEDGEN mEq/L to non-numeric ([place] results) Medical Service) Carbon dioxide 28 mEq/L Normal (applies MEDGEN [VFr/PPres] in to non-numeric ([place] Gas delivery results) Medical system Service) Anion gap in 11 mEq/L Normal (applies MEDGEN Body fluid to non-numeric ([place] results) Medical Service) BLOOD UREA 11 mg/dL Normal (applies MEDGEN NITROGEN to non-numeric ([place] results) Medical Service) CREATININE, 0.80 Normal (applies MEDGEN SERUM mg/dL to non-numeric ([place] results) Medical Service) CALCIUM, SERUM 9.2 Normal (applies MEDGEN mg/dL to non-numeric ([place] results) Medical Service) TOTAL PROTEIN 7.1 g/dL Normal (applies MEDGEN to non-numeric ([place] results) Medical Service) Microalbumin 4.4 g/dL Normal (applies MEDGEN [Mass/time] in to non-numeric ([place] Urine collected results) Medical for unspecified Service) duration Globulin 2.7 gldl Normal (applies MEDGEN [Mass/time] in to non-numeric ([place] 24 hour Urine results) Medical Service) A/G RATIO 1.63 Normal (applies MEDGEN g/dl to non-numeric ([place] results) Medical Service) BILIRUBIN, TOTAL 0.2 Below low normal MEDGEN mg/dL ([place] [facility]) ALKALINE 67 U/L Normal (applies MEDGEN PHOSPHATASE, ALP to non-numeric ([facility] results) Medical Service) ALT (SGPT) 13 U/L Normal (applies MEDGEN to non-numeric ([place] results) Medical Service) AST 19 U/L Normal (applies MEDGEN to non-numeric ([place] results) Medical Service) EGFR NON AFR 81 Above high normal MEDGEN PRYDEINIG mL/min/1 ([place] .73m2 Medical Service) EGFR AFR 98 Above high normal MEDGEN PRYDEINIG mL/min/1 ([place] .73m2 Medical Service) ID Date Data Source [id number] 11/10/2018 12:00:00 AM EDT [facility] ([facility] [employer] [facility]) Name Value Range Interpretation Description Data Sup porting Code Source(s) Document(s ) GLUCOSE UA NEGATIVE Normal (applies MEDGEN to non-numeric ([facility] results) Medical Service) BILIRUBIN, TOTAL NEGATIVE Normal (applies MEDGEN to non-numeric ([place] results) Medical Service) Ketones NEGATIVE Normal (applies MEDGEN [Presence] in to non-numeric ([place] Blood by Tablet results) Medical Service) Specific gravity 1.015 SG Normal (applies MEDGEN of Pericardial units to non-numeric ([place] fluid by results) Medical Refractometry Service) Blood [Presence] NEGATIVE Normal (applies MEDGEN in Urine by to non-numeric ([place] Visual results) Medical Service) pH of Lower 5 Ph units Normal (applies MEDGEN respiratory to non-numeric ([place] specimen results) Medical Service) Protein NEGATIVE Normal (applies MEDGEN [Mass/volume] in to non-numeric ([place] [facility] Lower results) Medical respiratory Service) specimen Urobilinogen 0-2.0 Normal (applies MEDGEN [Presence] in to non-numeric ([place] Urine by results) Medical Automated test Service) strip Nitrite NEGATIVE Normal (applies MEDGEN [Presence] in to non-numeric ([facility] Urine by Test results) Medical strip Service) Leukocyte NEGATIVE Normal (applies MEDGEN esterase to non-numeric ([place] [Presence] in results) Medical Body fluid by Service) Automated test strip TRANSPARENCY CLEAR Normal (applies MEDGEN to non-numeric ([place] results) Medical Service) Color of YELLOW Normal (applies MEDGEN Peritoneal to non-numeric ([place] dialysis fluid results) Medical Service) ID Date Data Source [id number] 11/10/2018 12:00:00 AM EDT [facility] ([facility] [employer] [facility]) Name Value Range Interpretation Description Data Sup porting Code Source(s) Document(s ) WBC 5.6 Normal (applies MEDGEN 10(3)/uL to non-numeric ([facility] results) Medical Service) RBC 4.7 Normal (applies MEDGEN 10(6)/uL to non-numeric ([facility] results) Medical Service) Hemoglobin 13.2 g/dL Normal (applies MEDGEN [Mass/volume] to non-numeric ([place] in Mixed venous results) Medical blood by Service) Oximetry Hematocrit 40.9 % Normal (applies MEDGEN [Pure volume to non-numeric ([place] fraction] of results) Medical Blood by Service) Automated count MCV 87.2 fL Normal (applies MEDGEN to non-numeric ([facility] results) Medical Service) MCH 28 pg Normal (applies MEDGEN to non-numeric ([facility] results) Medical Service) MCHC 32 g/dL Normal (applies MEDGEN to non-numeric ([place] results) Medical Service) RDWSD 44.2 fL Normal (applies MEDGEN to non-numeric ([place] results) Medical Service) RDWCV 14.0 % Normal (applies MEDGEN to non-numeric ([facility] results) Medical Service) Platelet Count 197 Normal (applies MEDGEN 10(3)/uL to non-numeric ([facility] results) Medical Service) MPV 9.4 fL Below low normal MEDGEN ([place] [facility]) Neutrophil Abs 2.83 Normal (applies MEDGEN 10(3)/uL to non-numeric ([facility] results) Medical Service) Lymphocyte Abs 2.29 Normal (applies MEDGEN 10(3)/uL to non-numeric ([facility] results) Medical Service) Monocyte Abs 0.34 Normal (applies MEDGEN 10(3)/uL to non-numeric ([facility] results) Medical Service) Eosinophil Abs 0.14 Normal (applies MEDGEN 10(3)/uL to non-numeric ([facility] results) Medical Service) Neutrophil % 50.20 % Normal (applies MEDGEN to non-numeric ([facility] results) Medical Service) Lymphocyte % 41 % Normal (applies MEDGEN to non-numeric ([place] results) Medical Service) Monocyte % 6.0 % Normal (applies MEDGEN to non-numeric ([place] results) Medical Service) Eosinophil % 2.5 % Normal (applies MEDGEN to non-numeric ([place] results) Medical Service) Basophil % 0.5 % Normal (applies MEDGEN to non-numeric ([place] results) Medical Service) Immature 0.20 % Normal (applies MEDGEN Granulocyte % to non-numeric ([place] results) Medical Service) ID Date Data Source [id number] 11/10/2018 12:00:00 AM EDT [facility] ([facility] Service) Name Value Range Interpretation Code Description Data Supporting Source(s) Document(s ) GLYCOMARK 20.91 Normal (applies to MEDGEN ug/mL non-numeric ([facility]) ID Date Data Source [id number] 11/10/2018 12:00:00 AM EDT MEDGEN ([facility]) Name Value Range Interpretation Description Data Sup porting Code Source(s) Document(s ) Hemoglobin A1c 5.8 % Above high normal MEDGEN in Blood ([facility]) ID Date Data Source Liver 10/18/2018 03:22:00 PM EDT [facility] [id number] Name Value Range Interpretation Description Data Sup porting Code Source(s) Document(s ) Aspartate 14-36 <content [facility] aminotransferase styleCode="Bold"> [place] hs [Enzymatic Aspartate Medical activity/volume] Aminotransferase Center in Serum or Plasma (AST) </content>23 IU/L<content styleCode="Italic s"> (14-36 IU/L)</content> Alanine 7-30 <content Saint aminotransferase styleCode="Bold"> [facility] hs [Enzymatic Alanine Medical activity/volume] Aminotransferase Center in Serum or Plasma (ALT) </content>18 IU/L<content styleCode="Italic s"> (7-30 IU/L)</content> Alkaline 38-126 <content [facility] phosphatase styleCode="Bold"> [facility] [Enzymatic Alkaline Medical activity/volume] Phosphatase (ALP) Cente r in Serum or Plasma </content>54 IU/L<content styleCode="Italic s"> (38-126 IU/L)</content> UNK 0.0-0.3 <content Saint styleCode="Bold"> [place] Bilirubin, Direct Medical </content>< 0.2 Center MG/DL<content styleCode="Italic s"> (0.0-0.3 MG/DL)</content> Albumin 3.5-5.0 <content Saint [Mass/volume] in styleCode="Bold"> [facility] hs Serum or Plasma Albumin Medical </content>4.4 Center G/DL<content styleCode="Italic s"> (3.5-5.0 G/DL)</content> Bilirubin.total 0.2-1.3 <content [facility] [Mass/volume] in styleCode="Bold"> [facility] hs Serum or Plasma Bilirubin Total Medical </content>0.2 Center MG/DL<content styleCode="Italic s"> (0.2-1.3 MG/DL)</content> ID Date Data Source [id number].[id number] 10/18/2018 03:22:[address] [facility] 0400 Name Value Range Interpretation Description Data Sup porting Code Source(s) Document(s ) Erythrocytes 4.0-5.1 <content Saint [#/volume] in styleCode="Bold [place] Blood by ">Red Blood Medical Automated count Cell Count Center </content>4.38 MCUMM<content styleCode="Ital ics"> (4.0-5.1 MCUMM)</content > Leukocytes 4.4-11.0 <content Saint [#/volume] in styleCode="Bold [place] Blood by ">White Blood Medical Automated count Cell Count Center </content>6.11 KCUMM<content styleCode="Ital ics"> (4.4-11.0 KCUMM)</content > Hemoglobin 12.3-16. <content Saint [Mass/volume] in 0 styleCode="Bold [place] Blood ">Hemoglobin Medical </content>12.6 Center G/DL<content styleCode="Ital ics"> (12.3-16.0 G/DL)</content> Erythrocyte 11.5-14. <content [facility] distribution 5 styleCode="Bold [place] width [Ratio] by ">Red Cell Medical Automated count Distribution Center Width </content>14.2 %<content styleCode="Ital ics"> (11.5-14.5 %)</content> Erythrocyte mean 80.0-100 <content [facility] corpuscular .0 styleCode="Bold [place] volume [Entitic ">Mean Medical volume] by Corpuscular Center Automated count Volume </content>89.3 FL<content styleCode="Ital ics"> (80.0-100.0 FL)</content> Hematocrit 36.0-46. <content Saint [Volume 0 styleCode="Bold [place] Fraction] of ">Hematocrit Medical Blood by </content>39.1 Center Automated count %<content styleCode="Ital ics"> (36.0-46.0 %)</content> Erythrocyte mean 32.0-37. <content [facility] corpuscular 0 styleCode="Bold [place] hemoglobin ">Mean Corpus. Medical concentration Hgb Center [Mass/volume] by Concentration Automated count (MCHC) </content>32.2 G/DL<content styleCode="Ital ics"> (32.0-37.0 G/DL)</content> Erythrocyte mean 26.0-34. <content [facility] corpuscular 0 styleCode="Bold [place] hemoglobin ">Mean Medical [Entitic mass] Corposcular Center by Automated Hemoglobin count </content>28.8 PG<content styleCode="Ital ics"> (26.0-34.0 PG)</content> Platelet mean 8.0-11.0 <content [facility] volume [Entitic styleCode="Bold [place] volume] in Blood ">Mean Platelet Medical by Automated Volume Center count </content>9.0 FL<content styleCode="Ital ics"> (8.0-11.0 FL)</content> Platelets 130-400 <content Saint [#/volume] in styleCode="Bold [place] Blood by ">Platelet Medical Automated count Count Center </content>282 KCUMM<content styleCode="Ital ics"> (130-400 KCUMM)</content > UNK 0.0 <content Saint styleCode="Bold [place] ">Nucleated Red Medical Blood Cell Center Count </content>0.00 KCUMM<content styleCode="Ital ics"> (0.0 KCUMM)</content > UNK 0 <content Saint styleCode="Bold [place] ">Nucleated Red Medical Blood Cell Center </content>0.0 /100<content styleCode="Ital ics"> (0 /100)</content> ID Date Data Source GFR(Creatinine).[id number] 10/18/2018 03:22:[address] [facility] 0-0400 Name Value Range Interpretation Code Description Data Pooja rce(s) Supporting Document(s ) UNK > 60 <content [facility] styleCode="Bold"> Medical Cent er EGFR </content>114 GFR<content styleCode="Italic s"> (> 60 GFR)</content> ID Date Data Source [id number] 10/18/2018 03:22:00 PM EDT [facility] Center Name Value Range Interpretation Description Data Sup porting Code Source(s) Document(s ) Chloride 98-107 <content Saint [Moles/volume] in styleCode="Bold"> [facility] Serum or Plasma Chloride Medical </content>99 Center MEQ/L<content styleCode="Italic s"> (98-107 MEQ/L)</content> Potassium 3.5-5.3 <content Saint [Moles/volume] in styleCode="Bold"> [facility] phs Serum or Plasma Potassium Medical </content>4.7 Center MEQ/L<content styleCode="Italic s"> (3.5-5.3 MEQ/L)</content> Sodium 137-145 <content Saint [Moles/volume] in styleCode="Bold"> [facility] phs Serum or Plasma Sodium Medical </content>142 Center MEQ/L<content styleCode="Italic s"> (137-145 MEQ/L)</content> Carbon dioxide, 22-30 Above high <content Saint total normal styleCode="Bold"> [place] [Moles/volume] in Carbon Dioxide Medical Serum or Plasma </content>35 Center MEQ/L H<content styleCode="Italic s"> (22-30 MEQ/L)</content> UNK > 60 <content Saint styleCode="Bold"> [place] EGFR Medical </content>114 Center GFR<content styleCode="Italic s"> (> 60 GFR)</content> Creatinine 0.5-1.3 <content Saint [Mass/volume] in styleCode="Bold"> [facility] hs Serum or Plasma Creatinine Medical </content>0.7 Center MG/DL<content styleCode="Italic s"> (0.5-1.3 MG/DL)</content> Calcium 8.4-10. Above high <content Saint [Mass/volume] in 2 normal styleCode="Bold"> [facility] hs Serum or Plasma Calcium Medical </content>10.4 Center MG/DL H<content styleCode="Italic s"> (8.4-10.2 MG/DL)</content> UNK 7-17 <content Saint styleCode="Bold"> [place] BUN </content>13 Medical MG/DL<content Center styleCode="Italic s"> (7-17 MG/DL)</content> Glucose 74-106 <content Saint [Mass/volume] in styleCode="Bold"> [facility] hs Serum or Plasma Glucose Medical </content>76 Center MG/DL<content styleCode="Italic s"> (74-106 MG/DL)</content> Aspartate 14-36 <content [facility] aminotransferase styleCode="Bold"> [facility] hs [Enzymatic Aspartate Medical activity/volume] Aminotransferase Center in Serum or Plasma (AST) </content>23 IU/L<content styleCode="Italic s"> (14-36 IU/L)</content> Alanine 7-30 <content [facility] aminotransferase styleCode="Bold"> [facility] hs [Enzymatic Alanine Medical activity/volume] Aminotransferase Center in Serum or Plasma (ALT) </content>18 IU/L<content styleCode="Italic s"> (7-30 IU/L)</content> Albumin 3.5-5.0 <content Saint [Mass/volume] in styleCode="Bold"> [facility] hs Serum or Plasma Albumin Medical </content>4.4 Center G/DL<content styleCode="Italic s"> (3.5-5.0 G/DL)</content> Bilirubin.total 0.2-1.3 <content [facility] [Mass/volume] in styleCode="Bold"> [facility] hs Serum or Plasma Bilirubin Total Medical </content>0.2 Center MG/DL<content styleCode="Italic s"> (0.2-1.3 MG/DL)</content> Alkaline 38-126 <content [facility] phosphatase styleCode="Bold"> [facility] [Enzymatic Alkaline Medical activity/volume] Phosphatase (ALP) Cente r in Serum or Plasma </content>54 IU/L<content styleCode="Italic s"> (38-126 IU/L)</content> ID Date Data Source [id number] 01/12/2018 12:00:00 AM EDT [facility] ([facility]) Name Value Range Interpretation Code Description Data Pooja rce(s) Supporting Document(s ) RPR_TITER 1:4 Normal (applies to MEDGEN non-numeric results) ([employer] [facility]) ID Date Data Source [id number] 01/12/2018 12:00:00 AM EDT MED[facility] [employer] [facility]) Name Value Range Interpretation Code Description Data Pooja rce(s) Supporting Document(s ) FTA-ABS REACTIVE Normal (applies to MEDGEN non-numeric results) ([employer] [facility]) ID Date Data Source [id number] 01/12/2018 12:00:00 AM EDT MED[facility] [employer]) Name Value Range Interpretation Description Data Sup porting Code Source(s) Document(s ) HIV 1,2 NONREACTIVE Normal (applies MEDGEN AG/AB,4TH to non-numeric ([employer] GENERATION results) Medical Service) ID Date Data Source [id number] 01/12/2018 12:00:00 AM EDT [facility] [employer] [facility]) Name Value Range Interpretation Description Data Sup porting Code Source(s) Document(s ) VITAMIN D 32.74 Below low normal MEDGEN 25-HYDROXY ng/mL ([facility]) ID Date Data Source [id number] 01/12/2018 12:00:00 AM EDT MED[facility] ([employer]) Name Value Range Interpretation Description Data Sup porting Code Source(s) Document(s ) VITAMIN B12 337 pg/mL Normal (applies to MEDGEN non-numeric ([employer] results) Medical Service) ID Date Data Source [id number] 01/12/2018 12:00:00 AM EDT [facility] ([facility]) Name Value Range Interpretation Code Description Data Pooja rce(s) Supporting Document(s ) RPR W/RFX REACTIVE Normal (applies to MEDGEN TITER non-numeric ([employer] results) Medical Service) ID Date Data Source [id number] 01/12/2018 12:00:00 AM EDT [facility] ([facility]) Name Value Range Interpretation Description Data Sup porting Code Source(s) Document(s ) FOLATE 11.6 ng/mL Above high normal MEDGEN SERUM ([facility]) ID Date Data Source [id number] 01/12/2018 12:00:00 AM EDT [employer] [facility]) Name Value Range Interpretation Description Data Sup porting Code Source(s) Document(s ) Cholesterol 162 Normal (applies MEDGEN [Moles/volume] mg/dL to non-numeric ([place] in Pericardial results) Medical fluid Service) LDL CALCULATION 73.8 Normal (applies MEDGEN mg/dL to non-numeric ([place] results) Medical Service) CHOL/HDL RATIO 2.70 Normal (applies MEDGEN ratio to non-numeric ([place] results) Medical Service) HDL CHOLESTEROL 60 mg/dL Above high normal MEDGEN ([facility]) VLDL CALCULATION 28.2 Normal (applies MEDGEN mg/dl to non-numeric ([place] results) Medical Service) TRIGLYCERIDES 141 Normal (applies MEDGEN mg/dL to non-numeric ([place] results) Medical Service) ID Date Data Source [id number] 01/12/2018 12:00:00 AM EDT [facility] ([facility]) Name Value Range Interpretation Description Data Sup porting Code Source(s) Document(s ) GLUCOSE 86 mg/dL Normal (applies MEDGEN NONFASTING,SERUM [facility]) SODIUM, SERUM 141 Normal (applies MEDGEN mEq/L to non-numeric ([place] results) Medical Service) CHLORIDE, SERUM 106 Normal (applies MEDGEN mEq/L to non-numeric ([place] results) Medical Service) POTASSIUM, SERUM 4.2 Normal (applies MEDGEN mEq/L to non-numeric ([place] results) Medical Service) Carbon dioxide 29 mEq/L Normal (applies MEDGEN [VFr/PPres] in to non-numeric ([place] Gas delivery results) Medical system Service) Anion gap in 10 mEq/L Normal (applies MEDGEN Body fluid to non-numeric ([place] results) Medical Service) BLOOD UREA 11 mg/dL Normal (applies MEDGEN NITROGEN to non-numeric ([place] results) Medical Service) CREATININE, 0.90 Normal (applies MEDGEN SERUM mg/dL to non-numeric ([place] results) Medical Service) TOTAL PROTEIN 7.4 g/dL Normal (applies MEDGEN to non-numeric ([place] results) Medical Service) CALCIUM, SERUM 8.5 Normal (applies MEDGEN mg/dL to non-numeric ([place] results) Medical Service) Microalbumin 4.2 g/dL Normal (applies MEDGEN [Mass/time] in to non-numeric ([place] Urine collected results) Medical for unspecified Service) duration Globulin 3.2 gldl Normal (applies MEDGEN [Mass/time] in to non-numeric ([facility] 24 hour Urine results) Medical Service) A/G RATIO 1.31 Normal (applies MEDGEN g/dl to non-numeric ([place] results) Medical Service) BILIRUBIN, TOTAL 0.3 Normal (applies MEDGEN mg/dL to non-numeric ([facility] results) Medical Service) ALKALINE 82 U/L Normal (applies MEDGEN PHOSPHATASE, ALP to non-numeric [facility] Service) ALT (SGPT) 17 U/L Normal (applies MEDGEN to non-numeric ([place] results) Medical Service) AST 25 U/L Normal (applies MEDGEN to non-numeric ([place] results) Medical Service) EGFR NON AFR 71 Above high normal MEDGEN PRYDEINIG mL/min/1 ([place] .73m2 Medical Service) EGFR AFR 86 Above high normal MEDGEN PRYDEINIG mL/min/1 ([place] .73m2 Medical Service) ID Date Data Source [id number] 01/12/2018 12:00:00 AM EDT MED[facility] ([facility]) Name Value Range Interpretation Description Data Sup porting Code Source(s) Document(s ) WBC 6.2 Normal (applies to MEDGEN 10(3)/uL non-numeric ([facility] results) Medical Service) RBC 4.3 Normal (applies to MEDGEN 10(6)/uL non-numeric ([facility] results) Medical Service) Hematocrit 38.4 % Normal (applies to MEDGEN [Pure volume non-numeric ([place] fraction] of results) Medical Blood by Service) Automated count Hemoglobin 12.2 g/dL Normal (applies to MEDGEN [Mass/volume] non-numeric ([facility] in Mixed results) Medical venous blood Service) by Oximetry MCV 89.7 fL Normal (applies to MEDGEN non-numeric ([facility] results) Medical Service) MCH 29 pg Normal (applies to MEDGEN non-numeric ([place] results) Medical Service) MCHC 32 g/dL Normal (applies to MEDGEN non-numeric ([facility] results) Medical Service) RDWSD 43.4 fL Normal (applies to MEDGEN non-numeric ([facility] results) Medical Service) RDWCV 13.4 % Normal (applies to MEDGEN non-numeric ([facility] results) Medical Service) PLT 298 Normal (applies to MEDGEN 10(3)/uL non-numeric ([place] results) Medical Service) MPV 9.2 fL Below low normal MEDGEN ([facility]) NE# 3.44 Normal (applies to MEDGEN 10(3)/uL non-numeric ([place] results) Medical Service) LY# 1.92 Normal (applies to MEDGEN 10(3)/uL non-numeric ([place] results) Medical Service) EO# 0.44 Above high normal MEDGEN 10(3)/uL ([facility]) MO# 0.35 Normal (applies to MEDGEN 10(3)/uL non-numeric ([facility] results) Medical Service) IG# 0.01 Normal (applies to MEDGEN 10(3)/uL non-numeric ([facility] results) Medical Service) NE% 55.40 % Normal (applies to MEDGEN non-numeric ([facility] results) Medical Service) LY% 31 % Normal (applies to MEDGEN non-numeric ([place] results) Medical Service) MO% 5.6 % Normal (applies to MEDGEN non-numeric ([place] results) Medical Service) BA% 0.8 % Normal (applies to MEDGEN non-numeric ([facility] results) Medical Service) EO% 7.1 % Above high normal MEDGEN ([facility] Service) IG% 0.20 % Normal (applies to MEDGEN non-numeric ([place] results) Medical Service) ID Date Data Source [id number] 01/12/2018 12:00:00 AM EDT [facility] ([facility]) Name Value Range Interpretation Code Description Data Supporting Source(s) Document(s ) GLYCOMARK 26.76 Normal (applies to MEDGEN ug/mL non-numeric ([facility] results) Medical Service) ID Date Data Source [id number] 01/12/2018 12:00:00 AM EDT [facility] ([facility]) Name Value Range Interpretation Description Data Sup porting Code Source(s) Document(s ) Hemoglobin A1c 5.4 % Normal (applies to MEDGEN in Blood non-numeric ([place] results) Medical Service) ID Date Data Source [id number] 01/12/2018 12:00:00 AM EDT [facility] ([facility] [employer] [facility]) Name Value Range Interpretation Description Data Sup porting Code Source(s) Document(s ) HEPATITIS BE NONREACTIVE Normal (applies MEDGEN AG to non-numeric ([place] results) Medical Service) ID Date Data Source [id number] 01/12/2018 12:00:00 AM EDT [facility] ([facility] [facility]) Name Value Range Interpretation Description Data Sup porting Code Source(s) Document(s ) HEPATITIS B 226.18 Normal (applies to MEDGEN SURFACE AB (REACTIVE non-numeric ([place] ) results) Medical Service) ID Date Data Source [id number] 01/12/2018 12:00:00 AM EDT [facility] ([facility] [employer] [facility]) Name Value Range Interpretation Description Data Sup porting Code Source(s) Document(s ) HEPATITIS B REACTIVE Normal (applies to MEDGEN CORE AB QL non-numeric ([place] results) Medical Service) ID Date Data Source [id number] 01/12/2018 12:00:00 AM EDT [facility] ([facility] [employer] [facility]) Name Value Range Interpretation Description Data Sup porting Code Source(s) Document(s ) HEPATITIS C NONREACTIVE Normal (applies MEDGEN AB QL to non-numeric ([place] results) Medical Service) ID Date Data Source [id number] 01/12/2018 12:00:00 AM EDT [facility] [employer] [facility]) Name Value Range Interpretation Code Description Data Pooja rce(s) Supporting Document(s ) HBeAB POSITIVE Abnormal (applies to MEDGEN non-numeric results) ([facility] Service) ID Date Data Source [id number] 01/12/2018 12:00:00 AM EDT [facility] ([facility] [employer] [facility]) Name Value Range Interpretation Description Data Sup porting Code Source(s) Document(s ) HEPATITIS BS NONREACTIVE Normal (applies MEDGEN AG SCREEN to non-numeric ([facility] results) Medical Service) ID Date Data Source [id number] 01/12/2018 12:00:00 AM EDT [facility] ([facility] [employer] [facility]) Name Value Range Interpretation Description Data Sup porting Code Source(s) Document(s ) HEPATITIS A NONREACTIVE Normal (applies MEDGEN AB to non-numeric ([place] results) Medical Service) ID Date Data Source [id number] 01/12/2018 12:00:00 AM EDT [employer] ([employer] [facility]) Name Value Range Interpretation Code Description Data Pooja rce(s) Supporting Document(s ) T.VAGINAL NEGATIVE Normal (applies to MEDGEN IS rRNA non-numeric ([facility] results) Medical Service) ID Date Data Source [id number] 01/12/2018 12:00:00 AM EDT [facility] ([facility] [employer] [facility]) Name Value Range Interpretation Description Data Sup porting Code Source(s) Document(s ) CHLAMYDIA NEGATIVE Normal (applies MEDGEN TRACHOMATIS RNA to non-numeric ([place] results) Medical Service) NEISSERIA NEGATIVE Normal (applies MEDGEN GONORRHOEAE RNA to non-numeric ([place] results) Medical Service) ID Date Data Source [id number] 01/12/2018 12:00:00 AM EDT [facility] ([facility] [employer] [facility]) Name Value Range Interpretation Description Data Sup porting Code Source(s) Document(s ) GLUCOSE UA NEGATIVE Normal (applies MEDGEN to non-numeric ([facility] results) Medical Service) BILIRUBIN, TOTAL NEGATIVE Normal (applies MEDGEN to non-numeric ([place] results) Medical Service) Specific gravity 1.020 SG Normal (applies MEDGEN of Pericardial units to non-numeric ([place] fluid by results) Medical Refractometry Service) Ketones NEGATIVE Normal (applies MEDGEN [Presence] in to non-numeric ([place] Blood by Tablet results) Medical Service) Blood [Presence] NEGATIVE Normal (applies MEDGEN in Urine by to non-numeric ([place] Visual results) Medical Service) pH of Lower 5 Ph units Normal (applies MEDGEN respiratory to non-numeric ([place] specimen results) Medical Service) Protein NEGATIVE Normal (applies MEDGEN [Mass/volume] in to non-numeric ([facility] Lower results) Medical respiratory Service) specimen Urobilinogen 2.0 mg/dl Normal (applies MEDGEN [Presence] in to non-numeric ([place] Urine by results) Medical Automated test Service) strip Nitrite NEGATIVE Normal (applies MEDGEN [Presence] in to non-numeric ([place] Urine by Test results) Medical strip Service) Leukocyte NEGATIVE Normal (applies MEDGEN esterase to non-numeric ([facility] [Presence] in results) Medical Body fluid by Service) Automated test strip Color of YELLOW Normal (applies MEDGEN Peritoneal to non-numeric ([place] dialysis fluid results) Medical Service) TRANSPARENCY CLEAR Normal (applies MEDGEN to non-numeric ([facility] results) Medical Service) ID Date Data Source [id number] 01/12/2018 12:00:00 AM EDT MEDGEN ([employer]) Name Value Range Interpretation Description Data Sup porting Code Source(s) Document(s ) TSH,3RD 0.61 Normal (applies to MEDGEN GENERATION uIU/mL non-numeric ([place] results) Medical Service) T4 TOTAL 6.2 ug/dL Normal (applies to MEDGEN THYROXINE non-numeric ([facility] results) Medical Service) T3 TOTAL 94 ng/dL Normal (applies to MEDGEN non-numeric ([place] results) Medical Service) ID Date Data Source [id number] 01/12/2018 12:00:00 AM EDT MEDGEN ([employer]) Name Value Range Interpretation Code Description Data Pooja rce(s) Supporting Document(s ) RPR_TITER 1:4 Normal (applies to MEDGEN non-numeric results) ([employer] Service) ID Date Data Source [id number] 01/12/2018 12:00:00 AM EDT [facility] ([facility]) Name Value Range Interpretation Code Description Data Pooja rce(s) Supporting Document(s ) FTA-ABS REACTIVE Normal (applies to MEDGEN non-numeric results) ([facility] [facility]) ID Date Data Source [id number] 01/12/2018 12:00:00 AM EDT [facility] [employer] [facility]) Name Value Range Interpretation Description Data Sup porting Code Source(s) Document(s ) HIV 1,2 NONREACTIVE Normal (applies MEDGEN AG/AB,4TH to non-numeric ([place] GENERATION results) Medical Service) ID Date Data Source [id number] 01/12/2018 12:00:00 AM EDT [facility] ([facility]) Name Value Range Interpretation Description Data Sup porting Code Source(s) Document(s ) VITAMIN D 32.74 Below low normal MEDGEN 25-HYDROXY ng/mL ([place] Service) ID Date Data Source [id number] 01/12/2018 12:00:00 AM EDT [facility] [employer] Service) Name Value Range Interpretation Description Data Sup porting Code Source(s) Document(s ) VITAMIN B12 337 pg/mL Normal (applies to MEDGEN non-numeric ([facility] results) Medical Service) ID Date Data Source [id number] 01/12/2018 12:00:00 AM EDT [facility] ([facility]) Name Value Range Interpretation Code Description Data Pooja rce(s) Supporting Document(s ) RPR W/RFX REACTIVE Normal (applies to MEDGEN TITER non-numeric ([place] results) Medical Service) ID Date Data Source [id number] 01/12/2018 12:00:00 AM EDT [facility] ([facility] [employer] [facility]) Name Value Range Interpretation Description Data Sup porting Code Source(s) Document(s ) FOLATE 11.6 ng/mL Above high normal MEDGEN SERUM ([facility]) ID Date Data Source [id number] 01/12/2018 12:00:00 AM EDT [facility] ([facility] Medical [facility]) Name Value Range Interpretation Description Data Sup porting Code Source(s) Document(s ) Cholesterol 162 Normal (applies MEDGEN [Moles/volume] mg/dL to non-numeric ([place] in Pericardial results) Medical fluid Service) LDL CALCULATION 73.8 Normal (applies MEDGEN mg/dL to non-numeric ([facility] results) Medical Service) CHOL/HDL RATIO 2.70 Normal (applies MEDGEN ratio to non-numeric ([place] results) Medical Service) VLDL CALCULATION 28.2 Normal (applies MEDGEN mg/dl to non-numeric ([place] results) Medical Service) HDL CHOLESTEROL 60 mg/dL Above high normal MED[facility] ([facility]) TRIGLYCERIDES 141 Normal (applies MEDGEN mg/dL to non-numeric ([facility] results) Medical Service) ID Date Data Source [id number] 01/12/2018 12:00:00 AM EDT [facility] ([facility] Medical [facility]) Name Value Range Interpretation Description Data Sup porting Code Source(s) Document(s ) GLUCOSE 86 mg/dL Normal (applies MEDGEN NONFASTING,SERUM to non-numeric ([facility] results) Medical Service) SODIUM, SERUM 141 Normal (applies MEDGEN mEq/L to non-numeric ([facility] results) Medical Service) POTASSIUM, SERUM 4.2 Normal (applies MEDGEN mEq/L to non-numeric ([place] results) Medical Service) Carbon dioxide 29 mEq/L Normal (applies MEDGEN [VFr/PPres] in to non-numeric ([place] Gas delivery results) Medical system Service) CHLORIDE, SERUM 106 Normal (applies MEDGEN mEq/L to non-numeric ([place] results) Medical Service) Anion gap in 10 mEq/L Normal (applies MEDGEN Body fluid to non-numeric ([facility] results) Medical Service) BLOOD UREA 11 mg/dL Normal (applies MEDGEN NITROGEN to non-numeric ([place] results) Medical Service) CREATININE, 0.90 Normal (applies MEDGEN SERUM mg/dL to non-numeric ([place] results) Medical Service) TOTAL PROTEIN 7.4 g/dL Normal (applies MEDGEN to non-numeric ([place] results) Medical Service) CALCIUM, SERUM 8.5 Normal (applies MEDGEN mg/dL to non-numeric ([place] results) Medical Service) Microalbumin 4.2 g/dL Normal (applies MEDGEN [Mass/time] in to non-numeric ([place] Urine collected results) Medical for unspecified Service) duration Globulin 3.2 gldl Normal (applies [facility]GEN [Mass/time] in to non-numeric ([place] 24 hour Urine results) Medical Service) A/G RATIO 1.31 Normal (applies MEDGEN g/dl to non-numeric ([place] results) Medical Service) BILIRUBIN, TOTAL 0.3 Normal (applies [facility]GEN mg/dL to non-numeric ([place] results) Medical Service) ALT (SGPT) 17 U/L Normal (applies [facility]GEN to non-numeric ([place] results) Medical Service) ALKALINE 82 U/L Normal (applies [facility] PHOSPHATASE, [facility] AST 25 U/L Normal (applies MEDGEN to non-numeric ([place] results) Medical Service) EGFR NON AFR 71 Above high normal MEDGEN PRYDEINIG mL/min/1 ([place] .73m2 Medical Service) EGFR AFR 86 Above high normal MEDGEN PRYDEINIG mL/min/1 ([place] .73m2 Medical Service) ID Date Data Source [id number] 01/12/2018 12:00:00 AM EDT MEDGEN ([facility] Medical Service) Name Value Range Interpretation Description Data Sup porting Code Source(s) Document(s ) WBC 6.2 Normal (applies to MEDGEN 10(3)/uL non-numeric ([place] results) Medical Service) RBC 4.3 Normal (applies to [facility]GEN 10(6)/uL non-numeric ([place] results) Medical Service) Hemoglobin 12.2 g/dL Normal (applies to MEDGEN [Mass/volume] non-numeric ([place] in Mixed results) Medical venous blood Service) by Oximetry Hematocrit 38.4 % Normal (applies to MEDGEN [Pure volume non-numeric ([facility] fraction] of results) Medical Blood by Service) Automated count MCV 89.7 fL Normal (applies to [facility]GEN non-numeric ([facility] results) Medical Service) MCH 29 pg Normal (applies to MEDGEN non-numeric ([facility] results) Medical Service) MCHC 32 g/dL Normal (applies to MEDGEN non-numeric ([place] results) Medical Service) RDWSD 43.4 fL Normal (applies to [facility]GEN non-numeric ([facility] results) Medical Service) RDWCV 13.4 % Normal (applies to [facility]GEN non-numeric ([place] results) Medical Service) PLT 298 Normal (applies to MEDGEN 10(3)/uL non-numeric ([facility] results) Medical Service) MPV 9.2 fL Below low normal MEDGEN ([facility] Service) NE# 3.44 Normal (applies to [facility]GEN 10(3)/uL non-numeric ([place] results) Medical Service) LY# 1.92 Normal (applies to MEDGEN 10(3)/uL non-numeric ([facility] results) Medical Service) MO# 0.35 Normal (applies to [facility]GEN 10(3)/uL non-numeric ([facility] results) Medical Service) EO# 0.44 Above high normal [facility] 10(3)/uL ([facility] Service) IG# 0.01 Normal (applies to MEDGEN 10(3)/uL non-numeric ([facility] results) Medical Service) NE% 55.40 % Normal (applies to [facility]GEN non-numeric ([place] results) Medical Service) LY% 31 % Normal (applies to [facility]GEN non-numeric ([place] results) Medical Service) MO% 5.6 % Normal (applies to [facility]GEN non-numeric ([facility] results) Medical Service) EO% 7.1 % Above high normal MEDGEN ([facility]) BA% 0.8 % Normal (applies to [facility]GEN non-numeric ([place] results) Medical Service) IG% 0.20 % Normal (applies to [facility]GEN non-numeric ([facility] results) Medical Service) ID Date Data Source [id number] 01/12/2018 12:00:00 AM EDT MEDGEN ([facility] [employer] Medical Service) Name Value Range Interpretation Code Description Data Supporting Source(s) Document(s ) GLYCOMARK 26.76 Normal (applies to MEDGEN ug/mL non-numeric ([place] results) Medical Service) ID Date Data Source [id number] 01/12/2018 12:00:00 AM EDT MEDGEN ([facility] Medical Service) Name Value Range Interpretation Description Data Sup porting Code Source(s) Document(s ) Hemoglobin A1c 5.4 % Normal (applies to MEDGEN in Blood non-numeric ([facility] results) Medical Service) ID Date Data Source [id number] 01/12/2018 12:00:00 AM EDT MEDGEN ([facility]) Name Value Range Interpretation Description Data Sup porting Code Source(s) Document(s ) HEPATITIS BE NONREACTIVE Normal (applies MEDGEN AG to non-numeric ([place] results) Medical Service) ID Date Data Source [id number] 01/12/2018 12:00:00 AM EDT MEDGEN ([facility]) Name Value Range Interpretation Description Data Sup porting Code Source(s) Document(s ) HEPATITIS B 226.18 Normal (applies to MEDGEN SURFACE AB (REACTIVE non-numeric ([facility] ) results) Medical Service) ID Date Data Source [id number] 01/12/2018 12:00:00 AM EDT MEDGEN ([facility] Medical Service) Name Value Range Interpretation Description Data Sup porting Code Source(s) Document(s ) HEPATITIS B REACTIVE Normal (applies to MEDGEN CORE AB QL non-numeric ([facility] results) Medical Service) ID Date Data Source [id number] 01/12/2018 12:00:00 AM EDT MEDGEN ([facility] Medical Service) Name Value Range Interpretation Description Data Sup porting Code Source(s) Document(s ) HEPATITIS C NONREACTIVE Normal (applies MEDGEN AB QL to non-numeric ([facility] results) Medical Service) ID Date Data Source [id number] 01/12/2018 12:00:00 AM EDT MEDGEN ([facility] Medical Service) Name Value Range Interpretation Code Description Data Pooja rce(s) Supporting Document(s ) HBeAB POSITIVE Abnormal (applies to MEDGEN non-numeric results) ([facility] Service) ID Date Data Source [id number] 01/12/2018 12:00:00 AM EDT MEDGEN ([facility] Medical Service) Name Value Range Interpretation Description Data Sup porting Code Source(s) Document(s ) HEPATITIS BS NONREACTIVE Normal (applies MEDGEN AG SCREEN to non-numeric ([place] results) Medical Service) ID Date Data Source [id number] 01/12/2018 12:00:00 AM EDT MEDGEN ([facility] [employer] [facility]) Name Value Range Interpretation Description Data Sup porting Code Source(s) Document(s ) HEPATITIS A NONREACTIVE Normal (applies MEDGEN AB to non-numeric ([place] results) Medical Service) ID Date Data Source [id number] 01/12/2018 12:00:00 AM EDT MEDGEN ([facility] [employer] [facility]) Name Value Range Interpretation Code Description Data Pooja rce(s) Supporting Document(s ) T.VAGINAL NEGATIVE Normal (applies to MEDGEN IS rRNA non-numeric ([place] results) Medical Service) ID Date Data Source [id number] 01/12/2018 12:00:00 AM EDT MEDGEN ([facility] [employer] [facility]) Name Value Range Interpretation Description Data Sup porting Code Source(s) Document(s ) CHLAMYDIA NEGATIVE Normal (applies MEDGEN TRACHOMATIS RNA to non-numeric ([place] results) Medical Service) NEISSERIA NEGATIVE Normal (applies MEDGEN GONORRHOEAE RNA to non-numeric ([place] results) Medical Service) ID Date Data Source [id number] 01/12/2018 12:00:00 AM EDT MEDGEN ([facility] Medical [facility]) Name Value Range Interpretation Description Data Sup porting Code Source(s) Document(s ) GLUCOSE UA NEGATIVE Normal (applies MEDGEN to non-numeric ([place] results) Medical Service) BILIRUBIN, TOTAL NEGATIVE Normal (applies [facility]GEN to non-numeric ([place] results) Medical Service) Ketones NEGATIVE Normal (applies MEDGEN [Presence] in to non-numeric ([place] Blood by Tablet results) Medical Service) Specific gravity 1.020 SG Normal (applies MEDGEN of Pericardial units to non-numeric ([place] fluid by results) Medical Refractometry Service) pH of Lower 5 Ph units Normal (applies MEDGEN respiratory to non-numeric ([facility] specimen results) Medical Service) Blood [Presence] NEGATIVE Normal (applies MEDGEN in Urine by to non-numeric ([place] Visual results) Medical Service) Protein NEGATIVE Normal (applies [facility] [Mass/volume] in to non-numeric ([place] [facility] results) Medical respiratory Service) specimen Urobilinogen 2.0 mg/dl Normal (applies MEDGEN [Presence] in to non-numeric ([facility] Urine by results) Medical Automated test Service) strip Nitrite NEGATIVE Normal (applies MEDGEN [Presence] in to non-numeric ([place] Urine by Test results) Medical strip Service) Leukocyte NEGATIVE Normal (applies MEDGEN esterase to non-numeric ([facility] [Presence] in results) Medical Body fluid by Service) Automated test strip Color of YELLOW Normal (applies MEDGEN Peritoneal to non-numeric ([place] dialysis fluid results) Medical Service) TRANSPARENCY CLEAR Normal (applies MEDGEN to non-numeric ([place] results) Medical Service) ID Date Data Source [id number] 01/12/2018 12:00:00 AM EDT MEDGEN ([facility] [employer] [facility]) Name Value Range Interpretation Description Data Sup porting Code Source(s) Document(s ) TSH,3RD 0.61 Normal (applies to MEDGEN GENERATION uIU/mL non-numeric ([facility] results) Medical Service) T4 TOTAL 6.2 ug/dL Normal (applies to MEDGEN THYROXINE non-numeric ([place] results) Medical Service) T3 TOTAL 94 ng/dL Normal (applies to [facility]GEN non-numeric ([facility] results) Medical Service) ID Date Data Source [id number] 08/19/2017 12:00:00 AM EDT MEDGEN ([facility] Medical [facility]) Name Value Range Interpretation Code Description Data Pooja rce(s) Supporting Document(s ) RPR_TITER 1:4 Normal (applies to MEDGEN non-numeric results) ([place] [facility] Service) ID Date Data Source [id number] 08/19/2017 12:00:00 AM EDT MEDGEN ([facility] Medical [facility]) Name Value Range Interpretation Code Description Data Pooja rce(s) Supporting Document(s ) FTA-ABS REACTIVE Normal (applies to MEDGEN non-numeric results) ([place] [facility] Service) ID Date Data Source [id number] 08/19/2017 12:00:00 AM EDT MEDGEN ([facility] Medical Service) Name Value Range Interpretation Description Data Sup porting Code Source(s) Document(s ) HIV 1,2 NONREACTIVE Normal (applies MEDGEN AG/AB,4TH to non-numeric ([place] GENERATION results) Medical Service) ID Date Data Source [id number] 08/19/2017 12:00:00 AM EDT MEDGEN ([facility] Medical [facility]) Name Value Range Interpretation Description Data Sup porting Code Source(s) Document(s ) VITAMIN D 31.35 Normal (applies to MEDGEN 25-HYDROXY ng/mL non-numeric ([facility] results) Medical Service) ID Date Data Source [id number] 08/19/2017 12:00:00 AM EDT MEDGEN ([facility] Medical Service) Name Value Range Interpretation Description Data Sup porting Code Source(s) Document(s ) VITAMIN B12 489 pg/mL Normal (applies to MEDGEN non-numeric ([facility] results) Medical Service) ID Date Data Source [id number] 08/19/2017 12:00:00 AM EDT MEDGEN ([facility] Medical Service) Name Value Range Interpretation Code Description Data Pooja rce(s) Supporting Document(s ) RPR W/RFX REACTIVE Normal (applies to MEDGEN TITER non-numeric ([facility] results) Medical Service) ID Date Data Source [id number] 08/19/2017 12:00:00 AM EDT MEDGEN ([facility] Medical Service) Name Value Range Interpretation Description Data Sup porting Code Source(s) Document(s ) FOLATE 18.9 ng/mL Above high normal MEDGEN SERUM ([place] [facility] Service) ID Date Data Source [id number] 08/19/2017 12:00:00 AM EDT MEDGEN ([facility] Medical Service) Name Value Range Interpretation Description Data Sup porting Code Source(s) Document(s ) Cholesterol 155 Normal (applies MEDGEN [Moles/volume] mg/dL to non-numeric ([facility] in Pericardial results) Medical fluid Service) LDL CALCULATION 74.4 Normal (applies MEDGEN mg/dL to non-numeric ([facility] results) Medical Service) CHOL/HDL RATIO 2.58 Normal (applies MEDGEN ratio to non-numeric ([place] results) Medical Service) HDL CHOLESTEROL 60 mg/dL Above high normal MEDGEN ([place] [facility] Service) VLDL CALCULATION 20.6 Normal (applies MEDGEN mg/dl to non-numeric ([facility] results) Medical Service) TRIGLYCERIDES 103 Normal (applies MEDGEN mg/dL to non-numeric ([place] results) Medical Service) ID Date Data Source [id number] 08/19/2017 12:00:00 AM EDT MEDGEN ([facility] Medical Service) Name Value Range Interpretation Description Data Sup porting Code Source(s) Document(s ) GLUCOSE 81 mg/dL Normal (applies MEDGEN NONFASTING,SERUM to non-numeric ([place] results) Medical Service) POTASSIUM, SERUM 3.9 Normal (applies MEDGEN mEq/L to non-numeric ([place] results) Medical Service) SODIUM, SERUM 142 Normal (applies MEDGEN mEq/L to non-numeric ([place] results) Medical Service) CHLORIDE, SERUM 107 Normal (applies MEDGEN mEq/L to non-numeric ([place] results) Medical Service) Carbon dioxide 25 mEq/L Normal (applies MEDGEN [VFr/PPres] in to non-numeric ([place] Gas delivery results) Medical system Service) Anion gap in 14 mEq/L Normal (applies MEDGEN Body fluid to non-numeric ([place] results) Medical Service) BLOOD UREA 4 mg/dL Below low normal MEDGEN NITROGEN ([place] [facility] Service) CREATININE, 0.80 Normal (applies MEDGEN SERUM mg/dL to non-numeric ([place] results) Medical Service) BUN/CREATININE 5.0 Below low normal [facility]GEN RATIO ([place] [facility] Service) TOTAL PROTEIN 7.2 g/dL Normal (applies MEDGEN to non-numeric ([place] results) Medical Service) CALCIUM, SERUM 9.5 Normal (applies MEDGEN mg/dL to non-numeric ([place] results) Medical Service) Microalbumin 4.0 g/dL Normal (applies MEDGEN [Mass/time] in to non-numeric ([place] Urine collected results) Medical for unspecified Service) duration Globulin 3.2 gldl Normal (applies MEDGEN [Mass/time] in to non-numeric ([place] 24 hour Urine results) Medical Service) A/G RATIO 1.25 Normal (applies MEDGEN g/dl to non-numeric ([place] results) Medical Service) BILIRUBIN, TOTAL 0.4 Normal (applies MEDGEN mg/dL to non-numeric ([place] results) Medical Service) ALKALINE 73 U/L Normal (applies [facility]GEN PHOSPHATASE, ALP to [facility]) ALT (SGPT) 19 U/L Normal (applies MEDGEN to non-numeric ([place] results) Medical Service) AST 24 U/L Normal (applies MEDGEN to non-numeric ([place] results) Medical Service) EGFR NON AFR 81 Above high normal MEDGEN PRYDEINIG mL/min/1 ([place] .73m2 Medical Service) EGFR AFR 98 Above high normal MEDGEN PRYDEINIG mL/min/1 ([place] .73m2 Medical Service) ID Date Data Source [id number] 08/19/2017 12:00:00 AM EDT MEDGEN ([facility] Medical [facility]) Name Value Range Interpretation Description Data Sup porting Code Source(s) Document(s ) WBC 5.4 Normal (applies to MEDGEN 10(3)/uL non-numeric ([place] results) Medical Service) RBC 4.6 Normal (applies to MEDGEN 10(6)/uL non-numeric ([place] results) Medical Service) Hemoglobin 13.0 g/dL Normal (applies to MEDGEN [Mass/volume] non-numeric ([place] in Mixed results) Medical venous blood Service) by Oximetry Hematocrit 39.8 % Normal (applies to MEDGEN [Pure volume non-numeric ([place] fraction] of results) Medical Blood by Service) Automated count MCV 86.1 fL Normal (applies to MEDGEN non-numeric ([facility] results) Medical Service) MCH 28 pg Normal (applies to MEDGEN non-numeric ([facility] results) Medical Service) MCHC 33 g/dL Normal (applies to MEDGEN non-numeric ([place] results) Medical Service) RDWSD 45.5 fL Normal (applies to MEDGEN non-numeric ([place] results) Medical Service) RDWCV 14.6 % Normal (applies to MEDGEN non-numeric ([place] results) Medical Service) PLT 279 Normal (applies to MEDGEN 10(3)/uL non-numeric ([facility] results) Medical Service) MPV 9.4 fL Below low normal MEDGEN ([place] [facility] Service) NE# 3.27 Normal (applies to MEDGEN 10(3)/uL non-numeric ([facility] results) Medical Service) LY# 1.66 Normal (applies to MEDGEN 10(3)/uL non-numeric ([facility] results) Medical Service) MO# 0.37 Normal (applies to MEDGEN 10(3)/uL non-numeric ([facility] results) Medical Service) EO# 0.09 Normal (applies to MEDGEN 10(3)/uL non-numeric ([place] results) Medical Service) IG# 0.01 Normal (applies to MEDGEN 10(3)/uL non-numeric ([place] results) Medical Service) NE% 60.10 % Normal (applies to MEDGEN non-numeric ([facility] results) Medical Service) MO% 6.8 % Normal (applies to MEDGEN non-numeric ([place] results) Medical Service) LY% 31 % Normal (applies to MEDGEN non-numeric ([facility] results) Medical Service) EO% 1.7 % Normal (applies to MEDGEN non-numeric ([facility] results) Medical Service) BA% 0.6 % Normal (applies to MEDGEN non-numeric ([facility] results) Medical Service) IG% 0.20 % Normal (applies to MEDGEN non-numeric ([place] results) Medical Service) ID Date Data Source [id number] 08/19/2017 12:00:00 AM EDT MEDGEN ([facility] Medical Service) Name Value Range Interpretation Code Description Data Supporting Source(s) Document(s ) GLYCOMARK 27.44 Normal (applies to MEDGEN ug/mL non-numeric ([facility] results) Medical Service) ID Date Data Source [id number] 08/19/2017 12:00:00 AM EDT MEDGEN ([facility] Medical Service) Name Value Range Interpretation Description Data Sup porting Code Source(s) Document(s ) Hemoglobin A1c 5.4 % Normal (applies to MEDGEN in Blood non-numeric ([place] results) Medical Service) ID Date Data Source [id number] 08/19/2017 12:00:00 AM EDT MEDGEN ([facility] Medical Service) Name Value Range Interpretation Description Data Sup porting Code Source(s) Document(s ) HEPATITIS BE NONREACTIVE Normal (applies MEDGEN AG to non-numeric ([facility] results) Medical Service) ID Date Data Source [id number] 08/19/2017 12:00:00 AM EDT MEDGEN ([facility] Medical Service) Name Value Range Interpretation Description Data Sup porting Code Source(s) Document(s ) HEPATITIS B 154.17 Normal (applies to MEDGEN SURFACE AB (REACTIVE non-numeric ([facility] ) results) Medical Service) ID Date Data Source [id number] 08/19/2017 12:00:00 AM EDT MEDGEN ([facility] Medical Service) Name Value Range Interpretation Description Data Sup porting Code Source(s) Document(s ) HEPATITIS B REACTIVE Normal (applies to MEDGEN CORE AB QL non-numeric ([place] results) Medical Service) ID Date Data Source [id number] 08/19/2017 12:00:00 AM EDT [facility] Name Value Range Interpretation Description Data Sup porting Code Source(s) Document(s ) HEPATITIS C NONREACTIVE Normal (applies MEDGEN AB QL to non-numeric ([place] results) Medical Service) ID Date Data Source [id number] 08/19/2017 12:00:00 AM EDT MEDGEN ([facility] [employer] Medical Service) Name Value Range Interpretation Code Description Data Pooja rce(s) Supporting Document(s ) HBeAB POSITIVE Abnormal (applies to MEDGEN non-numeric results) ([place] [facility] Service) ID Date Data Source [id number] 08/19/2017 12:00:00 AM EDT MEDGEN ([facility]) Name Value Range Interpretation Description Data Sup porting Code Source(s) Document(s ) HEPATITIS BS NONREACTIVE Normal (applies MEDGEN AG SCREEN to non-numeric ([place] results) Medical Service) ID Date Data Source [id number] 08/19/2017 12:00:00 AM EDT MEDGEN ([facility]) Name Value Range Interpretation Description Data Sup porting Code Source(s) Document(s ) HEPATITIS A NONREACTIVE Normal (applies MEDGEN AB to non-numeric ([facility] results) Medical Service) ID Date Data Source [id number] 08/19/2017 12:00:00 AM EDT MEDGEN ([facility]) Name Value Range Interpretation Description Data Sup porting Code Source(s) Document(s ) TSH,3RD 0.45 Normal (applies to MEDGEN GENERATION uIU/mL non-numeric ([place] results) Medical Service) T3 TOTAL 83 ng/dL Normal (applies to MEDGEN non-numeric ([facility] results) Medical Service) T4 TOTAL 6 ug/dL Normal (applies to MEDGEN THYROXINE non-numeric ([place] results) Medical Service) ID Date Data Source [id number] 08/19/2017 12:00:00 AM EDT MEDGEN ([facility] [employer] Medical Service) Name Value Range Interpretation Code Description Data Pooja rce(s) Supporting Document(s ) RPR_TITER 1:4 Normal (applies to MEDGEN non-numeric results) ([place] [facility] Service) ID Date Data Source [id number] 08/19/2017 12:00:00 AM EDT MEDGEN ([facility] [employer] Medical Service) Name Value Range Interpretation Code Description Data Pooja rce(s) Supporting Document(s ) FTA-ABS REACTIVE Normal (applies to MEDGEN non-numeric results) ([facility] Service) ID Date Data Source [id number] 08/19/2017 12:00:00 AM EDT MEDGEN ([facility] [employer] Medical Service) Name Value Range Interpretation Description Data Sup porting Code Source(s) Document(s ) HIV 1,2 NONREACTIVE Normal (applies MEDGEN AG/AB,4TH to non-numeric ([place] GENERATION results) Medical Service) ID Date Data Source [id number] 08/19/2017 12:00:00 AM EDT MEDGEN ([facility] Medical Service) Name Value Range Interpretation Description Data Sup porting Code Source(s) Document(s ) VITAMIN D 31.35 Normal (applies to MEDGEN 25-HYDROXY ng/mL non-numeric ([place] results) Medical Service) ID Date Data Source [id number] 08/19/2017 12:00:00 AM EDT MEDGEN ([facility] [employer] [facility]) Name Value Range Interpretation Description Data Sup porting Code Source(s) Document(s ) VITAMIN B12 489 pg/mL Normal (applies to MEDGEN non-numeric ([facility] results) Medical Service) ID Date Data Source [id number] 08/19/2017 12:00:00 AM EDT MEDGEN ([facility] Medical [facility]) Name Value Range Interpretation Code Description Data Pooja rce(s) Supporting Document(s ) RPR W/RFX REACTIVE Normal (applies to MEDGEN TITER non-numeric ([place] results) Medical Service) ID Date Data Source [id number] 08/19/2017 12:00:00 AM EDT MEDGEN ([facility] Medical Service) Name Value Range Interpretation Description Data Sup porting Code Source(s) Document(s ) FOLATE 18.9 ng/mL Above high normal MEDGEN SERUM ([facility] Service) ID Date Data Source [id number] 08/19/2017 12:00:00 AM EDT MEDGEN ([facility] Medical [facility]) Name Value Range Interpretation Description Data Sup porting Code Source(s) Document(s ) Cholesterol 155 Normal (applies MEDGEN [Moles/volume] mg/dL to non-numeric ([facility] in Pericardial results) Medical fluid Service) LDL CALCULATION 74.4 Normal (applies MEDGEN mg/dL to non-numeric ([place] results) Medical Service) CHOL/HDL RATIO 2.58 Normal (applies MEDGEN ratio to non-numeric ([facility] results) Medical Service) HDL CHOLESTEROL 60 mg/dL Above high normal MEDGEN ([place] [facility]) VLDL CALCULATION 20.6 Normal (applies MEDGEN mg/dl to non-numeric ([facility] results) Medical Service) TRIGLYCERIDES 103 Normal (applies MEDGEN mg/dL to non-numeric ([facility] results) Medical Service) ID Date Data Source [id number] 08/19/2017 12:00:00 AM EDT MEDGEN ([facility] [employer] [facility]) Name Value Range Interpretation Description Data Sup porting Code Source(s) Document(s ) GLUCOSE 81 mg/dL Normal (applies MEDGEN NONFASTING,SERUM to non-numeric ([facility] results) Medical Service) SODIUM, SERUM 142 Normal (applies MEDGEN mEq/L to non-numeric ([place] results) Medical Service) POTASSIUM, SERUM 3.9 Normal (applies MEDGEN mEq/L to non-numeric ([place] results) Medical Service) CHLORIDE, SERUM 107 Normal (applies MEDGEN mEq/L to non-numeric ([place] results) Medical Service) Carbon dioxide 25 mEq/L Normal (applies MEDGEN [VFr/PPres] in to non-numeric ([place] Gas [facility] results) Medical system Service) Anion gap in 14 mEq/L Normal (applies MEDGEN Body fluid to non-numeric ([place] results) Medical Service) BLOOD UREA 4 mg/dL Below low normal MEDGEN NITROGEN ([place] Medical [facility]) CREATININE, 0.80 Normal (applies MEDGEN SERUM mg/dL to non-numeric ([place] results) Medical Service) BUN/CREATININE 5.0 Below low normal MEDGEN RATIO ([facility]) TOTAL PROTEIN 7.2 g/dL Normal (applies MEDGEN to non-numeric ([place] results) Medical Service) CALCIUM, SERUM 9.5 Normal (applies MEDGEN mg/dL to non-numeric ([place] results) Medical Service) Microalbumin 4.0 g/dL Normal (applies MEDGEN [Mass/time] in to non-numeric ([place] Urine collected results) Medical for unspecified Service) duration Globulin 3.2 gldl Normal (applies MEDGEN [Mass/time] in to non-numeric ([place] 24 hour Urine results) Medical Service) A/G RATIO 1.25 Normal (applies MEDGEN g/dl to non-numeric ([place] results) Medical Service) BILIRUBIN, TOTAL 0.4 Normal (applies MEDGEN mg/dL to non-numeric ([place] results) Medical Service) ALT (SGPT) 19 U/L Normal (applies MEDGEN to non-numeric ([place] results) Medical Service) ALKALINE 73 U/L Normal (applies MEDGEN PHOSPHATASE, ALP to non-numeric ([facility] results) Medical Service) AST 24 U/L Normal (applies MEDGEN to non-numeric ([place] results) Medical Service) EGFR NON AFR 81 Above high normal MEDGEN PRYDEINIG mL/min/1 ([place] .73m2 Medical Service) EGFR AFR 98 Above high normal MEDGEN PRYDEINIG mL/min/1 ([facility] .73m2 Medical Service) ID Date Data Source [id number] 08/19/2017 12:00:00 AM EDT MEDGEN ([facility]) Name Value Range Interpretation Description Data Sup porting Code Source(s) Document(s ) WBC 5.4 Normal (applies to MEDGEN 10(3)/uL non-numeric ([place] results) Medical Service) RBC 4.6 Normal (applies to MEDGEN 10(6)/uL non-numeric ([place] results) Medical Service) Hemoglobin 13.0 g/dL Normal (applies to MEDGEN [Mass/volume] non-numeric ([facility] in Mixed results) Medical venous blood Service) by Oximetry Hematocrit 39.8 % Normal (applies to MEDGEN [Pure volume non-numeric ([place] fraction] of results) Medical Blood by Service) Automated count MCH 28 pg Normal (applies to MEDGEN non-numeric ([place] results) Medical Service) MCV 86.1 fL Normal (applies to MEDGEN non-numeric ([place] results) Medical Service) MCHC 33 g/dL Normal (applies to MEDGEN non-numeric ([facility] results) Medical Service) RDWSD 45.5 fL Normal (applies to MEDGEN non-numeric ([facility] results) Medical Service) RDWCV 14.6 % Normal (applies to MEDGEN non-numeric ([facility] results) Medical Service) MPV 9.4 fL Below low normal MEDGEN ([facility]) PLT 279 Normal (applies to MEDGEN 10(3)/uL non-numeric ([place] results) Medical Service) NE# 3.27 Normal (applies to MEDGEN 10(3)/uL non-numeric ([facility] results) Medical Service) LY# 1.66 Normal (applies to MEDGEN 10(3)/uL non-numeric ([place] results) Medical Service) MO# 0.37 Normal (applies to MEDGEN 10(3)/uL non-numeric ([place] results) Medical Service) EO# 0.09 Normal (applies to MEDGEN 10(3)/uL non-numeric ([place] results) Medical Service) IG# 0.01 Normal (applies to MEDGEN 10(3)/uL non-numeric ([facility] results) Medical Service) NE% 60.10 % Normal (applies to MEDGEN non-numeric ([facility] results) Medical Service) LY% 31 % Normal (applies to MEDGEN non-numeric ([place] results) Medical Service) MO% 6.8 % Normal (applies to MEDGEN non-numeric ([facility] results) Medical Service) EO% 1.7 % Normal (applies to MEDGEN non-numeric ([place] results) Medical Service) IG% 0.20 % Normal (applies to MEDGEN non-numeric ([place] results) Medical Service) BA% 0.6 % Normal (applies to MEDGEN non-numeric ([place] results) Medical Service) ID Date Data Source [id number] 08/19/2017 12:00:00 AM EDT MEDGEN ([facility]) Name Value Range Interpretation Code Description Data Supporting Source(s) Document(s ) GLYCOMARK 27.44 Normal (applies to MEDGEN ug/mL non-numeric ([facility] results) Medical Service) ID Date Data Source [id number] 08/19/2017 12:00:00 AM EDT MEDGEN ([facility]) Name Value Range Interpretation Description Data Sup porting Code Source(s) Document(s ) Hemoglobin A1c 5.4 % Normal (applies to MEDGEN in Blood non-numeric ([facility] results) Medical Service) ID Date Data Source [id number] 08/19/2017 12:00:00 AM EDT MEDGEN ([facility]) Name Value Range Interpretation Description Data Sup porting Code Source(s) Document(s ) HEPATITIS BE NONREACTIVE Normal (applies MEDGEN AG to non-numeric ([facility] results) Medical Service) ID Date Data Source [id number] 08/19/2017 12:00:00 AM EDT MEDGEN ([facility]) Name Value Range Interpretation Description Data Sup porting Code Source(s) Document(s ) HEPATITIS B 154.17 Normal (applies to MEDGEN SURFACE AB (REACTIVE non-numeric ([place] ) results) Medical Service) ID Date Data Source [id number] 08/19/2017 12:00:00 AM EDT MEDGEN [employer] Medical Service) Name Value Range Interpretation Description Data Sup porting Code Source(s) Document(s ) HEPATITIS B REACTIVE Normal (applies to MEDGEN CORE AB QL non-numeric ([facility] results) Medical Service) ID Date Data Source [id number] 08/19/2017 12:00:00 AM EDT MEDGEN ([facility]) Name Value Range Interpretation Description Data Sup porting Code Source(s) Document(s ) HEPATITIS C NONREACTIVE Normal (applies MEDGEN AB QL to non-numeric ([facility] results) Medical Service) ID Date Data Source [id number] 08/19/2017 12:00:00 AM EDT MEDGEN ([employer] [facility]) Name Value Range Interpretation Code Description Data Pooja rce(s) Supporting Document(s ) HBeAB POSITIVE Abnormal (applies to MEDGEN non-numeric results) ([facility]) ID Date Data Source [id number] 08/19/2017 12:00:00 AM EDT MEDGEN ([facility]) Name Value Range Interpretation Description Data Sup porting Code Source(s) Document(s ) HEPATITIS BS NONREACTIVE Normal (applies MEDGEN AG SCREEN to non-numeric ([facility] results) Medical Service) ID Date Data Source [id number] 08/19/2017 12:00:00 AM EDT MEDGEN ([facility]) Name Value Range Interpretation Description Data Sup porting Code Source(s) Document(s ) HEPATITIS A NONREACTIVE Normal (applies MEDGEN AB to non-numeric ([place] results) Medical Service) ID Date Data Source [id number] 08/19/2017 12:00:00 AM EDT MEDGEN ([facility]) Name Value Range Interpretation Description Data Sup porting Code Source(s) Document(s ) TSH,3RD 0.45 Normal (applies to MEDGEN GENERATION uIU/mL non-numeric ([facility] results) Medical Service) T4 TOTAL 6 ug/dL Normal (applies to MEDGEN THYROXINE non-numeric ([place] results) Medical Service) T3 TOTAL 83 ng/dL Normal (applies to MEDGEN non-numeric ([place] results) Medical Service) ID Date Data Source [id number] 08/07/2016 12:00:00 AM EDT MEDGEN ([facility]) Name Value Range Interpretation Description Data Sup porting Code Source(s) Document(s ) HIV Nonreactive Normal (applies to MEDGEN AG/AB, non-numeric ([facility] 4TH GEN results) Medical Service) ID Date Data Source [id number] 08/07/2016 12:00:00 AM EDT MEDGEN ([facility]) Name Value Range Interpretation Description Data Sup porting Code Source(s) Document(s ) VITAMIN 20 ng/mL Below low normal MEDGEN D,25-OH,TOTA ([facility] Medical Service) ID Date Data Source [id number] 08/07/2016 12:00:00 AM EDT MEDGEN ([facility]) Name Value Range Interpretation Description Data Sup porting Code Source(s) Document(s ) Hemoglobin 6.1 % of Above high normal MEDGEN A1c/Hemoglobin total Hgb ([place] .total in Medical Blood Service) ID Date Data Source [id number] 08/07/2016 12:00:00 AM EDT MEDGEN ([facility]) Name Value Range Interpretation Description Data Sup porting Code Source(s) Document(s ) HEPATITIS A Nonreactive Normal (applies MEDGEN AB (IGM) to non-numeric ([place] results) Medical Service) HB S AG Non Reactive Normal (applies MEDGEN to non-numeric ([place] results) Medical Service) HB CORE AB Non Reactive Normal (applies MEDGEN (IGM) to non-numeric ([place] results) Medical Service) HEPATITIS C Non Reactive Normal (applies MEDGEN AB to non-numeric ([place] results) Medical Service) HCV RATIO 0.06 Ratio Normal (applies MEDGEN to non-numeric ([place] results) Medical Service) ID Date Data Source [id number] 08/07/2016 12:00:00 AM EDT MEDGEN ([facility]) Name Value Range Interpretation Code Description Data Pooja rce(s) Supporting Document(s ) FOLATE,SE 5.3 ng/mL Below low normal MEDGEN RUM ([facility]) ID Date Data Source [id number] 08/07/2016 12:00:00 AM EDT MEDGEN [facility]) Name Value Range Interpretation Description Data Sup porting Code Source(s) Document(s ) VITAMIN B12 685 pg/mL Normal (applies to MEDGEN non-numeric ([place] results) Medical Service) ID Date Data Source [id number] 08/07/2016 12:00:00 AM EDT MEDGEN [facility]) Name Value Range Interpretation Description Data Sup porting Code Source(s) Document(s ) WBC 7.2 Normal (applies MEDGEN Thous/mc to non-numeric ([place] L results) Medical Service) RBC 4.98 Normal (applies MEDGEN Mill/mcL to non-numeric ([place] results) Medical Service) Hemoglobin 14.1 Normal (applies MEDGEN [Mass/volume] in g/dL to non-numeric ([facility] y Mixed venous results) Medical blood by Service) Oximetry Hematocrit [Pure 43.7 % Normal (applies MEDGEN volume fraction] to non-numeric ( y of Blood by results) Medical Automated count Service) MCV 87.8 fL Normal (applies MEDGEN to non-numeric ([place] results) Medical Service) MCH 28.3 pg Normal (applies MEDGEN to non-numeric ([place] results) Medical Service) MCHC 32.2 Normal (applies MEDGEN g/dL to non-numeric ([place] results) Medical Service) RDW 16.0 % Above high normal MEDGEN ([facility]) PLATELET COUNT 293 Normal (applies MEDGEN Thous/mc to non-numeric ([place] L results) Medical Service) MPV 7.3 fL Below low normal MEDGEN ([facility]) TOTAL 68.6 % Normal (applies MEDGEN NEUTROPHILS,% to non-numeric ([place] results) Medical Service) TOTAL 25.5 % Normal (applies MEDGEN LYMPHOCYTES,% to non-numeric ([facility] results) Medical Service) MONOCYTES,% 4.7 % Normal (applies MEDGEN to non-numeric ([place] results) Medical Service) EOSINOPHILS,% 0.8 % Normal (applies MEDGEN to non-numeric ([place] results) Medical Service) BASOPHILS,% 0.4 % Normal (applies MEDGEN to non-numeric ([facility] results) Medical Service) NEUTROPHILS,ABSO 4939 Normal (applies MEDGEN LUTE Cells/mc to non-numeric ([facility] L results) Medical Service) LYMPHOCYTES,ABSO 1836 Normal (applies MEDGEN LUTE Cells/mc to non-numeric ([place] L results) Medical Service) MONOCYTES,ABSOLU 338 Normal (applies MEDGEN TE Cells/mc to non-numeric ([facility] L results) Medical Service) EOSINOPHILS,ABSO 58 Normal (applies MEDGEN LUTE Cells/mc to non-numeric ([place] L results) Medical Service) BASOPHILS,ABSOLU 29 Normal (applies MEDGEN TE Cells/mc to non-numeric ([place] L results) Medical Service) DIFFERENTIAL Normal (applies MEDGEN to non-numeric ([place] results) Medical Service) ID Date Data Source [id number] 08/07/2016 12:00:00 AM EDT MEDGEN ([facility] Service) Name Value Range Interpretation Description Data Sup porting Code Source(s) Document(s ) CHOLESTEROL,TOTA 190 Normal (applies MEDGEN L mg/dL to non-numeric ([facility] results) Medical Service) HDL CHOLESTEROL 49 mg/dL Normal (applies MEDGEN to non-numeric ([facility] results) Medical Service) CHOLESTEROL/HDL 3.9 Normal (applies MEDGEN RATIO to non-numeric ([place] results) Medical Service) LDL CHOL, 118 Normal (applies MEDGEN CALCULATED mg/dL to non-numeric ([facility] results) Medical Service) TRIGLYCERIDES 116 Normal (applies MEDGEN mg/dL to non-numeric ([facility] results) Medical Service) NON HDL 141 Normal (applies MEDGEN CHOLESTEROL mg/dL to non-numeric ([facility] results) Medical Service) ID Date Data Source [id number] 08/07/2016 12:00:00 AM EDT MEDGEN ([facility]) Name Value Range Interpretation Code Description Data Pooja rce(s) Supporting Document(s ) URIC ACID 4.4 mg/dL Normal (applies to MEDGEN non-numeric ([facility] results) Medical Service) ID Date Data Source [id number] 08/07/2016 12:00:00 AM EDT MEDGEN ([facility]) Name Value Range Interpretation Description Data Sup porting Code Source(s) Document(s ) Glucose 106 Normal (applies MEDGEN [Mass/volume] in mg/dL to non-numeric ([place] [facility] Urine collected results) Medical for unspecified Service) duration Sodium 139 Normal (applies MEDGEN [Moles/volume] mmol/L to non-numeric ([facility] in Serum, Plasma results) Medical or Blood Service) Potassium 4.0 Normal (applies MEDGEN [Mass/volume] in mmol/L to non-numeric ([place] [facility] Blood results) Medical Service) Chloride 100 Normal (applies MEDGEN [Moles/volume] mmol/L to non-numeric ([place] in Serum, Plasma results) Medical or Blood Service) Carbon dioxide 25 Normal (applies MEDGEN [VFr/PPres] in mmol/L to non-numeric ([facility] results) Medical system Service) Urea nitrogen 5 mg/dL Below low normal MEDGEN [Moles/volume] ([place] in Blood Medical Service) Creatinine 0.84 Normal (applies MEDGEN [Interpretation] mg/dL to non-numeric ([place] in Urine results) Medical Service) BUN/CREATININE 6 (calc) Normal (applies MEDGEN RATIO to non-numeric ([facility] results) Medical Service) Calcium 9.9 Normal (applies MEDGEN [Moles/volume] mg/dL to non-numeric ([place] in Urine results) Medical collected for Service) unspecified duration PROTEIN, TOTAL 7.9 g/dL Normal (applies MEDGEN to non-numeric ([facility] results) Medical Service) Microalbumin 4.3 g/dL Normal (applies MEDGEN [Mass/time] in to non-numeric ([facility] Urine collected results) Medical for unspecified Service) duration Globulin 3.6 g/dL Normal (applies MEDGEN [Mass/time] in (calc) to non-numeric ([facility] 24 hour Urine results) Medical Service) ALBUMIN/GLOBULIN 1.2 Normal (applies MEDGEN RATIO (calc) to non-numeric ([place] results) Medical Service) BILIRUBIN,TOTAL 0.4 Normal (applies MEDGEN mg/dL to non-numeric ([facility] results) Medical Service) Alkaline 83 U/L Normal (applies MEDGEN phosphatase to non-numeric ([facility] [Enzymatic results) Medical activity/volume] Service) in Serum, Plasma or Blood AST 18 U/L Normal (applies MEDGEN to non-numeric ([facility] results) Medical Service) ALT 12 U/L Normal (applies MEDGEN to non-numeric ([place] results) Medical Service) EGFR NON AFR 83 Normal (applies MEDGEN PRYDEINIG mL/min/1 to non-numeric ([place] .73m2 results) Medical Service) EGFR 96 Normal (applies MEDGEN PRYDEINIG mL/min/1 to non-numeric ([place] .73m2 results) Medical Service) ID Date Data Source [id number] 08/07/2016 12:00:00 AM EDT MEDGEN ([facility]) Name Value Range Interpretation Description Data Sup porting Code Source(s) Document(s ) TSH 0.41 mIU/L Normal (applies to MEDGEN non-numeric ([facility] results) Medical Service) T4 7.8 mcg/dL Normal (applies to MEDGEN (THYROXINE) non-numeric ([facility] , TOTAL results) Medical Service) T3 UPTAKE 34 % Normal (applies to MEDGEN non-numeric ([facility] results) Medical Service) FREE T4 2.7 Normal (applies to MEDGEN INDEX (T7) non-numeric ([place] results) Medical Service) T3,TOTAL 98 ng/dL Normal (applies to MEDGEN non-numeric ([place] results) Medical Service) ID Date Data Source [id number] 08/07/2016 12:00:00 AM EDT MEDGEN ([facility]) Name Value Range Interpretation Description Data Sup porting Code Source(s) Document(s ) HIV Nonreactive Normal (applies to MEDGEN AG/AB, non-numeric ([facility] 4TH GEN results) Medical Service) ID Date Data Source [id number] 08/07/2016 12:00:00 AM EDT MEDGEN ([facility]) Name Value Range Interpretation Description Data Sup porting Code Source(s) Document(s ) VITAMIN 20 ng/mL Below low normal MEDGEN D,25-OH,TOTA ([facility] Medical Service) ID Date Data Source [id number] 08/07/2016 12:00:00 AM EDT MEDGEN ([facility]) Name Value Range Interpretation Description Data Sup porting Code Source(s) Document(s ) Hemoglobin 6.1 % of Above high normal MEDGEN A1c/Hemoglobin total Hgb ([place] .total in Medical Blood Service) ID Date Data Source [id number] 08/07/2016 12:00:00 AM EDT MEDGEN ([facility]) Name Value Range Interpretation Description Data Sup porting Code Source(s) Document(s ) HB S AG Non Reactive Normal (applies MEDGEN to non-numeric ([place] results) Medical Service) HEPATITIS A Nonreactive Normal (applies MEDGEN AB (IGM) to non-numeric ([place] results) Medical Service) HB CORE AB Non Reactive Normal (applies MEDGEN (IGM) to non-numeric ([place] results) Medical Service) HCV RATIO 0.06 Ratio Normal (applies MEDGEN to non-numeric ([place] results) Medical Service) HEPATITIS C Non Reactive Normal (applies MEDGEN AB to non-numeric ([place] results) Medical Service) ID Date Data Source [id number] 08/07/2016 12:00:00 AM EDT MEDGEN ([facility]) Name Value Range Interpretation Code Description Data Pooja rce(s) Supporting Document(s ) FOLATE,SE 5.3 ng/mL Below low normal MEDGEN RUM ([facility]) ID Date Data Source [id number] 08/07/2016 12:00:00 AM EDT MEDGEN ([facility] Service) Name Value Range Interpretation Description Data Sup porting Code Source(s) Document(s ) VITAMIN B12 685 pg/mL Normal (applies to MEDGEN non-numeric ([facility] results) Medical Service) ID Date Data Source [id number] 08/07/2016 12:00:00 AM EDT MEDGEN ([facility]) Name Value Range Interpretation Description Data Sup porting Code Source(s) Document(s ) WBC 7.2 Normal (applies MEDGEN Thous/mc to non-numeric ([place] L results) Medical Service) RBC 4.98 Normal (applies MEDGEN Mill/mcL to non-numeric ([place] results) Medical Service) Hemoglobin 14.1 Normal (applies MEDGEN [Mass/volume] in g/dL [facility] Medical blood by Service) Oximetry Hematocrit [Pure 43.7 % Normal (applies MEDGEN volume fraction] to non-numeric [facility]) Medical Automated count Service) MCV 87.8 fL Normal (applies MEDGEN to non-numeric ([place] results) Medical Service) MCH 28.3 pg Normal (applies MEDGEN to non-numeric ([place] results) Medical Service) MCHC 32.2 Normal (applies MEDGEN g/dL to non-numeric ([place] results) Medical Service) RDW 16.0 % Above high normal MEDGEN ([facility]) PLATELET COUNT 293 Normal (applies MEDGEN Thous/mc to non-numeric ([place] L results) Medical Service) MPV 7.3 fL Below low normal MEDGEN ([facility]) TOTAL 25.5 % Normal (applies MEDGEN LYMPHOCYTES,% to non-numeric ([facility] results) Medical Service) TOTAL 68.6 % Normal (applies MEDGEN NEUTROPHILS,% to non-numeric ([place] results) Medical Service) MONOCYTES,% 4.7 % Normal (applies MEDGEN to non-numeric ([facility] results) Medical Service) EOSINOPHILS,% 0.8 % Normal (applies MEDGEN to non-numeric ([place] results) Medical Service) BASOPHILS,% 0.4 % Normal (applies MEDGEN to non-numeric ([facility] results) Medical Service) NEUTROPHILS,ABSO 4939 Normal (applies MEDGEN LUTE Cells/mc to non-numeric ([facility] L results) Medical Service) MONOCYTES,ABSOLU 338 Normal (applies MEDGEN TE Cells/mc to non-numeric ([place] L results) Medical Service) LYMPHOCYTES,ABSO 1836 Normal (applies MEDGEN LUTE Cells/mc to non-numeric ([place] L results) Medical Service) EOSINOPHILS,ABSO 58 Normal (applies MEDGEN LUTE Cells/mc to non-numeric ([place] L results) Medical Service) BASOPHILS,ABSOLU 29 Normal (applies MEDGEN TE Cells/mc to non-numeric ([place] L results) Medical Service) DIFFERENTIAL Normal (applies MEDGEN to non-numeric ([place] results) Medical Service) ID Date Data Source [id number] 08/07/2016 12:00:00 AM EDT MEDGEN ([facility]) Name Value Range Interpretation Description Data Sup porting Code Source(s) Document(s ) CHOLESTEROL,TOTA 190 Normal (applies MEDGEN L mg/dL to non-numeric ([facility] results) Medical Service) HDL CHOLESTEROL 49 mg/dL Normal (applies MEDGEN to non-numeric ([place] results) Medical Service) CHOLESTEROL/HDL 3.9 Normal (applies MEDGEN RATIO to non-numeric ([place] results) Medical Service) LDL CHOL, 118 Normal (applies MEDGEN CALCULATED mg/dL to non-numeric ([facility] results) Medical Service) TRIGLYCERIDES 116 Normal (applies MEDGEN mg/dL to non-numeric ([facility] results) Medical Service) NON HDL 141 Normal (applies MEDGEN CHOLESTEROL mg/dL to non-numeric ([facility] results) Medical Service) ID Date Data Source [id number] 08/07/2016 12:00:00 AM EDT MEDGEN ([facility]) Name Value Range Interpretation Code Description Data Pooja rce(s) Supporting Document(s ) URIC ACID 4.4 mg/dL Normal (applies to MEDGEN non-numeric ([facility] results) Medical Service) ID Date Data Source [id number] 08/07/2016 12:00:00 AM EDT MEDGEN ([facility]) Name Value Range Interpretation Description Data Sup porting Code Source(s) Document(s ) Glucose 106 Normal (applies MEDGEN [Mass/volume] in mg/dL to non-numeric ([place] [facility] Urine collected results) Medical for unspecified Service) duration Sodium 139 Normal (applies MEDGEN [Moles/volume] mmol/L to non-numeric ([facility] in Serum, Plasma results) Medical or Blood Service) Potassium 4.0 Normal (applies MEDGEN [Mass/volume] in mmol/L to non-numeric ([place] [facility] Blood results) Medical Service) Chloride 100 Normal (applies MEDGEN [Moles/volume] mmol/L to non-numeric ([place] in Serum, Plasma results) Medical or Blood Service) Carbon dioxide 25 Normal (applies MEDGEN [VFr/PPres] in mmol/L to non-numeric ([place] Gas [facility] results) Medical system Service) Urea nitrogen 5 mg/dL Below low normal MEDGEN [Moles/volume] ([place] in Blood Medical Service) Creatinine 0.84 Normal (applies MEDGEN [Interpretation] mg/dL to non-numeric ([place] [facility] in Urine results) Medical Service) BUN/CREATININE 6 (calc) Normal (applies MEDGEN RATIO to non-numeric ([place] results) Medical Service) Calcium 9.9 Normal (applies MEDGEN [Moles/volume] mg/dL to non-numeric ([place] in Urine results) Medical collected for Service) unspecified duration PROTEIN, TOTAL 7.9 g/dL Normal (applies MEDGEN to non-numeric ([facility] results) Medical Service) Globulin 3.6 g/dL Normal (applies MEDGEN [Mass/time] in (calc) to non-numeric ([facility] 24 hour Urine results) Medical Service) Microalbumin 4.3 g/dL Normal (applies MEDGEN [Mass/time] in to non-numeric ([place] Urine collected results) Medical for unspecified Service) duration ALBUMIN/GLOBULIN 1.2 Normal (applies MEDGEN RATIO (calc) to non-numeric ([place] results) Medical Service) BILIRUBIN,TOTAL 0.4 Normal (applies MEDGEN mg/dL to non-numeric ([facility] results) Medical Service) Alkaline 83 U/L Normal (applies MEDGEN phosphatase to non-numeric ([facility] [Enzymatic results) Medical activity/volume] Service) in Serum, Plasma or Blood AST 18 U/L Normal (applies MEDGEN to non-numeric ([place] results) Medical Service) ALT 12 U/L Normal (applies MEDGEN to non-numeric ([place] results) Medical Service) EGFR NON AFR 83 Normal (applies MEDGEN PRYDEINIG mL/min/1 to non-numeric ([place] .73m2 results) Medical Service) EGFR 96 Normal (applies MEDGEN PRYDEINIG mL/min/1 to non-numeric ([facility] .73m2 results) Medical Service) ID Date Data Source [id number] 08/07/2016 12:00:00 AM EDT MEDGEN ([facility]) Name Value Range Interpretation Description Data Sup porting Code Source(s) Document(s ) TSH 0.41 mIU/L Normal (applies to MEDGEN non-numeric ([facility] results) Medical Service) T4 7.8 mcg/dL Normal (applies to MEDGEN (THYROXINE) non-numeric ([facility] , TOTAL results) Medical Service) FREE T4 2.7 Normal (applies to [facility]GEN INDEX (T7) non-numeric ([facility] results) Medical Service) T3 UPTAKE 34 % Normal (applies to [facility]GEN non-numeric ([facility] results) Medical Service) T3,TOTAL 98 ng/dL Normal (applies to [facility]GEN non-numeric ([facility] results) Medical Service) ID Date Data Source [id number] 09/12/2015 12:00:00 AM EDT [facility] ([employer] [facility]) Name Value Range Interpretation Description Data Sup porting Code Source(s) Document(s ) Hemoglobin 5.5 % Normal (applies to [facility]GEN A1c/Hemoglobin. non-numeric ([facility] total in Blood results) Medical Service) ID Date Data Source [id number] 09/12/2015 12:00:00 AM EDT [facility] ([facility] [employer] [facility]) Name Value Range Interpretation Description Data Sup porting Code Source(s) Document(s ) WBC 6.3 Normal (applies [facility]GEN 10^3/uL to non-numeric ([place] results) Medical Service) RBC 4.34 Normal (applies [facility]GEN 10^6/uL to non-numeric ([facility] results) Medical Service) Hemoglobin 12.4 g/dL Normal (applies [facility]GEN [Mass/volume] to non-numeric ([facility] in Mixed venous results) Medical blood by Service) Oximetry Hematocrit 39 % Normal (applies [facility]GEN [Pure volume to non-numeric ([facility] fraction] of results) Medical Blood by Service) Automated count MCV 90 fL Normal (applies [facility]GEN to non-numeric ([facility] results) Medical Service) MCH 28.6 pg Normal (applies [facility]GEN to non-numeric ([place] results) Medical Service) MCHC 31.9 g/dL Below low normal [facility] ([place] [facility]) RDW 16.4 % Above high normal [facility] ([place] [facility]) PLATELET 261 Normal (applies [facility]GEN 10^3/uL to non-numeric ([facility] results) Medical Service) MPV 7.84 fL Normal (applies [facility]GEN to non-numeric ([place] results) Medical Service) SEGMENTED % 58.4 % Normal (applies [facility]GEN to non-numeric ([place] results) Medical Service) SEGMENTED # 3.7 Normal (applies [facility]GEN 10^3uL to non-numeric ([facility] results) Medical Service) LYMPHOCYTES # 2.2 Normal (applies [facility]GEN 10^3/uL to non-numeric ([facility] results) Medical Service) LYMPHOCYTES % 34.50 % Normal (applies [facility]GEN to non-numeric ([facility] results) Medical Service) MONOCYTES # 0.3 Normal (applies [facility]GEN 10^3/uL to non-numeric ([facility] results) Medical Service) MONOCYTES % 4.8 % Normal (applies [facility]GEN to non-numeric ([place] results) Medical Service) EOSINOPHILS % 2.14 % Normal (applies [facility]GEN to non-numeric ([facility] results) Medical Service) EOSINOPHILS # 0.13 Normal (applies [facility]GEN 10^3/uL to non-numeric ([place] results) Medical Service) BASOPHILS # 0.01 Normal (applies [facility] 10^3/uL to non-numeric ([place] results) Medical Service) BASOPHILS % 0.14 % Normal (applies [facility]GEN to non-numeric ([facility] results) Medical Service) ID Date Data Source [id number] 09/12/2015 12:00:00 AM EDT [facility] ([facility] [employer] [facility]) Name Value Range Interpretation Description Data Sup porting Code Source(s) Document(s ) T4 TOTAL 9.59 Normal (applies to [facility] ug/dL non-numeric ([facility] results) Medical Service) T3 UPTAKE 50.9 % Above high normal [facility] ([place] [facility]) TSH 3RD 0.289 Below low normal [facility] GENERATION uIU/mL ([facility]) (FT4 4.9 ng/dL Above high normal [facility] INDEX)calc. ([facility]) ID Date Data Source [id number] 09/12/2015 12:00:00 AM EDT [facility] ([facility] [employer] [facility]) Name Value Range Interpretation Description Data Sup porting Code Source(s) Document(s ) TRIGLYCERIDES 117 Normal (applies [facility] mg/dL to non-numeric ([facility] results) Medical Service) Cholesterol 170 Normal (applies [facility] [Moles/volume] mg/dL to non-numeric ([place] in Pericardial results) Medical fluid Service) HDL CHOLESTEROL 47 mg/dL Normal (applies [facility] to non-numeric ([place] results) Medical Service) LDL/HDL RATIO 2.13 Normal (applies [facility] to non-numeric ([facility] results) Medical Service) Cholesterol in 23 mg/dL Normal (applies [facility]GEN LDL to non-numeric ([place] [Mass/volume] in results) Medical Serum or Plasma Service) by Direct assay Cholesterol in 100 Normal (applies [facility] LDL mg/dL to non-numeric ([place] [Mass/volume] in results) Medical Serum or Plasma Service) by Direct assay CHOLESTEROL/HDL 3.62 Normal (applies [facility] RATIO to non-numeric ([facility] results) Medical Service) NON-HDL 123 Normal (applies [facility] CHOLESTEROL mg/dL to non-numeric ([facility] results) Medical Service) ID Date Data Source [id number] 09/12/2015 12:00:00 AM EDT [facility] ([facility] Service) Name Value Range Interpretation Description Data Sup porting Code Source(s) Document(s ) Sodium 135 Below low normal [facility]GEN [Moles/volume] mmol/L ([place] in Serum, Plasma Medical or Blood Service) Potassium 3.8 Normal (applies [facility] [Mass/volume] in mmol/L [facility]) Chloride 101 Normal (applies [facility]GEN [Moles/volume] mmol/L to non-numeric ([place] in Serum, Plasma results) Medical or Blood Service) ALK.PHOSPHATASE 63 U/L Normal (applies [facility] to non-numeric ([facility] results) Medical Service) Glucose 114 Above high normal [facility] [Mass/volume] in mg/dL ([place] Urine collected Medical for unspecified Service) duration BUN 7 mg/dl Normal (applies [facility] to non-numeric ([place] results) Medical Service) CREATININE SERUM 0.68 Normal (applies [facility] mg/dL to non-numeric ([place] results) Medical Service) BUN/CREATININE 10 Ratio Normal (applies [facility] RATIO to non-numeric ([place] results) Medical Service) BILIRUBIN,Total 0.5 Normal (applies [facility] mg/dl to non-numeric ([facility] results) Medical Service) PROTEIN TOTAL 7.0 g/dL Normal (applies [facility]GEN to non-numeric ([place] results) Medical Service) Calcium 9.5 Normal (applies [facility] [Moles/volume] mg/dL to non-numeric ([facility] in Urine results) Medical collected for Service) unspecified duration Microalbumin 3.9 g/dL Normal (applies [facility]GEN [Mass/time] in to non-numeric ([place] Urine collected results) Medical for unspecified Service) duration ALT (SGPT) 9 U/L Normal (applies [facility]GEN to non-numeric ([place] results) Medical Service) AST (SGOT) 14 U/L Normal (applies [facility]GEN to non-numeric ([place] results) Medical Service) Carbon dioxide 27.0 Normal (applies [facility]GEN [VFr/PPres] in mEq/L to non-numeric ([place] Gas delivery results) Medical system Service) Globulin 3.1 g/L Normal (applies [facility]GEN [Mass/time] in to non-numeric ([facility] 24 hour Urine results) Medical Service) A/G RATIO 1.3 Normal (applies MEDGEN Ratio to non-numeric ([facility] results) Medical Service) GLOMERULAR FILT. 99 Normal (applies [facility]GEN RATE mL/min to non-numeric ([facility] results) Medical Service) ID Date Data Source [id number] 09/12/2015 12:00:00 AM EDT [facility] ([facility]) Name Value Range Interpretation Description Data Sup porting Code Source(s) Document(s ) Hemoglobin 5.5 % Normal (applies to [facility] A1c/Hemoglobin. non-numeric ([facility] total in Blood results) Medical Service) ID Date Data Source [id number] 09/12/2015 12:00:00 AM EDT [facility] ([facility] [employer] [facility]) Name Value Range Interpretation Description Data Sup porting Code Source(s) Document(s ) WBC 6.3 Normal (applies [facility] 10^3/uL to non-numeric ([facility] results) Medical Service) RBC 4.34 Normal (applies [facility] 10^6/uL to non-numeric ([place] results) Medical Service) Hemoglobin 12.4 g/dL Normal (applies [facility]GEN [Mass/volume] to non-numeric ([facility] in Mixed venous results) Medical blood by Service) Oximetry Hematocrit 39 % Normal (applies MEDGEN [Pure volume to non-numeric ([place] fraction] of results) Medical Blood by Service) Automated count MCV 90 fL Normal (applies MEDGEN to non-numeric ([place] results) Medical Service) MCH 28.6 pg Normal (applies [facility]GEN to non-numeric ([facility] results) Medical Service) MCHC 31.9 g/dL Below low normal [facility] ([facility]) PLATELET 261 Normal (applies MEDGEN 10^3/uL to non-numeric ([place] results) Medical Service) RDW 16.4 % Above high normal [facility] ([facility]) MPV 7.84 fL Normal (applies MEDGEN to non-numeric ([place] results) Medical Service) SEGMENTED % 58.4 % Normal (applies [facility]GEN to non-numeric ([place] results) Medical Service) SEGMENTED # 3.7 Normal (applies [facility]GEN 10^3uL to non-numeric ([facility] results) Medical Service) LYMPHOCYTES % 34.50 % Normal (applies MEDGEN to non-numeric ([place] results) Medical Service) LYMPHOCYTES # 2.2 Normal (applies [facility]GEN 10^3/uL to non-numeric ([place] results) Medical Service) MONOCYTES % 4.8 % Normal (applies [facility]GEN to non-numeric ([place] results) Medical Service) MONOCYTES # 0.3 Normal (applies [facility]GEN 10^3/uL to non-numeric ([facility] results) Medical Service) EOSINOPHILS % 2.14 % Normal (applies MEDGEN to non-numeric ([place] results) Medical Service) EOSINOPHILS # 0.13 Normal (applies [facility]GEN 10^3/uL to non-numeric ([facility] results) Medical Service) BASOPHILS % 0.14 % Normal (applies [facility]GEN to non-numeric ([place] results) Medical Service) BASOPHILS # 0.01 Normal (applies [facility]GEN 10^3/uL to non-numeric ([facility] results) Medical Service) ID Date Data Source [id number] 09/12/2015 12:00:00 AM EDT MEDGEN ([employer]) Name Value Range Interpretation Description Data Sup porting Code Source(s) Document(s ) T4 TOTAL 9.59 Normal (applies to [facility] ug/dL non-numeric ([facility] results) Medical Service) T3 UPTAKE 50.9 % Above high normal [facility] ([facility]) TSH 3RD 0.289 Below low normal [facility] GENERATION uIU/mL ([facility]) (FT4 4.9 ng/dL Above high normal [facility] INDEX)calc. ([place] Service) ID Date Data Source [id number] 09/12/2015 12:00:00 AM EDT [facility]GEN ([facility]) Name Value Range Interpretation Description Data Sup porting Code Source(s) Document(s ) Cholesterol 170 Normal (applies MEDGEN [Moles/volume] mg/dL to non-numeric ([place] in Pericardial results) Medical fluid Service) TRIGLYCERIDES 117 Normal (applies MEDGEN mg/dL to non-numeric ([place] results) Medical Service) HDL CHOLESTEROL 47 mg/dL Normal (applies MEDGEN to non-numeric ([facility] results) Medical Service) LDL/HDL RATIO 2.13 Normal (applies MEDGEN to non-numeric ([place] results) Medical Service) Cholesterol in 100 Normal (applies MEDGEN LDL mg/dL to non-numeric ([facility] [Mass/volume] in results) Medical Serum or Plasma Service) by Direct assay Cholesterol in 23 mg/dL Normal (applies MEDGEN LDL to non-numeric ([place] [Mass/volume] in results) Medical Serum or Plasma Service) by Direct assay CHOLESTEROL/HDL 3.62 Normal (applies [facility]GEN RATIO to non-numeric ([facility] results) Medical Service) NON-HDL 123 Normal (applies [facility] CHOLESTEROL mg/dL to non-numeric ([place] results) Medical Service) ID Date Data Source [id number] 09/12/2015 12:00:00 AM EDT [facility] ([facility] [employer] [facility]) Name Value Range Interpretation Description Data Sup porting Code Source(s) Document(s ) Sodium 135 Below low normal MEDGEN [Moles/volume] mmol/L ([facility] in Serum, Plasma Medical or Blood Service) Potassium 3.8 Normal (applies [facility] [Mass/volume] in mmol/L to non-numeric ([place] [facility] Blood results) Medical Service) Chloride 101 Normal (applies MEDGEN [Moles/volume] mmol/L to non-numeric ([facility] in Serum, Plasma results) Medical or Blood Service) ALK.PHOSPHATASE 63 U/L Normal (applies MEDGEN to non-numeric ([place] results) Medical Service) Glucose 114 Above high normal MEDGEN [Mass/volume] in mg/dL ([place] Urine collected Medical for unspecified Service) duration BUN 7 mg/dl Normal (applies MEDGEN to non-numeric ([place] results) Medical Service) CREATININE SERUM 0.68 Normal (applies MEDGEN mg/dL to non-numeric ([place] results) Medical Service) BUN/CREATININE 10 Ratio Normal (applies [facility]GEN RATIO to non-numeric ([place] results) Medical Service) BILIRUBIN,Total 0.5 Normal (applies MEDGEN mg/dl to non-numeric ([place] results) Medical Service) Calcium 9.5 Normal (applies MEDGEN [Moles/volume] mg/dL to non-numeric ([facility] in Urine results) Medical collected for Service) unspecified duration PROTEIN TOTAL 7.0 g/dL Normal (applies MEDGEN to non-numeric ([facility] results) Medical Service) Microalbumin 3.9 g/dL Normal (applies MEDGEN [Mass/time] in to non-numeric ([place] Urine collected results) Medical for unspecified Service) duration ALT (SGPT) 9 U/L Normal (applies MEDGEN to non-numeric ([place] results) Medical Service) AST (SGOT) 14 U/L Normal (applies MEDGEN to non-numeric ([place] results) Medical Service) Carbon dioxide 27.0 Normal (applies MEDGEN [VFr/PPres] in mEq/L to non-numeric ([facility] Gas delivery results) Medical system Service) Globulin 3.1 g/L Normal (applies MEDGEN [Mass/time] in to non-numeric ([facility] 24 hour Urine results) Medical Service) A/G RATIO 1.3 Normal (applies MEDGEN Ratio to non-numeric ([facility] results) Medical Service) GLOMERULAR FILT. 99 Normal (applies MEDGEN RATE mL/min to non-numeric ([place] results) Medical Service) Procedure Social History Code Duration Value Status Description Data Source(s ) Smoking 12/30/2019 +smoker 3 completed +smoker 3 MED[facility] ([facility] 12:00:00 AM EDT cigarettes a day cigarettes a d ay Medical Service) Smoking 12/30/2019 Current every day completed Current every day MEDGEN ([place] 12:00:00 AM EDT smoker smoker Medical S [facility]) Smoking 12/12/2019 Daily Smoker completed Daily Smoker [facility] 07:20:00 PM EDT Medical C enter Smoking 12/12/2019 Daily Smoker completed Daily Smoker [facility] 07:00:00 PM EDT Medical C enter Smoking 12/12/2019 Daily Smoker completed Daily Smoker [facility] 06:57:00 PM EDT Medical C enter Smoking 12/10/2019 Daily Smoker completed Daily Smoker [facility] 02:30:00 PM EDT Medical C enter Smoking 12/10/2019 Daily Smoker completed Daily Smoker [facility] 02:16:00 PM EDT Medical C enter Smoking 12/08/2019 Daily Smoker completed Daily Smoker [facility] 01:26:00 PM EDT Medical C enter Smoking 12/08/2019 Daily Smoker completed Daily Smoker [facility] 12:49:00 PM EDT Medical C enter Smoking 12/08/2019 Daily Smoker completed Daily Smoker [facility] 12:48:00 PM EDT Medical C enter Smoking 12/06/2019 +smoker 3 completed +smoker 3 [facility] ([facility] 12:00:00 AM EDT cigarettes a day cigarettes a d ay Medical Service) Smoking 12/06/2019 Current every day completed Current every day MEDGEN ([place] 12:00:00 AM EDT smoker smoker Medical S [facility]) Smoking 10/27/2019 Daily Smoker completed Daily Smoker [facility] 02:31:00 PM EDT Medical C enter Smoking 10/26/2019 Daily Smoker completed Daily Smoker [facility] 08:44:00 PM EDT Medical C enter Smoking 10/26/2019 Daily Smoker completed Daily Smoker [facility] 07:43:00 PM EDT Medical C enter Smoking 10/26/2019 Daily Smoker completed Daily Smoker [facility] 01:56:00 PM EDT Medical C enter Smoking 10/26/2019 Daily Smoker completed Daily Smoker [facility] 11:50:00 AM EDT Medical C enter Smoking 10/20/2019 Daily Smoker completed Daily Smoker [facility] 01:20:00 PM EDT Medical C enter Smoking 10/20/2019 Daily Smoker completed Daily Smoker [facility] 12:34:00 PM EDT Medical C enter Smoking 10/20/2019 Daily Smoker completed Daily Smoker [facility] 12:22:00 PM EDT Medical C enter Smoking 09/26/2019 Daily Smoker completed Daily Smoker [facility] 06:04:00 PM EDT Medical C enter Smoking 09/26/2019 Daily Smoker completed Daily Smoker [facility] 03:49:00 PM EDT Medical C enter Smoking 09/26/2019 Daily Smoker completed Daily Smoker [facility] 01:42:00 PM EDT Medical C enter Smoking 09/26/2019 Daily Smoker completed Daily Smoker [facility] 01:32:00 PM EDT Medical C enter Smoking 05/29/2019 Daily Smoker completed Daily Smoker [facility] 08:14:00 PM EST Medical C enter Smoking 05/29/2019 Daily Smoker completed Daily Smoker [facility] 07:52:00 PM EST Medical C enter Smoking 05/29/2019 Daily Smoker completed Daily Smoker [facility] 07:36:00 PM EST Medical C enter Smoking 05/29/2019 Daily Smoker completed Daily Smoker [facility] 07:23:00 PM EST Medical C enter Smoking 05/19/2019 Daily Smoker completed Daily Smoker [facility] 04:26:00 PM EST Medical C enter Smoking 05/18/2019 Daily Smoker completed Daily Smoker [facility] 10:55:00 PM EST Medical C enter Smoking 05/18/2019 Daily Smoker completed Daily Smoker [facility] 04:20:00 PM EST Medical C enter Smoking 05/18/2019 Daily Smoker completed Daily Smoker [facility] 04:00:00 PM EST Medical C enter Smoking 05/18/2019 Daily Smoker completed Daily Smoker [facility] 03:40:00 PM EST Medical C enter Smoking 2019 Daily Smoker completed Daily Smoker [facility] 01:10:00 AM EST Medical C enter Smoking 2019 Daily Smoker completed Daily Smoker [facility] 12:46:00 AM EST Medical C enter Smoking 04/02/2019 Daily Smoker completed Daily Smoker [facility] 11:27:00 PM EST Medical C enter Smoking 03/07/2019 Daily Smoker completed Daily Smoker [facility] 01:21:00 PM EST Medical C enter Smoking 03/07/2019 Daily Smoker completed Daily Smoker [facility] 11:53:00 AM EST Medical C enter Smoking 03/07/2019 Daily Smoker completed Daily Smoker [facility] 01:05:00 AM EST Medical C enter Smoking 03/06/2019 Daily Smoker completed Daily Smoker [facility] 07:10:00 PM EST Medical C enter Smoking 03/06/2019 Daily Smoker completed Daily Smoker [facility] 06:43:00 PM EST Medical C enter Smoking 03/04/2019 Daily Smoker completed Daily Smoker [facility] 09:25:00 PM EST Medical C enter Smoking 03/04/2019 Daily Smoker completed Daily Smoker [facility] 08:35:00 PM EST Medical C enter Smoking 03/04/2019 Daily Smoker completed Daily Smoker [facility] 08:33:00 PM EST Medical C enter Smoking 11/01/2018 Daily Smoker completed Daily Smoker [facility] 04:40:00 PM EDT Medical C enter Smoking 11/01/2018 Daily Smoker completed Daily Smoker [facility] 04:00:00 PM EDT Medical C enter Smoking 11/01/2018 Daily Smoker completed Daily Smoker [facility] 03:55:00 PM EDT Medical C enter Smoking 10/18/2018 Daily Smoker completed Daily Smoker [facility] 02:25:00 PM EDT Medical C enter Smoking 10/18/2018 Daily Smoker completed Daily Smoker [facility] 02:07:00 PM EDT Medical C enter Smoking 10/05/2018 Daily Smoker completed Daily Smoker [facility] 09:32:00 AM EDT Medical C enter Smoking 10/05/2018 Daily Smoker completed Daily Smoker [facility] 09:03:00 AM EDT Medical C enter Smoking 05/13/2018 Daily Smoker completed Daily Smoker [facility] 01:40:00 PM EST Medical C enter Smoking 05/13/2018 Daily Smoker completed Daily Smoker [facility] 12:59:00 PM EST Medical C enter Vital Signs ID Date Data Source UNK Name Value Range Interpretation Code Description Data Source(s) Heart rate 60 /min 60 /min [facility] ([facility]) Respiratory rate 16 /min 16 /min [facility] ([facility]) Body mass index 36.1 kg/m2 36.1 kg/m2 MEDGEN (BMI) [Ratio] ([facility]) Diastolic blood 80 mm[Hg] 80 mm[Hg] MEDGEN pressure ([facility]) Systolic blood 130 mm[Hg] 130 mm[Hg] [facility] pressure ([facility]) Body weight 204 lb 204 lb [facility] Body height 63 in 63 in [facility] ([facility]) Body temperature 37.522727 Kenna 37.827125 Kenna [facility] Respiratory rate 17 /min 17 /min [facility] Oxygen 100 % 100 % [facility] saturation in Medical Arterial blood Center by Pulse oximetry Heart rate 81 /min 81 /min [facility] Diastolic blood 57 mm[Hg] 57 mm[Hg] [facility] pressure [facility] Center Systolic blood 118 mm[Hg] 118 mm[Hg] [facility] pressure Medical Center Body weight 85.258584 kg 85.354661 kg [facility] Body temperature 36.067706 Kenna 36.966000 Kenna [facility] Respiratory rate 18 /min 18 /min [facility] Oxygen 97 % 97 % [facility] saturation in Medical Arterial blood Center by Pulse oximetry Heart rate 82 /min 82 /min [facility] Body height 162.353544 cm 162.614112 cm [facility] Diastolic blood 100 mm[Hg] 100 mm[Hg] [facility] pressure [facility] Center Systolic blood 152 mm[Hg] 152 mm[Hg] [facility] Body mass index 32.1 kg/m2 32.1 kg/m2 [facility] (BMI) [Ratio] Medical Center Body temperature 36.399264 Kenna 36.570357 Kenna [facility] Respiratory rate 16 /min 16 /min [facility] Oxygen 97 % 97 % [facility] saturation in Medical Arterial blood Center by Pulse oximetry Heart rate 88 /min 88 /min [facility] Diastolic blood 72 mm[Hg] 72 mm[Hg] [facility] Center Systolic blood 113 mm[Hg] 113 mm[Hg] [facility] Body temperature 36.818624 Kenna 36.761442 Kenna [facility] Respiratory rate 18 /min 18 /min [facility] Oxygen 99 % 99 % [facility] saturation in Medical Arterial blood Center by Pulse oximetry Heart rate 80 /min 80 /min [facility] Diastolic blood 88 mm[Hg] 88 mm[Hg] [facility] Center Systolic blood 138 mm[Hg] 138 mm[Hg] [facility] Body temperature 37.923734 Kenna 37.120963 Kenna [facility] Respiratory rate 17 /min 17 /min [facility] Oxygen 95 % 95 % [facility] saturation in Medical Arterial blood Center by Pulse oximetry Heart rate 80 /min 80 /min [facility] Diastolic blood 84 mm[Hg] 84 mm[Hg] [facility] Systolic blood 132 mm[Hg] 132 mm[Hg] [facility] Body temperature 35.234204 Kenna 35.411144 Kenna [facility] Respiratory rate 18 /min 18 /min [facility] Oxygen 100 % 100 % [facility] saturation in Medical Arterial blood Center by Pulse oximetry Heart rate 85 /min 85 /min [facility] Diastolic blood 73 mm[Hg] 73 mm[Hg] [facility] Systolic blood 106 mm[Hg] 106 mm[Hg] [facility] pressure Medical Center Body weight 74.713156 kg 74.477580 kg [facility] Body temperature 36.030690 Kenna 36.148830 Kenna [facility] Respiratory rate 18 /min 18 /min [facility] Oxygen 96 % 96 % [facility] saturation in Medical Arterial blood Center by Pulse oximetry Heart rate 68 /min 68 /min [facility] Body height 167.980508 cm 167.175283 cm [facility] Diastolic blood 65 mm[Hg] 65 mm[Hg] [facility] pressure Medical Center Systolic blood 104 mm[Hg] 104 mm[Hg] [facility] pressure Medical Center Body mass index 26.2 kg/m2 26.2 kg/m2 [facility] (BMI) [Ratio] Medical Center Heart rate 60 /min 60 /min [facility] ([facility] [facility]) Respiratory rate 16 /min 16 /min [facility] ([place] [facility]) Body mass index 36.1 kg/m2 36.1 kg/m2 [facility] (BMI) [Ratio] ([place] [facility]) Diastolic blood 80 mm[Hg] 80 mm[Hg] MEDGEN pressure ([place] [facility]) Systolic blood 120 mm[Hg] 120 mm[Hg] [facility] pressure ([place] [facility]) Body weight 204 lb 204 lb [facility] ([place] [facility]) Body height 63 in 63 in [facility] ([place] [facility]) Heart rate 60 /min 60 /min [facility] ([place] [facility]) Respiratory rate 16 /min 16 /min [facility] ([place] [facility]) Body mass index 36.1 kg/m2 36.1 kg/m2 MEDGEN (BMI) [Ratio] ([place] [facility]) Diastolic blood 80 mm[Hg] 80 mm[Hg] MEDGEN pressure ([place] [facility]) Systolic blood 120 mm[Hg] 120 mm[Hg] MEDGEN pressure ([place] [facility]) Body weight 204 lb 204 lb [facility] ([place] [facility]) Body height 63 in 63 in [facility] ([facility]) Body temperature 97.7 Fahrenheit 97.7 [facility] [facility] Body temperature 97.9 Fahrenheit 97.9 [facility] Diastolic blood 83 mmHg 83 mmHg [facility] Systolic blood 131 mmHg 131 mmHg [facility] Respiratory rate 18 bpm 18 bpm [facility] Heart rate 80 bpm 80 bpm [facility] Body temperature 97.2 Fahrenheit 97.2 Fahrenhei t [facility] Diastolic blood 84 mmHg 84 mmHg [facility] Systolic blood 124 mmHg 124 mmHg [facility] Respiratory rate 18 bpm 18 bpm [facility] Heart rate 86 bpm 86 bpm [facility] Body temperature 97.3 Fahrenheit 97.3 Fahrenhei t [facility] Diastolic blood 68 mmHg 68 mmHg [facility] Systolic blood 98 mmHg 98 mmHg [facility] Respiratory rate 18 bpm 18 bpm [facility] Heart rate 81 bpm 81 bpm [facility] Body temperature 97.4 Fahrenheit 97.4 Fahrenhei t [facility] Diastolic blood 75 mmHg 75 mmHg [facility] Systolic blood 128 mmHg 128 mmHg [facility] Respiratory rate 18 bpm 18 bpm [facility] Heart rate 72 bpm 72 bpm [facility] Body temperature 97.4 Fahrenheit 97.4 Fahrenh t [facility] Body weight 200 lbs 200 lbs [facility] Diastolic blood 78 mmHg 78 mmHg [facility] Systolic blood 107 mmHg 107 mmHg [facility] Respiratory rate 18 bpm 18 bpm [facility] Heart rate 82 bpm 82 bpm [facility] Body temperature 97.5 Fahrenheit 97.5 Fahrenh t [facility] Respiratory rate 18 bpm 18 bpm [facility] Heart rate 74 bpm 74 bpm [facility] Body temperature 97.1 Fahrenheit 97.1 Fahrenhei t [facility] Diastolic blood 82 mmHg 82 mmHg [facility] Systolic blood 132 mmHg 132 mmHg [facility] Diastolic blood 90 mmHg 90 mmHg [facility] Systolic blood 148 mmHg 148 mmHg [facility] Respiratory rate 18 bpm 18 bpm [facility] Heart rate 60 bpm 60 bpm [facility] Body temperature 97.4 Fahrenheit 97.4 Fahrenh t [facility] Diastolic blood 75 mmHg 75 mmHg [facility] Systolic blood 114 mmHg 114 mmHg [facility] Respiratory rate 18 bpm 18 bpm [facility] Heart rate 68 bpm 68 bpm [facility] Body temperature 97.3 [facility]heit 97.3 [facility] 83 mmHg 83 mmHg [facility] Systolic blood 115 mmHg 115 mmHg [facility] Respiratory rate 18 bpm 18 bpm [facility] Heart rate 88 bpm 88 bpm [facility] Body temperature 97.7 Fahrenheit 97.7 Fahrenh t [facility] Oxygen 99 % 99 % [facility] saturation in Medical Arterial blood Center by Pulse oximetry Heart rate 99 /min 99 /min [facility] Diastolic blood 74 mm[Hg] 74 mm[Hg] [facility] [place] Systolic blood 101 mm[Hg] 101 mm[Hg] [facility] [place] Body temperature 36.437879 Kenna 36.349310 Kenna [facility] Respiratory rate 18 /min 18 /min [facility] Heart rate 79 /min 79 /min [facility] Diastolic blood 67 mm[Hg] 67 mm[Hg] [facility] [place] Systolic blood 101 mm[Hg] 101 mm[Hg] [facility] Heart rate 101 /min 101 /min [facility] Diastolic blood 78 mm[Hg] 78 mm[Hg] [facility] [place] Systolic blood 131 mm[Hg] 131 mm[Hg] [facility] [place] Body temperature 35.830858 Kenna 35.001640 Ken[facility] Respiratory rate 20 /min 20 /min [facility] Oxygen 96 % 96 % [facility] saturation in Medical Arterial blood Center by Pulse oximetry Heart rate 59 /min 59 /min [facility] Diastolic blood 65 mm[Hg] 65 mm[Hg] [facility] [place] Systolic blood 105 mm[Hg] 105 mm[Hg] [facility] Heart rate 86 /min 86 /min [facility] Diastolic blood 55 mm[Hg] 55 mm[Hg] [facility] Systolic blood 124 mm[Hg] 124 mm[Hg] [facility] [place] Body temperature 36.473912 Kenna 36.945134 Kenna [facility] Respiratory rate 19 /min 19 /min [facility] Body temperature 36.768861 Kenna 36.538231 Ken[facility] Respiratory rate 17 /min 17 /min [facility] Body temperature 35.618148 Kenna 35.996240 Ken[facility] Respiratory rate 18 /min 18 /min [facility] Body weight 88.036368 kg 88.375514 kg [facility] Oxygen 97 % 97 % [place] saturation in Medical Arterial blood Center by Pulse oximetry Oxygen 98 % 98 % [facility] saturation in Medical Arterial blood Center by Pulse oximetry Oxygen 100 % 100 % [place] saturation in Medical Arterial blood Center by Pulse oximetry Body weight 87.919796 kg 87.292192 kg [facility] Heart rate 94 /min 94 /min [facility] Diastolic blood 83 mm[Hg] 83 mm[Hg] [facility] Systolic blood 115 mm[Hg] 115 mm[Hg] [facility] Body temperature 36.870877 Kenna 36.275887 Ken[facility] Respiratory rate 17 /min 17 /min [facility] Oxygen 94 % 94 % [place] saturation in Medical Arterial blood Center by Pulse oximetry Heart rate 84 /min 84 /min [facility] Diastolic blood 57 mm[Hg] 57 mm[Hg] [facility] Systolic blood 90 mm[Hg] 90 mm[Hg] [facility] Body weight 89.014346 kg 89.417463 kg [facility] Body height 160.148804 cm 160.589721 cm [facility] Body mass index 34.90 kg/m2 34.90 kg/m2 [facility] (BMI) [Ratio] [facility] Center Body temperature 36.229547 Kenna 36.477803 [facility] Respiratory rate 18 /min 18 /min [facility] Heart rate 98 /min 98 /min [facility] Diastolic blood 96 mm[Hg] 96 mm[Hg] [facility] Systolic blood 129 mm[Hg] 129 mm[Hg] [facility] Body temperature 36.165324 Kenna 36.920623 Ken[facility] Respiratory rate 16 /min 16 /min [facility] Oxygen 98 % 98 % [place] saturation in Medical Arterial blood Center by Pulse oximetry Heart rate 90 /min 90 /min [facility] Diastolic blood 82 mm[Hg] 82 mm[Hg] [facility] Systolic blood 108 mm[Hg] 108 mm[Hg] [facility] Body temperature 36.408293 Kenna 36.979149 Ken[facility] Respiratory rate 18 /min 18 /min [facility] Oxygen 98 % 98 % [place] saturation in Medical Arterial blood Center by Pulse oximetry Heart rate 95 /min 95 /min [facility] Diastolic blood 58 mm[Hg] 58 mm[Hg] [facility] Systolic blood 102 mm[Hg] 102 mm[Hg] [facility] Body temperature 37.684291 Kenna 37.096950 Kenna [facility] Respiratory rate 17 /min 17 /min [facility] Oxygen 98 % 98 % [place] saturation in Medical Arterial blood Center by Pulse oximetry Oxygen 99 % 99 % [place] saturation in Medical Arterial blood Center by Pulse oximetry Body weight 70.302168 kg 70.345543 kg [facility] Body height 165.568501 cm 165.337190 cm [facility] Body mass index 25.6 kg/m2 25.6 kg/m2 [facility] (BMI) [Ratio] [facility] Heart rate 60 /min 60 /min [facility] ([facility]) Respiratory rate 16 /min 16 /min [facility] ([facility]) Body mass index 34.7 kg/m2 34.7 kg/m2 [facility] (BMI) [Ratio] ([facility]) Diastolic blood 80 mm[Hg] 80 mm[Hg] [facility] pressure ([facility]) Systolic blood 120 mm[Hg] 120 mm[Hg] [facility] pressure ([facility]) Body weight 196 lb 196 lb [facility] ([facility]) Body height 63 in 63 in [facility] ([facility]) Heart rate 60 /min 60 /min [facility] ([facility]) Respiratory rate 16 /min 16 /min [facility] ([facility]) Body mass index 34.7 kg/m2 34.7 kg/m2 [facility] (BMI) [Ratio] ([facility]) Diastolic blood 80 mm[Hg] 80 mm[Hg] [facility] pressure ([facility]) Systolic blood 120 mm[Hg] 120 mm[Hg] [facility] pressure ([facility]) Body weight 196 lb 196 lb [facility] ([facility]) Body height 63 in 63 in [facility] ([facility]) Body temperature 37.076822 Kenna 37.301440 [facility] Respiratory rate 17 /min 17 /min [facility] Oxygen 97 % 97 % [place] saturation in Medical Arterial blood Center by Pulse oximetry Heart rate 64 /min 64 /min [facility] Diastolic blood 64 mm[Hg] 64 mm[Hg] [facility] Systolic blood 120 mm[Hg] 120 mm[Hg] [facility] Body temperature 37.417210 Kenna 37.780112 Ken[facility] Respiratory rate 18 /min 18 /min [facility] Oxygen 97 % 97 % [place] saturation in Medical Arterial blood Center by Pulse oximetry Heart rate 62 /min 62 /min [facility] Diastolic blood 66 mm[Hg] 66 mm[Hg] [facility] Systolic blood 110 mm[Hg] 110 mm[Hg] [facility] Body weight 95.917911 kg 95.553349 kg [facility] [place] Body temperature 37.141441 Kenna 37.429587 Ken[facility] Respiratory rate 17 /min 17 /min [facility] Oxygen 96 % 96 % [facility] saturation in Medical Arterial blood Center by Pulse oximetry Heart rate 65 /min 65 /min [facility] Body height 157.825644 cm 157.053353 cm [facility] Diastolic blood 67 mm[Hg] 67 mm[Hg] [facility] Systolic blood 102 mm[Hg] 102 mm[Hg] [facility] Body mass index 38.4 kg/m2 38.4 kg/m2 [facility] (BMI) [Ratio] [facility] Heart rate 60 /min 60 /min [facility] ([facility]) Respiratory rate 16 /min 16 /min [facility] ([facility]) Body mass index 34 kg/m2 34 kg/m2 [facility] (BMI) [Ratio] ([facility]) Diastolic blood 80 mm[Hg] 80 mm[Hg] [facility] pressure ([facility]) Systolic blood 122 mm[Hg] 122 mm[Hg] [facility] pressure ([facility]) Body weight 192 lb 192 lb [facility] ([facility]) Body height 63 in 63 in [facility] ([facility]) Heart rate 60 /min 60 /min [facility] ([facility]) Respiratory rate 16 /min 16 /min [facility] ([facility]) Body mass index 34 kg/m2 34 kg/m2 [facility] (BMI) [Ratio] ([facility]) Diastolic blood 80 mm[Hg] 80 mm[Hg] [facility] pressure ([facility]) Systolic blood 122 mm[Hg] 122 mm[Hg] [facility] pressure ([facility]) Body weight 192 lb 192 lb [facility] ([facility]) Body height 63 in 63 in [facility] ([facility]) Heart rate 86 /min 86 /min [facility] Diastolic blood 83 mm[Hg] 83 mm[Hg] [facility] [place] Systolic blood 118 mm[Hg] 118 mm[Hg] [facility] Body temperature 36.214167 Kenna 36.541604 [facility] Respiratory rate 20 /min 20 /min [facility] Heart rate 65 /min 65 /min [facility] Diastolic blood 81 mm[Hg] 81 mm[Hg] [facility] Systolic blood 120 mm[Hg] 120 mm[Hg] [facility] Heart rate 80 /min 80 /min [facility] Diastolic blood 73 mm[Hg] 73 mm[Hg] [facility] Systolic blood 125 mm[Hg] 125 mm[Hg] [facility] Body temperature 36.193631 Kenna 36.482112 [facility] Respiratory rate 18 /min 18 /min [facility] Oxygen 99 % 99 % [facility] saturation in Medical Arterial blood Center by Pulse oximetry Heart rate 80 /min 80 /min [facility] Diastolic blood 74 mm[Hg] 74 mm[Hg] [facility] Systolic blood 118 mm[Hg] 118 mm[Hg] [facility] Heart rate 79 /min 79 /min [facility] Diastolic blood 52 mm[Hg] 52 mm[Hg] [facility] Systolic blood 98 mm[Hg] 98 mm[Hg] [facility] [place] Body temperature 36.614390 Kenna 36.408129 [facility] Respiratory rate 18 /min 18 /min [facility] Body temperature 36.936582 Kenna 36.213304 [facility] Respiratory rate 20 /min 20 /min [facility] Body temperature 36.508174 Kenna 36.998208 [facility] Respiratory rate 18 /min 18 /min [facility] Body weight 86.068807 kg 86.470959 kg [facility] Oxygen 100 % 100 % [facility] saturation in Medical Arterial blood Center by Pulse oximetry Heart rate 94 /min 94 /min [facility] Diastolic blood 78 mm[Hg] 78 mm[Hg] [facility] Systolic blood 141 mm[Hg] 141 mm[Hg] [facility] Body temperature 36.201168 Kenna 36.449571 Ken[facility] Heart rate 74 /min 74 /min [facility] Diastolic blood 88 mm[Hg] 88 mm[Hg] [facility] Systolic blood 132 mm[Hg] 132 mm[Hg] [facility] Body weight 87.572273 kg 87.745219 kg [facility] Body height 160.088886 cm 160.939724 cm [facility] Body mass index 34.17 kg/m2 34.17 kg/m2 [facility] (BMI) [Ratio] Medical Center Body temperature 36.361433 Kenna 36.560895 Ken[facility] Respiratory rate 18 /min 18 /min [facility] Heart rate 84 /min 84 /min [facility] Diastolic blood 83 mm[Hg] 83 mm[Hg] [facility] Systolic blood 123 mm[Hg] 123 mm[Hg] [facility] Oxygen 98 % 98 % [facility] saturation in Medical Arterial blood Center by Pulse oximetry Body temperature 37.715743 Kenna 37.875988 Ken[facility] Respiratory rate 19 /min 19 /min [facility] Heart rate 79 /min 79 /min [facility] Diastolic blood 87 mm[Hg] 87 mm[Hg] [facility] Systolic blood 128 mm[Hg] 128 mm[Hg] [facility] pressure [facility] Body weight 73.883957 kg 73.579971 kg [facility] Body mass index 28.6 kg/m2 28.6 kg/m2 [facility] (BMI) [Ratio] [facility] Body temperature 37.518803 Kenna 37.029519 [facility] Respiratory rate 18 /min 18 /min [facility] Heart rate 69 /min 69 /min [facility] Diastolic blood 80 mm[Hg] 80 mm[Hg] [facility] Systolic blood 132 mm[Hg] 132 mm[Hg] [facility] pressure [facility] Oxygen 98 % 98 % [facility] saturation in Medical Arterial blood Center by Pulse oximetry Body height 160.625201 cm 160.401316 cm [facility] Heart rate 60 /min 60 /min [facility] ([facility]) Respiratory rate 16 /min 16 /min [facility] ([facility]) Body mass index 34 kg/m2 34 kg/m2 [facility] (BMI) [Ratio] ([facility]) Diastolic blood 80 mm[Hg] 80 mm[Hg] [facility] pressure ([facility]) Systolic blood 130 mm[Hg] 130 mm[Hg] [facility] pressure ([facility]) Body weight 192 lb 192 lb [facility] ([facility]) Body height 63 in 63 in [facility] ([facility]) Heart rate 60 /min 60 /min [facility] ([facility]) Respiratory rate 16 /min 16 /min [facility] ([facility]) Body mass index 34 kg/m2 34 kg/m2 [facility] (BMI) [Ratio] ([facility]) Diastolic blood 80 mm[Hg] 80 mm[Hg] [facility] pressure ([facility]) Systolic blood 130 mm[Hg] 130 mm[Hg] [facility] pressure ([facility]) Body weight 192 lb 192 lb [facility] ([facility]) Body height 63 in 63 in [facility] ([facility]) Heart rate 60 /min 60 /min [facility] ([facility]) Respiratory rate 16 /min 16 /min [facility] ([facility]) Body mass index 34 kg/m2 34 kg/m2 [facility] (BMI) [Ratio] ([facility]) Diastolic blood 80 mm[Hg] 80 mm[Hg] [facility] pressure ([facility]) Systolic blood 130 mm[Hg] 130 mm[Hg] [facility] pressure ([facility]) Body weight 192 lb 192 lb [facility] ([facility]) Body height 63 in 63 in [facility] ([facility]) Heart rate 60 /min 60 /min [facility] ([facility]) Respiratory rate 16 /min 16 /min [facility] ([facility]) Body mass index 34 kg/m2 34 kg/m2 [facility] (BMI) [Ratio] ([facility]) Diastolic blood 80 mm[Hg] 80 mm[Hg] [facility] pressure ([facility]) Systolic blood 130 mm[Hg] 130 mm[Hg] [facility] pressure ([facility]) Body weight 192 lb 192 lb [facility] ([facility]) Body height 63 in 63 in [facility] ([facility]) Heart rate 60 /min 60 /min [facility] ([facility]) Respiratory rate 16 /min 16 /min [facility] ([facility]) Body mass index 34.5 kg/m2 34.5 kg/m2 [facility] (BMI) [Ratio] ([facility]) Diastolic blood 70 mm[Hg] 70 mm[Hg] [facility] pressure ([facility]) Systolic blood 124 mm[Hg] 124 mm[Hg] [facility] pressure ([facility]) Body weight 195 lb 195 lb [facility] ([facility]) Body height 63 in 63 in [facility] ([facility]) Heart rate 60 /min 60 /min [facility] ([facility]) Respiratory rate 16 /min 16 /min [facility] ([facility]) Body mass index 34.5 kg/m2 34.5 kg/m2 [facility] (BMI) [Ratio] ([facility]) Diastolic blood 70 mm[Hg] 70 mm[Hg] [facility] pressure ([facility]) Systolic blood 124 mm[Hg] 124 mm[Hg] [facility] pressure ([facility]) Body weight 195 lb 195 lb [facility] ([facility]) Body height 63 in 63 in [facility]) Body weight 83.753044 kg 83.465740 kg [facility] Body temperature 37.286923 Kenna 37.216267 Ken[facility] Respiratory rate 18 /min 18 /min [facility] Oxygen 98 % 98 % [facility] saturation in Medical Arterial blood Center by Pulse oximetry Heart rate 87 /min 87 /min [facility] Body height 157.889236 cm 157.912123 cm [facility] Diastolic blood 85 mm[Hg] 85 mm[Hg] [facility] Systolic blood 120 mm[Hg] 120 mm[Hg] [facility] Body mass index 33.6 kg/m2 33.6 kg/m2 [facility] (BMI) [Ratio] [facility] Center Heart rate 73 /min 73 /min [facility] Diastolic blood 73 mm[Hg] 73 mm[Hg] [facility] Systolic blood 111 mm[Hg] 111 mm[Hg] [facility] [place] Body weight 82.548289 kg 82.421243 kg [facility] Body temperature 35.919541 Kenna 35.734764 [facility] Respiratory rate 20 /min 20 /min [facility] Heart rate 65 /min 65 /min [facility] Diastolic blood 65 mm[Hg] 65 mm[Hg] [facility] Systolic blood 105 mm[Hg] 105 mm[Hg] [facility] Heart rate 80 /min 80 /min [facility] Diastolic blood 69 mm[Hg] 69 mm[Hg] [facility] Systolic blood 110 mm[Hg] 110 mm[Hg] [facility] Body temperature 36.605136 Kenna 36.508790 Kenna [facility] Respiratory rate 18 /min 18 /min [facility] Heart rate 53 /min 53 /min [facility] Diastolic blood 73 mm[Hg] 73 mm[Hg] [facility] Systolic blood 108 mm[Hg] 108 mm[Hg] [facility] Heart rate 78 /min 78 /min [facility] Diastolic blood 67 mm[Hg] 67 mm[Hg] [facility] Systolic blood 120 mm[Hg] 120 mm[Hg] [facility] Body temperature 37.823638 Kenna 37.649262 [facility] Body temperature 36.351470 Kenna 36.457529 Ken[facility] Respiratory rate 18 /min 18 /min [facility] Body temperature 36.817975 Kenna 36.217152 Kenna [facility] Respiratory rate 17 /min 17 /min [facility] Respiratory rate 17 /min 17 /min [facility] Heart rate 74 /min 74 /min [facility] Diastolic blood 75 mm[Hg] 75 mm[Hg] [facility] Systolic blood 126 mm[Hg] 126 mm[Hg] [facility] Body temperature 36.965014 Kenna 36.092833 Kenna [facility] Respiratory rate 18 /min 18 /min [facility] Heart rate 61 /min 61 /min [facility] Diastolic blood 82 mm[Hg] 82 mm[Hg] [facility] Systolic blood 116 mm[Hg] 116 mm[Hg] [facility] Body weight 81.173665 kg 81.184608 kg [facility] Body height 160.851789 cm 160.100053 cm [facility] Body mass index 31.87 kg/m2 31.87 kg/m2 [facility] (BMI) [Ratio] Medical Center Body weight 81.132894 kg 81.748667 kg [facility] Body height 160.683920 cm 160.079143 cm [facility] Body mass index 31.87 kg/m2 31.87 kg/m2 [facility] (BMI) [Ratio] [facility] Center Body temperature 36.015890 Kenna 36.055826 Kenna [facility] Respiratory rate 18 /min 18 /min [facility] Heart rate 91 /min 91 /min [facility] Diastolic blood 71 mm[Hg] 71 mm[Hg] [facility] Systolic blood 109 mm[Hg] 109 mm[Hg] [facility] Oxygen 98 % 98 % [facility] saturation in [facility] Arterial blood Center by Pulse oximetry Body temperature 37.368332 Kenna 37.103154 Kenna [facility] Respiratory rate 17 /min 17 /min [facility] Heart rate 68 /min 68 /min [facility] Diastolic blood 59 mm[Hg] 59 mm[Hg] [facility] Systolic blood 118 mm[Hg] 118 mm[Hg] [facility] Oxygen 98 % 98 % [facility] saturation in Medical Arterial blood Center by Pulse oximetry Body temperature 37.901679 Kenna 37.869329 Kenna [facility] Respiratory rate 17 /min 17 /min [facility] Heart rate 68 /min 68 /min [facility] Diastolic blood 59 mm[Hg] 59 mm[Hg] [facility] pressure [facility] Center Systolic blood 118 mm[Hg] 118 mm[Hg] [facility] Body temperature 37.235801 Kenna 37.417892 Ken[facility] Respiratory rate 18 /min 18 /min [facility] Body weight 65.590107 kg 65.999357 kg [facility] Oxygen 98 % 98 % [facility] saturation in [facility] blood Center by Pulse oximetry Body height 160.478564 cm 160.046604 cm [facility] Body mass index 25.3 kg/m2 25.3 kg/m2 [facility] (BMI) [Ratio] [facility] Heart rate 60 /min 60 /min [facility] ([facility]) Respiratory rate 16 /min 16 /min [facility] ([facility]) Body mass index 29.8 kg/m2 29.8 kg/m2 [facility] (BMI) [Ratio] ([facility]) Diastolic blood 80 mm[Hg] 80 mm[Hg] [facility] pressure ([facility]) Systolic blood 120 mm[Hg] 120 mm[Hg] [facility] pressure ([facility]) Body weight 168 lb 168 lb [facility] ([facility]) Body height 63 in 63 in [facility] ([facility]) Heart rate 60 /min 60 /min [facility] ([facility]) Respiratory rate 16 /min 16 /min [facility] ([facility]) Body mass index 29.8 kg/m2 29.8 kg/m2 [facility] (BMI) [Ratio] ([facility]) Diastolic blood 80 mm[Hg] 80 mm[Hg] [facility] pressure ([facility]) Systolic blood 120 mm[Hg] 120 mm[Hg] [facility] pressure ([facility]) Body weight 168 lb 168 lb [facility] ([facility]) Body height 63 in 63 in [facility] ([facility]) Heart rate 60 /min 60 /min [facility] ([facility]) Respiratory rate 16 /min 16 /min [facility] ([facility]) Body mass index 29.8 kg/m2 29.8 kg/m2 [facility] (BMI) [Ratio] ([facility]) Diastolic blood 80 mm[Hg] 80 mm[Hg] [facility] pressure ([facility]) Systolic blood 120 mm[Hg] 120 mm[Hg] [facility] pressure ([facility]) Body weight 168 lb 168 lb [facility] ([facility]) Body height 63 in 63 in [facility] ([facility]) Heart rate 60 /min 60 /min [facility] ([facility]) Respiratory rate 16 /min 16 /min [facility] ([facility]) Body mass index 29.8 kg/m2 29.8 kg/m2 [facility] (BMI) [Ratio] ([facility]) Diastolic blood 80 mm[Hg] 80 mm[Hg] [facility] pressure ([facility]) Systolic blood 120 mm[Hg] 120 mm[Hg] [facility] pressure ([facility]) Body weight 168 lb 168 lb [facility] ([facility]) Body height 63 in 63 in [facility] ([facility]) Heart rate 60 /min 60 /min [facility] ([facility]) Respiratory rate 16 /min 16 /min [facility] ([facility]) Body mass index 29.8 kg/m2 29.8 kg/m2 [facility] (BMI) [Ratio] ([facility]) Diastolic blood 80 mm[Hg] 80 mm[Hg] [facility] pressure ([facility]) Systolic blood 120 mm[Hg] 120 mm[Hg] [facility] pressure ([facility]) Body weight 168 lb 168 lb [facility] ([facility]) Body height 63 in 63 in [facility] ([facility]) Heart rate 60 /min 60 /min [facility] ([facility]) Respiratory rate 16 /min 16 /min [facility] ([facility]) Body mass index 29.8 kg/m2 29.8 kg/m2 [facility] (BMI) [Ratio] ([facility]) Diastolic blood 80 mm[Hg] 80 mm[Hg] [facility] pressure ([facility]) Systolic blood 120 mm[Hg] 120 mm[Hg] [facility] pressure ([facility]) Body weight 168 lb 168 lb [facility] ([facility]) Body height 63 in 63 in [facility] Body temperature 36.586711 Kenna 36.798954 Kenna [facility] Respiratory rate 18 /min 18 /min [facility] Oxygen 96 % 96 % [facility] saturation in Medical Arterial blood Center by Pulse oximetry Heart rate 76 /min 76 /min [facility] Diastolic blood 92 mm[Hg] 92 mm[Hg] [facility] [place] Systolic blood 148 mm[Hg] 148 mm[Hg] [facility] Body temperature 37.974952 Kenna 37.201136 Kenna [facility] Respiratory rate 20 /min 20 /min [facility] Oxygen 96 % 96 % [facility] saturation in Medical Arterial blood Center by Pulse oximetry Heart rate 85 /min 85 /min [facility] Diastolic blood 98 mm[Hg] 98 mm[Hg] [facility] Systolic blood 167 mm[Hg] 167 mm[Hg] [facility] Heart rate 75 /min 75 /min [facility] Diastolic blood 73 mm[Hg] 73 mm[Hg] [facility] Systolic blood 117 mm[Hg] 117 mm[Hg] [facility] Body temperature 36.401578 Kenna 36.414627 Kenna [facility] Respiratory rate 20 /min 20 /min [facility] Heart rate 66 /min 66 /min [facility] Diastolic blood 65 mm[Hg] 65 mm[Hg] [facility] Systolic blood 106 mm[Hg] 106 mm[Hg] [facility] Heart rate 96 /min 96 /min [facility] Diastolic blood 67 mm[Hg] 67 mm[Hg] [facility] Systolic blood 92 mm[Hg] 92 mm[Hg] [facility] Body temperature 36.058425 Kenna 36.270888 Kenna [facility] Respiratory rate 18 /min 18 /min [facility] Heart rate 66 /min 66 /min [facility] Diastolic blood 70 mm[Hg] 70 mm[Hg] [facility] Systolic blood 114 mm[Hg] 114 mm[Hg] [facility] Heart rate 77 /min 77 /min [facility] Diastolic blood 80 mm[Hg] 80 mm[Hg] [facility] Systolic blood 126 mm[Hg] 126 mm[Hg] [facility] Body temperature 35.221569 Kenna 35.436042 Kenna [facility] Respiratory rate 17 /min 17 /min [facility] Body temperature 35.452439 Kenna 35.563271 Kenna [facility] Respiratory rate 18 /min 18 /min [facility] Body weight 76.194479 kg 76.224559 kg [facility] Body temperature 36.079406 Kenna 36.718583 Kenna [facility] Respiratory rate 20 /min 20 /min [facility] Body weight 85.484865 kg 85.971462 kg [facility] Respiratory rate 18 /min 18 /min [facility] Heart rate 74 /min 74 /min [facility] Diastolic blood 72 mm[Hg] 72 mm[Hg] [facility] Systolic blood 132 mm[Hg] 132 mm[Hg] [facility] Body temperature 36.039031 Kenna 36.428597 Kenna [facility] Oxygen 100 % 100 % [facility] [place] saturation in Medical Arterial blood Center by Pulse oximetry Body temperature 36.380195 Kenna 36.578266 Kenna [facility] Respiratory rate 18 /min 18 /min [facility] Heart rate 74 /min 74 /min [facility] Diastolic blood 86 mm[Hg] 86 mm[Hg] [facility] Systolic blood 135 mm[Hg] 135 mm[Hg] [facility] Oxygen 100 % 100 % [facility] saturation in Medical Arterial blood Center by Pulse oximetry Body temperature 36.923364 Kenna 36.931749 Kenna [facility] Respiratory rate 18 /min 18 /min [facility] Heart rate 74 /min 74 /min [facility] Diastolic blood 86 mm[Hg] 86 mm[Hg] [facility] Systolic blood 135 mm[Hg] 135 mm[Hg] [facility] Oxygen 100 % 100 % [facility] saturation in Medical Arterial blood Center by Pulse oximetry Body temperature 36.917799 Kenna 36.399300 Kenna [facility] Respiratory rate 18 /min 18 /min [facility] Heart rate 74 /min 74 /min [facility] Diastolic blood 86 mm[Hg] 86 mm[Hg] [facility] Systolic blood 135 mm[Hg] 135 mm[Hg] [facility] Oxygen 100 % 100 % [facility] saturation in Medical Arterial blood Center by Pulse oximetry Body temperature 36.633980 Kenna 36.704008 Kenna [facility] Respiratory rate 18 /min 18 /min [facility] Heart rate 74 /min 74 /min [facility] Diastolic blood 86 mm[Hg] 86 mm[Hg] [facility] Systolic blood 135 mm[Hg] 135 mm[Hg] [facility] Oxygen 100 % 100 % [facility] saturation in Medical Arterial blood Center by Pulse oximetry Body weight 90.569958 kg 90.493118 kg [facility] [place] Body height 160.252052 cm 160.233710 cm [facility] Body mass index 35.1 kg/m2 35.1 kg/m2 [facility] (BMI) [Ratio] [facility] Center Body temperature 36.330282 Kenna 36.886606 Kenna [facility] Respiratory rate 19 /min 19 /min [facility] Oxygen 98 % 98 % [facility] saturation in Medical Arterial blood Center by Pulse oximetry Heart rate 92 /min 92 /min [facility] Diastolic blood 75 mm[Hg] 75 mm[Hg] [facility] Systolic blood 128 mm[Hg] 128 mm[Hg] [facility] Body temperature 37.339983 Kenna 37.093553 Kenna [facility] Respiratory rate 18 /min 18 /min [facility] Oxygen 96 % 96 % [facility] saturation in Medical Arterial blood Center by Pulse oximetry Heart rate 85 /min 85 /min [facility] Diastolic blood 73 mm[Hg] 73 mm[Hg] [facility] Systolic blood 126 mm[Hg] 126 mm[Hg] [facility] Body weight 86.422112 kg 86.299997 kg [facility] Body temperature 36.901836 Kenna 36.103978 Kenna [facility] Respiratory rate 20 /min 20 /min [facility] Oxygen 95 % 95 % [facility] saturation in Medical Arterial blood Center by Pulse oximetry Heart rate 73 /min 73 /min [facility] Diastolic blood 91 mm[Hg] 91 mm[Hg] [facility] Systolic blood 148 mm[Hg] 148 mm[Hg] [facility] Respiratory rate 16 /min 16 /min [facility] ([facility]) Body mass index 29.8 kg/m2 29.8 kg/m2 [facility] (BMI) [Ratio] ([facility]) Diastolic blood 80 mm[Hg] 80 mm[Hg] [facility] pressure ([facility]) Systolic blood 120 mm[Hg] 120 mm[Hg] [facility] pressure ([facility]) Body weight 168 lb 168 lb [facility] ([facility]) Body height 63 in 63 in [facility] ([facility]) Heart rate 60 /min 60 /min [facility] ([facility]) Heart rate 60 /min 60 /min [facility] ([facility]) Respiratory rate 16 /min 16 /min [facility] ([facility]) Body mass index 29.8 kg/m2 29.8 kg/m2 [facility] (BMI) [Ratio] ([facility]) Diastolic blood 80 mm[Hg] 80 mm[Hg] [facility] pressure ([facility]) Systolic blood 120 mm[Hg] 120 mm[Hg] [facility] pressure ([facility]) Body weight 168 lb 168 lb [facility] ([facility]) Body height 63 in 63 in [facility] ([facility]) Body weight 83.197695 kg 83.216572 kg [facility] Body temperature 36.817690 Kenna 36.169944 Kenna [facility] Respiratory rate 18 /min 18 /min [facility] Oxygen 99 % 99 % [facility] saturation in Medical Arterial blood Center by Pulse oximetry Heart rate 67 /min 67 /min [facility] Body height 160.673846 cm 160.510532 cm [facility] Diastolic blood 91 mm[Hg] 91 mm[Hg] [facility] Systolic blood 143 mm[Hg] 143 mm[Hg] [facility] Body mass index 32.4 kg/m2 32.4 kg/m2 [facility] (BMI) [Ratio] Medical Center Body temperature 36.272770 Kenna 36.071137 Kenna [facility] Respiratory rate 17 /min 17 /min [facility] Oxygen 98 % 98 % [facility] saturation in Medical Arterial blood Center by Pulse oximetry Heart rate 81 /min 81 /min [facility] Diastolic blood 63 mm[Hg] 63 mm[Hg] [facility] Systolic blood 103 mm[Hg] 103 mm[Hg] [facility] Body weight 70.646292 kg 70.989995 kg [facility] Body temperature 36.457547 Kenna 36.591435 Kenna [facility] Respiratory rate 22 /min 22 /min [facility] Oxygen 98 % 98 % [facility] saturation in Medical Arterial blood Center by Pulse oximetry Heart rate 88 /min 88 /min [facility] Body height 162.836989 cm 162.854699 cm [facility] Diastolic blood 80 mm[Hg] 80 mm[Hg] [facility] Systolic blood 132 mm[Hg] 132 mm[Hg] [facility] Body mass index 26.4 kg/m2 26.4 kg/m2 [facility] (BMI) [Ratio] [facility] Center Heart rate 60 /min 60 /min [facility] ([facility]) Respiratory rate 16 /min 16 /min [facility] ([facility]) Body mass index 28.7 kg/m2 28.7 kg/m2 [facility] (BMI) [Ratio] ([facility]) Diastolic blood 80 mm[Hg] 80 mm[Hg] [facility] pressure ([facility]) Systolic blood 120 mm[Hg] 120 mm[Hg] [facility] pressure ([facility]) Body weight 162 lb 162 lb [facility] ([facility]) Body height 63 in 63 in [facility] ([facility]) Heart rate 60 /min 60 /min [facility] ([facility]) Respiratory rate 16 /min 16 /min [facility] ([facility]) Body mass index 28.7 kg/m2 28.7 kg/m2 [facility] (BMI) [Ratio] ([facility]) Diastolic blood 80 mm[Hg] 80 mm[Hg] [facility] pressure ([facility]) Systolic blood 120 mm[Hg] 120 mm[Hg] [facility] pressure ([facility]) Body weight 162 lb 162 lb [facility] ([facility]) Body height 63 in 63 in [facility] ([facility]) Heart rate 60 /min 60 /min [facility] ([facility]) Respiratory rate 16 /min 16 /min [facility] ([facility]) Body mass index 27.6 kg/m2 27.6 kg/m2 [facility] (BMI) [Ratio] ([facility]) Diastolic blood 80 mm[Hg] 80 mm[Hg] [facility] pressure ([facility]) Systolic blood 130 mm[Hg] 130 mm[Hg] [facility] pressure ([facility]) Body weight 156 lb 156 lb [facility] ([facility]) Body height 63 in 63 in [facility] ([facility]) Heart rate 60 /min 60 /min [facility] ([facility]) Respiratory rate 16 /min 16 /min [facility] ([facility]) Body mass index 27.6 kg/m2 27.6 kg/m2 [facility] (BMI) [Ratio] ([facility]) Diastolic blood 80 mm[Hg] 80 mm[Hg] [facility] pressure ([facility]) Systolic blood 130 mm[Hg] 130 mm[Hg] [facility] pressure ([facility]) Body weight 156 lb 156 lb [facility] ([facility]) Body height 63 in 63 in [facility] ([facility]) Heart rate 60 /min 60 /min [facility] ([facility]) Respiratory rate 16 /min 16 /min [facility] ([facility]) Body mass index 27.6 kg/m2 27.6 kg/m2 [facility] (BMI) [Ratio] ([facility]) Diastolic blood 78 mm[Hg] 78 mm[Hg] [facility] pressure ([facility]) Systolic blood 122 mm[Hg] 122 mm[Hg] [facility] pressure ([facility]) Body weight 156 lb 156 lb [facility] ([facility]) Body height 63 in 63 in [facility] ([facility]) Heart rate 60 /min 60 /min [facility] ([facility]) Respiratory rate 16 /min 16 /min [facility] ([facility]) Body mass index 27.6 kg/m2 27.6 kg/m2 [facility] (BMI) [Ratio] ([facility]) Diastolic blood 78 mm[Hg] 78 mm[Hg] [facility] pressure ([facility]) Systolic blood 122 mm[Hg] 122 mm[Hg] [facility] pressure ([facility]) Body weight 156 lb 156 lb [facility] ([facility]) Body height 63 in 63 in [facility] ([facility]) Body weight 67.439854 kg 67.091681 kg [facility] Body temperature 37.241843 Kenna 37.752812 Kenna [facility] Respiratory rate 16 /min 16 /min [facility] Oxygen 98 % 98 % [facility] saturation in Medical Arterial blood Center by Pulse oximetry Heart rate 82 /min 82 /min [facility] Body height 157.038290 cm 157.891759 cm [facility] Diastolic blood 78 mm[Hg] 78 mm[Hg] [facility] Systolic blood 137 mm[Hg] 137 mm[Hg] [facility] Body mass index 27.0 kg/m2 27.0 kg/m2 [facility] (BMI) [Ratio] Medical Center Heart rate 60 /min 60 /min [facility] ([facility]) Respiratory rate 16 /min 16 /min [facility] ([facility]) Body mass index 32.6 kg/m2 32.6 kg/m2 [facility] (BMI) [Ratio] ([facility]) Diastolic blood 78 mm[Hg] 78 mm[Hg] [facility] pressure ([facility]) Systolic blood 122 mm[Hg] 122 mm[Hg] [facility] pressure ([facility]) Body weight 184 lb 184 lb [facility] ([facility]) Body height 63 in 63 in [facility] ([facility]) Heart rate 60 /min 60 /min [facility] ([facility]) Respiratory rate 16 /min 16 /min [facility] ([facility]) Body mass index 32.6 kg/m2 32.6 kg/m2 [facility] (BMI) [Ratio] ([facility]) Diastolic blood 78 mm[Hg] 78 mm[Hg] [facility] pressure ([facility]) Systolic blood 122 mm[Hg] 122 mm[Hg] [facility] pressure ([facility]) Body weight 184 lb 184 lb [facility] ([facility]) Body height 63 in 63 in [facility] ([facility]) Heart rate 60 /min 60 /min [facility] ([facility]) Respiratory rate 16 /min 16 /min [facility] ([facility]) Body mass index 32.6 kg/m2 32.6 kg/m2 [facility] (BMI) [Ratio] ([facility]) Diastolic blood 78 mm[Hg] 78 mm[Hg] [facility] pressure ([facility]) Systolic blood 122 mm[Hg] 122 mm[Hg] [facility] pressure ([facility]) Body weight 184 lb 184 lb [facility] ([facility]) Body height 63 in 63 in [facility] ([facility]) Heart rate 60 /min 60 /min [facility] ([facility]) Respiratory rate 16 /min 16 /min [facility] ([facility]) Body mass index 32.6 kg/m2 32.6 kg/m2 [facility] (BMI) [Ratio] ([facility]) Diastolic blood 78 mm[Hg] 78 mm[Hg] [facility] pressure ([facility]) Systolic blood 122 mm[Hg] 122 mm[Hg] [facility] pressure ([facility]) Body weight 184 lb 184 lb [facility] ([facility]) Body height 63 in 63 in [facility] ([facility]) Heart rate 60 /min 60 /min [facility] ([facility]) Respiratory rate 16 /min 16 /min [facility] ([facility]) Body mass index 36 kg/m2 36 kg/m2 [facility] (BMI) [Ratio] ([facility]) Diastolic blood 78 mm[Hg] 78 mm[Hg] [facility] pressure ([facility]) Systolic blood 122 mm[Hg] 122 mm[Hg] [facility] pressure ([facility]) Body weight 203 lb 203 lb [facility] ([facility]) Body height 63 in 63 in [facility] ([facility]) Heart rate 60 /min 60 /min [facility] ([facility]) Respiratory rate 16 /min 16 /min [facility] ([facility]) Body mass index 36 kg/m2 36 kg/m2 [facility] (BMI) [Ratio] ([facility]) Diastolic blood 78 mm[Hg] 78 mm[Hg] [facility] pressure ([facility]) Systolic blood 122 mm[Hg] 122 mm[Hg] [facility] pressure ([facility]) Body weight 203 lb 203 lb [facility] ([facility]) Body height 63 in 63 in [facility] ([facility]) Heart rate 80 /min 80 /min [facility] ([facility]) Respiratory rate 16 /min 16 /min [facility] ([facility]) Body mass index 36.3 kg/m2 36.3 kg/m2 [facility] (BMI) [Ratio] ([facility]) Diastolic blood 80 mm[Hg] 80 mm[Hg] [facility] pressure ([facility]) Systolic blood 110 mm[Hg] 110 mm[Hg] [facility] pressure ([facility]) Body weight 205 lb 205 lb [facility] ([facility]) Body height 63 in 63 in [facility] ([facility]) Heart rate 80 /min 80 /min [facility] ([facility]) Respiratory rate 16 /min 16 /min [facility] ([facility]) Body mass index 36.3 kg/m2 36.3 kg/m2 [facility] (BMI) [Ratio] ([facility]) Diastolic blood 80 mm[Hg] 80 mm[Hg] [facility] pressure ([facility]) Systolic blood 110 mm[Hg] 110 mm[Hg] [facility] pressure ([facility]) Body weight 205 lb 205 lb [facility] ([facility]) Body height 63 in 63 in [facility] ([facility]) Heart rate 80 /min 80 /min [facility] ([facility]) Respiratory rate 16 /min 16 /min [facility] ([facility]) Body mass index 36.3 kg/m2 36.3 kg/m2 [facility] (BMI) [Ratio] ([facility]) Diastolic blood 60 mm[Hg] 60 mm[Hg] [facility] pressure ([facility]) Systolic blood 110 mm[Hg] 110 mm[Hg] [facility] pressure ([facility]) Body weight 205 lb 205 lb [facility] ([facility]) Body height 63 in 63 in [facility] ([facility]) Heart rate 80 /min 80 /min [facility] ([facility]) Respiratory rate 16 /min 16 /min [facility] ([facility]) Body mass index 36.3 kg/m2 36.3 kg/m2 [facility] (BMI) [Ratio] ([facility]) Diastolic blood 60 mm[Hg] 60 mm[Hg] [facility] pressure ([facility]) Systolic blood 110 mm[Hg] 110 mm[Hg] [facility] pressure ([facility]) Body weight 205 lb 205 lb [facility] ([facility]) Body height 63 in 63 in [facility] ([facility]) Heart rate 80 /min 80 /min MEDGEN ([facility]) Respiratory rate 16 /min 16 /min [facility] ([facility]) Body mass index 38.4 kg/m2 38.4 kg/m2 [facility]GEN (BMI) [Ratio] ([facility]) Diastolic blood 80 mm[Hg] 80 mm[Hg] MEDGEN pressure ([facility]) Systolic blood 120 mm[Hg] 120 mm[Hg] MEDGEN pressure ([facility]) Body weight 217 lb 217 lb [facility] ([facility]) Body height 63 in 63 in MED[facility] ([facility]) Heart rate 80 /min 80 /min [facility] ([facility]) Respiratory rate 16 /min 16 /min [facility] ([facility]) Body mass index 38.4 kg/m2 38.4 kg/m2 MEDGEN (BMI) [Ratio] ([facility]) Diastolic blood 80 mm[Hg] 80 mm[Hg] MEDGEN pressure ([facility]) Systolic blood 120 mm[Hg] 120 mm[Hg] MEDGEN pressure ([facility]) Body weight 217 lb 217 lb [facility] ([facility]) Body height 63 in 63 in [facility] ([facility]) Heart rate 80 /min 80 /min [facility] ([facility]) Respiratory rate 16 /min 16 /min [facility] ([facility]) Body mass index 37.7 kg/m2 37.7 kg/m2 MEDGEN (BMI) [Ratio] ([facility]) Diastolic blood 80 mm[Hg] 80 mm[Hg] MEDGEN pressure ([facility]) Systolic blood 120 mm[Hg] 120 mm[Hg] MEDGEN pressure ([facility]) Body weight 213 lb 213 lb MED[facility] ([facility]) Body height 63 in 63 in [facility] ([facility]) Heart rate 80 /min 80 /min [facility] ([facility]) Respiratory rate 16 /min 16 /min [facility] ([facility]) Body mass index 37.7 kg/m2 37.7 kg/m2 [facility] (BMI) [Ratio] ([facility]) Diastolic blood 80 mm[Hg] 80 mm[Hg] MEDGEN pressure ([facility]) Systolic blood 120 mm[Hg] 120 mm[Hg] MEDGEN pressure ([facility]) Body weight 213 lb 213 lb MED[facility] ([facility]) Body height 63 in 63 in [facility] ([facility]) Heart rate 80 /min 80 /min [facility] ([facility]) Respiratory rate 16 /min 16 /min [facility] ([facility]) Body mass index 37 kg/m2 37 kg/m2 MED[facility] (BMI) [Ratio] ([facility]) Diastolic blood 80 mm[Hg] 80 mm[Hg] MED[facility] pressure ([facility]) Systolic blood 120 mm[Hg] 120 mm[Hg] MEDGEN pressure ([facility]) Body weight 209 lb 209 lb [facility] ([facility]) Body height 63 in 63 in [facility] ([facility]) Heart rate 80 /min 80 /min [facility] ([facility]) Respiratory rate 16 /min 16 /min [facility] ([facility]) Body mass index 37 kg/m2 37 kg/m2 MEDGEN (BMI) [Ratio] ([facility]) Diastolic blood 80 mm[Hg] 80 mm[Hg] MEDGEN pressure ([facility]) Systolic blood 120 mm[Hg] 120 mm[Hg] MEDGEN pressure ([facility]) Body weight 209 lb 209 lb [facility] ([facility]) Body height 63 in 63 in [facility] ([facility]) Heart rate 80 /min 80 /min [facility] ([facility]) Respiratory rate 16 /min 16 /min [facility] ([facility]) Body mass index 36.7 kg/m2 36.7 kg/m2 MED[facility] (BMI) [Ratio] ([facility]) Diastolic blood 60 mm[Hg] 60 mm[Hg] MEDGEN pressure ([facility]) Systolic blood 100 mm[Hg] 100 mm[Hg] [facility] pressure ([facility]) Body weight 207 lb 207 lb [facility] ([facility]) Body height 63 in 63 in [facility] ([facility]) Heart rate 80 /min 80 /min [facility] ([facility]) Respiratory rate 16 /min 16 /min [facility] ([facility]) Body mass index 36.7 kg/m2 36.7 kg/m2 MED[facility] (BMI) [Ratio] ([facility]) Diastolic blood 60 mm[Hg] 60 mm[Hg] MED[facility] pressure ([facility]) Systolic blood 100 mm[Hg] 100 mm[Hg] MED[facility] pressure ([facility]) Body weight 207 lb 207 lb [facility] ([facility]) Body height 63 in 63 in [facility] ([facility]) Heart rate 84 /min 84 /min [facility] ([facility]) Respiratory rate 20 /min 20 /min [facility] ([facility]) Body mass index 36.7 kg/m2 36.7 kg/m2 MED[facility] (BMI) [Ratio] ([facility]) Diastolic blood 80 mm[Hg] 80 mm[Hg] MEDGEN pressure ([facility]) Systolic blood 130 mm[Hg] 130 mm[Hg] MEDGEN pressure ([facility]) Body weight 207 lb 207 lb MED[facility] ([facility]) Body height 63 in 63 in [facility] ([facility]) Heart rate 84 /min 84 /min [facility] ([facility]) Respiratory rate 20 /min 20 /min [facility] ([facility]) Body mass index 36.7 kg/m2 36.7 kg/m2 MED[facility] (BMI) [Ratio] ([facility]) Diastolic blood 80 mm[Hg] 80 mm[Hg] MEDGEN pressure ([facility]) Systolic blood 130 mm[Hg] 130 mm[Hg] MEDGEN pressure ([facility]) Body weight 207 lb 207 lb MED[facility] ([facility]) Body height 63 in 63 in [facility] ([facility]) Heart rate 84 /min 84 /min [facility] ([facility]) Respiratory rate 20 /min 20 /min [facility] ([facility]) Body mass index 36.7 kg/m2 36.7 kg/m2 MEDGEN (BMI) [Ratio] ([facility]) Diastolic blood 78 mm[Hg] 78 mm[Hg] MEDGEN pressure ([facility]) Systolic blood 134 mm[Hg] 134 mm[Hg] MEDGEN pressure ([facility]) Body weight 207 lb 207 lb [facility] ([facility]) Body height 63 in 63 in [facility] ([facility]) Heart rate 84 /min 84 /min [facility] ([facility]) Respiratory rate 20 /min 20 /min [facility] ([facility]) Body mass index 36.7 kg/m2 36.7 kg/m2 MEDGEN (BMI) [Ratio] ([facility]) Diastolic blood 78 mm[Hg] 78 mm[Hg] MEDGEN pressure ([facility]) Systolic blood 134 mm[Hg] 134 mm[Hg] MEDGEN pressure ([facility]) Body weight 207 lb 207 lb [facility] ([facility]) Body height 63 in 63 in [facility] ([facility]) Heart rate 84 /min 84 /min [facility] ([facility]) Respiratory rate 16 /min 16 /min [facility] ([facility]) Body mass index 36.3 kg/m2 36.3 kg/m2 MEDGEN (BMI) [Ratio] ([facility]) Diastolic blood 80 mm[Hg] 80 mm[Hg] MEDGEN pressure ([facility]) Systolic blood 134 mm[Hg] 134 mm[Hg] MEDGEN pressure ([facility]) Body weight 205 lb 205 lb [facility] ([facility]) Body height 63 in 63 in [facility] ([facility]) Diastolic blood 80 mm[Hg] 80 mm[Hg] MEDGEN pressure ([facility]) Systolic blood 134 mm[Hg] 134 mm[Hg] MEDGEN pressure ([facility]) Body weight 205 lb 205 lb [facility] ([facility]) Body height 63 in 63 in [facility] ([facility]) Heart rate 84 /min 84 /min [facility] ([facility]) Respiratory rate 16 /min 16 /min [facility] ([facility]) Body mass index 36.3 kg/m2 36.3 kg/m2 MEDGEN (BMI) [Ratio] ([facility]) Heart rate 70 /min 70 /min [facility] ([facility]) Respiratory rate 16 /min 16 /min [facility] ([facility]) Body mass index 36.7 kg/m2 36.7 kg/m2 MEDGEN (BMI) [Ratio] ([facility]) Diastolic blood 80 mm[Hg] 80 mm[Hg] MEDGEN pressure ([facility]) Systolic blood 120 mm[Hg] 120 mm[Hg] MEDGEN pressure ([facility]) Body weight 214 lb 214 lb MED[facility] ([facility]) Body height 64 in 64 in [facility] ([facility]) Heart rate 70 /min 70 /min [facility] ([facility]) Respiratory rate 16 /min 16 /min [facility] ([facility]) Body mass index 36.7 kg/m2 36.7 kg/m2 [facility] (BMI) [Ratio] ([facility]) Diastolic blood 80 mm[Hg] 80 mm[Hg] MEDGEN pressure ([facility]) Systolic blood 120 mm[Hg] 120 mm[Hg] MEDGEN pressure ([facility]) Body weight 214 lb 214 lb MED[facility] ([facility]) Body height 64 in 64 in [facility] ([facility]) Body mass index 35.7 kg/m2 35.7 kg/m2 MEDGEN (BMI) [Ratio] ([facility]) Diastolic blood 80 mm[Hg] 80 mm[Hg] MEDGEN pressure ([facility]) Systolic blood 128 mm[Hg] 128 mm[Hg] MEDGEN pressure ([facility]) Body weight 208 lb 208 lb MED[facility] ([facility]) Body height 64 in 64 in [facility] ([facility]) Body mass index 35.7 kg/m2 35.7 kg/m2 MEDGEN (BMI) [Ratio] ([facility]) Diastolic blood 80 mm[Hg] 80 mm[Hg] MEDGEN pressure ([facility]) Systolic blood 128 mm[Hg] 128 mm[Hg] MEDGEN pressure ([facility]) Body weight 208 lb 208 lb [facility] ([facility]) Body height 64 in 64 in MEDGEN ([facility]) Body mass index 37.1 kg/m2 37.1 kg/m2 MEDGEN (BMI) [Ratio] ([facility]) Diastolic blood 85 mm[Hg] 85 mm[Hg] MEDGEN pressure ([facility]) Systolic blood 125 mm[Hg] 125 mm[Hg] MEDGEN pressure ([facility]) Body weight 203 lb 203 lb MEDGEN ([facility]) Body height 62 in 62 in [facility] ([facility]) Body mass index 37.1 kg/m2 37.1 kg/m2 MEDGEN (BMI) [Ratio] ([facility]) Diastolic blood 85 mm[Hg] 85 mm[Hg] MEDGEN pressure ([facility]) Systolic blood 125 mm[Hg] 125 mm[Hg] MEDGEN pressure ([facility]) Body weight 203 lb 203 lb MED[facility] ([facility]) Body height 62 in 62 in [facility] ([facility]) Body mass index 34.4 kg/m2 34.4 kg/m2 MEDGEN (BMI) [Ratio] ([facility]) Diastolic blood 84 mm[Hg] 84 mm[Hg] MEDGEN pressure ([facility]) Systolic blood 130 mm[Hg] 130 mm[Hg] MEDGEN pressure ([facility]) Body weight 194 lb 194 lb [facility] ([facility]) Body height 63 in 63 in [facility] ([facility]) Body mass index 34.4 kg/m2 34.4 kg/m2 MEDGEN (BMI) [Ratio] ([facility]) Diastolic blood 84 mm[Hg] 84 mm[Hg] MEDGEN pressure ([facility]) Systolic blood 130 mm[Hg] 130 mm[Hg] MEDGEN pressure ([facility]) Body weight 194 lb 194 lb MED[facility] ([facility]) Body height 63 in 63 in [facility] ([facility]) Body mass index 33.3 kg/m2 33.3 kg/m2 MEDGEN (BMI) [Ratio] ([facility]) Diastolic blood 80 mm[Hg] 80 mm[Hg] MEDGEN pressure ([facility]) Systolic blood 130 mm[Hg] 130 mm[Hg] MEDGEN pressure ([facility]) Body weight 188 lb 188 lb [facility] ([facility]) Body height 63 in 63 in [facility]GEN ([facility]) Body mass index 33.3 kg/m2 33.3 kg/m2 [facility] (BMI) [Ratio] ([facility]) Diastolic blood 80 mm[Hg] 80 mm[Hg] MEDGEN pressure ([facility]) Systolic blood 130 mm[Hg] 130 mm[Hg] MEDGEN pressure ([facility]) Body weight 188 lb 188 lb [facility] ([facility]) Body height 63 in 63 in [facility] ([facility]) Body mass index 35.1 kg/m2 35.1 kg/m2 MED[facility] (BMI) [Ratio] ([facility]) Diastolic blood 70 mm[Hg] 70 mm[Hg] MEDGEN pressure ([facility]) Systolic blood 114 mm[Hg] 114 mm[Hg] MEDGEN pressure ([facility]) Body weight 192 lb 192 lb [facility] ([facility]) Body height 62 in 62 in [facility] ([facility]) Body mass index 35.1 kg/m2 35.1 kg/m2 MEDGEN (BMI) [Ratio] ([facility]) Diastolic blood 70 mm[Hg] 70 mm[Hg] MEDGEN pressure ([facility]) Systolic blood 114 mm[Hg] 114 mm[Hg] MEDGEN pressure ([facility]) Body weight 192 lb 192 lb [facility] ([facility]) Body height 62 in 62 in [facility] ([facility]) ID Date Data Source [id number] 11/29/2019 10:44:07 PM EDT [facility] Name Value Range Interpretation Code Description Data Source(s) Body weight Measured 200 lb 200 lb [facility] Patient Treatment Plan of Care Planned Activity Planned Date Details Description Data Source (s) benztropine 1 mg Tablet [facility] haloperidol decanoate 100 [facility] mg/mL [facility] naltrexone 50 mg Tablet [facility] zolpidem 10 mg Tablet [facility] Potassium Chloride 10 MEQ [facility] Extended Release Oral Tablet Center Naltrexone hydrochloride 50 [facility] MG Oral Tablet Center Haloperidol 10 MG Oral Tablet [facility] Ketorolac Tromethamine 10 MG [facility] Oral Tablet [facility] haloperidol decanoate 100 [facility] mg/mL [facility] naltrexone 50 mg Tablet [facility] naproxen [address] [facility] TabletDirections: 1 tablet C enter oral twice a day haloperidol 10 mg Tablet [facility] Zolpidem tartrate 10 MG Oral [facility] Tablet [facility] Trazodone Hydrochloride 50 MG [facility] Oral Tablet [facility] benztropine mesylate 1 MG [facility] Oral Tablet [facility] gabapentin 300 MG Oral [facility] Capsule [facility] Naproxen 500 MG Oral Tablet [facility] zolpidem 10 mg Tablet [facility] clonazePAM 1 mg Tablet [facility] betamethasone dipropionate [facility] 0.05 % Ointment Center cromolyn 4 % Drops [facility] haloperidol decanoate 100 [facility] mg/mL [facility] acetaminophen 325 mg [facility] TabletDirections: 2 tablet C enter oral every six hours PRN pain Nicotine 2 MG Chewing Gum [facility] Naltrexone hydrochloride 50 [facility] MG Oral Tablet Center Methimazole 10 MG Oral Tablet [facility] Haloperidol 10 MG Oral Tablet [facility] gabapentin 100 MG Oral [facility] Capsule [facility] Diphenhydramine Hydrochloride [facility] 50 MG Oral Capsule [facility] benztropine mesylate 1 MG [facility] Oral Tablet [facility] albuterol sulfate 90 mcg HFA [facility] Aerosol Inhaler, Ordered By: OSWALDO Ortegairections: 1 puff oral every six hours PRN SHORTNESS OF BREATH Acetaminophen 325 MG Oral [facility] Tablet [facility] Zolpidem tartrate 10 MG Oral [facility] Tablet [facility] haloperidol decanoate 100 [facility] MG/ML Injectable Solution Ce nter gabapentin [address] [facility] Clonazepam 1 MG Oral Tablet [facility] benztropine mesylate 1 MG [facility] Oral Tablet [facility] Acetaminophen 325 MG Oral [facility] Ciprofloxacin 3 MG/ML [facility] Ophthalmic Solution [facility]
[2020-01-09 12:03] VITALS: BMI 36.9
[2020-01-09] MEDS ORDERED: ACETAMINOPHEN 325 MG TABLET (FP) PO PRN (12:14)
[2020-01-09] MEDS ORDERED: NICOTINE POLACRILEX 2 MG GUM BC PRN (12:14)
[2020-01-09] MEDS ORDERED: LOPERAMIDE HCL 2 MG CAPSULE PO PRN (12:14)
[2020-01-09] MEDS ORDERED: MAG HYDROX/AL HYDROX/SIMETH 30 ML UNIT-DOSE CUP PO PRN (12:14)
[2020-01-09] MEDS ORDERED: guaiFENesin 200 MG/10 ML 10 ML UNIT-DOSE CUPS PO PRN (12:14)
[2020-01-09] MEDS ORDERED: P-EPHED 60MG/TRIPROLIDI 2.5MG TABLET PO PRN (12:14)
[2020-01-09] MEDS ORDERED: ALBUTEROL SO4 HFA INHALER IH PRN (12:15)
[2020-01-09] MEDS ORDERED: PATIENT'S OWN MEDICATION (NON-FORMULARY) (Gabapentin [Gabapentin] 800 MG) PO SCH (14:00)
[2020-01-09] MEDS ORDERED: PATIENT'S OWN MEDICATION (NON-FORMULARY) (Gabapentin [Gabapentin] 600 MG) PO SCH (14:00)
[2020-01-09] MEDS: NICOTINE 21 MG/24 HOURS TOPICAL PATCH TD SCH (14:29)
[2020-01-09] MEDS: GABAPENTIN 300 MG CAPSULE PO SCH ×2 (14:29→22:04)
[2020-01-09] MEDS: hydrOXYzine PAMOATE 25 MG CAPSULE (FP) PO SCH ×3 (14:30→22:04)
[2020-01-09] MEDS: BUDESONIDE/FORMETEROL FUMARATE 160/4.5 mcg INHALER IH SCH ×2 (14:30→22:04)
[2020-01-09 14:49] LABS: HEMOGLOBIN 11.6 GM/dL (10.7-15.3); MCH 29.6 pg (25.7-33.7); MEAN CELL VOLUME 89.5 fl (80-96); MEAN PLT VOLUME 7.1 fl (7.5-11.1); PLATELET COUNT 417 K/MM3 (134-434); RBC 3.91 M/mm3 (3.60-5.2); RDW 17.1 % (11.6-15.6); WHITE BLOOD COUNT 7.5 K/mm3 (4.0-10.0)
[2020-01-09 15:01] LABS: ALBUMIN 3.6 g/dl (3.4-5.0); BILIRUBIN,TOTAL 0.7 mg/dL (0.2-1); CALCIUM 9.1 mg/dL (8.5-10.1); CREATININE 0.8 mg/dL (0.55-1.3); POTASSIUM 3.3 mmol/L (3.5-5.1); TOT PROT 8.5 g/dl (6.4-8.2)
[2020-01-09 15:03] LABS: BLOOD UREA NITROGEN 2.2 mg/dL (7-18); SICKLE CELL SCREEN NEGATIVE (NEGATIVE)
--- NOTE | 2020-01-09 15:16 | PN ---
[facility] Progress Note Note: New pt who arrived to unit a few minutes ago with lab result called to the unit. Vital Signs - 24 hr 01/09/20 12:01 Temperature 97.3 F L Pulse Rate 65 Respiratory 16 Rate Blood Pressure 123/85 Laboratory Tests 01/09/20 01/09/20 12:20 12:20 WBC 7.5 RBC 3.91 Hgb 11.6 Hct 35.0 MCV 89.5 MCH 29.6 MCHC 33.0 RDW 17.1 H Plt Count 417 MPV 7.1 L Sickle Cell Screen Negative Sodium 139 Potassium 3.3 L Chloride 104 Carbon Dioxide 30 Anion Gap 4 L BUN 2.2 L* Creatinine 0.8 Est GFR (CKD-EPI)AfAm 99.63 Est GFR (CKD-EPI)NonAf 85.96 Random Glucose 100 Calcium 9.1 Total Bilirubin 0.7 AST 9 L ALT 27 Alkaline Phosphatase 87 Total Protein 8.5 H Albumin 3.6 Abnormal labs-BUN 2.2, K+; +3.3 Hypokalemia decreased BUN Kdur 20 MEQ po BID repeat BUN in a.m
[2020-01-09] MEDS: POTASSIUM CHLORIDE ORAL LIQUID 20 MEQ/15 ML PO SCH ×2 (16:57→22:04)
[2020-01-09] MEDS ORDERED: CLOBETASOL PROPIONATE TP SCH (22:00)
[2020-01-09] MEDS: BENZTROPINE MESYLATE 1 MG TABLET PO SCH (22:03)
[2020-01-09] MEDS: MELATONIN 5 MG TABLETS PO SCH (22:03)
[2020-01-09] MEDS: THIAMINE HCL 100 MG TABLET (FP) PO SCH (22:04)
[2020-01-09] MEDS: FLUOCINONIDE 0.05% TOP OINT (60 GM TUBE) TP SCH (22:05)
[2020-01-10] MEDS: hydrOXYzine PAMOATE 25 MG CAPSULE (FP) PO SCH ×4 (07:30→17:59)
[2020-01-10] MEDS: GABAPENTIN 300 MG CAPSULE PO SCH ×2 (07:31→13:08)
[2020-01-10] MEDS ORDERED: PT OWN MED DRAWER 7, Y5N ONE ×2 (09:20→18:03)
[2020-01-10] MEDS: BUDESONIDE/FORMETEROL FUMARATE 160/4.5 mcg INHALER IH SCH (10:27)
[2020-01-10] MEDS: NICOTINE 21 MG/24 HOURS TOPICAL PATCH TD SCH (10:28)
[2020-01-10] MEDS: FLUOCINONIDE 0.05% TOP OINT (60 GM TUBE) TP SCH (10:28)
[2020-01-10 10:29] LABS: BLOOD UREA NITROGEN 4.9 mg/dL (7-18)
[2020-01-10] MEDS: POTASSIUM CHLORIDE ORAL LIQUID 20 MEQ/15 ML PO SCH ×2 (10:29→21:48)
[2020-01-10] MEDS: PRENATAL VITAMINS W/ FOLIC ACID TABLET (FP) PO SCH (10:29)
[2020-01-10] MEDS: IBUPROFEN 400 MG TABLET (FP) PO PRN (13:09)
[2020-01-10 14:55] LABS: EPI CELLS >36 /uL (0-25.1); HYALINE CASTS 2 /uL (0-3.1); PH,URINE 6.5 (5.0-8.0); URINE APPEARANCE CLOUDY; URINE BACTERIA 1873 /uL (0-1359); URINE BILIRUBIN NEGATIVE (NEGATIVE); URINE COLOR YELLOW; URINE GLUCOSE (UA) NEGATIVE (NEGATIVE); URINE KETONE NEGATIVE (NEGATIVE); URINE LEUK ESTERASE 1+ (NEGATIVE); URINE NITRITE NEGATIVE (NEGATIVE); URINE PROTEIN NEGATIVE (NEGATIVE); URINE RBC 11 /uL (0-23.9); URINE WBC 45 /uL (0-25.8)
[2020-01-10] MEDS: DOXYCYCLINE HYCLATE 100 MG TABLET PO SCH (18:24)
[2020-01-11] MEDS: BENZTROPINE MESYLATE 1 MG TABLET PO SCH ×2 (00:16→21:21)
[2020-01-11] MEDS: FLUOCINONIDE 0.05% TOP OINT (60 GM TUBE) TP SCH ×3 (00:16→21:23)
[2020-01-11] MEDS: DOXYCYCLINE HYCLATE 100 MG TABLET PO SCH ×5 (00:16→17:22)
[2020-01-11] MEDS: MELATONIN 5 MG TABLETS PO SCH ×2 (00:16→21:22)
[2020-01-11] MEDS: hydrOXYzine PAMOATE 25 MG CAPSULE (FP) PO SCH ×6 (00:17→21:21)
[2020-01-11] MEDS: THIAMINE HCL 100 MG TABLET (FP) PO SCH ×2 (00:17→21:21)
[2020-01-11] MEDS: GABAPENTIN 300 MG CAPSULE PO SCH ×4 (00:17→21:21)
[2020-01-11] MEDS: BUDESONIDE/FORMETEROL FUMARATE 160/4.5 mcg INHALER IH SCH ×3 (00:17→21:22)
[2020-01-11] MEDS: NICOTINE 21 MG/24 HOURS TOPICAL PATCH TD SCH (10:16)
[2020-01-11] MEDS: PRENATAL VITAMINS W/ FOLIC ACID TABLET (FP) PO SCH (10:17)
[2020-01-11] MEDS: POTASSIUM CHLORIDE ORAL LIQUID 20 MEQ/15 ML PO SCH ×2 (10:17→21:22)
[2020-01-11] MEDS ORDERED: PT OWN MED DRAWER 7, Y5N ONE ×2 (10:20→12:37)
[2020-01-11 11:17] LABS: POTASSIUM 3.5 mmol/L (3.5-5.1)
[2020-01-12] MEDS: hydrOXYzine PAMOATE 25 MG CAPSULE (FP) PO SCH ×5 (06:09→21:13)
[2020-01-12] MEDS: GABAPENTIN 300 MG CAPSULE PO SCH ×3 (06:09→21:14)
[2020-01-12] MEDS: DOXYCYCLINE HYCLATE 100 MG TABLET PO SCH ×2 (06:09→18:00)
[2020-01-12] MEDS ORDERED: PT OWN MED DRAWER 7, Y5N ONE ×2 (09:18→12:34)
[2020-01-12] MEDS: PRENATAL VITAMINS W/ FOLIC ACID TABLET (FP) PO SCH (10:08)
[2020-01-12] MEDS: BUDESONIDE/FORMETEROL FUMARATE 160/4.5 mcg INHALER IH SCH ×2 (10:08→21:14)
[2020-01-12] MEDS: FLUOCINONIDE 0.05% TOP OINT (60 GM TUBE) TP SCH (10:09)
[2020-01-12] MEDS: NICOTINE 21 MG/24 HOURS TOPICAL PATCH TD SCH (10:09)
[2020-01-12] MEDS: POTASSIUM CHLORIDE ORAL LIQUID 20 MEQ/15 ML PO SCH (12:10)
[2020-01-12] MEDS: CLOBETASOL PROPIONATE TP SCH ×2 (13:37→21:14)
[2020-01-12] MEDS ORDERED: MASKS NR ONE (17:59)
[2020-01-12] MEDS: BENZTROPINE MESYLATE 1 MG TABLET PO SCH (21:13)
[2020-01-12] MEDS: THIAMINE HCL 100 MG TABLET (FP) PO SCH (21:13)
[2020-01-12] MEDS: MELATONIN 5 MG TABLETS PO SCH (21:14)
[2020-01-13] MEDS: DOXYCYCLINE HYCLATE 100 MG TABLET PO SCH ×2 (06:43→18:19)
[2020-01-13] MEDS: hydrOXYzine PAMOATE 25 MG CAPSULE (FP) PO SCH ×5 (06:43→21:45)
[2020-01-13] MEDS: GABAPENTIN 300 MG CAPSULE PO SCH ×3 (06:43→21:46)
[2020-01-13] MEDS: PRENATAL VITAMINS W/ FOLIC ACID TABLET (FP) PO SCH (09:52)
[2020-01-13] MEDS: CLOBETASOL PROPIONATE TP SCH (09:53)
[2020-01-13] MEDS: BUDESONIDE/FORMETEROL FUMARATE 160/4.5 mcg INHALER IH SCH ×2 (09:53→21:47)
[2020-01-13] MEDS: NICOTINE 21 MG/24 HOURS TOPICAL PATCH TD SCH (09:53)
[2020-01-13] MEDS ORDERED: PT OWN MED DRAWER 7, Y5N ONE (13:28)
[2020-01-13] MEDS: MAGNESIUM HYDROX 2400MG/30ML ORAL SUSPENSION 30 ML CUP PO PRN (15:48)
[2020-01-13] MEDS: BENZTROPINE MESYLATE 1 MG TABLET PO SCH (21:45)
[2020-01-13] MEDS: THIAMINE HCL 100 MG TABLET (FP) PO SCH (21:46)
[2020-01-13] MEDS: MELATONIN 5 MG TABLETS PO SCH (21:47)
[2020-01-13] MEDS: FLUOCINONIDE 0.05% TOP OINT (60 GM TUBE) TP SCH (21:47)
[2020-01-14] MEDS: GABAPENTIN 300 MG CAPSULE PO SCH ×3 (06:56→21:55)
[2020-01-14] MEDS: DOXYCYCLINE HYCLATE 100 MG TABLET PO SCH ×2 (06:56→17:40)
[2020-01-14] MEDS: hydrOXYzine PAMOATE 25 MG CAPSULE (FP) PO SCH ×5 (06:56→21:54)
[2020-01-14] MEDS: FLUOCINONIDE 0.05% TOP OINT (60 GM TUBE) TP SCH ×2 (09:48→21:55)
[2020-01-14] MEDS: NICOTINE 21 MG/24 HOURS TOPICAL PATCH TD SCH (09:49)
[2020-01-14] MEDS: PRENATAL VITAMINS W/ FOLIC ACID TABLET (FP) PO SCH (09:49)
[2020-01-14] MEDS: BUDESONIDE/FORMETEROL FUMARATE 160/4.5 mcg INHALER IH SCH ×2 (09:49→21:55)
[2020-01-14] MEDS: BENZTROPINE MESYLATE 1 MG TABLET PO SCH (21:55)
[2020-01-14] MEDS: MELATONIN 5 MG TABLETS PO SCH (21:55)
[2020-01-14] MEDS: THIAMINE HCL 100 MG TABLET (FP) PO SCH (21:55)
[2020-01-15] MEDS: DOXYCYCLINE HYCLATE 100 MG TABLET PO SCH ×2 (06:24→18:53)
[2020-01-15] MEDS: GABAPENTIN 300 MG CAPSULE PO SCH ×3 (06:24→22:01)
[2020-01-15] MEDS: hydrOXYzine PAMOATE 25 MG CAPSULE (FP) PO SCH ×5 (06:24→22:01)
[2020-01-15] MEDS: PRENATAL VITAMINS W/ FOLIC ACID TABLET (FP) PO SCH (10:17)
[2020-01-15] MEDS: FLUOCINONIDE 0.05% TOP OINT (60 GM TUBE) TP SCH ×2 (10:17→22:03)
[2020-01-15] MEDS: BUDESONIDE/FORMETEROL FUMARATE 160/4.5 mcg INHALER IH SCH ×2 (10:17→22:02)
[2020-01-15] MEDS: NICOTINE 21 MG/24 HOURS TOPICAL PATCH TD SCH (10:17)
[2020-01-15] MEDS: BENZTROPINE MESYLATE 1 MG TABLET PO SCH (22:01)
[2020-01-15] MEDS: THIAMINE HCL 100 MG TABLET (FP) PO SCH (22:01)
[2020-01-15] MEDS: MELATONIN 5 MG TABLETS PO SCH (22:02)
[2020-01-16] MEDS: DOXYCYCLINE HYCLATE 100 MG TABLET PO SCH (06:18)
[2020-01-16] MEDS: GABAPENTIN 300 MG CAPSULE PO SCH ×3 (06:18→21:28)
[2020-01-16] MEDS: hydrOXYzine PAMOATE 25 MG CAPSULE (FP) PO SCH ×5 (06:18→21:25)
[2020-01-16] MEDS: NICOTINE 21 MG/24 HOURS TOPICAL PATCH TD SCH (10:14)
[2020-01-16] MEDS: BUDESONIDE/FORMETEROL FUMARATE 160/4.5 mcg INHALER IH SCH ×2 (10:15→21:28)
[2020-01-16] MEDS: PRENATAL VITAMINS W/ FOLIC ACID TABLET (FP) PO SCH (10:15)
[2020-01-16] MEDS: FLUOCINONIDE 0.05% TOP OINT (60 GM TUBE) TP SCH ×2 (10:16→21:27)
[2020-01-16] MEDS ORDERED: COLLOIDAL OATMEAL 1 BAR EACH TP PRN (15:17)
[2020-01-16] MEDS ORDERED: MASKS NR ONE (18:30)
[2020-01-16] MEDS: BENZTROPINE MESYLATE 1 MG TABLET PO SCH (21:25)
[2020-01-16] MEDS: MINERAL OIL/PETROLAT/WATER TOPICAL CREAM 113 GM JAR TP SCH (21:26)
[2020-01-16] MEDS: MELATONIN 5 MG TABLETS PO SCH (21:28)
[2020-01-16] MEDS: THIAMINE HCL 100 MG TABLET (FP) PO SCH (21:28)
[2020-01-17] MEDS: GABAPENTIN 300 MG CAPSULE PO SCH ×3 (06:22→21:54)
[2020-01-17] MEDS: hydrOXYzine PAMOATE 25 MG CAPSULE (FP) PO SCH ×5 (06:24→21:54)
[2020-01-17] MEDS ORDERED: PT OWN MED DRAWER 7, Y5N ONE ×2 (09:23→16:04)
[2020-01-17] MEDS: NICOTINE 21 MG/24 HOURS TOPICAL PATCH TD SCH (10:12)
[2020-01-17] MEDS: BUDESONIDE/FORMETEROL FUMARATE 160/4.5 mcg INHALER IH SCH ×2 (10:12→21:54)
[2020-01-17] MEDS: PRENATAL VITAMINS W/ FOLIC ACID TABLET (FP) PO SCH (10:12)
[2020-01-17] MEDS: MINERAL OIL/PETROLAT/WATER TOPICAL CREAM 113 GM JAR TP SCH (10:13)
[2020-01-17] MEDS: FLUOCINONIDE 0.05% TOP OINT (60 GM TUBE) TP SCH ×2 (10:13→21:53)
[2020-01-17] MEDS: MAGNESIUM CITRATE 300 ML BOTTLE PO PRN (15:51)
[2020-01-17] MEDS: PATIENT'S OWN MEDICATION (NON-FORMULARY) (Doxycycline Monohydrate [Monodox] 100 MG) PO SCH (18:53)
[2020-01-17] MEDS: BENZTROPINE MESYLATE 1 MG TABLET PO SCH (21:53)
[2020-01-17] MEDS: MELATONIN 5 MG TABLETS PO SCH (21:53)
[2020-01-17] MEDS: THIAMINE HCL 100 MG TABLET (FP) PO SCH (21:54)
[2020-01-18] MEDS: hydrOXYzine PAMOATE 25 MG CAPSULE (FP) PO SCH ×5 (06:19→21:44)
[2020-01-18] MEDS: GABAPENTIN 300 MG CAPSULE PO SCH ×3 (06:19→21:44)
[2020-01-18] MEDS: PRENATAL VITAMINS W/ FOLIC ACID TABLET (FP) PO SCH (10:11)
[2020-01-18] MEDS: BUDESONIDE/FORMETEROL FUMARATE 160/4.5 mcg INHALER IH SCH ×2 (10:11→21:45)
[2020-01-18] MEDS: FLUOCINONIDE 0.05% TOP OINT (60 GM TUBE) TP SCH ×2 (10:12→21:45)
[2020-01-18] MEDS: NICOTINE 21 MG/24 HOURS TOPICAL PATCH TD SCH (10:12)
[2020-01-18] MEDS: MINERAL OIL/PETROLAT/WATER TOPICAL CREAM 113 GM JAR TP SCH (10:12)
[2020-01-18] MEDS: PATIENT'S OWN MEDICATION (NON-FORMULARY) (Doxycycline Monohydrate [Monodox] 100 MG) PO SCH ×2 (10:14→18:25)
[2020-01-18] MEDS: METHIMAZOLE 10 MG PO SCH (10:16)
[2020-01-18] MEDS ORDERED: PT OWN MED DRAWER 7, Y5N ONE (16:44)
[2020-01-18] MEDS: THIAMINE HCL 100 MG TABLET (FP) PO SCH (21:44)
[2020-01-18] MEDS: BENZTROPINE MESYLATE 1 MG TABLET PO SCH (21:44)
[2020-01-18] MEDS: MELATONIN 5 MG TABLETS PO SCH (21:45)
[2020-01-19] MEDS: hydrOXYzine PAMOATE 25 MG CAPSULE (FP) PO SCH ×5 (06:24→21:17)
[2020-01-19] MEDS: GABAPENTIN 300 MG CAPSULE PO SCH ×3 (06:24→21:17)
[2020-01-19] MEDS: NICOTINE 21 MG/24 HOURS TOPICAL PATCH TD SCH (09:59)
[2020-01-19] MEDS: MINERAL OIL/PETROLAT/WATER TOPICAL CREAM 113 GM JAR TP SCH (09:59)
[2020-01-19] MEDS: BUDESONIDE/FORMETEROL FUMARATE 160/4.5 mcg INHALER IH SCH ×2 (09:59→21:19)
[2020-01-19] MEDS: PRENATAL VITAMINS W/ FOLIC ACID TABLET (FP) PO SCH (10:00)
[2020-01-19] MEDS: FLUOCINONIDE 0.05% TOP OINT (60 GM TUBE) TP SCH ×2 (10:00→21:18)
[2020-01-19] MEDS ORDERED: PT OWN MED DRAWER 7, Y5N ONE ×3 (10:30→23:11)
[2020-01-19] MEDS: METHIMAZOLE 10 MG PO SCH (11:30)
[2020-01-19] MEDS: PATIENT'S OWN MEDICATION (NON-FORMULARY) (Doxycycline Monohydrate [Monodox] 100 MG) PO SCH ×2 (12:39→17:39)
[2020-01-19] MEDS: IBUPROFEN 400 MG TABLET (FP) PO PRN (19:44)
[2020-01-19] MEDS: BENZTROPINE MESYLATE 1 MG TABLET PO SCH (21:17)
[2020-01-19] MEDS: THIAMINE HCL 100 MG TABLET (FP) PO SCH (21:17)
[2020-01-19] MEDS: MELATONIN 5 MG TABLETS PO SCH (21:18)
[2020-01-20] MEDS: hydrOXYzine PAMOATE 25 MG CAPSULE (FP) PO SCH ×5 (05:59→21:42)
[2020-01-20] MEDS: GABAPENTIN 300 MG CAPSULE PO SCH ×3 (05:59→21:42)
[2020-01-20] MEDS: FLUOCINONIDE 0.05% TOP OINT (60 GM TUBE) TP SCH ×2 (09:47→21:42)
[2020-01-20] MEDS: MINERAL OIL/PETROLAT/WATER TOPICAL CREAM 113 GM JAR TP SCH (09:47)
[2020-01-20] MEDS: PATIENT'S OWN MEDICATION (NON-FORMULARY) (Doxycycline Monohydrate [Monodox] 100 MG) PO SCH ×2 (09:47→17:45)
[2020-01-20] MEDS: NICOTINE 21 MG/24 HOURS TOPICAL PATCH TD SCH (09:47)
[2020-01-20] MEDS: BUDESONIDE/FORMETEROL FUMARATE 160/4.5 mcg INHALER IH SCH ×2 (09:50→21:41)
[2020-01-20] MEDS: PRENATAL VITAMINS W/ FOLIC ACID TABLET (FP) PO SCH (09:50)
[2020-01-20] MEDS: METHIMAZOLE 10 MG PO SCH (09:50)
[2020-01-20] MEDS: MAGNESIUM HYDROX 2400MG/30ML ORAL SUSPENSION 30 ML CUP PO PRN (16:00)
[2020-01-20] MEDS ORDERED: PT OWN MED DRAWER 7, Y5N ONE ×2 (19:35→22:07)
[2020-01-20] MEDS: BENZTROPINE MESYLATE 1 MG TABLET PO SCH (21:42)
[2020-01-20] MEDS: THIAMINE HCL 100 MG TABLET (FP) PO SCH (21:42)
[2020-01-20] MEDS: MELATONIN 5 MG TABLETS PO SCH (21:42)
[2020-01-21] MEDS: hydrOXYzine PAMOATE 25 MG CAPSULE (FP) PO SCH ×5 (06:02→21:30)
[2020-01-21] MEDS: GABAPENTIN 300 MG CAPSULE PO SCH ×3 (06:02→21:30)
[2020-01-21] MEDS: NICOTINE 21 MG/24 HOURS TOPICAL PATCH TD SCH (09:37)
[2020-01-21] MEDS: BUDESONIDE/FORMETEROL FUMARATE 160/4.5 mcg INHALER IH SCH ×2 (09:37→21:30)
[2020-01-21] MEDS: PRENATAL VITAMINS W/ FOLIC ACID TABLET (FP) PO SCH (09:37)
[2020-01-21] MEDS: PATIENT'S OWN MEDICATION (NON-FORMULARY) (Doxycycline Monohydrate [Monodox] 100 MG) PO SCH ×2 (09:37→18:29)
[2020-01-21] MEDS: METHIMAZOLE 10 MG PO SCH (09:37)
[2020-01-21] MEDS: FLUOCINONIDE 0.05% TOP OINT (60 GM TUBE) TP SCH ×2 (09:38→21:30)
[2020-01-21] MEDS ORDERED: PT OWN MED DRAWER 7, Y5N ONE ×3 (09:40→16:56)
[2020-01-21] MEDS: MINERAL OIL/PETROLAT/WATER TOPICAL CREAM 113 GM JAR TP SCH (09:48)
[2020-01-21] MEDS ORDERED: MASKS NR ONE (13:08)
[2020-01-21] MEDS: MAGNESIUM CITRATE 300 ML BOTTLE PO PRN (15:17)
[2020-01-21] MEDS: BENZTROPINE MESYLATE 1 MG TABLET PO SCH (21:30)
[2020-01-21] MEDS: MELATONIN 5 MG TABLETS PO SCH (21:30)
[2020-01-21] MEDS: THIAMINE HCL 100 MG TABLET (FP) PO SCH (21:31)
[2020-01-22] MEDS: GABAPENTIN 300 MG CAPSULE PO SCH ×3 (06:16→21:25)
[2020-01-22] MEDS: hydrOXYzine PAMOATE 25 MG CAPSULE (FP) PO SCH ×5 (06:17→21:26)
[2020-01-22] MEDS: METHIMAZOLE 10 MG PO SCH (09:20)
[2020-01-22] MEDS: PATIENT'S OWN MEDICATION (NON-FORMULARY) (Doxycycline Monohydrate [Monodox] 100 MG) PO SCH ×2 (09:21→18:30)
[2020-01-22] MEDS: NICOTINE 21 MG/24 HOURS TOPICAL PATCH TD SCH (09:21)
[2020-01-22] MEDS: BUDESONIDE/FORMETEROL FUMARATE 160/4.5 mcg INHALER IH SCH ×2 (09:21→21:26)
[2020-01-22] MEDS: IBUPROFEN 400 MG TABLET (FP) PO PRN (09:23)
[2020-01-22] MEDS: PRENATAL VITAMINS W/ FOLIC ACID TABLET (FP) PO SCH (09:23)
[2020-01-22] MEDS: MINERAL OIL/PETROLAT/WATER TOPICAL CREAM 113 GM JAR TP SCH (09:24)
[2020-01-22] MEDS: FLUOCINONIDE 0.05% TOP OINT (60 GM TUBE) TP SCH ×2 (09:24→21:27)
[2020-01-22] MEDS ORDERED: PT OWN MED DRAWER 7, Y5N ONE (17:34)
[2020-01-22] MEDS: THIAMINE HCL 100 MG TABLET (FP) PO SCH (21:25)
[2020-01-22] MEDS: BENZTROPINE MESYLATE 1 MG TABLET PO SCH (21:25)
[2020-01-22] MEDS: MELATONIN 5 MG TABLETS PO SCH (21:26)
[2020-01-23] MEDS: hydrOXYzine PAMOATE 25 MG CAPSULE (FP) PO SCH ×2 (06:06→09:07)
[2020-01-23] MEDS: GABAPENTIN 300 MG CAPSULE PO SCH (06:06)
[2020-01-23 06:39] VITALS: TEMP 97.8
--- NOTE | 2020-01-23 08:41 | DS ---
[facility] Rehab Discharge Summary - [facility] Rehab Discharge Summary Admission Date: 01/09/20 Discharge Date: 01/23/20 - History Present History: Alcohol dependence, Cocaine dependence Pertinent Past History: Asthma Osteoarthritis Hyperthyroidism(on Tapazole) Psoriasis Roge. Knee Pain Chronic Rt ankle Pain Syphilis hx with Treatment Schizoaffective disorder - Discharge Physical Exam Vital Signs: Vital Signs Temperature 97.8 F 01/23/20 06:38 Pulse Rate 80 01/23/20 06:38 Respiratory Rate 16 01/23/20 06:38 Blood Pressure 120/78 01/23/20 06:38 O2 Sat by Pulse Oximetry (%) 99 01/23/20 06:38 General:WDWN female, alert o x 3 Nad, no resp difficulty MSK:Active ROM,all limbs, oob ambulating with steady gait Skin:no edema, psoriatic rash on lower upper/ extremities-/dark skin discolorations and lichenified.. Pertinent Admission Physical Exam Findings: Skin lesions, bilateral forearms, multiple patches/circular on legs, hyperpigmented. Skin over hands, forearms have multiple patches of dry flakey skin) on admission. 01/09/20 01/09/20 01/09/20 12:20 12:20 12:20 WBC 7.5 RBC 3.91 Hgb 11.6 Hct 35.0 MCV 89.5 MCH 29.6 MCHC 33.0 RDW 17.1 H Plt Count 417 MPV 7.1 L Sickle Cell Screen Negative Sodium 139 Potassium 3.3 L Chloride 104 Carbon Dioxide 30 Anion Gap 4 L BUN 2.2 L* Creatinine 0.8 Est GFR (CKD-EPI)AfAm 99.63 Est GFR (CKD-EPI)NonAf 85.96 Random Glucose 100 Calcium 9.1 Total Bilirubin 0.7 AST 9 L ALT 27 Alkaline Phosphatase 87 Total Protein 8.5 H Albumin 3.6 Urine Color Urine Appearance Urine pH Ur Specific Archie Urine Protein Urine Glucose (UA) Urine Ketones Urine Blood Urine Nitrite Urine Bilirubin Urine Urobilinogen Ur Leukocyte Esterase Urine WBC (Auto) Urine RBC (Auto) Urine Casts (Auto) U Epithel Cells (Auto) Urine Bacteria (Auto) POC Urine HCG, Qual Syphilis Serology Reactive A* RPR Titer 01/09/20 01/09/20 01/10/20 12:20 15:52 08:00 WBC RBC Hgb Hct MCV MCH MCHC RDW Plt Count MPV Sickle Cell Screen Sodium Potassium 3.5 Chloride Carbon Dioxide Anion Gap BUN 4.9 L Creatinine Est GFR (CKD-EPI)AfAm Est GFR (CKD-EPI)NonAf Random Glucose Calcium Total Bilirubin AST ALT Alkaline Phosphatase Total Protein Albumin Urine Color Urine Appearance Urine pH Ur Specific Archie Urine Protein Urine Glucose (UA) Urine Ketones Urine Blood Urine Nitrite Urine Bilirubin Urine Urobilinogen Ur Leukocyte Esterase Urine WBC (Auto) Urine RBC (Auto) Urine Casts (Auto) U Epithel Cells (Auto) Urine Bacteria (Auto) POC Urine HCG, Qual Negative Syphilis Serology RPR Titer Reactive 1:2 H 01/10/20 01/11/20 13:25 07:45 WBC RBC Hgb Hct MCV MCH MCHC RDW Plt Count MPV Sickle Cell Screen Sodium Potassium Cancelled Chloride Carbon Dioxide Anion Gap BUN Creatinine Est GFR (CKD-EPI)AfAm Est GFR (CKD-EPI)NonAf Random Glucose Calcium Total Bilirubin AST ALT Alkaline Phosphatase Total Protein Albumin Urine Color Yellow Urine Appearance Cloudy Urine pH 6.5 D Ur Specific Archie 1.017 Urine Protein Negative Urine Glucose (UA) Negative Urine Ketones Negative Urine Blood Negative Urine Nitrite Negative Urine Bilirubin Negative Urine Urobilinogen 1.0 Ur Leukocyte Esterase 1+ H Urine WBC (Auto) 45 Urine RBC (Auto) 11 Urine Casts (Auto) 2 U Epithel Cells (Auto) >36 Urine Bacteria (Auto) 1873 POC Urine HCG, Qual Syphilis Serology RPR Titer - Treatment Discharge Condition: Discharge condition good, Rehabilitated safely, Responded well, Outpatient referral accepted Hospital Course: Pt is a 49 y/o female with a hx of AC - Medication Discharge Medications: Ambulatory Orders Haloperidol Decanoate [Haldol Decanoate (Long-Acting) -] 150 mg IM ONCE 07/13/19 Albuterol Sulfate Inhaler - [Ventolin HFA Inhaler -] 2 puff PO Q4H PRN #1 inhaler 07/21/19 Gabapentin 600 mg PO TID 10/26/19 Fluocinonide 0.05% Oin [Lidex 0.05% Ointment -] 1 applic TP BID #1 applic 12/29/19 Benztropine Mesylate 1 mg PO HS 01/09/20 Budesonide/Formeterol Fumarate [SYMBICORT 160/4.5mcg -] 1 inh PO BID 01/09/20 Doxycycline Monohydrate [Monodox] 100 mg PO BID 01/09/20 Gabapentin 800 mg PO TID 01/09/20 Clobetasol Propionate [Temovate] 1 gm TP BID 01/12/20 Doxycycline Monohydrate [Monodox] 100 mg PO BID 01/17/20 Methimazole [Tapazole -] 10 mg PO DAILY 01/17/20 - Medication-Assisted Treatment (MAT) Medication-Assisted Treatment (MAT): No - Discharge Instructions Diet, activity, other medical instructions: Diet:Regular Activity:oob ad rishi Other medical instructions:follow up with primary care provider Dr. García on [address], [place]. Follow up with CD aftercare @ [facility] as scheduled. - Diagnosis (1) Osteoarthritis Status: Chronic Qualifiers: Osteoarthritis location: knee Laterality: bilateral (2) Syphilis contact, treated Status: Chronic (3) Alcohol use disorder Status: Chronic (4) Asthma Status: Chronic (5) Bilateral knee pain Status: Chronic Qualifiers: Chronicity: chronic Qualified Code(s): M25.561 - Pain in right knee; M25.562 - Pain in left knee; G89.29 - Other chronic pain (6) Cannabis dependence Status: Chronic (7) Cocaine dependence Status: Chronic Qualifiers: Substance use status: uncomplicated Qualified Code(s): F14.20 - Cocaine dependence, uncomplicated (8) Nicotine dependence Status: Chronic Qualifiers: Nicotine product type: cigarettes Substance use status: uncomplicated Qualified Code(s): F17.210 - Nicotine dependence, cigarettes, uncomplicated (9) Psoriasis Status: Chronic - Follow-up Referral Minutes to complete discharge: 30 - AMA Did Patient Leave Against Medical Advice: No Additional Comments: Pt was reminded to bead picker her prescriptions Refills(2 left of Gabapentin pre pharmacist) from her PCP from [facility]
[2020-01-23] MEDS: PATIENT'S OWN MEDICATION (NON-FORMULARY) (Doxycycline Monohydrate [Monodox] 100 MG) PO SCH (09:05)
[2020-01-23] MEDS: PRENATAL VITAMINS W/ FOLIC ACID TABLET (FP) PO SCH (09:06)
[2020-01-23] MEDS: FLUOCINONIDE 0.05% TOP OINT (60 GM TUBE) TP SCH (09:06)
[2020-01-23] MEDS: NICOTINE 21 MG/24 HOURS TOPICAL PATCH TD SCH (09:06)
[2020-01-23] MEDS: METHIMAZOLE 10 MG PO SCH (09:06)
[2020-01-23] MEDS: MINERAL OIL/PETROLAT/WATER TOPICAL CREAM 113 GM JAR TP SCH (09:07)
[2020-01-23] MEDS: BUDESONIDE/FORMETEROL FUMARATE 160/4.5 mcg INHALER IH SCH (09:07)
[2020-01-23 10:37] VITALS: BP 136/88; PULSE 65
== END 2020-01-23 09:20 | disposition home or self-care (01) | DRG 772 ==
LOC: YASAS 10:09 → Y3E 11:31
PROVIDERS: ADMIT Allergy & Immunology; ATTEND Allergy & Immunology
PROC: HZ42ZZZ Group Counseling for Substance Abuse Treatment, Cognitive-Behavioral (ICD-10-PCS; principal; 2020-01-09)
DX: F10.20 Alcohol dependence, uncomplicated (principal); F14.20 Cocaine dependence, uncomplicated; F12.20 Cannabis dependence, uncomplicated; F19.20 Other psychoactive substance dependence, uncomplicated; F17.210 Nicotine dependence, cigarettes, uncomplicated; F31.9 Bipolar disorder, unspecified; F25.9 Schizoaffective disorder, unspecified; E87.6 Hypokalemia; E05.90 Thyrotoxicosis, unspecified without thyrotoxic crisis or storm; L40.9 Psoriasis, unspecified; M17.0 Bilateral primary osteoarthritis of knee; M25.571 Pain in right ankle and joints of right foot; G89.29 Other chronic pain; Z86.19 Personal history of other infectious and parasitic diseases; Z88.5 Allergy status to narcotic agent
CPT/HCPCS: 36415; 80053; 81003; 81025; 84132; 84520; 85027; 85660; 86593; 86780

== ENCOUNTER 2021-12-13 09:39 | Emergency (ER) | payer OTHER ==
[2021-12-13 09:47] VITALS: BP 110/72; PULSE 66; RESP 18; TEMP 98.5; BMI 33.3
[2021-12-13] MEDS ORDERED: IBUPROFEN 600 MG TABLET (FP) PO ONE ×2 (10:28→10:40)
== END 2021-12-13 11:22 | disposition home or self-care (01) ==
LOC: JERFT 09:39
DX: S93.602A Unspecified sprain of left foot, initial encounter (principal)
CPT/HCPCS: 73610-TC-LT-FY; 73630-TC-LT; 99284-25

== ENCOUNTER 2022-09-27 09:06 | Inpatient (IN) | payer OTHER ==
[2022-09-27 11:27] VITALS: BMI 26.2
[2022-09-27] MEDS ORDERED: LOPERAMIDE HCL 2 MG CAPSULE PO PRN (13:55)
[2022-09-27] MEDS ORDERED: MAGNESIUM HYDROX 2400MG/30ML ORAL SUSPENSION 30 ML CUP PO PRN (13:55)
[2022-09-27] MEDS ORDERED: POLYETHYLENE GLYCOL (HEALTHYLAX) 3350 17 GM PACKET PO PRN (13:55)
[2022-09-27] MEDS ORDERED: IBUPROFEN 600 MG TABLET (FP) PO PRN (13:55)
[2022-09-27] MEDS ORDERED: NALOXONE HCL 0.4 MG/ML VIAL IM PRN (13:55)
[2022-09-27] MEDS ORDERED: guaiFENesin 600 MG TABLET.ER (FP) PO PRN (13:55)
[2022-09-27] MEDS ORDERED: MAG HYDROX/AL HYDROX/SIMETH 30 ML UNIT-DOSE CUP PO PRN (13:55)
[2022-09-27] MEDS ORDERED: COLLOIDAL OATMEAL 1 BAR EACH TP PRN (13:55)
[2022-09-27] MEDS ORDERED: BENZOCAINE/MENTHOL (CHLORASEPTIC ) LOZENGE MM PRN (13:55)
[2022-09-27] MEDS ORDERED: NICOTINE 10 MG CARTRIDGE (INHALER) IH PRN (13:55)
[2022-09-27] MEDS ORDERED: IBUPROFEN 400 MG TABLET (FP) PO PRN (13:55)
[2022-09-27] MEDS ORDERED: AMMONIUM LACTATE 12% LOTION 225 GM BOTTLE TP PRN (13:55)
[2022-09-27] MEDS ORDERED: BENZONATATE 200 MG CAPSULE PO PRN (13:55)
[2022-09-27] MEDS ORDERED: ACETAMINOPHEN 325 MG TABLET (FP) PO PRN (13:55)
[2022-09-27] MEDS ORDERED: NICOTINE POLACRILEX 4 MG GUM BUC PRN (13:55)
[2022-09-27] MEDS ORDERED: NALOXONE HCL (KLOXXADO) 8 MG SPRAY NS PRN (13:55)
[2022-09-27] MEDS ORDERED: hydrOXYzine PAMOATE 25 MG CAPSULE (FP) PO PRN (13:55)
[2022-09-27] MEDS ORDERED: ALBUTEROL SO4 HFA INHALER IH PRN (13:58)
[2022-09-27] MEDS: metFORMIN HCL 500 MG TABLET (FP) PO SCH (17:36)
[2022-09-27] MEDS: THIAMINE HCL 100 MG TABLET (FP) PO SCH (21:45)
[2022-09-27] MEDS: MELATONIN 5 MG TABLETS PO SCH (21:45)
[2022-09-27] MEDS: BUDESONIDE/FORMETEROL FUMARATE 160/4.5 mcg INHALER IH SCH (21:45)
[2022-09-28] MEDS: metFORMIN HCL 500 MG TABLET (FP) PO SCH ×2 (07:21→16:47)
[2022-09-28] MEDS ORDERED: ERGOCALCIFEROL (VIT D2) 50,000 UNIT (1.25 MG) CAPSULE PO SCH (10:00)
[2022-09-28] MEDS: BUDESONIDE/FORMETEROL FUMARATE 160/4.5 mcg INHALER IH SCH ×2 (10:07→21:43)
[2022-09-28] MEDS: NALTREXONE HCL 50 MG TABLET PO SCH (10:07)
[2022-09-28] MEDS: HALOPERIDOL 5 MG TABLET PO SCH ×2 (10:07→21:43)
[2022-09-28] MEDS: PRENATAL VITAMINS W/ FOLIC ACID TABLET (FP) PO SCH (10:07)
[2022-09-28] MEDS: BENZTROPINE MESYLATE 0.5 MG TABLET (FP) PO SCH ×2 (16:29→21:43)
[2022-09-28] MEDS: FLUOCINONIDE 0.05% TOP OINT (60 GM TUBE) TP SCH ×3 (16:30→21:43)
[2022-09-28] MEDS: THIAMINE HCL 100 MG TABLET (FP) PO SCH (21:43)
[2022-09-28] MEDS: MELATONIN 5 MG TABLETS PO SCH (21:43)
[2022-09-29] MEDS: metFORMIN HCL 500 MG TABLET (FP) PO SCH ×2 (07:23→16:59)
[2022-09-29] MEDS: BUDESONIDE/FORMETEROL FUMARATE 160/4.5 mcg INHALER IH SCH ×2 (09:54→21:48)
[2022-09-29] MEDS: NALTREXONE HCL 50 MG TABLET PO SCH (09:54)
[2022-09-29] MEDS: HALOPERIDOL 5 MG TABLET PO SCH ×2 (09:54→21:48)
[2022-09-29] MEDS: BENZTROPINE MESYLATE 0.5 MG TABLET (FP) PO SCH ×2 (09:55→21:48)
[2022-09-29] MEDS: PRENATAL VITAMINS W/ FOLIC ACID TABLET (FP) PO SCH (09:55)
[2022-09-29] MEDS: FLUOCINONIDE 0.05% TOP OINT (60 GM TUBE) TP SCH ×2 (10:16→21:49)
[2022-09-29 11:00] LABS: POTASSIUM 3.8 mmol/L (3.5-5.1)
[2022-09-29 11:06] LABS: CALCIUM 9.4 mg/dL (8.5-10.1)
[2022-09-29 11:07] LABS: ALBUMIN 3.3 g/dl (3.4-5.0); BLOOD UREA NITROGEN 7.6 mg/dL (7-18)
[2022-09-29 11:09] LABS: CREATININE 0.7 mg/dL (0.55-1.3)
[2022-09-29 11:11] LABS: BILIRUBIN,TOTAL 0.5 mg/dL (0.2-1)
[2022-09-29 11:12] LABS: TOT PROT 6.7 g/dl (6.4-8.2)
[2022-09-29 11:18] LABS: HEMATOCRIT 37.9 % (32.4-45.2); HEMOGLOBIN 12.5 GM/dL (10.7-15.3); MCH 27.3 pg (25.7-33.7); MCHC 32.9 g/dl (32.0-36.0); PLATELET COUNT 325 10^3/uL (134-434); RBC 4.57 M/mm3 (3.60-5.2); RDW 16.4 % (11.6-15.6); WHITE BLOOD COUNT 3.7 K/mm3 (4.0-10.0)
[2022-09-29 12:08] LABS: SYPHILIS W/ RPR CONF REACTIVE (NONREACTIVE)
[2022-09-29] MEDS: MELATONIN 5 MG TABLETS PO SCH (21:47)
[2022-09-29] MEDS: THIAMINE HCL 100 MG TABLET (FP) PO SCH (21:47)
[2022-09-30] MEDS: metFORMIN HCL 500 MG TABLET (FP) PO SCH (07:20)
[2022-09-30 07:28] VITALS: BP 125/73; PULSE 52; RESP 16; TEMP 97.4
[2022-09-30] MEDS: NALTREXONE HCL 50 MG TABLET PO SCH (10:22)
[2022-09-30] MEDS: BUDESONIDE/FORMETEROL FUMARATE 160/4.5 mcg INHALER IH SCH (10:22)
[2022-09-30] MEDS: PRENATAL VITAMINS W/ FOLIC ACID TABLET (FP) PO SCH (10:22)
[2022-09-30] MEDS: HALOPERIDOL 5 MG TABLET PO SCH (10:22)
[2022-09-30] MEDS: BENZTROPINE MESYLATE 0.5 MG TABLET (FP) PO SCH (10:22)
[2022-09-30] MEDS: FLUOCINONIDE 0.05% TOP OINT (60 GM TUBE) TP SCH (10:23)
== END 2022-09-30 16:40 | disposition left against medical advice (07) | DRG 770 ==
LOC: YASAS 09:06 → Y5N 14:47
PROVIDERS: ADMIT Allergy & Immunology; ATTEND Psychiatry & Neurology Pain Medicine
PROC: HZ42ZZZ Group Counseling for Substance Abuse Treatment, Cognitive-Behavioral (ICD-10-PCS; principal; 2022-09-27)
DX: F14.20 Cocaine dependence, uncomplicated (principal); F17.210 Nicotine dependence, cigarettes, uncomplicated; F19.24 Other psychoactive substance dependence with psychoactive substance-induced mood disorder; F25.9 Schizoaffective disorder, unspecified; F31.9 Bipolar disorder, unspecified; E05.90 Thyrotoxicosis, unspecified without thyrotoxic crisis or storm; J45.909 Unspecified asthma, uncomplicated; L40.9 Psoriasis, unspecified; M17.0 Bilateral primary osteoarthritis of knee; M19.041 Primary osteoarthritis, right hand; M19.042 Primary osteoarthritis, left hand; Z86.19 Personal history of other infectious and parasitic diseases; Z88.5 Allergy status to narcotic agent; Z59.02 Unsheltered homelessness; Z56.0 Unemployment, unspecified
CPT/HCPCS: 36415; 80053; 82962; 84443; 85027; 86593; 86780; 86803; 87635; 87811

== ENCOUNTER 2022-12-22 12:10 | Inpatient (IN) | payer OTHER ==
[2022-12-22 12:52] VITALS: BMI 26.9
[2022-12-22] MEDS ORDERED: BENZOCAINE/MENTHOL (CHLORASEPTIC ) LOZENGE MM PRN (13:36)
[2022-12-22] MEDS ORDERED: IBUPROFEN 400 MG TABLET (FP) PO PRN (13:36)
[2022-12-22] MEDS ORDERED: METHOCARBAMOL 500 MG TABLET PO PRN (13:36)
[2022-12-22] MEDS ORDERED: BISMUTH SUBSALICYLATE 524 MG/30 ML PO PRN (13:36)
[2022-12-22] MEDS ORDERED: IBUPROFEN 600 MG TABLET (FP) PO PRN (13:36)
[2022-12-22] MEDS ORDERED: ACETAMINOPHEN 325 MG TABLET (FP) PO PRN (13:36)
[2022-12-22] MEDS ORDERED: POLYETHYLENE GLYCOL (HEALTHYLAX) 3350 17 GM PACKET PO PRN (13:36)
[2022-12-22] MEDS ORDERED: guaiFENesin 600 MG TABLET.ER (FP) PO PRN (13:36)
[2022-12-22] MEDS ORDERED: ONDANSETRON *ODT* 4 MG TABLET SL PRN (13:36)
[2022-12-22] MEDS ORDERED: BENZONATATE 200 MG CAPSULE PO PRN (13:36)
[2022-12-22] MEDS ORDERED: LOPERAMIDE HCL 2 MG CAPSULE PO PRN (13:36)
[2022-12-22] MEDS ORDERED: DICYCLOMINE HCL 10 MG CAPSULE PO PRN (13:36)
[2022-12-22] MEDS ORDERED: MAGNESIUM HYDROX 2400MG/30ML ORAL SUSPENSION 30 ML CUP PO PRN (13:36)
[2022-12-22] MEDS ORDERED: MAG HYDROX/AL HYDROX/SIMETH 30 ML UNIT-DOSE CUP PO PRN (13:36)
[2022-12-22] MEDS ORDERED: hydrOXYzine PAMOATE 25 MG CAPSULE (FP) PO PRN (13:36)
[2022-12-22] MEDS ORDERED: NALOXONE HCL 0.4 MG/ML VIAL IM PRN (13:36)
[2022-12-22] MEDS ORDERED: NALOXONE HCL (KLOXXADO) 8 MG SPRAY NS PRN (13:36)
[2022-12-22] MEDS: THIAMINE HCL 100 MG TABLET (FP) PO SCH (23:28)
[2022-12-22] MEDS: MELATONIN 5 MG TABLETS PO SCH (23:28)
[2022-12-23] MEDS ORDERED: ALBUTEROL SO4 HFA INHALER IH PRN (08:11)
[2022-12-23] MEDS ORDERED: LORazepam 1 MG TABLET PO PRN (10:20)
[2022-12-23 10:50] LABS: HEMATOCRIT 35.3 % (32.4-45.2); HEMOGLOBIN 11.3 GM/dL (10.7-15.3); MCH 28.2 pg (25.7-33.7); MEAN CELL VOLUME 88.2 fl (80-96); MEAN PLT VOLUME 7.7 fl (7.5-11.1); PLATELET COUNT 347 10^3/uL (134-434); RDW 15.2 % (11.6-15.6); WHITE BLOOD COUNT 3.9 K/mm3 (4.0-10.0)
[2022-12-23] MEDS: PRENATAL VITAMINS W/ FOLIC ACID TABLET (FP) PO SCH (10:55)
[2022-12-23] MEDS: BUDESONIDE/FORMETEROL FUMARATE 160/4.5 mcg INHALER IH SCH ×2 (10:56→22:37)
[2022-12-23 10:58] LABS: POTASSIUM 3.3 mmol/L (3.5-5.1)
[2022-12-23] MEDS: LORazepam 2 MG TABLET PO SCH ×3 (10:58→22:37)
[2022-12-23 11:04] LABS: CALCIUM 8.7 mg/dL (8.5-10.1)
[2022-12-23 11:05] LABS: ALBUMIN 3.3 g/dl (3.4-5.0); BLOOD UREA NITROGEN 3.8 mg/dL (7-18)
[2022-12-23 11:08] LABS: CREATININE 0.6 mg/dL (0.55-1.3)
[2022-12-23 11:10] LABS: BILIRUBIN,TOTAL 0.2 mg/dL (0.2-1)
[2022-12-23] MEDS: GABAPENTIN 400 MG CAPSULE PO SCH ×3 (14:47→22:36)
[2022-12-23] MEDS ORDERED: HALOPERIDOL DECANOATE 500 MG/5ML MDV IM ONE (15:00)
[2022-12-23] MEDS ORDERED: BENZTROPINE MESYLATE 1 MG TABLET PO SCH (22:00)
[2022-12-23] MEDS: MELATONIN 5 MG TABLETS PO SCH (22:36)
[2022-12-23] MEDS: THIAMINE HCL 100 MG TABLET (FP) PO SCH (22:36)
[2022-12-24] MEDS: GABAPENTIN 400 MG CAPSULE PO SCH ×2 (06:00→13:10)
[2022-12-24] MEDS: LORazepam 1 MG TABLET PO SCH ×3 (06:00→18:01)
[2022-12-24] MEDS: BUDESONIDE/FORMETEROL FUMARATE 160/4.5 mcg INHALER IH SCH (10:41)
[2022-12-24] MEDS: PRENATAL VITAMINS W/ FOLIC ACID TABLET (FP) PO SCH (10:41)
[2022-12-24] MEDS ORDERED: PENICILLIN G BENZATHINE 2,400,000 UNIT/4 ML PFS IM ONE (11:12)
[2022-12-24 12:45] VITALS: RESP 18
[2022-12-24 17:10] VITALS: BP 118/67; PULSE 74; TEMP 97.6
[2022-12-24] MEDS: POTASSIUM CHLORIDE ORAL LIQUID 20 MEQ/15 ML PO SCH ×2 (18:02→18:30)
[2022-12-25] MEDS ORDERED: LORazepam 0.5 MG TABLET PO SCH (05:00)
[2022-12-26] MEDS ORDERED: LORazepam 0.5 MG TABLET PO ONE (05:00)
== END 2022-12-24 18:32 | disposition left against medical advice (07) | DRG 770 ==
LOC: YASAS 12:10 → Y6N 14:02
PROVIDERS: ADMIT Allergy & Immunology; ATTEND Surgery
PROC: HZ2ZZZZ Detoxification Services for Substance Abuse Treatment (ICD-10-PCS; principal; 2022-12-22)
DX: F10.230 Alcohol dependence with withdrawal, uncomplicated (principal); F14.20 Cocaine dependence, uncomplicated; F16.20 Hallucinogen dependence, uncomplicated; F12.20 Cannabis dependence, uncomplicated; F17.210 Nicotine dependence, cigarettes, uncomplicated; F19.280 Other psychoactive substance dependence with psychoactive substance-induced anxiety disorder; F25.9 Schizoaffective disorder, unspecified; F31.9 Bipolar disorder, unspecified; E05.90 Thyrotoxicosis, unspecified without thyrotoxic crisis or storm; E11.9 Type 2 diabetes mellitus without complications; Z79.84 Long term (current) use of oral hypoglycemic drugs; L40.9 Psoriasis, unspecified; M17.0 Bilateral primary osteoarthritis of knee; M19.041 Primary osteoarthritis, right hand; M19.042 Primary osteoarthritis, left hand; Z86.19 Personal history of other infectious and parasitic diseases; Z88.8 Allergy status to other drugs, medicaments and biological substances
CPT/HCPCS: 36415; 80053; 81025; 82962; 85027; 86593; 86780; 87635